=== PATIENT | female | born 1940 | race Caucasian/White ===

== ENCOUNTER 2017-01-29 10:42 | Day surgery (SDC) | payer OTHER ==
[2017-01-09 10:42] VITALS: BMI 27.0
--- NOTE | 2017-01-09 11:26 | PAT Medication Instructions ---
"Service Date Jan 09, 2017. Current Home Medication List Amoxicillin (Amoxil), 500 MG PO DAILY Aspirin (Aspirin Ec), 81 MG PO QAM Atorvastatin (Lipitor), 40 MG PO QPM Baclofen (Baclofen), 10 MG PO BID Bisacodyl (Bisacodyl Laxative), 10 MG RE DAILY PRN for Constipation Docusate Sodium (Colace), 1 CAP PO BID Doxepin Hcl (Doxepin), 75 MG PO HS Famotidine (Pepcid), 20 MG PO BID Furosemide (Lasix), 20 MG PO QAM Insulin Glargine (Lantus), 14 UNITS SC HS Levetiracetam (Keppra), 500 MG PO BID Levothyroxine Sodium (Synthroid), 1 TAB PO QAM Morphine Cont Rel (Ms Contin), 7.5 MG PO Q3 HR Nystatin/Triamcinolone (Mycogen || ), 1 APPLN TOP BID Ondasetron Odt (Zofran Odt), 4 MG SL TID PRN for Nausea or Vomiting Oxygen (Oxygen), 2 LITERS NA PRN PRN for Shortness of Breath Potassium Chloride (Micro-K Ext Rel), 20 MEQ PO QAM Probiotic Product (Probiotic), 1 CAP PO QAM Sennosides-Docusate Sodium (Senokot S), 1 TAB PO DAILY PRN for Constipation Trazodone HCl (Trazodone HCl), 1 TAB PO HS Zoledronic Acid (Reclast), Unknown Dose IV DIRECTED [Inhaler], Unknown Dose Medication Instructions For Your Scheduled Surgery - Hold the following medications per surgeon's instructions: Aspirin (Aspirin Ec), 81 MG PO QAM - Hold the following medications 24 hours prior to surgery: Nystatin/Triamcinolone (Mycogen || ), 1 APPLN TOP BID - Hold the following medications the morning of surgery: Baclofen (Baclofen), 10 MG PO BID Bisacodyl (Bisacodyl Laxative), 10 MG RE DAILY PRN for Constipation Furosemide (Lasix), 20 MG PO QAM Docusate Sodium (Colace), 1 CAP PO BID Potassium Chloride (Micro-K Ext Rel), 20 MEQ PO QAM Probiotic Product (Probiotic), 1 CAP PO QAM Sennosides-Docusate Sodium (Senokot S), 1 TAB PO DAILY PRN for Constipation - Take the following medications the morning of surgery with a sip of water OTHERWISE NOTHING TO EAT OR DRINK AFTER MIDNIGHT: Levetiracetam (Keppra), 500 MG PO BID Amoxicillin (Amoxil), 500 MG PO DAILY [Inhaler], Unknown Dose (use if needed; BRING TO HOSPITAL) Levothyroxine Sodium (Synthroid), 1 TAB PO QAM Ondasetron Odt (Zofran Odt), 4 MG SL TID PRN for Nausea or Vomiting Famotidine (Pepcid), 20 MG PO BID Morphine Cont Rel (Ms Contin), 7.5 MG PO Q3 HR (may take if needed up to 4 hours prior to surgery) - Take the following medications as scheduled the night before surgery: Insulin Glargine (Lantus), 14 UNITS SC HS (pt states advised by surgeon to take half of regular dose evening prior to surgery) Levetiracetam (Keppra), 500 MG PO BID Atorvastatin (Lipitor), 40 MG PO QPM Baclofen (Baclofen), 10 MG PO BID Docusate Sodium (Colace), 1 CAP PO BID [Inhaler], Unknown Dose Ondasetron Odt (Zofran Odt), 4 MG SL TID PRN for Nausea or Vomiting Famotidine (Pepcid), 20 MG PO BID Doxepin Hcl (Doxepin), 75 MG PO HS Trazodone HCl (Trazodone HCl), 1 TAB PO HS Morphine Cont Rel (Ms Contin), 7.5 MG PO Q3 HR If you have any questions please call us at [phone] or [phone] or [phone]"
[2017-01-09 11:51] LABS: BASO % 0.2 %; BASO ABS # 0.03 K/uL (0-0.2); COMPLETE YES; EOS % 1.7 %; HEMATOCRIT 39.4 % (37-47); IG% 0.5 %; LYMPH % 21.6 %; LYMPH ABS # 2.87 K/uL (1.2-3.4); MEAN CELL VOLUME 94.5 fL (80-100); MEAN CORPUSCULAR HEMOGLOBIN 32.6 pg (25-34); MEAN CORPUSCULAR HGB CONC 34.5 g/dl (32-36); MONO % 8.7 %; NEUT % 67.3 %; PLATELET COUNT 422 K/uL (130-400); RED BLOOD COUNT 4.17 M/uL (4.2-5.4); WHITE BLOOD COUNT 13.28 K/uL (4.8-10.8)
[2017-01-09 12:10] LABS: URINE APPEARANCE CLEAR (CLEAR); URINE BILIRUBIN NEG (NEG); URINE COLOR YELLOW; URINE NITRITE NEG (NEG); URINE SPECIFIC GRAVITY 1.001 (1.000-1.030); UROBILINOGEN NEG (NEG)
[2017-01-09 12:14] LABS: MANUAL MICROSCOPIC REQUIRED? NO; REVIEW REQ? YES
[2017-01-09 12:14] LABS: BUN/CREATININE RATIO 31.4 (10-20); CALCIUM 8.9 mg/dl (8.5-10.1); CREATININE 0.57 mg/dl (0.60-1.20); POTASSIUM 3.4 mmol/L (3.5-5.1)
--- NOTE | 2017-01-09 13:27 | DIAGNOSTIC IMAGING REPORT ---
CHEST PREADMISSION(PA/LAT) CLINICAL HISTORY: Preoperative evaluation. Recent pneumonia. COMPARISON STUDY: Chest CT October 30, 2016 and chest radiograph November 08, 2016 FINDINGS: A cervicothoracic fusion is incidentally noted. Wedge deformities of several vertebral bodies are unchanged. There is no evidence of pulmonary edema. Cardiomediastinal silhouette is stable. Mild opacity along the left heart border likely reflects epicardial fat pad and atelectasis. Left lower lobe opacity shown on exam of November 08, 2016 has resolved. There are old bilateral rib fractures. IMPRESSION: No acute findings. Interval resolution of left lower lobe pneumonia shown on prior exam. Electronically signed by: Sanya Britton M.D. 01/09/2017 1:25 PM Dictated Date/Time: 01/09/2017 1:23 PM
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
[~2017-01-29] VITALS: Ht 147.3 cm; Wt 59.1 kg
[~2017-01-29 10:42] MED LIST: AMOX500C3 PO; ASPI81TA28 PO; BISA1SUP4 RE; CEFAZOLIN 2000 MG/60 ML D5W IV SCH; DOCU-94 PO; DSY/150 PO; DXP/75 PO; FAMO20TA11 PO; FURO-85 PO; INHALER; INSDGI SC; LACTATED RINGER'S 1000ML 1,000 ML IV SCH; LEVE250T PO; LEVO25TA PO; LPT/40 PO; LRS20 PO; MISCCAP80 PO; MORP15TA19 PO; NYSTCRE11 TOP; ONDA4TAB10 SL; OXGN; POTA10CA28 PO; SENN8.6T7 PO; ZOLE5INJ IV
--- NOTE | 2017-01-29 11:24 | History & Physical Bridge Note ---
H&P Re-Evaluation Bridge Note: I have examined the patient, reviewed the History & Physical and in the interval since the performance of the History & Physical I have noted the following changes of clinical significance: No changes noted
[2017-01-29 11:33] VITALS: BP 143/70; PULSE 93; TEMP 37.6; O2SAT 93; Ht 147.3 cm; Wt 59.1 kg
[2017-01-29 11:57] LABS: BUN/CREATININE RATIO 22.6 (10-20); CALCIUM 9.2 mg/dl (8.5-10.1); CREATININE 0.53 mg/dl (0.60-1.20); POTASSIUM 4.1 mmol/L (3.5-5.1)
[2017-01-29] MEDS ORDERED: LIDOCAINE HCL 2% 2 ML VIAL (20MG/ML) ONE (12:27)
[2017-01-29] MEDS ORDERED: MIDAZOLAM HCL 1 MG/ML 2ML VIAL ONE (12:27)
[2017-01-29] MEDS ORDERED: FENTANYL CITRATE INJ 50 MCG/1 ML 2 ML VIAL ONE ×3 (12:27→13:55)
[2017-01-29] MEDS ORDERED: PROPOFOL IV EMULSION 10 MG/ML 20 ML VIAL IV ONE ×2 (12:27→13:17)
[2017-01-29] MEDS ORDERED: LIDOCAINE HCL 2% LOCAL 50ML VIAL ONE (12:37)
[2017-01-29] MEDS ORDERED: ONDANSETRON INJ 2 MG/ML 2 ML VIAL IV PRN (13:15)
[2017-01-29] MEDS ORDERED: ATROPINE SULFATE 0.1 MG/ML 5ML SYR IV PRN (13:15)
[2017-01-29] MEDS ORDERED: EpHEDrine SULFATE INJ 50 MG/ML AMP IV PRN (13:15)
--- NOTE | 2017-01-29 13:53 | [facility] Operative Report ---
Operative Report Operative Date Jan 29, 2017. 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 Trans- sacrococcygeal ligament approach. Surgeon Dr. Marvin Cervantes Small Engine Technician Surgeon(s) None Estimated Blood Loss 0ml Findings See below Specimens none per surgeon Dr. Marvin Cervantes Drains none Anesthesia monitored anesthesia care Complication(s) None Disposition Recovery Room / PACU Description of Procedure RADIOFREQUENCY ABLATION GANGLION IMPAR (BIPOLAR) Diagnosis: Chronic neuropathic perineal/perirectal pain. Side/Level injected: Transfer sacrococcygeal ligament. Surgeon: Dr. Cervantes Prior to starting, the Patients diagnosis and the procedure were reviewed with the patient in detail. Possible risks and complications including infection, bleeding, damage to surrounding structures and increased pain were discussed. Alternative therapies were also reviewed. Patients questions were answered and they agreed to proceed. Informed consent was obtained. Allergies and medication list was reviewed. The patient was brought to the procedure room and placed in prone position. Immediately prior to starting the procedure, a time out was conducted with the staff and the patient where the patient was identified, proposed procedure was verified, consent was reviewed and the proper site for the planned procedure was identified. Monitors used included intermittent blood pressure with automated device, continuous pulse oximetry and level of consciousness. Patient was not given any intravenous sedation and constant verbal contact was maintained throughout the procedure. Biplanar fluoroscopy was used to assist in placement of the needle as well as to evaluate final needle position prior to the injection. On examination, no signs of skin breakdown or infection were noted at the injection site. The site was cleansed with DuraPrep followed by Betadine. Sterile drapes were applied. A true AP view of the sacrococcygeal ligament was obtained. 3 mL of 1% lidocaine was infiltrated in the skin and subcutaneous tissues. A 18 G, 100 mm [employer] cannula with 10 mm curved active tip was passed through the center of sacrococcygeal ligament in AP and then in lateral views so that the active tip was just through the anterior aspect of the ligament. Once cc of Isovue-M 300 contrast injected. Aspiration of needle was negative for blood, air or CSF. Next, a second cannula was placed in similar fashion approximately 2 mm left of the previous cannula. 2ml ofl 2% Xylocaine MPF was injected for anesthesia. Radio-frequency treatment was carried out for 100 seconds with the ramp rate of 30 seconds and temperature of 90 degrees Celsius. At the conclusion of the procedure, the cannulas were removed. Adequate hemostasis was noted. Sterile Band-Aids were applied over the needle sites. Patient tolerated the procedure uneventfully without complications. Patient was brought to recovery room. I attest to the content of the Intraoperative Record and any orders documented therein. Any exceptions are noted below.
--- NOTE | 2017-01-29 14:11 | Anesthesiology Progress Note ---
Anesthesia Post Op Note Date & Time Jan 29, 2017 at 14:11 Vital Signs Vital Signs Past 12 Hours Date Time Temp Pulse Resp B/P Pulse Ox O2 Delivery O2 Flow Rate FiO2 01/29/17 11:33 37.6 93 18 143/70 93 Room Air Notes Mental Status: alert / awake / arousable, participated in evaluation Pt Amnestic to Procedure: Yes Nausea / Vomiting: adequately controlled Pain: adequately controlled Airway Patency, RR, SpO2: stable & adequate BP & HR: stable & adequate Hydration State: stable & adequate Anesthetic Complications: no major complications apparent
[2017-01-29] MEDS: FENTANYL CITRATE INJ 50 MCG/1 ML 2 ML VIAL IV PRN ×4 (14:20→14:35)
--- NOTE | 2017-01-29 14:23 | Discharge Instructions ---
Discharge Instructions Visit Reason for Visit: Chronic Intractable Perirectal Pain Of Neuropathic Discharge Goals Goal(s): Decrease discomfort, Improve function Activity Recommendations Activity Recommendations: No Limitations Lifting Limitations: none May Resume Sexual Activity: when tolerated Anesthesia . Post Anesthesia Instructions: If you have had General Anesthesia or IV Sedation: * Do not drive today. * Resume driving when surgeon permits. * Do not make important decisions or sign legal documents today. * Call surgeon for: * Temperature elevations greater than 101 degrees F. * Uncontrollable pain. * Excessive bleeding. * Persistent nausea and vomiting. * Medication intolerance (nausea, vomiting or rash). * For nausea and vomiting use only clear liquids such as: tea, soda, bouillon until nausea subsides, then gradually increase diet as tolerated. * If you have any concerns or questions, call your surgeon's office. If physician is unavailable and it is an emergency, call 911 or go to the nearest emergency room. . Instructions Instructions / Follow-Up . * Change dressings daily. Apply sterile dry gauze. * Call [facility] [phone] or go to the nearest emergency room if he experience high fevers, new back pain, new neurological symptoms such as numbness or weakness in the lower extremity or new bowel bladder incontinence. Also of call if he experience a headache that is positional. * Wear abdominal binder. * No showers for 3 days. * Resume normal activity. No repetitive bending, twisting or reaching overhead for 2 weeks. Do not lift more than 5 pounds for 2 weeks. . Diet Recommendations Home Diet: resume previous diet Procedures Procedures Performed: Ganglion Impar Radiofrequency Ablation Pending Studies Studies pending at discharge: no Medical Emergencies . Who to Call and When: Medical Emergencies: If at any time you feel your situation is an emergency, please call 911 immediately. . Non-Emergent Contact . . "Provider Documentation" section prepared by Marvin Cervantes.
[2017-01-29 15:00] VITALS: BP 148/77; PULSE 92; TEMP 37; O2SAT 97
[2017-01-29 15:30] VITALS: BP 132/79; PULSE 98; TEMP 36.5; O2SAT 100
[2017-01-29 16:00] VITALS: BP 156/80; PULSE 102; TEMP 37; O2SAT 99
[2017-03-18] MEDS ORDERED: LORA-741 PO (13:44)
[2017-04-01] MEDS ORDERED: DRGTP50 TOP (10:53)
[2017-05-16] MEDS ORDERED: Exalgo (11:15)
[2017-06-24] MEDS ORDERED: AMOX500C3 PO (16:04)
[2017-06-24] MEDS ORDERED: CIPR1TAB11 PO (16:04)
[2017-06-24] MEDS ORDERED: MRLP17 PO (16:04)
[2017-06-24] MEDS ORDERED: DFL100 PO (16:04)
[2017-06-24] MEDS ORDERED: SNK PO (16:04)
[2017-06-24] MEDS ORDERED: DLD2 PO (16:04)
[2017-06-24] MEDS ORDERED: LEVO50TA PO (16:04)
[2017-06-24] MEDS ORDERED: NVLGIPEN SC (16:04)
[2017-06-24] MEDS ORDERED: CLIN150C PO (16:04)
[2017-07-01] MEDS ORDERED: QUET1TAB32 PO (08:10)
[2017-07-01] MEDS ORDERED: LORA-741 PO (08:10)
[2017-07-01] MEDS ORDERED: ATOR-24 PO (08:10)
[2017-07-01] MEDS ORDERED: HYDR2TAB48 PO (08:10)
[2017-07-01] MEDS ORDERED: ZOLP5TAB6 PO (08:10)
[2017-07-01] MEDS ORDERED: CYM/30 PO (08:10)
[2017-09-03] MEDS ORDERED: CIPR1TAB11 PO (07:41)
[2017-09-03] MEDS ORDERED: CLIN1CAP51 PO (07:41)
[2017-09-03] MEDS ORDERED: AMOX500C3 PO (07:41)
== END 2017-01-29 16:35 | disposition home or self-care (01) ==
LOC: C.ACU 10:42
PROVIDERS: ATTEND Anesthesiology
DX: K62.89 Other specified diseases of anus and rectum (principal); G89.29 Other chronic pain; G82.20 Paraplegia, unspecified; E03.9 Hypothyroidism, unspecified; E11.22 Type 2 diabetes mellitus with diabetic chronic kidney disease; N18.9 Chronic kidney disease, unspecified; K21.9 Gastro-esophageal reflux disease without esophagitis; M19.90 Unspecified osteoarthritis, unspecified site; J45.909 Unspecified asthma, uncomplicated; F32.9 Major depressive disorder, single episode, unspecified; Z88.2 Allergy status to sulfonamides; Z85.828 Personal history of other malignant neoplasm of skin; Z87.891 Personal history of nicotine dependence; Z79.4 Long term (current) use of insulin; Z79.82 Long term (current) use of aspirin; Z79.899 Other long term (current) drug therapy; Z90.89 Acquired absence of other organs; Z90.49 Acquired absence of other specified parts of digestive tract; Z90.710 Acquired absence of both cervix and uterus; Z98.890 Other specified postprocedural states

== ENCOUNTER 2017-02-06 15:12 | Emergency (ER) | payer OTHER ==
[~2017-02-06] VITALS: Ht 147.3 cm; Wt 60.0 kg
[~2017-02-06 15:12] MED LIST changes: -CEFAZOLIN 2000 MG/60 ML D5W IV SCH; -INHALER; -LACTATED RINGER'S 1000ML 1,000 ML IV SCH; -LEVE250T PO
[2017-02-06 15:24] VITALS: Ht 147.3 cm; Wt 60.0 kg
[2017-02-06 15:29] VITALS: O2SAT 99
[2017-02-06] MEDS ORDERED: HYDROmorphone INJ 1 MG/ML SYR IV PRN (16:00)
[2017-02-06 16:29] LABS: BASO % 0.5 %; BASO ABS # 0.07 K/uL (0-0.2); COMPLETE YES; EOS % 1.2 %; HEMATOCRIT 39.5 % (37-47); IG% 0.3 %; LYMPH % 20.1 %; LYMPH ABS # 2.92 K/uL (1.2-3.4); MEAN CELL VOLUME 92.5 fL (80-100); MEAN CORPUSCULAR HEMOGLOBIN 31.4 pg (25-34); MEAN CORPUSCULAR HGB CONC 33.9 g/dl (32-36); MEAN PLATELET VOLUME 11.5 fL (7.4-10.4); MONO % 8.3 %; NEUT % 69.6 %; PLATELET COUNT 514 K/uL (130-400); RED BLOOD COUNT 4.27 M/uL (4.2-5.4); WHITE BLOOD COUNT 14.52 K/uL (4.8-10.8)
[2017-02-06] MEDS ORDERED: CIPR1TAB11 PO (16:37)
[2017-02-06] MEDS ORDERED: CLIN150C PO (16:39)
[2017-02-06] MEDS ORDERED: LEVE250T PO (16:44)
--- NOTE | 2017-02-06 16:45 | DIAGNOSTIC IMAGING REPORT ---
KUB CLINICAL HISTORY: perirectal surgery ?obstructed pain. Obstruction. COMPARISON STUDY: 04/14/2016 FINDINGS: Apparent interval fracture intertrochanteric region right hip. Age is unclear although was not present on the prior study. Bowel pattern is nonobstructive. There is a mild increase in fecal load descending colon. There is no true fecal impaction. IMPRESSION: 1. No evidence of bowel obstruction. 2. Intertrochanteric fracture right hip not definitively seen in the prior study. This may be subacute in nature , although an acute component is not excluded. Electronically signed by: Jas Nicole M.D. 02/06/2017 4:44 PM Dictated Date/Time: 02/06/2017 4:42 PM
[2017-02-06] MEDS ORDERED: OMEP40CA41 PO (16:47)
[2017-02-06 16:58] LABS: BUN/CREATININE RATIO 18.6 (10-20); CALCIUM 8.8 mg/dl (8.5-10.1); CREATININE 0.49 mg/dl (0.60-1.20); POTASSIUM 3.3 mmol/L (3.5-5.1)
[2017-02-06 17:01] LABS: ALB/GLOB RATIO 0.9 (0.9-2)
[2017-02-06] MEDS ORDERED: HYDROmorphone INJ 1 MG/ML SYR IV STA ×3 (17:40→21:13)
--- NOTE | 2017-02-06 18:03 | EMERGENCY ROOM VISIT NOTE ---
History First contact with patient: 15:47 (Gertrudis Staton MD) First contact with patient: 15:17 (Paul Montgomery, D.O.) Chief Complaint: SHORTNESS OF BREATH Stated Complaint: SOB, RECTAL PAIN Nursing Triage Summary: Pt to ED via ALS. Pt reports SOB for 1.5 weeks. At baseline wears 2LNC HS and PRN. States she has been wearing it nonstop for 1.5 weeks. Also reports rectal pain since procedure done 8 days ago. Hx paralyzed breast down, WADE. (Gertrudis Staton MD) History of Present Illness The patient is a 76 year old paraplegic female who presents to the Emergency Room with complaints of persistent rectal pain. She had a radiofrequency ablation of rectal ganglion procedure done [address] Cervantes. She said it initially provided some relief, but 3 days ago she developed persistent lower rectal pain. She reports she hasn't started passing stool. Patient is passing gas, and feels her pain is more localized from the rectum as opposed to her abdomen. She has been taking morphine 7.5 mg 3 times a day and does not feel this is helping her symptoms. She also has a urinary catheter and has a history of frequent UTIs.She did initially report feeling short of breath but feels this is due to being in severe pain. Her saturations have been 98% on room air, but she asked for oxygen for comfort. She denies any fevers, nausea, or vomiting. She lives at home with her who takes care of her and has home health aides who come in daily as well. (Gertrudis Staton MD) Review of Systems See HPI for pertinent positives & negatives. A total of 10 systems reviewed and were otherwise negative. (Gertrudis Staton MD) Past Medical/Surgical History Medical Problems: (1) Acetaminophen overdose (2) Chest pain (3) Gall bladder disease (4) Hip fracture (5) indwelling catheter and recurrence UTI (6) indwelling catheter and recurrence UTI (7) Left lower lobe pneumonia (8) Paralysis of both lower limbs (9) Rectal pain, chronic (10) UTI (urinary tract infection) (11) uti possible sepsis, consipation (Paul Montgomery, D.O.) Family History Patient reports no known family medical history. (Gertrudis Staton MD) Patient reports no known family medical history. (Paul Montgomery, D.ONita) Social History Smoking Status: Former Smoker Alcohol Use: none Drug Use: none Marital Status: Housing Status: lives with family Occupation Status: disabled (Gertrudis Staton MD) Current/Historical Medications Scheduled Amoxicillin (Amoxil), 500 MG PO DAILY Aspirin (Aspirin Ec), 81 MG PO QAM Atorvastatin (Lipitor), 40 MG PO QPM Baclofen (Baclofen), 10 MG PO BID Ciprofloxacin Tab (Cipro), 250 MG PO DAILY Clindamycin Hcl (Cleocin), 150 MG PO DAILY Docusate Sodium (Colace), 1 CAP PO BID Doxepin Hcl (Doxepin), 75 MG PO HS Famotidine (Pepcid), 20 MG PO BID Furosemide (Lasix), 20 MG PO QAM Insulin Glargine (Lantus), 14 UNITS SC HS Levetiracetam (Keppra), 500 MG PO BID Levothyroxine Sodium (Synthroid), 1 TAB PO QAM Morphine Cont Rel (Ms Contin), 7.5 MG PO Q3 HR Nystatin/Triamcinolone (Mycogen || ), 1 APPLN TOP BID Omeprazole (Prilosec), 40 MG PO DAILY Potassium Chloride (Micro-K Ext Rel), 20 MEQ PO BID Trazodone HCl (Trazodone HCl), 1 TAB PO HS Scheduled PRN Bisacodyl (Bisacodyl Laxative), 10 MG RE DAILY PRN for Constipation Ondasetron Odt (Zofran Odt), 4 MG SL TID PRN for Nausea or Vomiting Oxygen (Oxygen), 2 LITERS NA PRN PRN for Shortness of Breath Sennosides-Docusate Sodium (Senokot S), 1 TAB PO BID PRN for Constipation Allergies Coded Allergies: Ketorolac (Verified Allergy, Severe, see comment, 02/06/17) Patient reports " i about " when asked about reaction JET Inhibitors (Verified Allergy, Intermediate, ELEVATES CREATININE, ) Sulfa Antibiotics (Verified Adverse Reaction, Intermediate, NAUSEATED, 02/06) Physical Exam Vital Signs Date Time Temp Pulse Resp B/P Pulse Ox O2 Delivery O2 Flow Rate FiO2 02/06/17 21:29 95 20 150/84 97 02/06/17 19:45 36.6 110 18 110/70 100 Nasal Cannula 2.0 02/06/17 17:46 95 16 105/68 98 Nasal Cannula 2.0 02/06/17 16:16 75 02/06/17 15:29 99 Nasal Cannula 02/06/17 15:24 36.6 91 19 158/62 99 Room Air 02/06/17 15:24 98 Room Air (Paul Montgomery, D.Jo-Ann) Physical Exam GENERAL: Awake, alert, mild distress. HENT: Normocephalic, atraumatic. Oropharynx unremarkable. EYES: Normal conjunctiva. Sclera non-icteric. NECK: Supple. No nuchal rigidity. FROM. No JVD. RESPIRATORY: Clear to auscultation. CARDIAC: Regular rate, normal rhythm. Extremities warm and well perfused. Pulses equal. ABDOMEN: Soft, non-distended. No tenderness to palpation. No rebound or guarding. No masses. RECTAL: Completed with nurse Reyna present and verbal consent from patient. Small amounts of soft stool in rectum. Guaic negative. MUSCULOSKELETAL: Chest examination reveals no tenderness.Legs have bilateral muscle wasting and are flexed in contracted state. LOWER EXTREMITIES: Calves are equal size bilaterally and non-tender. No edema. No discoloration. NEURO: Normal sensorium. No sensory or motor deficits noted. SKIN: No rash or jaundice noted. (Gertrudis Staton MD) Medical Decision & Procedures ER Provider Diagnostic Interpretation: KUB CLINICAL HISTORY: perirectal surgery ?obstructed pain. Obstruction. COMPARISON STUDY: 04/14/2016 FINDINGS: Apparent interval fracture intertrochanteric region right hip. Age is unclear although was not present on the prior study. Bowel pattern is nonobstructive. There is a mild increase in fecal load descending colon. There is no true fecal impaction. IMPRESSION: 1. No evidence of bowel obstruction. 2. Intertrochanteric fracture right hip not definitively seen in the prior study. This may be subacute in nature , although an acute component is not excluded. CT SCAN OF THE RIGHT HIP WITHOUT IV CONTRAST CLINICAL HISTORY: Intertrochanteric fracture. COMPARISON STUDY: KUB dated 02/06/2017. Pelvic CT dated 10/30/2016. Radiographs of the right hip dated 05/03/2016. TECHNIQUE: CT scan of the left hip is performed from the bony pelvis to the femoral diaphysis. Images were reviewed in the axial, sagittal, and coronal planes. IV contrast was not administered for this examination. CT DOSE: 531.41 mGy.cm FINDINGS: The skeletal structures are osteopenic. There is a chronic intertrochanteric fracture of the right femur. This was acute by radiograph on 05/03/2016. There is extensive bony bridging and heterotopic bone formation around the fracture. There is partial nonfusion of several corticated-appearing fragments. There is persistent offset of the fragments, with mild angulation. Developing pseudoarthrosis is suspected. No definite acute fracture is identified. There is soft tissue induration around the fracture site, similar to the 10/30/2016 examination. No organized hematoma is seen. There are healed right pubic ring fractures. The visualized right hemipelvis is otherwise intact. Only mild arthritic changes seen in the hip joint. The regional musculature is atrophic. Atherosclerotic calcification is noted in the right femoral artery. The bladder is decompressed around a Wade catheter. Diverticula are noted in the partially imaged sigmoid colon. There is rectosigmoid fecal impaction. No right pelvic sidewall or inguinal lymphadenopathy is seen. IMPRESSION: 1. There is a chronic intertrochanteric fracture of the right femur with persistent angulation, offset of the largest fragments, and nonunion of several fragments. Developing pseudoarthrosis is suspected, and the appearance is similar to the 10/30/2016 CT scan. Nonemergent orthopedic follow-up is recommended. 2. No acute fracture is clearly identified. 3. Additional changes as above. (Gertrudis Staton MD) Laboratory Results 02/06/17 16:15 Red Blood Count 4.27, Mean Corpuscular Volume 92.5, Mean Corpuscular Hemoglobin 31.4, Mean Corpuscular Hemoglobin Concent 33.9, Mean Platelet Volume 11.5, Neutrophils (%) (Auto) 69.6, Lymphocytes (%) (Auto) 20.1, Monocytes (%) (Auto) 8.3, Eosinophils (%) (Auto) 1.2, Basophils (%) (Auto) 0.5, Neutrophils # (Auto) 10.11, Lymphocytes # (Auto) 2.92, Monocytes # (Auto) 1.20, Eosinophils # (Auto) 0.17, Basophils # (Auto) 0.07 02/06/17 16:15 Test 02/06/17 16:15 White Blood Count 14.52 K/uL (4.8-10.8) Red Blood Count 4.27 M/uL (4.2-5.4) Hemoglobin 13.4 g/dL (12.0-16.0) Hematocrit 39.5 % (37-47) Mean Corpuscular Volume 92.5 fL (80-100) Mean Corpuscular Hemoglobin 31.4 pg (25-34) Mean Corpuscular Hemoglobin Concent 33.9 g/dl (32-36) Platelet Count 514 K/uL (130-400) Mean Platelet Volume 11.5 fL (7.4-10.4) Neutrophils (%) (Auto) 69.6 % Lymphocytes (%) (Auto) 20.1 % Monocytes (%) (Auto) 8.3 % Eosinophils (%) (Auto) 1.2 % Basophils (%) (Auto) 0.5 % Neutrophils # (Auto) 10.11 K/uL (1.4-6.5) Lymphocytes # (Auto) 2.92 K/uL (1.2-3.4) Monocytes # (Auto) 1.20 K/uL (0.11-0.59) Eosinophils # (Auto) 0.17 K/uL (0-0.5) Basophils # (Auto) 0.07 K/uL (0-0.2) RDW Standard Deviation 51.6 fL (36.4-46.3) RDW Coefficient of Variation 15.6 % (11.5-14.5) Immature Granulocyte % (Auto) 0.3 % Immature Granulocyte # (Auto) 0.05 K/uL (0.00-0.02) Anion Gap 11.0 mmol/L (3-11) Est Creatinine Clear Calc Drug Dose 73.7 ml/min Estimated GFR () 108.9 Estimated GFR (Non- 94.0 BUN/Creatinine Ratio 18.6 (10-20) Calcium Level 8.8 mg/dl (8.5-10.1) Total Bilirubin 0.3 mg/dl (0.2-1) Aspartate Amino Transf (AST/SGOT) 23 U/L (15-37) Alanine Aminotransferase (ALT/SGPT) 26 U/L (12-78) Alkaline Phosphatase 201 U/L (45-117) Total Protein 6.9 gm/dl (6.4-8.2) Albumin 3.2 gm/dl (3.4-5.0) Globulin 3.7 gm/dl (2.5-4.0) Albumin/Globulin Ratio 0.9 (0.9-2) (Paul Montgomery, D.O.) Medications Administered Medications (Trade) Dose Ordered Sig/Karen Route Start Time Stop Time Status Last Admin Dose Admin Hydromorphone HCl (Dilaudid Inj) 1 mg NOW PRN IV 02/06/17 16:00 02/06/17 21:48 DC 02/06/17 16:21 1 MG Hydromorphone HCl (Dilaudid Inj) 1 mg NOW STAT IV 02/06/17 17:40 02/06/17 17:41 DC 02/06/17 17:46 1 MG Hydromorphone HCl (Dilaudid Inj) 1 mg NOW STAT IV 02/06/17 19:34 02/06/17 19:35 DC 02/06/17 19:41 1 MG Hydromorphone HCl (Dilaudid Inj) 1 mg NOW STAT IV 02/06/17 21:13 02/06/17 21:14 DC 02/06/17 21:21 1 MG (Paul Montgomery, D.O.) ED Course 15:59: I evaluated the patient in room C11. A complete history and physical examination were performed. 16:00: I ordered a CBC, CMP, KUB, and 1mg Dilaudid IV. 17:40: The patient still had persistent pain. I ordered another 1mg Dilaudid IV. 18:22: Her KUB returned and mentioned a potentially new intratrochanteric hip fracture. I ordered a CT Hip without IV contrast to evaluate this. 18:50: I discussed the patient with [place]. [place] [facility] [facility] [facility] that she would be admitted for intractable pain . 20:00: The patients CT scan returned, and the hip fracture was found to be old. The patients pain had decreased from a 10 to an 8, which was acceptable for her. We had an extensive discussion with if she felt safe to go home, and she did, so she was discharged home by wheelchair van in good condition. She was not given any prescriptions and advised to follow up with her PCP and Dr Cervantes within the week. (Gertrudis Staton MD) Medical Decision This is a 76 yo paraplegic female with persistent neuropathic rectal pain who presents 8 days after a radiofrequency ablation of a rectal ganglion, with persistent rectal pain. Differential includes: bowel obstruction, rectal injury , rectal prolapse, hernia, musculoskeletal. She had an IV placed and labs drawn. She had a mild leukocytosis but no focal findings of infection. She had a KUB, which was negative for bowel obstruction, but showed a potentially new hip fracture. She had a CT of this area completed which showed the fracture was old. She reports she fell onto her hip a year ago, which could be the cause of this. Her pain was difficult to control initially and required multiple doses of dilaudid, but then it started to improve. After reviewd by Dr. Govea, it was deemed safe for her to be discharged home as she has home health aides who can monitor her. She agreed with this plan and anticipatory guidance of when to return to the ED. She will follow up with Dr. Cervantes this week. She was discharged home in good condition. (Gertrudis Staton MD) Resident Physician Supervision Note: Dr. Staton was resident physician during care of patient. I separately evaluated patient and did history and exam. I discussed the case with the resident and generally agree with the findings and plan. Patient initially seen for rectal pain following radioablation of her lumbar plexus. After plain film to exclude free air, there was report of interval development of a femoral neck fracture. A CT scan was ordered, and the treatment plan was to admit the patient to the hospitalist service for further management of the fracture by orthopedics. Reason for the hospitalist and admission was due to medical complexity. 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 Documented By: Paul Montgomery DO (Paul Montgomery, D.O.) Impression Primary Impression: Rectal pain, chronic Departure Information Dispostion Home / Self-Care Condition GOOD Forms HOME CARE DOCUMENTATION FORM, IMPORTANT VISIT INFORMATION Patient Instructions [employer] Additional Instructions Follow up with the pain clinic within 1 week. Follow up with your PCP within 1 week as well. If you develop any further abdominal issues including persistent nausea, diarrhea, vomiting, or have fevers, chest pain or shortness of breath please seek medical attention or return to the ED. Take the morphine you have at home as prescribed. Resident Tracking Resident Involvement: Resident Care Provided Care Provided: Adult ED (Gertrudis Staton MD) Resident Involvement: Resident Care Provided Care Provided: Adult ED (Paul Montgomery D.O.)
[2017-02-06 19:45] VITALS: TEMP 36.6
--- NOTE | 2017-02-06 20:00 | DIAGNOSTIC IMAGING REPORT ---
CT SCAN OF THE RIGHT HIP WITHOUT IV CONTRAST CLINICAL HISTORY: Intertrochanteric fracture. COMPARISON STUDY: KUB dated 02/06/2017. Pelvic CT dated 10/30/2016. Radiographs of the right hip dated 05/03/2016. TECHNIQUE: CT scan of the left hip is performed from the bony pelvis to the femoral diaphysis. Images were reviewed in the axial, sagittal, and coronal planes. IV contrast was not administered for this examination. CT DOSE: 531.41 mGy.cm FINDINGS: The skeletal structures are osteopenic. There is a chronic intertrochanteric fracture of the right femur. This was acute by radiograph on 05/03/2016. There is extensive bony bridging and heterotopic bone formation around the fracture. There is partial nonfusion of several corticated-appearing fragments. There is persistent offset of the fragments, with mild angulation. Developing pseudoarthrosis is suspected. No definite acute fracture is identified. There is soft tissue induration around the fracture site, similar to the 10/30/2016 examination. No organized hematoma is seen. There are healed right pubic ring fractures. The visualized right hemipelvis is otherwise intact. Only mild arthritic changes seen in the hip joint. The regional musculature is atrophic. Atherosclerotic calcification is noted in the right femoral artery. The bladder is decompressed around a Simons catheter. Diverticula are noted in the partially imaged sigmoid colon. There is rectosigmoid fecal impaction. No right pelvic sidewall or inguinal lymphadenopathy is seen. IMPRESSION: 1. There is a chronic intertrochanteric fracture of the right femur with persistent angulation, offset of the largest fragments, and nonunion of several fragments. Developing pseudoarthrosis is suspected, and the appearance is similar to the 10/30/2016 CT scan. Nonemergent orthopedic follow-up is recommended. 2. No acute fracture is clearly identified. 3. Additional changes as above. Dictated: 02/06/2017 7:02 PM Transcribed: 02/06/2017 7:59 PM [place] Electronically signed by: Marvin Weiner M.D. 02/06/2017 8:11 PM Dictated Date/Time: 02/06/2017 7:02 PM
[2017-02-06] MEDS ORDERED: ACETAMINOPHEN 325 MG TAB PO PRN (20:15)
[2017-02-06] MEDS ORDERED: ONDANSETRON 4MG OD TAB SL PRN (20:15)
[2017-02-06] MEDS ORDERED: MAGNESIUM HYDROXIDE SUSP 30 ML UDC PO PRN (20:15)
[2017-02-06] MEDS ORDERED: DOCUSATE SODIUM/SENNA 50/8.6MG TAB PO PRN (20:15)
[2017-02-06] MEDS ORDERED: MoRPHine SULFATE CR 15 MG TAB (MS CONTIN) PO SCH (20:15)
[2017-02-06] MEDS ORDERED: ONDANSETRON INJ 2 MG/ML 2 ML VIAL IV PRN (20:15)
[2017-02-06] MEDS ORDERED: POLYETHYLENE (MIRALAX) 17 GM PACK PO PRN (20:15)
[2017-02-06] MEDS ORDERED: ALUMINUM/MAGNESIUM/SIMETH (MAALOX MAX) 30 ML UDC PO PRN (20:15)
[2017-02-06] MEDS ORDERED: FAMOTIDINE 20 MG TAB PO SCH (21:00)
[2017-02-06] MEDS ORDERED: POTASSIUM CHLORIDE 10 MEQ TABCR PO SCH (21:00)
[2017-02-06] MEDS ORDERED: LEVETIRACETAM 250 MG TAB PO SCH (21:00)
[2017-02-06] MEDS ORDERED: NYSTATIN/TRIAMCINOLONE CR 15 GM TUBE EXT SCH (21:00)
[2017-02-06] MEDS ORDERED: TRAZODONE HCL PO SCH (21:00)
[2017-02-06] MEDS ORDERED: DOXEPIN HCL 75 MG CAP PO SCH (21:00)
[2017-02-06] MEDS ORDERED: INSULIN GLARGINE SOLOSTAR 100 UNITS/ML 3 ML PEN SC SCH (21:00)
[2017-02-06] MEDS ORDERED: DOCUSATE SODIUM 100 MG CAP PO SCH (21:00)
[2017-02-06] MEDS ORDERED: ATORVASTATIN 20 MG TAB PO SCH (21:00)
[2017-02-06] MEDS ORDERED: BACLOFEN TAB 20 MG TAB PO SCH (21:00)
[2017-02-06 21:29] VITALS: BP 150/84; PULSE 95; O2SAT 97
[2017-02-07] MEDS ORDERED: LEVOTHYROXINE 25 MCG TAB PO SCH (09:00)
[2017-02-07] MEDS ORDERED: CLINDAMYCIN HCL 150 MG CAP PO SCH (09:00)
[2017-02-07] MEDS ORDERED: AMOXICILLIN 500 MG CAP PO SCH (09:00)
[2017-02-07] MEDS ORDERED: FUROSEMIDE 20 MG TAB PO SCH (09:00)
[2017-02-07] MEDS ORDERED: NON-FORMULARY MEDICATION (Omeprazole (Prilosec) 40 MG) PO SCH (09:00)
[2017-02-07] MEDS ORDERED: ASPIRIN 81 MG ECTAB PO SCH (09:00)
[2017-03-18] MEDS ORDERED: LORA-741 PO (13:44)
[2017-04-01] MEDS ORDERED: DRGTP50 TOP (10:53)
[2017-05-16] MEDS ORDERED: Exalgo (11:15)
[2017-06-24] MEDS ORDERED: DLD2 PO (16:04)
[2017-06-24] MEDS ORDERED: NVLGIPEN SC (16:04)
[2017-06-24] MEDS ORDERED: AMOX500C3 PO (16:04)
[2017-06-24] MEDS ORDERED: MRLP17 PO (16:04)
[2017-06-24] MEDS ORDERED: CIPR1TAB11 PO (16:04)
[2017-06-24] MEDS ORDERED: LEVO50TA PO (16:04)
[2017-06-24] MEDS ORDERED: DFL100 PO (16:04)
[2017-06-24] MEDS ORDERED: CLIN150C PO (16:04)
[2017-06-24] MEDS ORDERED: SNK PO (16:04)
[2017-07-01] MEDS ORDERED: HYDR2TAB48 PO (08:10)
[2017-07-01] MEDS ORDERED: ATOR-24 PO (08:10)
[2017-07-01] MEDS ORDERED: QUET1TAB32 PO (08:10)
[2017-07-01] MEDS ORDERED: ZOLP5TAB6 PO (08:10)
[2017-07-01] MEDS ORDERED: LORA-741 PO (08:10)
[2017-07-01] MEDS ORDERED: CYM/30 PO (08:10)
[2017-09-03] MEDS ORDERED: CLIN1CAP51 PO (07:41)
[2017-09-03] MEDS ORDERED: AMOX500C3 PO (07:41)
[2017-09-03] MEDS ORDERED: CIPR1TAB11 PO (07:41)
== END 2017-02-06 21:30 | disposition home or self-care (01) ==
LOC: ENRESERVDT → CANRESERV → ENRESERVTM → EDBD 15:12 → C.EDC 15:14 → CANBEDREQ 20:52 → C.EDC 21:30
DX: K62.89 Other specified diseases of anus and rectum (principal); S72.001A Fracture of unspecified part of neck of right femur, initial encounter for closed fracture; X58.XXXA Exposure to other specified factors, initial encounter; G83.13 Monoplegia of lower limb affecting right nondominant side; G83.14 Monoplegia of lower limb affecting left nondominant side; K82.9 Disease of gallbladder, unspecified; Z87.440 Personal history of urinary (tract) infections; Z87.81 Personal history of (healed) traumatic fracture; Z79.82 Long term (current) use of aspirin; Z79.4 Long term (current) use of insulin; Z79.899 Other long term (current) drug therapy; Z87.891 Personal history of nicotine dependence; Z88.2 Allergy status to sulfonamides; Z88.5 Allergy status to narcotic agent

== ENCOUNTER 2017-02-21 15:04 | Emergency (ER) | payer OTHER ==
[~2017-02-21] VITALS: Ht 147.3 cm; Wt 58.9 kg
[~2017-02-21 15:04] MED LIST changes: +CIPR1TAB11 PO; +CLIN150C PO; +LEVE250T PO; -MISCCAP80 PO; +OMEP40CA41 PO; -ZOLE5INJ IV
[2017-02-21 15:10] VITALS: TEMP 36.8; Ht 147.3 cm; Wt 58.9 kg
[2017-02-21] MEDS ORDERED: MoRPHine SULFATE 4 MG/ML 1 ML CARP\\VIAL IV STA (16:02)
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
[2017-02-21 16:20] LABS: BASO % 0.2 %; BASO ABS # 0.04 K/uL (0-0.2); COMPLETE YES; EOS % 1.2 %; HEMATOCRIT 40.9 % (37-47); IG% 0.4 %; LYMPH % 22.5 %; LYMPH ABS # 3.73 K/uL (1.2-3.4); MEAN CELL VOLUME 89.3 fL (80-100); MEAN CORPUSCULAR HEMOGLOBIN 29.9 pg (25-34); MEAN CORPUSCULAR HGB CONC 33.5 g/dl (32-36); MEAN PLATELET VOLUME 10.9 fL (7.4-10.4); MONO % 7.4 %; NEUT % 68.3 %; PLATELET COUNT 558 K/uL (130-400); RED BLOOD COUNT 4.58 M/uL (4.2-5.4); WHITE BLOOD COUNT 16.56 K/uL (4.8-10.8)
[2017-02-21] MEDS ORDERED: INSDGIPEN SC (16:35)
[2017-02-21] MEDS ORDERED: PHEN-876 PO (16:35)
[2017-02-21 16:36] LABS: ALT/SGPT 37 U/L (12-78); BLOOD UREA NITROGEN 8 mg/dl (7-18); BUN/CREATININE RATIO 14.8 (10-20); CALCIUM 8.8 mg/dl (8.5-10.1); CARBON DIOXIDE 31 mmol/L (21-32); CHLORIDE 94 mmol/L (98-107); CREATININE 0.56 mg/dl (0.60-1.20); GLUCOSE 248 mg/dl (70-99); POTASSIUM 2.8 mmol/L (3.5-5.1); SODIUM 137 mmol/L (136-145)
[2017-02-21 16:39] LABS: ALKALINE PHOSPHATASE 195 U/L (45-117); AST/SGOT 23 U/L (15-37)
[2017-02-21] MEDS ORDERED: POTASSIUM CHLORIDE 10 MEQ TABCR PO STA (16:39)
[2017-02-21] MEDS ORDERED: SODIUM CHLORIDE 0.9% 1000ML 1,000 ML IV STA (16:40)
[2017-02-21] MEDS ORDERED: DLD/2 PO (16:47)
[2017-02-21] MEDS ORDERED: LORAZEPAM 0.5 MG TAB SL STA (16:49)
[2017-02-21] MEDS ORDERED: HYDROmorphone HCL 2 MG TAB PO STA (16:49)
[2017-02-21 18:03] VITALS: BP 132/59; PULSE 91; O2SAT 95
[2017-02-21] MEDS ORDERED: HYDR2TAB48 PO (18:42)
[2017-02-21] MEDS ORDERED: LORA-741 PO (18:44)
[2017-03-18] MEDS ORDERED: LORA-741 PO (13:44)
[2017-04-01] MEDS ORDERED: DRGTP50 TOP (10:53)
[2017-05-16] MEDS ORDERED: Exalgo (11:15)
[2017-06-24] MEDS ORDERED: MRLP17 PO (16:04)
[2017-06-24] MEDS ORDERED: DLD2 PO (16:04)
[2017-06-24] MEDS ORDERED: CIPR1TAB11 PO (16:04)
[2017-06-24] MEDS ORDERED: DFL100 PO (16:04)
[2017-06-24] MEDS ORDERED: NVLGIPEN SC (16:04)
[2017-06-24] MEDS ORDERED: SNK PO (16:04)
[2017-06-24] MEDS ORDERED: LEVO50TA PO (16:04)
[2017-06-24] MEDS ORDERED: CLIN150C PO (16:04)
[2017-06-24] MEDS ORDERED: AMOX500C3 PO (16:04)
[2017-07-01] MEDS ORDERED: QUET1TAB32 PO (08:10)
[2017-07-01] MEDS ORDERED: ATOR-24 PO (08:10)
[2017-07-01] MEDS ORDERED: CYM/30 PO (08:10)
[2017-07-01] MEDS ORDERED: ZOLP5TAB6 PO (08:10)
[2017-07-01] MEDS ORDERED: LORA-741 PO (08:10)
[2017-07-01] MEDS ORDERED: HYDR2TAB48 PO (08:10)
== END 2017-02-21 18:50 | disposition home or self-care (01) ==
LOC: EDBD 15:04 → C.EDB 15:05
DX: K62.89 Other specified diseases of anus and rectum (principal); F41.9 Anxiety disorder, unspecified; K82.9 Disease of gallbladder, unspecified; G83.9 Paralytic syndrome, unspecified; Z87.81 Personal history of (healed) traumatic fracture; Z87.440 Personal history of urinary (tract) infections; Z87.891 Personal history of nicotine dependence; Z79.82 Long term (current) use of aspirin; Z79.4 Long term (current) use of insulin; Z79.899 Other long term (current) drug therapy; Z88.2 Allergy status to sulfonamides; Z88.8 Allergy status to other drugs, medicaments and biological substances

== ENCOUNTER → 2017-03-04 | Outpatient (CLI) | payer OTHER ==
[~2017-03-04] MED LIST changes: +ACET-1256 PO; +ALBUAER INH; +AMX500 PO; +ATOR-24 PO; +BACL10TA PO; +BISA10SU3 PR; +BOAS PR; +CEFD300C2 PO; +CEFD300C3 PO; +CEFT1INJ6 IV; +CLIN1CAP51 PO; +CYM/30 PO; +CYM60 PO; +DFL100 PO; +DLD/2 PO; +DOCU100C31 PO; +DRGTP50 TOP; +DULO60CA44 PO; +Exalgo; +GFNSR600 PO; +HYDR2TAB3 PO; +HYDR2TAB48 PO; +INSDGIPEN SC; +INSU100I SC; +IPRASOL4 INH; +LACT1CAP6 PO; +LEVE500T13 PO; +LEVO50TA PO; +LEVO75TA5 PO; +LORA-741 PO; +LUBI8CAP4 PO; +MOMLX PO; -MORP15TA19 PO; +MRLP17 PO; +MULTTAB63 PO; +NVLG SC; +NVLGIPEN SC; +ONDA4TAB46 PO; +PHEN-876 PO; +POLY335019 PO; +POTA-65 PO; +PRLSR20 PO; +PROB1CAP41 PO; +QUET1TAB30 PO; +QUET1TAB32 PO; +SENN-61 PO; +SNK PO; +SODIENE PR; +SRQ25 PO; +SYN50 PO; +ZOLP5TAB PO; +ZOLP5TAB6 PO; +[UNRECOGNIZED DRUG - CODE] PR
[2017-03-04 15:34] LABS: BLOOD UREA NITROGEN 10 mg/dl (7-18); BUN/CREATININE RATIO 16.4 (10-20); CALCIUM 8.9 mg/dl (8.5-10.1); CARBON DIOXIDE 30 mmol/L (21-32); CHLORIDE 96 mmol/L (98-107); CREATININE 0.59 mg/dl (0.60-1.20); GLUCOSE 263 mg/dl (70-99); POTASSIUM 3.4 mmol/L (3.5-5.1); SODIUM 136 mmol/L (136-145)
== END | disposition home or self-care (01) ==
LOC: C.LABBC 12:22
PROVIDERS: ATTEND Physician Assistant
DX: E87.6 Hypokalemia (principal)

== ENCOUNTER → 2017-03-26 | Outpatient (CLI) | payer OTHER ==
[2017-03-26 14:39] LABS: BASO % 0.3 %; BASO ABS # 0.04 K/uL (0-0.2); COMPLETE YES; HEMATOCRIT 41.1 % (37-47); IG% 0.4 %; LYMPH % 23.1 %; LYMPH ABS # 2.81 K/uL (1.2-3.4); MEAN CELL VOLUME 93.4 fL (80-100); MEAN CORPUSCULAR HEMOGLOBIN 30.7 pg (25-34); MEAN CORPUSCULAR HGB CONC 32.8 g/dl (32-36); MEAN PLATELET VOLUME 12.6 fL (7.4-10.4); MONO % 7.7 %; NEUT % 66.5 %; PLATELET COUNT 455 K/uL (130-400); WHITE BLOOD COUNT 12.19 K/uL (4.8-10.8)
[2017-03-26 14:50] LABS: ESTIMATED AVERAGE GLUCOSE 223 mg/dl; HA1C FLAG Normal (Normal)
[2017-03-26 15:18] LABS: BLOOD UREA NITROGEN 10 mg/dl (7-18); CALCIUM 8.8 mg/dl (8.5-10.1); CARBON DIOXIDE 30 mmol/L (21-32); CHLORIDE 98 mmol/L (98-107); CHOLESTEROL 173 mg/dl (0-200); CHOLESTEROL/HDL RATIO 2.5; CREATININE 0.53 mg/dl (0.60-1.20); GLUCOSE 314 mg/dl (70-99); HDL CHOLESTEROL 68 mg/dl; LDL CHOLESTEROL CALCULATED 51 mg/dl; POTASSIUM 3.5 mmol/L (3.5-5.1); SODIUM 135 mmol/L (136-145); TRIGLYCERIDES 270 mg/dl (0-150); VERY LOW DENSITY LIPOPROT CALC 54 mg/dl
[2017-03-26 15:48] LABS: BETA-HYDROXYBUTYRATE 1.43 mg/dL (0.2-2.81)
== END | disposition home or self-care (01) ==
LOC: C.LABBC 11:34
PROVIDERS: ATTEND Internal Medicine Geriatric Medicine
DX: M81.0 Age-related osteoporosis without current pathological fracture (principal); I10 Essential (primary) hypertension; E03.9 Hypothyroidism, unspecified; D64.9 Anemia, unspecified; E87.6 Hypokalemia; E55.9 Vitamin D deficiency, unspecified; E11.29 Type 2 diabetes mellitus with other diabetic kidney complication; E78.5 Hyperlipidemia, unspecified

== ENCOUNTER 2017-04-03 14:48 | Inpatient (IN) | payer OTHER ==
[~2017-04-03] VITALS: Ht 147.3 cm; Wt 59.6 kg
[~2017-04-03 14:48] MED LIST changes: -ACET-1256 PO; -ALBUAER INH; -AMX500 PO; -ATOR-24 PO; -BACL10TA PO; -BISA10SU3 PR; -BOAS PR; -CEFD300C2 PO; -CEFD300C3 PO; -CEFT1INJ6 IV; -CLIN1CAP51 PO; -CYM/30 PO; -CYM60 PO; -DFL100 PO; -DOCU100C31 PO; -DULO60CA44 PO; -Exalgo; -GFNSR600 PO; -HYDR2TAB3 PO; -HYDR2TAB48 PO; -INSDGI SC; -INSU100I SC; -IPRASOL4 INH; -LACT1CAP6 PO; -LEVE500T13 PO; -LEVO50TA PO; -LEVO75TA5 PO; -LUBI8CAP4 PO; -MOMLX PO; -MRLP17 PO; -MULTTAB63 PO; -NVLG SC; -NVLGIPEN SC; -ONDA4TAB46 PO; -POLY335019 PO; -POTA-65 PO; -PRLSR20 PO; -PROB1CAP41 PO; -QUET1TAB30 PO; -QUET1TAB32 PO; -SENN-61 PO; -SNK PO; -SODIENE PR; -SRQ25 PO; -SYN50 PO; -ZOLP5TAB PO; -ZOLP5TAB6 PO; -[UNRECOGNIZED DRUG - CODE] PR
[2017-04-03 15:30] VITALS: BP 136/80; PULSE 85; TEMP 37.2; O2SAT 92; Ht 147.3 cm; Wt 59.6 kg
[2017-04-03] MEDS ORDERED: ALUMINUM/MAGNESIUM/SIMETH (MAALOX MAX) 30 ML UDC PO PRN (16:15)
[2017-04-03] MEDS ORDERED: MAGNESIUM HYDROXIDE SUSP 30 ML UDC PO PRN (16:15)
[2017-04-03] MEDS ORDERED: POLYETHYLENE (MIRALAX) 17 GM PACK PO PRN (16:15)
[2017-04-03] MEDS ORDERED: NALOXONE HCL 0.4 MG/1 ML VIAL/CARP IV PRN (16:15)
[2017-04-03] MEDS ORDERED: ACET-1256 PO (16:22)
[2017-04-03] MEDS ORDERED: PROB1CAP41 PO (16:23)
--- NOTE | 2017-04-03 16:24 | History and Physical ---
History & Physical Date & Time of Service: April 03, 2017 at 16:24 Chief Complaint: Intractable Peritoneal/Rectal Pain,Spinal Cord Inj Primary Care Physician: Wilfrid Swain M.D. Past Medical/Surgical History Medical Problems: (1) indwelling catheter and recurrence UTI Status: Resolved (2) indwelling catheter and recurrence UTI Status: Resolved (3) Left lower lobe pneumonia Status: Resolved (4) 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 (5) UTI (urinary tract infection) Status: Resolved Family History Patient reports no known family medical history. Social History Smoking Status: Former Smoker Drug Use: none Marital Status: Housing status: lives with family Occupational Status: disabled Immunizations History of Influenza Vaccine: Yes History of Tetanus Vaccine?: Unknown History of Pneumococcal: No History of Hepatitis B Vaccine: Unknown Multi-Drug Resistant Organisms History of MDRO: Yes Type of MDRO: VRE, MRSA Allergies Coded Allergies: Ketorolac (Verified Allergy, Severe, see comment, 02/21/17) Patient reports " i about " when asked about reaction JET Inhibitors (Verified Allergy, Intermediate, ELEVATES CREATININE, ) Sulfa Antibiotics (Verified Adverse Reaction, Intermediate, NAUSEATED, ) Home Medications Scheduled Amoxicillin (Amoxil), 500 MG PO DAILY Aspirin (Aspirin Ec), 81 MG PO QAM Atorvastatin (Lipitor), 40 MG PO QPM Baclofen (Baclofen), 20 MG PO BID Ciprofloxacin Tab (Cipro), 250 MG PO DAILY Clindamycin Hcl (Cleocin), 150 MG PO DAILY Docusate Sodium (Colace), 1 CAP PO BID Doxepin Hcl (Doxepin), 75 MG PO HS Famotidine (Pepcid), 20 MG PO BID Fentanyl (Fentanyl), 1 PATCH TOP q72 hours Furosemide (Lasix), 20 MG PO QAM Hydromorphone HCl (Hydromorphone HCl), 2 MG PO Q3H Insulin Glargine (Lantus Solostar), 14 UNITS SC QPM Levetiracetam (Keppra), 500 MG PO BID Levothyroxine Sodium (Synthroid), 1 TAB PO QAM Lorazepam (Ativan), 0.5 MG PO BID Nystatin/Triamcinolone (Mycogen || ), 1 APPLN TOP BID Phenazopyridine HCl (Pyridium), 200 MG PO TID Potassium Chloride (Micro-K Ext Rel), 20 MEQ PO DAILY Scheduled PRN Acetaminophen (Tylenol), 2 TAB PO Q4 PRN for Pain Bisacodyl (Bisacodyl Laxative), 10 MG RE DAILY PRN for Constipation Ondasetron Odt (Zofran Odt), 4 MG SL TID PRN for Nausea or Vomiting Oxygen (Oxygen), 2 LITERS NA PRN PRN for Shortness of Breath Sennosides-Docusate Sodium (Senokot S), 1 TAB PO BID PRN for Constipation Diagnostics Laboratory Results Results Past 24 Hours Test 04/03/17 16:08 Range/Units Impression Assessment and Plan admit #[id number] VTE Prophylaxis VTE Risk Assessment Done? Y/N: Yes Risk Level: Moderate
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
[2017-04-03] MEDS ORDERED: GLUCAGON FOR INJ 1 MG VIAL SQ PRN (17:00)
[2017-04-03] MEDS ORDERED: GLUCOSE 40% GEL 15 GM TUBE PO PRN (17:00)
[2017-04-03] MEDS ORDERED: GLUCOSE 10 TABS/TUBE PO PRN (17:00)
[2017-04-03] MEDS ORDERED: DEXTROSE 50% 50 ML SYR IV PRN (17:00)
[2017-04-03] MEDS ORDERED: HYDROmorphone INJ 1 MG/ML SYR IV ONE (17:00)
[2017-04-03] MEDS: SODIUM CHLORIDE 0.9% 1000ML 1,000 ML IV SCH (17:38)
[2017-04-03] MEDS: HYDROmorphone HCL 0.5MG/ML 50 ML CASSETTE IV PRN ×2 (17:52→23:12)
[2017-04-03 18:05] LABS: ALB/GLOB RATIO 0.8 (0.9-2); ALKALINE PHOSPHATASE 189 U/L (45-117); ALT/SGPT 33 U/L (12-78); AST/SGOT 20 U/L (15-37); BLOOD UREA NITROGEN 11 mg/dl (7-18); BUN/CREATININE RATIO 21.1 (10-20); CALCIUM 9.3 mg/dl (8.5-10.1); CARBON DIOXIDE 31 mmol/L (21-32); CHLORIDE 96 mmol/L (98-107); GLUCOSE 236 mg/dl (70-99); POTASSIUM 3.4 mmol/L (3.5-5.1); SODIUM 135 mmol/L (136-145)
[2017-04-03] MEDS: ONDANSETRON INJ 2 MG/ML 2 ML VIAL IV PRN (18:07)
[2017-04-03 18:39] LABS: HEMATOCRIT 44.2 % (37-47); MEAN CELL VOLUME 89.5 fL (80-100); MEAN CORPUSCULAR HEMOGLOBIN 30.4 pg (25-34); MEAN CORPUSCULAR HGB CONC 33.9 g/dl (32-36); PLATELET COUNT 249 K/uL (130-400); RED BLOOD COUNT 4.94 M/uL (4.2-5.4); WHITE BLOOD COUNT 11.99 K/uL (4.8-10.8)
[2017-04-03 18:40] LABS: BASO % 0.3 %; BASO ABS # 0.04 K/uL (0-0.2); COMPLETE YES; EOS % 1.8 %; IG% 0.5 %; LYMPH % 22.3 %; LYMPH ABS # 2.67 K/uL (1.2-3.4); NEUT % 69.1 %
[2017-04-03 19:08] LABS: INR 0.9 (0.9-1.1); PROTHROMBIN TIME (PATIENT) 9.4 SECONDS (9.0-12.0)
[2017-04-03] MEDS: INSULIN ASPART 100 UNITS/ML 3 ML PEN SC SCH ×2 (19:22→21:39)
[2017-04-03] MEDS ORDERED: HYDROmorphone INJ 1 MG/ML SYR IV STA (19:56)
[2017-04-03] MEDS ORDERED: HYDROmorphone INJ 1 MG/ML SYR IV PRN (20:00)
[2017-04-03] MEDS ORDERED: NURSING VERBAL MED ORDER ONE (20:15)
[2017-04-03] MEDS ORDERED: FENTANYL PATCH REMOVE & WASTE ONE (20:30)
--- NOTE | 2017-04-03 20:41 | Progress Note ---
Progress Note Date of Service April 03, 2017. Progress Note [facility] - long acting hydromorphone not formulary. discussed pain management plan to transition from fentanyl to this, and that given her deterioration in pain, it would be best to be able to work this medication transition while inpatient to avoid further suffering. pharmacy noted that paperwork can be started for a single patient formulary exception - asked to have this forwarded so we can start the process
[2017-04-03] MEDS: DOCUSATE SODIUM 100 MG CAP PO SCH (21:34)
[2017-04-03] MEDS: ENOXAPARIN 40 MG/0.4 ML SYR SQ SCH (21:40)
[2017-04-03 22:48] VITALS: BP 120/68; PULSE 107; TEMP 37; O2SAT 98
[2017-04-04] VITALS (8 sets, daily range): BP systolic 112–151; BP diastolic 57–81; PULSE 91–116; TEMP 36.9–37; O2SAT 94–99
[2017-04-04] MEDS: DOCUSATE SODIUM 100 MG CAP PO SCH ×2 (09:04→21:26)
[2017-04-04] MEDS: INSULIN ASPART 100 UNITS/ML 3 ML PEN SC SCH ×4 (09:05→21:44)
--- NOTE | 2017-04-04 12:09 | Progress Note ---
Subjective Date of Service: April 04, 2017. Subjective Pt evaluation today including: conversation w/ patient, physical exam, lab review, review of inpatient medication list Pain: better on Dilaudid TV HOST PO Intake: adequate Voiding: kelly catheter in place (chronic) patient doing better with Dilaudid TV HOST c/p left shoulder pain, back pain, just above her T3 injury, trouble finding position of comfort discussed plan for Exalgo, she agrees requests soft diet Problem List Medical Problems: (1) Altered mental status Status: Acute (2) Anxiety Status: Acute (3) Closed comminuted intertrochanteric fracture of right femur Status: Acute (4) Decreased oral intake Status: Acute (5) Dehydration Status: Acute (6) Fever Status: Acute (7) Gastric out let obstruction Status: Acute (8) Hypokalemia Status: Acute (9) Left sided chest pain Status: Acute (10) Migraine Status: Acute (11) Pelvic pain Status: Acute (12) Pneumonia Status: Acute (13) Rectal pain Status: Acute (14) Sepsis Status: Acute (15) UTI (urinary tract infection) Status: Acute (16) UTI (urinary tract infection) Status: Acute Review of Systems Abdomen: + problem reported (rectal pain) Neurologic: + paralysis (hemiplegia, chronic, T3 down) All Other Systems: Reviewed and Negative Medications Current Inpatient Medications Medications (Trade) Dose Ordered Sig/Karen Route Start Time Stop Time Status Last Admin Dose Admin Insulin Aspart (novoLOG ASPART) SLIDING SCALE G... ACHS SC 04/03/17 17:15 05/03/17 17:14 04/04/17 09:05 4 UNITS Enoxaparin Sodium (Lovenox Inj) 40 mg QPM SQ 04/03/17 21:00 05/03/17 20:59 04/03/17 21:40 40 MG Al Hydrox/Mg Hydrox/Simethicone (Maalox Max Susp) 15 ml Q4H PRN PO 04/03/17 16:15 05/03/17 16:14 Magnesium Hydroxide (Milk Of Magnesia Susp) 30 ml Q6H PRN PO 04/03/17 16:15 05/03/17 16:14 Polyethylene (Miralax Powder Packet) 17 gm DAILY PRN PO 04/03/17 16:15 05/03/17 16:14 Ondansetron HCl (Zofran Inj) 4 mg Q6H PRN IV 04/03/17 16:15 05/03/17 16:14 04/03/17 18:07 4 MG Naloxone HCl (Narcan Inj) 0.1 mg Q5M PRN IV 04/03/17 16:15 05/03/17 16:14 Hydromorphone HCl (Dilaudid Java Lead Engineer) 25 mg PRN PRN IV 04/03/17 16:15 04/17/17 16:14 04/03/17 23:12 25 MG Docusate Sodium 100 mg 100 mg BID PO 04/03/17 21:00 05/03/17 20:59 04/04/17 09:04 100 MG Sodium Chloride (Nss 1000ml) 1,000 ml @ 15 mls/hr Q24H IV 04/03/17 16:08 05/03/17 16:07 04/03/17 17:38 15 MLS/HR Glucose (Glucose 40% Gel) 15-30 GRAMS 15 GRAMS... UD PRN PO 04/03/17 17:00 05/03/17 16:59 Glucose (Glucose Chew Tab) 4-8 Tablets 4 Tabl... UD PRN PO 04/03/17 17:00 05/03/17 16:59 Dextrose (Dextrose 50% 50ML Syringe) 25-50ML OF 50% DW IV FOR... UD PRN IV 04/03/17 17:00 05/03/17 16:59 Glucagon (Glucagon Inj) 1 mg UD PRN SQ 04/03/17 17:00 05/03/17 16:59 Hydromorphone HCl (Dilaudid Inj) 1 mg Q2HWA PRN IV 04/03/17 20:00 04/17/17 19:59 Lorazepam (Ativan Tab) 0.5 mg BID PRN PO 04/04/17 03:15 05/04/17 03:14 Cyclobenzaprine HCl (Flexeril Tab) 5 mg TID PO 04/04/17 14:00 05/04/17 13:59 Objective Vital Signs Date Time Temp Pulse Resp B/P Pulse Ox O2 Delivery O2 Flow Rate FiO2 04/04/17 08:13 98 Nasal Cannula 2.0 04/04/17 07:36 37.0 116 16 135/78 99 Room Air 04/04/17 04:16 37.0 111 18 122/71 98 Room Air 04/03/17 23:50 Nasal Cannula 2.0 04/03/17 22:48 37.0 107 20 120/68 98 Nasal Cannula 2.0 04/03/17 15:30 92 Nasal Cannula 2.0 04/03/17 15:30 37.2 85 18 136/80 92 Room Air Physical Exam General Appearance: no apparent distress, + thin Eyes: normal inspection, EOMI, sclerae normal ENT: normal ENT inspection, hearing grossly normal, pharynx normal Neck: supple, no adenopathy, no JVD, trachea midline Respiratory/Chest: chest non-tender, lungs clear, normal breath sounds, no respiratory distress, no accessory muscle use Cardiovascular: regular rate, rhythm, no edema, no gallop, no JVD, no murmur Abdomen: normal bowel sounds, non tender, soft, no organomegaly Extremities: + pertinent finding (left trapezius and paraspinal muscles tense, tender to palpation) 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, alert, normal mood/affect, oriented x 3, + motor weakness (hemiplegia, chronic) Skin: normal color, warm/dry, no rash Laboratory Results Last 24 Hours Test 04/03/17 16:51 04/03/17 18:17 04/03/17 20:26 White Blood Count 11.99 K/uL Red Blood Count 4.94 M/uL Hemoglobin 15.0 g/dL Hematocrit 44.2 % Mean Corpuscular Volume 89.5 fL Mean Corpuscular Hemoglobin 30.4 pg Mean Corpuscular Hemoglobin Concent 33.9 g/dl Platelet Count 249 K/uL Neutrophils (%) (Auto) 69.1 % Lymphocytes (%) (Auto) 22.3 % Monocytes (%) (Auto) 6.0 % Eosinophils (%) (Auto) 1.8 % Basophils (%) (Auto) 0.3 % Neutrophils # (Auto) 8.29 K/uL Lymphocytes # (Auto) 2.67 K/uL Monocytes # (Auto) 0.72 K/uL Eosinophils # (Auto) 0.21 K/uL Basophils # (Auto) 0.04 K/uL RDW Standard Deviation 47.4 fL RDW Coefficient of Variation 14.5 % Immature Granulocyte % (Auto) 0.5 % Immature Granulocyte # (Auto) 0.06 K/uL Prothrombin Time 9.4 SECONDS Prothromb Time International Ratio 0.9 Sodium Level 135 mmol/L Potassium Level 3.4 mmol/L Chloride Level 96 mmol/L Carbon Dioxide Level 31 mmol/L Anion Gap 8.0 mmol/L Blood Urea Nitrogen 11 mg/dl Creatinine 0.50 mg/dl Est Creatinine Clear Calc Drug Dose 72.0 ml/min Estimated GFR () 108.2 Estimated GFR (Non- 93.4 BUN/Creatinine Ratio 21.1 Random Glucose 236 mg/dl Calcium Level 9.3 mg/dl Total Bilirubin < 0.1 mg/dl Aspartate Amino Transf (AST/SGOT) 20 U/L Alanine Aminotransferase (ALT/SGPT) 33 U/L Alkaline Phosphatase 189 U/L Total Protein 7.2 gm/dl Albumin 3.3 gm/dl Globulin 3.9 gm/dl Albumin/Globulin Ratio 0.8 Chemistry Specimen Hemolysis Bedside Glucose 240 mg/dl 243 mg/dl Assessment and Plan 76 yo female with chronic neuropathic sacral and perineal pain, presents due to intractable pain while being weaned off of fentanyl patches - Intractable neuropathic pain: improved today on Dilaudid TV HOST plan for Exalgo, form completed by Dr. Gleason and sent to pharmacy will transition off of TV HOST once Exalgo available will follow with pain management after discharge - Left shoulder and paraspinal muscle spasms: utilize heat TID and Flexeril 5mg TID re-evaluate tomorrow for improvement - DVT prophylaxis: Lovenox - DM: insulin, diabetic diet, soft mechanical, Novolog SS - Paraplegia: chronic, frequent turns by nursing, chronic kelly, no signs of UTI currently - Dyslipidemia: statin
[2017-04-04] MEDS: HYDROmorphone HCL 0.5MG/ML 50 ML CASSETTE IV PRN ×3 (12:40→22:53)
[2017-04-04] MEDS: CYCLOBENZAPRINE HCL 5 MG TAB PO SCH ×2 (12:44→21:27)
[2017-04-04] MEDS: LORAZEPAM 0.5 MG TAB PO PRN (13:57)
[2017-04-04] MEDS: SODIUM CHLORIDE 0.9% 1000ML 1,000 ML IV SCH (16:08)
--- NOTE | 2017-04-04 19:13 | Progress Note ---
Progress Note Date of Service April 04, 2017. Progress Note pharmacy called to discuss possible exception for exalgo - could possibly be done if needed, but suggested more practical solution would be to write Rx, have filled as outpt, then have pharmacy verify for administration inpatient. this would allow for transition of meds, as well as ensure insurance coverage. pharmacy noted they would call pain management to discuss, input appreciated
[2017-04-04] MEDS: ENOXAPARIN 40 MG/0.4 ML SYR SQ SCH (21:26)
[2017-04-05 03:56] VITALS: BP 165/84; PULSE 95; TEMP 37; O2SAT 100
[2017-04-05] MEDS: HYDROmorphone HCL 0.5MG/ML 50 ML CASSETTE IV PRN ×4 (07:19→22:56)
[2017-04-05 07:26] VITALS: BP 170/82; PULSE 106; TEMP 37; O2SAT 97
[2017-04-05] MEDS: DOCUSATE SODIUM 100 MG CAP PO SCH (09:00)
[2017-04-05] MEDS: INSULIN ASPART 100 UNITS/ML 3 ML PEN SC SCH ×4 (10:07→21:38)
[2017-04-05] MEDS: CYCLOBENZAPRINE HCL 5 MG TAB PO SCH ×3 (11:41→21:29)
[2017-04-05 13:10] VITALS: BP 166/79; PULSE 87; O2SAT 99
--- NOTE | 2017-04-05 15:04 | Progress Note ---
Subjective Date of Service: April 05, 2017. 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 Problem List Medical Problems: (1) Altered mental status Status: Acute (2) Anxiety Status: Acute (3) Closed comminuted intertrochanteric fracture of right femur Status: Acute (4) Decreased oral intake Status: Acute (5) Dehydration Status: Acute (6) Fever Status: Acute (7) Gastric out let obstruction Status: Acute (8) Hypokalemia Status: Acute (9) Left sided chest pain Status: Acute (10) Migraine Status: Acute (11) Pelvic pain Status: Acute (12) Pneumonia Status: Acute (13) Rectal pain Status: Acute (14) Sepsis Status: Acute (15) UTI (urinary tract infection) Status: Acute (16) UTI (urinary tract infection) Status: Acute Review of Systems Constitutional: + fatigue, + weakness Abdomen: + pain (rectal) Musculoskeletal: + joint pain (left shoulder, much better) Neurologic: + paralysis (paraplegia) All Other Systems: Reviewed and Negative Medications Current Inpatient Medications Medications (Trade) Dose Ordered Sig/Karen Route Start Time Stop Time Status Last Admin Dose Admin Insulin Aspart (novoLOG ASPART) SLIDING SCALE G... ACHS SC 04/03/17 17:15 05/03/17 17:14 04/05/17 13:14 8 UNITS Enoxaparin Sodium (Lovenox Inj) 40 mg QPM SQ 04/03/17 21:00 05/03/17 20:59 04/04/17 21:26 40 MG Al Hydrox/Mg Hydrox/Simethicone (Maalox Max Susp) 15 ml Q4H PRN PO 04/03/17 16:15 05/03/17 16:14 Magnesium Hydroxide (Milk Of Magnesia Susp) 30 ml Q6H PRN PO 04/03/17 16:15 05/03/17 16:14 Polyethylene (Miralax Powder Packet) 17 gm DAILY PRN PO 04/03/17 16:15 05/03/17 16:14 Ondansetron HCl (Zofran Inj) 4 mg Q6H PRN IV 04/03/17 16:15 05/03/17 16:14 04/03/17 18:07 4 MG Naloxone HCl (Narcan Inj) 0.1 mg Q5M PRN IV 04/03/17 16:15 05/03/17 16:14 Hydromorphone HCl 25 mg 25 mg PRN PRN IV 04/03/17 16:15 04/17/17 16:14 04/05/17 07:45 25 MG Sodium Chloride (Nss 1000ml) 1,000 ml @ 15 mls/hr Q24H IV 04/03/17 16:08 05/03/17 16:07 04/04/17 16:08 15 MLS/HR Glucose (Glucose 40% Gel) 15-30 GRAMS 15 GRAMS... UD PRN PO 04/03/17 17:00 05/03/17 16:59 Glucose (Glucose Chew Tab) 4-8 Tablets 4 Tabl... UD PRN PO 04/03/17 17:00 05/03/17 16:59 Dextrose (Dextrose 50% 50ML Syringe) 25-50ML OF 50% DW IV FOR... UD PRN IV 04/03/17 17:00 05/03/17 16:59 Glucagon (Glucagon Inj) 1 mg UD PRN SQ 04/03/17 17:00 05/03/17 16:59 Hydromorphone HCl (Dilaudid Inj) 1 mg Q2HWA PRN IV 04/03/17 20:00 04/17/17 19:59 Lorazepam (Ativan Tab) 0.5 mg BID PRN PO 04/04/17 03:15 05/04/17 03:14 04/04/17 13:57 0.5 MG Cyclobenzaprine HCl (Flexeril Tab) 5 mg TID PO 04/04/17 14:00 05/04/17 13:59 04/05/17 11:41 5 MG Senna (Senokot Tab) 8.6 mg BID PO 04/05/17 21:00 05/05/17 20:59 Objective Vital Signs Date Time Temp Pulse Resp B/P Pulse Ox O2 Delivery O2 Flow Rate FiO2 04/05/17 13:10 87 17 166/79 99 Nasal Cannula 04/05/17 10:00 Nasal Cannula 2.0 04/05/17 07:26 37.0 106 17 170/82 97 Nasal Cannula 04/05/17 03:56 37.0 95 16 165/84 100 Nasal Cannula 2.0 04/05/17 00:00 Nasal Cannula 2.0 04/04/17 23:45 36.9 91 16 151/79 99 Nasal Cannula 2.0 04/04/17 19:53 37.0 95 16 147/ 94 Room Air 04/04/17 18:30 99 Nasal Cannula 2.0 04/04/17 15:36 37.0 102 16 132/81 99 Nasal Cannula 2.0 Physical Exam General Appearance: WD/WN, no apparent distress Neck: supple, no adenopathy, no JVD, trachea midline Respiratory/Chest: chest non-tender, lungs clear, normal breath sounds, no respiratory distress, no accessory muscle use Cardiovascular: regular rate, rhythm, no edema, no gallop, no JVD, no murmur Abdomen: normal bowel sounds, non tender, soft, no organomegaly Extremities: normal range of motion, non-tender, normal inspection, no pedal edema 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, alert, normal mood/affect, oriented x 3, + motor weakness (paraplegia) Skin: normal color, warm/dry, no rash Lymphatic: no adenopathy Laboratory Results Last 24 Hours Test 04/04/17 16:36 04/04/17 20:44 04/05/17 11:51 Bedside Glucose 181 mg/dl 201 mg/dl 218 mg/dl Assessment and Plan 76 yo female with chronic neuropathic sacral and perineal pain, presents due to intractable pain while being weaned off of fentanyl patches - Intractable neuropathic pain: improved today on Dilaudid 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
[2017-04-05 15:22] VITALS: BP 138/79; PULSE 112; TEMP 36.6; O2SAT 99
[2017-04-05] MEDS: SODIUM CHLORIDE 0.9% 1000ML 1,000 ML IV SCH (16:29)
[2017-04-05] MEDS ORDERED: NURSING VERBAL MED ORDER ONE (19:15)
[2017-04-05 19:39] VITALS: BP 149/86; PULSE 109; TEMP 37.1; O2SAT 96
[2017-04-05] MEDS: SENNA 8.6 MG TAB PO SCH (21:38)
[2017-04-05] MEDS: ENOXAPARIN 40 MG/0.4 ML SYR SQ SCH (21:42)
[2017-04-05 23:06] VITALS: BP 149/85; PULSE 112; TEMP 37; O2SAT 99
[2017-04-06] VITALS (7 sets, daily range): BP systolic 127–149; BP diastolic 68–82; PULSE 72–102; TEMP 36.8–37.4; O2SAT 88–99
[2017-04-06 06:09] LABS: HEMATOCRIT 39.2 % (37-47); MEAN CORPUSCULAR HEMOGLOBIN 30.3 pg (25-34); MEAN CORPUSCULAR HGB CONC 32.9 g/dl (32-36); MEAN PLATELET VOLUME 12.1 fL (7.4-10.4); PLATELET COUNT 413 K/uL (130-400); RED BLOOD COUNT 4.26 M/uL (4.2-5.4); WHITE BLOOD COUNT 12.18 K/uL (4.8-10.8)
[2017-04-06 06:40] LABS: CREATININE 0.4 mg/dl (0.60-1.20)
[2017-04-06] MEDS: HYDROmorphone HCL 0.5MG/ML 50 ML CASSETTE IV PRN ×4 (06:53→19:40)
[2017-04-06] MEDS: INSULIN ASPART 100 UNITS/ML 3 ML PEN SC SCH ×4 (09:01→21:25)
[2017-04-06] MEDS: AMOXICILLIN 500 MG CAP PO SCH (09:02)
[2017-04-06] MEDS: CYCLOBENZAPRINE HCL 5 MG TAB PO SCH ×3 (09:03→20:47)
[2017-04-06] MEDS: SENNA 8.6 MG TAB PO SCH ×2 (09:04→20:46)
[2017-04-06] MEDS ORDERED: MICONAZOLE NITRATE POWDER 43 GM EXT PRN (11:00)
[2017-04-06] MEDS ORDERED: NURSING DECISION MEDICATION ORDER SCH (11:00)
--- NOTE | 2017-04-06 13:53 | Progress Note ---
Subjective Date of Service: April 06, 2017. Subjective Pt evaluation today including: conversation w/ patient, conversation w/ family (), physical exam, lab review, review of inpatient medication list Pain: controlled with Dilaudid COKE DRAWER PO Intake: adequate Voiding: no voiding problems discussed plan for Exalgo, will be available Saturday Problem List Medical Problems: (1) Altered mental status Status: Acute (2) Anxiety Status: Acute (3) Closed comminuted intertrochanteric fracture of right femur Status: Acute (4) Decreased oral intake Status: Acute (5) Dehydration Status: Acute (6) Fever Status: Acute (7) Gastric out let obstruction Status: Acute (8) Hypokalemia Status: Acute (9) Left sided chest pain Status: Acute (10) Migraine Status: Acute (11) Pelvic pain Status: Acute (12) Pneumonia Status: Acute (13) Rectal pain Status: Acute (14) Sepsis Status: Acute (15) UTI (urinary tract infection) Status: Acute (16) UTI (urinary tract infection) Status: Acute Review of Systems Constitutional: + fatigue, + weakness Abdomen: + pain (rectal) Musculoskeletal: + joint pain (back, left shoulder) Neurologic: + weakness (paraplegia) All Other Systems: Reviewed and Negative Medications Current Inpatient Medications Medications (Trade) Dose Ordered Sig/Karen Route Start Time Stop Time Status Last Admin Dose Admin Insulin Aspart (novoLOG ASPART) SLIDING SCALE G... ACHS SC 04/03/17 17:15 05/03/17 17:14 04/06/17 13:30 10 UNITS Enoxaparin Sodium (Lovenox Inj) 40 mg QPM SQ 04/03/17 21:00 05/03/17 20:59 04/05/17 21:42 40 MG Al Hydrox/Mg Hydrox/Simethicone (Maalox Max Susp) 15 ml Q4H PRN PO 04/03/17 16:15 05/03/17 16:14 Magnesium Hydroxide (Milk Of Magnesia Susp) 30 ml Q6H PRN PO 04/03/17 16:15 05/03/17 16:14 Polyethylene (Miralax Powder Packet) 17 gm DAILY PRN PO 04/03/17 16:15 05/03/17 16:14 Ondansetron HCl (Zofran Inj) 4 mg Q6H PRN IV 04/03/17 16:15 05/03/17 16:14 04/03/17 18:07 4 MG Naloxone HCl (Narcan Inj) 0.1 mg Q5M PRN IV 04/03/17 16:15 05/03/17 16:14 Hydromorphone HCl 25 mg 25 mg PRN PRN IV 04/03/17 16:15 04/17/17 16:14 04/06/17 07:13 25 MG Sodium Chloride (Nss 1000ml) 1,000 ml @ 15 mls/hr Q24H IV 04/03/17 16:08 05/03/17 16:07 04/05/17 16:29 15 MLS/HR Glucose (Glucose 40% Gel) 15-30 GRAMS 15 GRAMS... UD PRN PO 04/03/17 17:00 05/03/17 16:59 Glucose (Glucose Chew Tab) 4-8 Tablets 4 Tabl... UD PRN PO 04/03/17 17:00 05/03/17 16:59 Dextrose (Dextrose 50% 50ML Syringe) 25-50ML OF 50% DW IV FOR... UD PRN IV 04/03/17 17:00 05/03/17 16:59 Glucagon (Glucagon Inj) 1 mg UD PRN SQ 04/03/17 17:00 05/03/17 16:59 Hydromorphone HCl (Dilaudid Inj) 1 mg Q2HWA PRN IV 04/03/17 20:00 04/17/17 19:59 Lorazepam (Ativan Tab) 0.5 mg BID PRN PO 04/04/17 03:15 05/04/17 03:14 04/04/17 13:57 0.5 MG Cyclobenzaprine HCl (Flexeril Tab) 5 mg TID PO 04/04/17 14:00 05/04/17 13:59 04/06/17 13:31 5 MG Senna (Senokot Tab) 8.6 mg BID PO 04/05/17 21:00 05/05/17 20:59 04/06/17 09:04 8.6 MG Amoxicillin (Amoxil Cap) 500 mg DAILY PO 04/06/17 09:00 05/06/17 08:59 04/06/17 09:02 500 MG Aspirin (Ecotrin Tab) 81 mg QAM PO 04/07/17 09:00 05/07/17 08:59 Atorvastatin Calcium (Lipitor Tab) 40 mg QPM PO 04/06/17 21:00 05/06/17 20:59 Baclofen (Lioresal Tab) 20 mg BID PO 04/06/17 21:00 05/06/17 20:59 Docusate Sodium (coLACE CAP) 100 mg BID PO 04/06/17 21:00 05/06/17 20:59 Doxepin HCl (Sinequan Cap) 75 mg HS PO 04/06/17 21:00 05/06/17 20:59 Famotidine (Pepcid Tab) 20 mg BID PO 04/06/17 21:00 05/06/17 20:59 Furosemide (Lasix Tab) 20 mg QAM PO 04/07/17 09:00 05/07/17 08:59 Insulin Glargine (Lantus Solostar Pen) 14 unit QPM SC 04/06/17 21:00 05/06/17 20:59 Levetiracetam (Keppra Tab) 500 mg BID PO 04/06/17 21:00 05/06/17 20:59 Miconazole Nitrate (Desenex Powder) 1 appln PRN PRN EXT 04/06/17 11:00 05/06/17 10:59 04/06/17 11:23 1 APPLN Objective Vital Signs Date Time Temp Pulse Resp B/P Pulse Ox O2 Delivery O2 Flow Rate FiO2 04/06/17 11:36 37.0 72 15 127/81 97 Nasal Cannula 04/06/17 08:44 88 Nasal Cannula 2.0 04/06/17 08:15 Room Air 04/06/17 08:04 36.8 89 15 149/80 88 Room Air 04/06/17 03:28 37.1 102 16 139/73 97 Room Air 04/05/17 23:55 Nasal Cannula 2.0 04/05/17 23:06 37.0 112 18 149/85 99 Nasal Cannula 2.0 04/05/17 19:39 37.1 109 16 149/86 96 2.0 04/05/17 15:22 36.6 112 14 138/79 99 Nasal Cannula 2.0 04/05/17 15:15 Nasal Cannula 2.0 Physical Exam General Appearance: no apparent distress, + thin Eyes: normal inspection, EOMI, sclerae normal Neck: supple, no adenopathy, no JVD, trachea midline Respiratory/Chest: chest non-tender, lungs clear, normal breath sounds, no respiratory distress, no accessory muscle use Cardiovascular: regular rate, rhythm, no edema, no gallop, no JVD, no murmur Abdomen: normal bowel sounds, non tender, soft, no organomegaly Extremities: normal inspection, no pedal edema, no calf tenderness, pelvis stable 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, alert, normal mood/affect, oriented x 3, + motor weakness (lower extremity paralysis) Skin: normal color, warm/dry, no rash Laboratory Results Last 24 Hours Test 04/05/17 17:02 04/05/17 20:53 04/06/17 05:26 04/06/17 08:01 Bedside Glucose 195 mg/dl 282 mg/dl 242 mg/dl White Blood Count 12.18 K/uL Red Blood Count 4.26 M/uL Hemoglobin 12.9 g/dL Hematocrit 39.2 % Mean Corpuscular Volume 92.0 fL Mean Corpuscular Hemoglobin 30.3 pg Mean Corpuscular Hemoglobin Concent 32.9 g/dl RDW Standard Deviation 49.9 fL RDW Coefficient of Variation 14.7 % Platelet Count 413 K/uL Mean Platelet Volume 12.1 fL Creatinine 0.40 mg/dl Est Creatinine Clear Calc Drug Dose 90.0 ml/min Estimated GFR () 116.4 Estimated GFR (Non- 100.5 Test 04/06/17 11:56 Bedside Glucose 309 mg/dl Assessment and Plan 76 yo female with chronic neuropathic sacral and perineal pain, presents due to intractable pain while being weaned off of fentanyl patches - Intractable neuropathic pain: improved on Dilaudid 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 [employer], 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 for 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, will be on Sunday 04/08 will transition off of COKE DRAWER once Exalgo available will follow with pain management after discharge plan for Exalgo and with PRN Dilaudid PO - Left shoulder and paraspinal muscle spasms: utilize heat TID and Flexeril 5mg TID again her pain is improved today, less muscle tightness but still there, continue therapy - DVT prophylaxis: Lovenox - DM: insulin, diabetic diet, soft mechanical, Novolog SS - Paraplegia: chronic, frequent turns by nursing, chronic kelly, no signs of UTI currently - Dyslipidemia: statin - chronic kelly: this was changed during admission, resume Amoxicillin for UTI prophylaxis
[2017-04-06] MEDS ORDERED: POLYETHYLENE (MIRALAX) 17 GM PACK PO PRN (15:15)
[2017-04-06] MEDS ORDERED: INSULIN GLARGINE SOLOSTAR 100 UNITS/ML 3 ML PEN SC ONE (15:15)
[2017-04-06] MEDS: SODIUM CHLORIDE 0.9% 1000ML 1,000 ML IV SCH (16:49)
[2017-04-06] MEDS: ENOXAPARIN 40 MG/0.4 ML SYR SQ SCH (20:44)
[2017-04-06] MEDS: ATORVASTATIN 40 MG TAB PO SCH (20:45)
[2017-04-06] MEDS: DOXEPIN HCL 75 MG CAP PO SCH (20:45)
[2017-04-06] MEDS: LEVETIRACETAM 250 MG TAB PO SCH (20:46)
[2017-04-06] MEDS: BACLOFEN TAB 20 MG TAB PO SCH (20:47)
[2017-04-06] MEDS: DOCUSATE SODIUM 100 MG CAP PO SCH (20:47)
[2017-04-06] MEDS: FAMOTIDINE 20 MG TAB PO SCH (20:47)
[2017-04-06] MEDS: INSULIN GLARGINE SOLOSTAR 100 UNITS/ML 3 ML PEN SC SCH (21:23)
[2017-04-06] MEDS ORDERED: NURSING VERBAL MED ORDER ONE (22:00)
[2017-04-06] MEDS ORDERED: ZOLPIDEM TARTRATE 5 MG TAB PO PRN (22:15)
[2017-04-07] MEDS: LORAZEPAM 0.5 MG TAB PO PRN (04:50)
[2017-04-07] MEDS: HYDROmorphone HCL 0.5MG/ML 50 ML CASSETTE IV PRN ×3 (07:17→22:49)
[2017-04-07 07:19] VITALS: BP 143/79; PULSE 90; TEMP 36.3; O2SAT 90
[2017-04-07] MEDS ORDERED: AMOXICILLIN 500 MG CAP PO SCH (09:00)
[2017-04-07] MEDS: AMOXICILLIN 500 MG CAP PO SCH (09:06)
[2017-04-07] MEDS: BACLOFEN TAB 20 MG TAB PO SCH ×3 (09:06→21:00)
[2017-04-07] MEDS: ASPIRIN 81 MG ECTAB PO SCH (09:06)
[2017-04-07] MEDS: SENNA 8.6 MG TAB PO SCH ×3 (09:06→21:00)
[2017-04-07] MEDS: LEVETIRACETAM 250 MG TAB PO SCH ×3 (09:06→21:00)
[2017-04-07] MEDS: FAMOTIDINE 20 MG TAB PO SCH ×3 (09:07→21:01)
[2017-04-07] MEDS: CYCLOBENZAPRINE HCL 5 MG TAB PO SCH ×4 (09:07→21:00)
[2017-04-07] MEDS: FUROSEMIDE 20 MG TAB PO SCH ×2 (09:07→09:41)
[2017-04-07] MEDS: DOCUSATE SODIUM 100 MG CAP PO SCH ×2 (09:07→21:00)
[2017-04-07] MEDS: INSULIN ASPART 100 UNITS/ML 3 ML PEN SC SCH ×5 (09:09→21:04)
[2017-04-07 09:57] VITALS: O2SAT 97
[2017-04-07 12:11] VITALS: BP 148/76; PULSE 87; TEMP 36.8; O2SAT 94
[2017-04-07 14:49] VITALS: BP 93/59; PULSE 104; TEMP 36.4; O2SAT 96
--- NOTE | 2017-04-07 15:19 | Progress Note ---
Subjective Date of Service: April 07, 2017. 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, will bring to hospital patient wants to leave tomorrow AM told her I would be okay with that as long as they have the Exalgo and her Dilaudid PO for breakthrough she is very anxious to get out of the hospital no other issues Problem List Medical Problems: (1) Altered mental status Status: Acute (2) Anxiety Status: Acute (3) Closed comminuted intertrochanteric fracture of right femur Status: Acute (4) Decreased oral intake Status: Acute (5) Dehydration Status: Acute (6) Fever Status: Acute (7) Gastric out let obstruction Status: Acute (8) Hypokalemia Status: Acute (9) Left sided chest pain Status: Acute (10) Migraine Status: Acute (11) Pelvic pain Status: Acute (12) Pneumonia Status: Acute (13) Rectal pain Status: Acute (14) Sepsis Status: Acute (15) UTI (urinary tract infection) Status: Acute (16) UTI (urinary tract infection) Status: Acute Review of Systems Abdomen: + pain (rectal, chronic, intermittent) Musculoskeletal: + joint pain (left shoulder, much better) All Other Systems: Reviewed and Negative Medications Current Inpatient Medications Medications (Trade) Dose Ordered Sig/Karen Route Start Time Stop Time Status Last Admin Dose Admin Insulin Aspart (novoLOG ASPART) SLIDING SCALE G... ACHS SC 04/03/17 17:15 05/03/17 17:14 04/07/17 14:26 5 UNITS Enoxaparin Sodium (Lovenox Inj) 40 mg QPM SQ 04/03/17 21:00 05/03/17 20:59 04/06/17 20:44 40 MG Al Hydrox/Mg Hydrox/Simethicone (Maalox Max Susp) 15 ml Q4H PRN PO 04/03/17 16:15 05/03/17 16:14 Magnesium Hydroxide (Milk Of Magnesia Susp) 30 ml Q6H PRN PO 04/03/17 16:15 05/03/17 16:14 Polyethylene (Miralax Powder Packet) 17 gm DAILY PRN PO 04/03/17 16:15 05/03/17 16:14 04/06/17 16:57 17 GM Ondansetron HCl (Zofran Inj) 4 mg Q6H PRN IV 04/03/17 16:15 05/03/17 16:14 04/03/17 18:07 4 MG Naloxone HCl (Narcan Inj) 0.1 mg Q5M PRN IV 04/03/17 16:15 05/03/17 16:14 Hydromorphone HCl 25 mg 25 mg PRN PRN IV 04/03/17 16:15 04/17/17 16:14 04/07/17 14:50 25 MG Sodium Chloride (Nss 1000ml) 1,000 ml @ 15 mls/hr Q24H IV 04/03/17 16:08 05/03/17 16:07 04/06/17 16:49 15 MLS/HR Glucose (Glucose 40% Gel) 15-30 GRAMS 15 GRAMS... UD PRN PO 04/03/17 17:00 05/03/17 16:59 Glucose (Glucose Chew Tab) 4-8 Tablets 4 Tabl... UD PRN PO 04/03/17 17:00 05/03/17 16:59 Dextrose (Dextrose 50% 50ML Syringe) 25-50ML OF 50% DW IV FOR... UD PRN IV 04/03/17 17:00 05/03/17 16:59 Glucagon (Glucagon Inj) 1 mg UD PRN SQ 04/03/17 17:00 05/03/17 16:59 Hydromorphone HCl (Dilaudid Inj) 1 mg Q2HWA PRN IV 04/03/17 20:00 04/17/17 19:59 Lorazepam (Ativan Tab) 0.5 mg BID PRN PO 04/04/17 03:15 05/04/17 03:14 04/07/17 04:50 0.5 MG Cyclobenzaprine HCl (Flexeril Tab) 5 mg TID PO 04/04/17 14:00 05/04/17 13:59 04/07/17 13:43 5 MG Senna (Senokot Tab) 8.6 mg BID PO 04/05/17 21:00 05/05/17 20:59 04/07/17 09:41 8.6 MG Amoxicillin (Amoxil Cap) 500 mg DAILY PO 04/06/17 09:00 05/06/17 08:59 04/07/17 09:06 500 MG Aspirin (Ecotrin Tab) 81 mg QAM PO 04/07/17 09:00 05/07/17 08:59 04/07/17 09:06 81 MG Atorvastatin Calcium (Lipitor Tab) 40 mg QPM PO 04/06/17 21:00 05/06/17 20:59 04/06/17 20:45 40 MG Baclofen (Lioresal Tab) 20 mg BID PO 04/06/17 21:00 05/06/17 20:59 04/07/17 09:41 20 MG Docusate Sodium (coLACE CAP) 100 mg BID PO 04/06/17 21:00 05/06/17 20:59 04/07/17 09:07 100 MG Doxepin HCl (Sinequan Cap) 75 mg HS PO 04/06/17 21:00 05/06/17 20:59 04/06/17 20:45 75 MG Famotidine (Pepcid Tab) 20 mg BID PO 04/06/17 21:00 05/06/17 20:59 04/07/17 09:41 20 MG Furosemide (Lasix Tab) 20 mg QAM PO 04/07/17 09:00 05/07/17 08:59 04/07/17 09:41 20 MG Insulin Glargine (Lantus Solostar Pen) 14 unit QPM SC 04/06/17 21:00 05/06/17 20:59 04/06/17 21:23 14 UNIT Levetiracetam (Keppra Tab) 500 mg BID PO 04/06/17 21:00 05/06/17 20:59 04/07/17 09:41 500 MG Miconazole Nitrate (Desenex Powder) 1 appln PRN PRN EXT 04/06/17 11:00 05/06/17 10:59 04/06/17 11:23 1 APPLN Polyethylene (Miralax Powder Packet) 17 gm DAILY PRN PO 04/06/17 15:15 05/06/17 15:14 Zolpidem Tartrate (Ambien Tab) 5 mg HSZ PRN PO 04/06/17 22:15 05/06/17 22:14 04/06/17 22:27 5 MG Objective Vital Signs Date Time Temp Pulse Resp B/P Pulse Ox O2 Delivery O2 Flow Rate FiO2 04/07/17 14:49 36.4 104 16 93/59 96 Room Air 04/07/17 12:11 36.8 87 20 148/76 94 Room Air 04/07/17 09:57 97 Room Air 04/07/17 08:00 Nasal Cannula 2.0 04/07/17 07:19 36.3 90 17 143/79 90 Room Air 04/06/17 23:59 Nasal Cannula 2.0 04/06/17 23:00 37.2 88 17 137/75 97 Nasal Cannula 2.0 04/06/17 19:53 37.4 97 16 129/68 97 Nasal Cannula 2.0 04/06/17 16:00 Nasal Cannula 2.0 04/06/17 15:22 37.0 90 15 146/82 99 Nasal Cannula 2.0 Physical Exam General Appearance: WD/WN, no apparent distress Eyes: normal inspection, EOMI, sclerae normal ENT: normal ENT inspection, hearing grossly normal, pharynx normal Neck: supple, no adenopathy, no JVD, trachea midline Respiratory/Chest: chest non-tender, lungs clear, normal breath sounds, no respiratory distress, no accessory muscle use Cardiovascular: regular rate, rhythm, no edema, no gallop, no JVD, no murmur Abdomen: normal bowel sounds, non tender, soft, no organomegaly Extremities: non-tender, normal inspection, no pedal edema, no calf tenderness 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, alert, normal mood/affect, oriented x 3, + motor weakness (lower extremity paralaysis) Skin: normal color, warm/dry, no rash Laboratory Results Last 24 Hours Test 04/06/17 17:22 04/06/17 20:34 04/07/17 00:17 04/07/17 06:03 Bedside Glucose 164 mg/dl 235 mg/dl 248 mg/dl 170 mg/dl Test 04/07/17 07:58 04/07/17 12:09 Bedside Glucose 203 mg/dl 288 mg/dl Assessment and Plan 76 yo female with chronic neuropathic sacral and perineal pain, presents due to intractable pain while being weaned off of fentanyl patches - Intractable neuropathic pain: improved on Dilaudid 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, 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 use of the 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 today plan for Exalgo, 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 [employer] 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 at 10am told patient that she could be d/c once they have the Exalgo, she is anxious to leave and using 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 much less will follow with pain management after discharge plan for Exalgo and with PRN Dilaudid PO which controls pain - Left shoulder and paraspinal muscle spasms: utilized heat TID and Flexeril 5mg TID while hospitalized much better, no need for Flexeril on d/c - DVT prophylaxis: Lovenox - DM: insulin, diabetic diet, Novolog SS, lantus 14 units - Paraplegia: chronic, frequent turns by nursing, chronic kelly - Dyslipidemia: statin - chronic kelly: this was changed during admission, resume Amoxicillin for UTI prophylaxis on Amoxicillin currently, rotates three different antibiotics chronically Plan: d/c home tomorrow AM once picks up Exalgo from [facility]
[2017-04-07] MEDS: SODIUM CHLORIDE 0.9% 1000ML 1,000 ML IV SCH (18:19)
[2017-04-07 20:44] VITALS: BP 125/67; PULSE 81; TEMP 36.6; O2SAT 93
[2017-04-07] MEDS: ENOXAPARIN 40 MG/0.4 ML SYR SQ SCH (21:01)
[2017-04-07] MEDS: ATORVASTATIN 40 MG TAB PO SCH (21:01)
[2017-04-07] MEDS: DOXEPIN HCL 75 MG CAP PO SCH (21:01)
[2017-04-07] MEDS: INSULIN GLARGINE SOLOSTAR 100 UNITS/ML 3 ML PEN SC SCH (21:03)
[2017-04-08] MEDS: ONDANSETRON INJ 2 MG/ML 2 ML VIAL IV PRN (00:24)
[2017-04-08] MEDS: LORAZEPAM 0.5 MG TAB PO PRN (05:01)
[2017-04-08] MEDS: HYDROmorphone HCL 0.5MG/ML 50 ML CASSETTE IV PRN (07:07)
[2017-04-08 08:17] VITALS: BP 156/90; PULSE 120; TEMP 37.1; O2SAT 92
[2017-04-08] MEDS: FUROSEMIDE 20 MG TAB PO SCH (08:27)
[2017-04-08] MEDS: CYCLOBENZAPRINE HCL 5 MG TAB PO SCH (08:30)
[2017-04-08] MEDS: SENNA 8.6 MG TAB PO SCH (08:30)
[2017-04-08] MEDS: FAMOTIDINE 20 MG TAB PO SCH (08:30)
[2017-04-08] MEDS: DOCUSATE SODIUM 100 MG CAP PO SCH (08:30)
[2017-04-08] MEDS: AMOXICILLIN 500 MG CAP PO SCH (08:30)
[2017-04-08] MEDS: LEVETIRACETAM 250 MG TAB PO SCH (08:31)
[2017-04-08] MEDS: BACLOFEN TAB 20 MG TAB PO SCH (08:31)
[2017-04-08] MEDS: ASPIRIN 81 MG ECTAB PO SCH (08:31)
[2017-04-08] MEDS: INSULIN ASPART 100 UNITS/ML 3 ML PEN SC SCH (08:48)
[2017-04-08 09:31] VITALS: BP 111/58; PULSE 103; O2SAT 93
[2017-04-08 10:40] VITALS: BP 111/58; PULSE 103; TEMP 37.1; O2SAT 93
--- NOTE | 2017-04-08 11:24 | Discharge Instructions ---
Discharge Instructions Date of Service April 08, 2017. Admission Reason for Admission: Intractable Peritoneal/Rectal Pain,Spinal Cord Inj Discharge Discharge Diagnosis / Problem: Spinal cord injury, Rectal pain Discharge Goals Goal(s): Improve function Activity Recommendations Activity Limitations: as noted below Lifting Limitations: gradually increase as tolerated Shower/Bathe: no limitations . Instructions / Follow-Up Instructions / Follow-Up PCP in two weeks Current Hospital Diet Patient's current hospital diet: Diabetes Type 2 Diet Discharge Diet Recommended Diet: Diabetes Type 2 Diet Pending Studies Studies pending at discharge: no Laboratory Results Hemoglobin A1c Test 03/26/17 11:37 Range/Units Estimated Average Glucose 223 mg/dl Hemoglobin A1c 9.4 H 4.5-5.6 % Lipid Panel Test 03/26/17 11:37 Range/Units Triglycerides Level 270 H 0-150 mg/dl Cholesterol Level 173 0-200 mg/dl HDL Cholesterol 68 mg/dl Cholesterol/HDL Ratio 2.5 LDL Cholesterol, Calculated 51 mg/dl Medical Emergencies . Who to Call and When: Medical Emergencies: If at any time you feel your situation is an emergency, please call 911 immediately. . Non-Emergent Contact Non-Emergency issues call your: Primary Care Provider Call Non-Emergent contact if: you have a fever . Past History Medical & Surgical History: (1) indwelling catheter and recurrence UTI (2) Rectal pain, chronic (3) Paralysis of both lower limbs . "Provider Documentation" section prepared by Héctor Hood. . VTE Core Measure Inpt VTE Proph given/why not?: SCD's
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
[2017-05-16] MEDS ORDERED: Exalgo (11:15)
[2017-06-24] MEDS ORDERED: HYDR2TAB3 PO (16:04)
[2017-06-24] MEDS ORDERED: NVLGIPEN SC (16:04)
[2017-06-24] MEDS ORDERED: SNK PO (16:04)
[2017-06-24] MEDS ORDERED: LEVO50TA PO (16:04)
[2017-06-24] MEDS ORDERED: DFL100 PO (16:04)
[2017-06-24] MEDS ORDERED: CLIN150C PO (16:04)
[2017-06-24] MEDS ORDERED: CIPR1TAB11 PO (16:04)
[2017-06-24] MEDS ORDERED: AMOX500C3 PO (16:04)
[2017-06-24] MEDS ORDERED: MRLP17 PO (16:04)
[2017-07-01] MEDS ORDERED: ZOLP5TAB6 PO (08:10)
[2017-07-01] MEDS ORDERED: HYDR2TAB48 PO (08:10)
[2017-07-01] MEDS ORDERED: LORA-741 PO (08:10)
[2017-07-01] MEDS ORDERED: QUET1TAB32 PO (08:10)
[2017-07-01] MEDS ORDERED: ATOR-24 PO (08:10)
[2017-07-01] MEDS ORDERED: CYM/30 PO (08:10)
[2017-09-03] MEDS ORDERED: CIPR1TAB11 PO (07:41)
[2017-09-03] MEDS ORDERED: CLIN1CAP51 PO (07:41)
[2017-09-03] MEDS ORDERED: AMOX500C3 PO (07:41)
[2017-09-13] MEDS ORDERED: HYDR2TAB48 PO (10:13)
[2017-09-13] MEDS ORDERED: CEFT1INJ6 IV (10:13)
[2017-09-13] MEDS ORDERED: GFNSR600 PO (10:13)
[2017-09-13] MEDS ORDERED: LORA-741 PO (13:19)
[2017-10-01] MEDS ORDERED: LORA-741 PO (14:35)
[2017-10-01] MEDS ORDERED: AMOX500C3 PO (14:35)
[2017-10-01] MEDS ORDERED: ALBUAER INH (14:35)
[2017-10-01] MEDS ORDERED: INSU100I SC (14:35)
[2017-10-06] MEDS ORDERED: PRLSR20 PO (10:32)
[2017-10-06] MEDS ORDERED: CEFD300C3 PO (10:32)
[2017-10-06] MEDS ORDERED: IPRASOL4 INH (10:32)
== END 2017-04-08 12:18 | disposition home health service (06) | DRG 92 ==
LOC: C.MSW 15:22
PROVIDERS: ADMIT Family Medicine; ATTEND Internal Medicine
DX: G89.29 Other chronic pain (principal); G82.20 Paraplegia, unspecified; M79.2 Neuralgia and neuritis, unspecified; K62.89 Other specified diseases of anus and rectum; M53.3 Sacrococcygeal disorders, not elsewhere classified; R10.2 Pelvic and perineal pain; M62.830 Muscle spasm of back; S24.102S Unspecified injury at T2-T6 level of thoracic spinal cord, sequela; V89.2XXS Person injured in unspecified motor-vehicle accident, traffic, sequela; I12.9 Hypertensive chronic kidney disease with stage 1 through stage 4 chronic kidney disease, or unspecified chronic kidney disease; E11.22 Type 2 diabetes mellitus with diabetic chronic kidney disease; N18.9 Chronic kidney disease, unspecified; E11.43 Type 2 diabetes mellitus with diabetic autonomic (poly)neuropathy; K31.84 Gastroparesis; E03.9 Hypothyroidism, unspecified; E78.5 Hyperlipidemia, unspecified; K21.9 Gastro-esophageal reflux disease without esophagitis; N31.9 Neuromuscular dysfunction of bladder, unspecified; M81.0 Age-related osteoporosis without current pathological fracture; Z96.0 Presence of urogenital implants; Z99.81 Dependence on supplemental oxygen; Z87.891 Personal history of nicotine dependence; Z86.14 Personal history of Methicillin resistant Staphylococcus aureus infection; Z79.2 Long term (current) use of antibiotics; Z87.440 Personal history of urinary (tract) infections; Z79.4 Long term (current) use of insulin; Z79.82 Long term (current) use of aspirin; Z79.891 Long term (current) use of opiate analgesic; Z79.899 Other long term (current) drug therapy

== ENCOUNTER 2017-06-08 17:53 | Inpatient (IN) | payer OTHER ==
[~2017-06-08] VITALS: Ht 147.3 cm; Wt 73.5 kg
[2017-06-08] VITALS (26 sets, daily range): BP systolic 78–145; BP diastolic 55–94; PULSE 76–114; TEMP 36.8–37.1; O2SAT 91–100; Ht 147.3 cm; Wt 73.5 kg
[~2017-06-08 17:53] MED LIST changes: +ACET-1256 PO; -DRGTP50 TOP; -DSY/150 PO; +Exalgo; -OMEP40CA41 PO; +PROB1CAP41 PO
[2017-06-08] MEDS ORDERED: ONDANSETRON INJ 2 MG/ML 2 ML VIAL IV STA (17:57)
[2017-06-08] MEDS ORDERED: SODIUM CHLORIDE 0.9% 1000ML 2,000 ML IV STA (17:57)
[2017-06-08 18:20] LABS: BASO % 0.1 %; BASO ABS # 0.02 K/uL (0-0.2); COMPLETE YES; EOS % 0.2 %; HEMATOCRIT 38.6 % (37-47); IG% 0.9 %; LYMPH % 18.9 %; LYMPH ABS # 3.27 K/uL (1.2-3.4); MEAN CELL VOLUME 91.9 fL (80-100); MEAN CORPUSCULAR HEMOGLOBIN 30.7 pg (25-34); MEAN CORPUSCULAR HGB CONC 33.4 g/dl (32-36); MEAN PLATELET VOLUME 11.3 fL (7.4-10.4); NEUT % 73.9 %; PLATELET COUNT 523 K/uL (130-400); WHITE BLOOD COUNT 17.33 K/uL (4.8-10.8)
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
[2017-06-08 18:21] LABS: ISTAT CREATININE 0.5 mg/dl (0.6-1.3); ISTAT HEMOGLOBIN 14.6 g/dl (12.0-16.0); ISTAT IONIZED CALCIUM 1.15 mmol/l (1.12-1.32)
--- NOTE | 2017-06-08 18:31 | DIAGNOSTIC IMAGING REPORT ---
CHEST ONE VIEW PORTABLE CLINICAL HISTORY: Abdominal pain COMPARISON STUDY: No previous studies for comparison. FINDINGS: The examination is limited from a technical standpoint. The patient is rotated. There is a left internal jugular central venous catheter. The heart is mildly enlarged. There are postsurgical changes of a cervicothoracic fusion. There are surgical clips the esophagogastric junction. There is no overt failure. There are left basilar opacities, likely atelectatic.[ Free intraperitoneal air cannot be assessed on the supine chest. IMPRESSION: Technically limited study. Mild cardiomegaly. No evidence of overt failure. Left basilar opacities, likely atelectatic. Electronically signed by: Abdullahi Powers M.D. 06/08/2017 6:29 PM Dictated Date/Time: 06/08/2017 6:27 PM
[2017-06-08 18:37] LABS: INR 0.9 (0.9-1.1); PARTIAL THROMBOPLASTIN RATIO 0.9; PROTHROMBIN TIME (PATIENT) 9.8 SECONDS (9.0-12.0)
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
[2017-06-08 18:46] LABS: ALB/GLOB RATIO 0.8 (0.9-2); BUN/CREATININE RATIO 13.7 (10-20); CALCIUM 8.2 mg/dl (8.5-10.1); CREATININE 0.57 mg/dl (0.60-1.20); POTASSIUM 3.4 mmol/L (3.5-5.1)
[2017-06-08 18:55] LABS: BETA-HYDROXYBUTYRATE 10.56 mg/dL (0.2-2.81)
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
[2017-06-08] MEDS ORDERED: FENTANYL CITRATE INJ 50 MCG/1 ML 2 ML VIAL ONE (19:19)
[2017-06-08] MEDS ORDERED: ROCURONIUM BROMIDE 10 MG/ML 5 ML VIAL ONE (19:25)
[2017-06-08] MEDS ORDERED: PROPOFOL IV EMULSION 10 MG/ML 20 ML VIAL IV ONE (19:25)
[2017-06-08] MEDS ORDERED: CEFOXITIN SOD 1 GM VIAL ONE (19:25)
[2017-06-08] MEDS ORDERED: LABETALOL HCL IV 5 MG/ML 20ML IV ONE (19:25)
[2017-06-08] MEDS ORDERED: ETOMIDATE 2 MG/ML 20 ML VIAL IV ONE (19:25)
[2017-06-08] MEDS ORDERED: CISATRACURIUM BESYLATE IV SOLN 2 MG/ML 10 ML VIAL ONE (19:47)
[2017-06-08] MEDS ORDERED: MoRPHine SULFATE PF 1 MG/ML 10 ML AMP/VIAL ONE (20:04)
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
[2017-06-08] MEDS ORDERED: ONDANSETRON INJ 2 MG/ML 2 ML VIAL IV PRN (21:30)
[2017-06-08] MEDS ORDERED: ATROPINE SULFATE 0.1 MG/ML 5ML SYR IV PRN (21:30)
[2017-06-08] MEDS ORDERED: EpHEDrine SULFATE INJ 50 MG/ML AMP IV PRN (21:30)
[2017-06-08] MEDS: FENTANYL CITRATE INJ 50 MCG/1 ML 2 ML VIAL IV PRN ×2 (21:35→21:45)
[2017-06-08] MEDS ORDERED: KETAMINE HCL INJ 50 MG/ML 10 ML VIAL IV STA (21:36)
[2017-06-08] MEDS ORDERED: KETAMINE HCL INJ 500 MG in SODIUM CHLORIDE 0.9% 500ML 490 ML IV PRN (21:45)
--- NOTE | 2017-06-08 21:46 | Anesthesiology Progress Note ---
Anesthesia Post Op Note Date & Time Jun 08, 2017 at 21:44 Vital Signs Pain Intensity: 10.0 Vital Signs Past 12 Hours Date Time Temp Pulse Resp B/P (MAP) Pulse Ox O2 Delivery O2 Flow Rate FiO2 06/08/17 18:44 110 20 126/77 100 Room Air 06/08/17 18:28 37.1 108 18 120/69 100 06/08/17 18:23 36.7 115 24 88/46 99 Room Air 06/08/17 18:22 114 18 111/65 98 06/08/17 18:14 37.1 114 19 85/66 96 06/08/17 18:02 127 Notes Mental Status: alert / awake / arousable, participated in evaluation Pt Amnestic to Procedure: Yes Nausea / Vomiting: adequately controlled Pain: adequately controlled Airway Patency, RR, SpO2: stable & adequate BP & HR: stable & adequate Hydration State: stable & adequate Anesthetic Complications: no major complications apparent Patient awake and complaining of her typical coccygeal pain in ICU. No complaints in her abdomen and her typical pain was minimally responsive to narcotics. I spoke with the basket grader MD regarding a ketamine drip overnight and so I have started this with a small bolus dose of ketamine 15mg and then a drip at 0.2mg/kg/hr. The ICU PA-C was at bedside and will assume care of the patient.
[2017-06-08] MEDS ORDERED: MoRPHine SULFATE 4 MG/ML 1 ML CARP\\VIAL IV STA (21:50)
--- NOTE | 2017-06-08 22:03 | DIAGNOSTIC IMAGING REPORT ---
CHEST ONE VIEW PORTABLE CLINICAL HISTORY: Chest x-ray for nasogastric tube placement COMPARISON STUDY: 06/08/2017 FINDINGS: There are postsurgical changes of a cervicothoracic spinal fusion. There is an old left clavicular fracture. There is a left internal jugular central venous catheter, unchanged in position.. There is been interval insertion of a nasogastric tube the tip of which projects over the stomach. There are old right-sided rib fractures. The heart is the upper limits of normal in size. There is stable interstitial thickening.[ IMPRESSION: 1. Interval insertion of a nasogastric tube located with its tip in the stomach. Electronically signed by: Abdullahi Powers M.D. 06/08/2017 10:02 PM Dictated Date/Time: 06/08/2017 9:55 PM
[2017-06-08] MEDS: LACTATED RINGER'S 1000ML 1,000 ML IV SCH (22:13)
[2017-06-08 22:23] LABS: HEMATOCRIT 34.3 % (37-47); MEAN CELL VOLUME 89.6 fL (80-100); MEAN CORPUSCULAR HEMOGLOBIN 30.3 pg (25-34); MEAN CORPUSCULAR HGB CONC 33.8 g/dl (32-36); MEAN PLATELET VOLUME 10.9 fL (7.4-10.4); PLATELET COUNT 376 K/uL (130-400); RED BLOOD COUNT 3.83 M/uL (4.2-5.4); WHITE BLOOD COUNT 27.24 K/uL (4.8-10.8)
[2017-06-08 22:39] LABS: BUN/CREATININE RATIO 11.3 (10-20); CALCIUM 7.8 mg/dl (8.5-10.1); CREATININE 0.78 mg/dl (0.60-1.20); POTASSIUM 3.9 mmol/L (3.5-5.1)
[2017-06-08 22:40] LABS: BASO % 0.1 %; BASO ABS # 0.03 K/uL (0-0.2); COMPLETE YES; IG% 0.4 %; LYMPH % 7.4 %; LYMPH ABS # 2.02 K/uL (1.2-3.4); NEUT % 89.1 %
[2017-06-08] MEDS ORDERED: GLUCOSE 40% GEL 15 GM TUBE PO PRN (23:45)
[2017-06-08] MEDS ORDERED: GLUCAGON FOR INJ 1 MG VIAL SQ PRN (23:45)
[2017-06-08] MEDS ORDERED: DEXTROSE 50% 50 ML SYR IV PRN (23:45)
[2017-06-08] MEDS ORDERED: GLUCOSE 10 TABS/TUBE PO PRN (23:45)
[2017-06-08] MEDS: INSULIN ASPART 100 UNITS/ML 3 ML PEN SC SCH (23:54)
[2017-06-08] MEDS: INSULIN GLARGINE SOLOSTAR 100 UNITS/ML 3 ML PEN SC SCH (23:57)
[2017-06-09] VITALS (30 sets, daily range): BP systolic 95–131; BP diastolic 44–76; PULSE 71–116; TEMP 36.5–37.5; O2SAT 94–100
[2017-06-09] MEDS: HYDROmorphone INJ 1 MG/ML SYR IV PRN ×7 (02:12→20:58)
[2017-06-09] MEDS: INSULIN ASPART 100 UNITS/ML 3 ML PEN SC SCH ×4 (02:36→21:00)
[2017-06-09 03:03] LABS: HEMATOCRIT 33.5 % (37-47); MEAN CELL VOLUME 89.3 fL (80-100); MEAN CORPUSCULAR HEMOGLOBIN 29.3 pg (25-34); MEAN CORPUSCULAR HGB CONC 32.8 g/dl (32-36); MEAN PLATELET VOLUME 10.8 fL (7.4-10.4); PLATELET COUNT 372 K/uL (130-400); RED BLOOD COUNT 3.75 M/uL (4.2-5.4); WHITE BLOOD COUNT 34.16 K/uL (4.8-10.8)
[2017-06-09 03:06] LABS: BUN/CREATININE RATIO 14.9 (10-20); CALCIUM 7.8 mg/dl (8.5-10.1); CREATININE 0.8 mg/dl (0.60-1.20); MAGNESIUM 1.3 mg/dl (1.8-2.4)
[2017-06-09 03:09] LABS: ALB/GLOB RATIO 0.7 (0.9-2); PHOSPHORUS 4.7 mg/dl (2.5-4.9)
[2017-06-09] MEDS: MAGNESIUM SULFATE 1GM / D5W 1 GM in PREMIXED IN D5W 100 ML IV SCH ×2 (04:02→05:20)
[2017-06-09 05:03] LABS: URINE APPEARANCE TURBID (CLEAR); URINE BILIRUBIN NEG (NEG); URINE COLOR YELLOW; URINE NITRITE NEG (NEG); URINE SPECIFIC GRAVITY 1.016 (1.000-1.030); UROBILINOGEN NEG (NEG); ZZURINE CULT IF INDIC CATH YES
[2017-06-09] MEDS: LEVOTHYROXINE 25 MCG TAB PO SCH (05:21)
[2017-06-09 05:23] LABS: MANUAL MICROSCOPIC REQUIRED? NO; REVIEW REQ? YES
[2017-06-09] MEDS: LACTATED RINGER'S 1000ML 1,000 ML IV SCH ×2 (05:43→15:31)
--- NOTE | 2017-06-09 07:32 | Surgery Progress Note ---
Surgery Progress Note Date of Service Jun 09, 2017. Subjective Post OP Day: 1 alert in no distress no abd complaints Objective Vital Signs: Date Time Temp Pulse Resp B/P (MAP) Pulse Ox O2 Delivery O2 Flow Rate FiO2 06/09/17 06:01 102 21 121/61 (81) 97 06/09/17 06:00 97 10 96 06/09/17 05:31 100 10 114/57 (76) 97 06/09/17 05:30 98 23 97 06/09/17 05:01 100 10 117/57 (77) 97 06/09/17 05:00 96 8 97 06/09/17 04:31 98 12 106/53 (70) 98 06/09/17 04:30 98 13 98 06/09/17 04:15 100 Nasal Cannula 2.0 06/09/17 04:01 98 15 112/76 (88) 98 06/09/17 04:01 98 15 112/76 (88) 98 06/09/17 04:00 96 12 97 06/09/17 04:00 37.0 96 12 97 06/09/17 03:31 97 10 95/74 (81) 97 06/09/17 03:02 93 10 125/70 (88) 98 06/09/17 03:00 92 10 99 06/09/17 02:01 91 16 104/63 (77) 98 06/09/17 02:00 91 16 98 06/09/17 01:31 96 16 109/66 (80) 98 06/09/17 01:13 93 11 131/65 (87) 99 06/09/17 01:01 93 14 121/65 (83) 99 06/09/17 01:00 93 14 99 06/09/17 00:31 91 13 115/63 (80) 100 06/09/17 00:30 91 12 99 06/09/17 00:01 36.5 90 13 111/61 (78) 100 06/09/17 00:00 100 Nasal Cannula 2.0 06/09/17 00:00 90 12 100 06/08/17 23:31 88 10 116/61 (79) 100 06/08/17 23:30 90 9 100 06/08/17 23:01 84 15 113/94 (100) 100 06/08/17 23:00 84 9 100 06/08/17 22:31 79 13 93/63 (73) 98 06/08/17 22:30 76 15 100 06/08/17 22:24 82 22 83/64 (70) 95 06/08/17 22:21 82 16 78/55 (63) 92 06/08/17 22:16 80 19 104/58 (73) 96 06/08/17 22:12 82 15 95 06/08/17 22:12 82 15 06/08/17 22:11 82 14 96/59 (71) 96 06/08/17 22:11 96/59 (68) 06/08/17 22:07 36.8 79 17 96 Room Air 06/08/17 22:07 80 17 06/08/17 22:06 99/59 (76) 06/08/17 22:06 79 13 99/59 (72) 98 06/08/17 22:02 79 16 06/08/17 22:02 78 16 97 Room Air 06/08/17 22:01 125/58 (82) 06/08/17 22:01 79 23 125/58 (80) 92 06/08/17 22:01 36.8 79 23 125/58 91 Nasal Cannula 1.0 06/08/17 22:00 79 24 91 06/08/17 21:57 77 23 06/08/17 21:57 77 23 92 Room Air 06/08/17 21:56 76 13 105/66 (79) 93 06/08/17 21:56 105/66 (83) 06/08/17 21:52 78 13 06/08/17 21:52 78 13 93 06/08/17 21:51 108/70 (81) 06/08/17 21:51 78 14 108/70 (83) 92 06/08/17 21:47 76 17 95 06/08/17 21:47 76 17 06/08/17 21:46 76 21 107/64 (78) 96 06/08/17 21:46 107/64 (83) 06/08/17 21:45 74 19 93 06/08/17 21:45 74 19 06/08/17 21:41 76 21 101/64 (76) 95 06/08/17 21:41 101/64 (67) 06/08/17 21:40 75 16 95 06/08/17 21:40 75 16 06/08/17 21:36 76 17 145/64 (91) 95 06/08/17 21:36 145/64 (84) 06/08/17 21:35 74 16 94 06/08/17 21:35 74 16 06/08/17 21:31 115/64 (82) 06/08/17 21:31 76 19 115/64 (81) 94 06/08/17 21:30 77 13 93 06/08/17 21:30 36.8 77 13 06/08/17 21:30 77 13 93 06/08/17 21:26 78 15 117/71 (86) 98 06/08/17 21:26 117/71 (77) 06/08/17 21:25 81 21 06/08/17 21:25 79 21 97 06/08/17 21:20 36.7 80 16 06/08/17 21:20 81 16 132/71 (103) 93 06/08/17 21:20 80 16 132/71 (91) 93 06/08/17 21:15 36.5 80 19 126/78 (95) 99 06/08/17 21:15 78 19 06/08/17 21:15 78 19 126/78 (94) 99 06/08/17 18:44 110 20 126/77 100 Room Air 06/08/17 18:28 37.1 108 18 120/69 100 06/08/17 18:23 36.7 115 24 88/46 99 Room Air 06/08/17 18:22 114 18 111/65 98 06/08/17 18:14 37.1 114 19 85/66 96 06/08/17 18:02 127 Abdomen: + pertinent finding (softly distended dressing some saturation right of midline) Laboratory Results: Results Past 24 Hours Test 06/08/17 09:55 06/08/17 18:02 06/08/17 18:06 06/08/17 18:07 Range/Units White Blood Count 27.24 17.33 4.8-10.8 K/uL Red Blood Count 3.83 4.20 4.2-5.4 M/uL Hemoglobin 11.6 12.9 12.0-16.0 g/dL Hematocrit 34.3 38.6 37-47 % Mean Corpuscular Volume 89.6 91.9 80-100 fL Mean Corpuscular Hemoglobin 30.3 30.7 25-34 pg Mean Corpuscular Hemoglobin Concent 33.8 33.4 32-36 g/dl Platelet Count 376 523 130-400 K/uL Mean Platelet Volume 10.9 11.3 7.4-10.4 fL Neutrophils (%) (Auto) 89.1 73.9 % Lymphocytes (%) (Auto) 7.4 18.9 % Monocytes (%) (Auto) 3.0 6.0 % Eosinophils (%) (Auto) 0.0 0.2 % Basophils (%) (Auto) 0.1 0.1 % Neutrophils # (Auto) 24.24 12.81 1.4-6.5 K/uL Lymphocytes # (Auto) 2.02 3.27 1.2-3.4 K/uL Monocytes # (Auto) 0.83 1.04 0.11-0.59 K/uL Eosinophils # (Auto) 0.00 0.04 0-0.5 K/uL Basophils # (Auto) 0.03 0.02 0-0.2 K/uL RDW Standard Deviation 53.9 53.3 36.4-46.3 fL RDW Coefficient of Variation 16.5 15.8 11.5-14.5 % Immature Granulocyte % (Auto) 0.4 0.9 % Immature Granulocyte # (Auto) 0.12 0.15 0.00-0.02 K/uL Red Blood Cell Morphology Unremarkable Sodium Level 138 137 136-145 mmol/L Potassium Level 3.9 3.4 3.5-5.1 mmol/L Chloride Level 104 102 98-107 mmol/L Carbon Dioxide Level 25 25 21-32 mmol/L Anion Gap 9.0 10.0 17.0 16-25 mmol/L Blood Urea Nitrogen 9 8 7-18 mg/dl Creatinine 0.78 0.57 0.60-1.20 mg/dl Est Creatinine Clear Calc Drug Dose 51.4 79.4 ml/min Estimated GFR () 85.0 103.6 Estimated GFR (Non- 73.3 89.4 BUN/Creatinine Ratio 11.3 13.7 10-20 Random Glucose 291 321 70-99 mg/dl Calcium Level 7.8 8.2 8.5-10.1 mg/dl Prothrombin Time 9.8 9.0-12.0 SECONDS Prothromb Time International Ratio 0.9 0.9-1.1 Activated Partial Thromboplast Time 23.3 21.0-31.0 SECONDS Partial Thromboplastin Ratio 0.9 Total Bilirubin 0.2 0.2-1 mg/dl Aspartate Amino Transf (AST/SGOT) 17 15-37 U/L Alanine Aminotransferase (ALT/SGPT) 19 12-78 U/L Alkaline Phosphatase 123 45-117 U/L Total Protein 5.5 6.4-8.2 gm/dl Albumin 2.4 3.4-5.0 gm/dl Globulin 3.1 2.5-4.0 gm/dl Albumin/Globulin Ratio 0.8 0.9-2 Lipase 77 73-393 U/L Beta-Hydroxybutyric Acid 10.56 0.2-2.81 mg/dL Bedside Hemoglobin 14.6 12.0-16.0 g/dl Bedside Hematocrit 43 37-47 % Bedside Sodium 135 135-144 mEq/L Bedside Potassium 3.8 3.3-5.0 mEq/L Bedside Chloride 94 101-112 mEq/L Bedside Total CO2 28 24-31 mEq/l Bedside Blood Urea Nitrogen 7 7-18 mg/dl Bedside Creatinine 0.5 0.6-1.3 mg/dl Bedside Glucose (other) 343 70-99 mg/dl Bedside Ionized Calcium (Gina) 1.15 1.12-1.32 mmol/l Test 06/08/17 23:42 06/09/17 00:00 06/09/17 02:29 06/09/17 02:33 Range/Units Bedside Glucose 288 216 70-90 mg/dl Urine Color YELLOW Urine Appearance TURBID CLEAR Urine pH 7.0 4.5-7.5 Urine Specific [place] 1.016 1.000-1.030 Urine Protein 1+ NEG Urine Glucose (UA) NEG NEG Urine Ketones TRACE NEG Urine Occult Blood 1+ NEG Urine Nitrite NEG NEG Urine Bilirubin NEG NEG Urine Urobilinogen NEG NEG Urine Leukocyte Esterase LARGE NEG Urine WBC (Auto) >30 0-5 /hpf Urine RBC (Auto) 0-4 0-4 /hpf Urine Hyaline Casts (Auto) 0 0-5 /lpf Urine Epithelial Cells (Auto) 10-20 0-5 /lpf Urine Bacteria (Auto) 4+ NEG Urine Pathogenic Casts 0 /lpf Urine Yeast (Auto) BUD W/ HYPHAE NONE PRSENT White Blood Count 34.16 4.8-10.8 K/uL Red Blood Count 3.75 4.2-5.4 M/uL Hemoglobin 11.0 12.0-16.0 g/dL Hematocrit 33.5 37-47 % Mean Corpuscular Volume 89.3 80-100 fL Mean Corpuscular Hemoglobin 29.3 25-34 pg Mean Corpuscular Hemoglobin Concent 32.8 32-36 g/dl RDW Standard Deviation 55.5 36.4-46.3 fL RDW Coefficient of Variation 17.0 11.5-14.5 % Platelet Count 372 130-400 K/uL Mean Platelet Volume 10.8 7.4-10.4 fL Sodium Level 140 136-145 mmol/L Potassium Level 4.0 3.5-5.1 mmol/L Chloride Level 106 98-107 mmol/L Carbon Dioxide Level 26 21-32 mmol/L Anion Gap 8.0 3-11 mmol/L Blood Urea Nitrogen 12 7-18 mg/dl Creatinine 0.80 0.60-1.20 mg/dl Est Creatinine Clear Calc Drug Dose 50.1 ml/min Estimated GFR () 82.4 Estimated GFR (Non- 71.1 BUN/Creatinine Ratio 14.9 10-20 Random Glucose 205 70-99 mg/dl Calcium Level 7.8 8.5-10.1 mg/dl Phosphorus Level 4.7 2.5-4.9 mg/dl Magnesium Level 1.3 1.8-2.4 mg/dl Total Bilirubin 0.3 0.2-1 mg/dl Aspartate Amino Transf (AST/SGOT) 32 15-37 U/L Alanine Aminotransferase (ALT/SGPT) 31 12-78 U/L Alkaline Phosphatase 113 45-117 U/L Total Protein 5.1 6.4-8.2 gm/dl Albumin 2.1 3.4-5.0 gm/dl Globulin 3.0 2.5-4.0 gm/dl Albumin/Globulin Ratio 0.7 0.9-2 Test 06/09/17 03:15 06/09/17 05:34 Range/Units Ionized Calcium 1.16 1.12-1.32 mmol/l Bedside Glucose 220 70-90 mg/dl Microbiology Results 06/08/17 MRSA DNA Surveillance Screen - Final, Complete Specimen Negative for MRSA by DNA Probe 06/09/17 Urine Culture, Received Pending Assessment & Plan 06/09/17 elevated wbc noted will start broad spectrum antibiotics even though pt had no obvious gi perforation may have had transmural migration of bacteria from serosal lac cecum
[2017-06-09] MEDS ORDERED: PIPERACILL/TAZOBAC CONSULT ACTIVE PRN (07:45)
[2017-06-09] MEDS ORDERED: PIPERACILL/TAZOBAC IV 3.375 GM in DEXTROSE 5% 100ML 100 ML IV ONE (07:45)
[2017-06-09] MEDS: LEVETIRACETAM 500 MG TAB PO SCH ×2 (07:55→20:57)
[2017-06-09] MEDS: HEPARIN SOD 5000 UNIT/0.5 ML CARP SQ SCH ×2 (08:01→20:59)
--- NOTE | 2017-06-09 08:57 | Critical Care Progress Note ---
Critical Care Progress Note Date of Service Jun 09, 2017. ICU Day ICU Day Number: [address] Montgomery Subjective Awake, no significant pain issues at this time Requesting to drink, dry lips Objective Gen: Resting comfortably in room Eyes - PERRL, EOMI ENT - Mucosa dry, no lesions or candidiasis NG tube present Neck - Supple, trachea midline, no masses Abdomen - BS absent, majority of abdomen covered in surgical dressing. Light palpation only; slightly firm, no bruits noted, nontender, mildly distended, organomegaly not assessed Neuro - A&O x 4 Strength Upper extremities equal and appropriate bilaterally, no movement or sensation of lower extremities CN:PERRL, EOMI, no facial asymmetry, uvula/tongue midline Current SOFA Score SOFA Score Response (Comments) Value Platelets (x10) > 150 0 Bilirubin (mg/dL) < 1.2 0 [place] Coma Score 15 0 Level of Hypotension No Hypotension 0 Creatinine (mg/dL) < 1.2 0 Total 0 Assessment & Plan (1) Hypotension (2) Intentional self-harm by knife (3) Chronic kidney disease (4) Diabetes (5) Dyslipidemia (6) GERD (gastroesophageal reflux disease) (7) Paralysis of both lower limbs (8) Rectal pain, chronic PLAN: Neuro: * Suicide attempt * 302 * Psych evaluation * Known history of depression continue home doxepin regimen * Chronic pain * Ketamine off, restart home medications * Not on gabapentin would start gabapentin 100 mg 3 times a day for neuropathic pain * IV Tylenol for postsurgical pain * Continue home dose of Keppra for antiseizure GI/Nutrition: * Day # 1: Exploratory Laparotomy, Abdominal Washout Hemoperitoneum, Repair Serosal Laceration Cecum, Lysis of Adhesions partial omentectomy * Okay for clear liquids per Dr. Mac's recommendation * Known swallowing issues per history: May require swallow eval for specialized diet * Restart home meds CV: * Mild tachycardia * Likely secondary to Sears response * Restart 81 mg aspirin and Lipitor Endocrine: * Patient hyperglycemic upon arrival: A1c on 03/26/2017 of 9.4 * On sliding scale insulin with correction factor * Will resume home Lantus at half the dose while patient is NPO Resp: * Incentive spirometry Fluids/Renal: * Decreased maintenance fluids * Likely restart Lasix and potassium tomorrow Heme: * EBL in OR: 400mL; unknown amount prior to OR * Patient received 1 unit packed red blood cells in ED, no evidence of ongoing losses * DVT Prophylaxis: Heparin DVT prophylaxis ID: * Patient on chronic suppressive therapy for urinary tract infections * Currently on Zosyn for possible translocation bacteria, no need for other suppressive medications at this time Access: Discontinue central venous access Left AC 18g in place. Mental health consult Stable for downgraded to a MedSurg later today Consults & Procedures Consultants: General surgery Mental health Procedures: Exploratory laparotomy 06/08/2017 Central venous catheter placed in the ED 06/08/2017 Data Medications: Current Inpatient Medications Medications (Trade) Dose Ordered Sig/Karen Route Start Time Stop Time Status Last Admin Dose Admin Lactated Ringer's 1,000 ml @ 125 mls/hr Q8H IV 06/08/17 21:15 07/08/17 21:14 06/09/17 05:43 125 MLS/HR Hydromorphone HCl (Dilaudid Inj) 1 mg Q2H PRN IV 06/08/17 20:45 06/22/17 20:44 06/09/17 07:55 1 MG Ondansetron HCl (Zofran Inj) 4 mg Q6H PRN IV 06/08/17 20:45 07/08/17 20:44 Pantoprazole Sodium 40 mg/ Syringe 10 ml @ 5 mls/min DAILY@11 IV 06/09/17 11:00 07/09/17 10:59 Heparin Sodium (Porcine) (Heparin Sq 5000 Unit/0.5ml) 5,000 unit Q12 SQ 06/09/17 09:00 07/09/17 08:59 06/09/17 08:01 5,000 UNIT Ondansetron HCl (Zofran Inj) 4 mg ONE PRN IV 06/08/17 21:30 Ketamine HCl 500 mg/Sodium Chloride 500 ml @ 15 mls/hr Q24H PRN IV 06/08/17 21:45 07/08/17 21:44 06/08/17 22:05 15 MLS/HR Heparin Sodium (Porcine) (Heparin 10 Unit/ ml 5 ml Flush) 5 ml PRN PRN FLUSH 06/08/17 23:30 07/08/17 23:29 Insulin Aspart (novoLOG ASPART) SLIDING SCALE G... Q6 SC 06/09/17 00:00 07/09/17 00:00 06/09/17 05:37 2 UNITS Insulin Glargine (Lantus Solostar Pen) 7 units HS SC 06/09/17 00:00 07/09/17 00:00 06/08/17 23:57 7 UNITS Levothyroxine Sodium (Synthroid Tab) 25 mcg DAILYBB PO 06/09/17 06:00 07/09/17 05:59 06/09/17 05:21 25 MCG Doxepin HCl ([place] Cap) 75 mg HS PO 06/09/17 21:00 07/09/17 20:59 Levetiracetam (Keppra Tab) 500 mg BID PO 06/09/17 09:00 07/09/17 08:59 06/09/17 07:55 500 MG Insulin Aspart (novoLOG ASPART) SLIDING SCALE G... 0300 SC 06/09/17 03:00 07/09/17 02:59 06/09/17 02:36 2 UNITS Glucose (Glucose 40% Gel) 15-30 GRAMS 15 GRAMS... UD PRN PO 06/08/17 23:45 07/08/17 23:44 Glucose (Glucose Chew Tab) 4-8 Tablets 4 Tabl... UD PRN PO 06/08/17 23:45 07/08/17 23:44 Dextrose (Dextrose 50% 50ML Syringe) 25-50ML OF 50% DW IV FOR... UD PRN IV 06/08/17 23:45 07/08/17 23:44 Glucagon (Glucagon Inj) 1 mg UD PRN SQ 06/08/17 23:45 07/08/17 23:44 Piperacillin Sod/ Tazobactam Sod (Consult) 1 ea UD PRN N/A 06/09/17 07:45 07/09/17 07:44 Piperacillin Sod/ Tazobactam Sod 3.375 gm/Dextrose 115 ml @ 28.75 mls/ hr Q8H IV 06/09/17 12:00 06/19/17 11:59 Vital Signs: Date Time Temp Pulse Resp B/P (MAP) Pulse Ox O2 Delivery O2 Flow Rate FiO2 06/09/17 06:01 102 21 121/61 (81) 97 06/09/17 06:00 97 10 96 06/09/17 05:31 100 10 114/57 (76) 97 06/09/17 05:30 98 23 97 06/09/17 05:01 100 10 117/57 (77) 97 06/09/17 05:00 96 8 97 06/09/17 04:31 98 12 106/53 (70) 98 06/09/17 04:30 98 13 98 06/09/17 04:15 100 Nasal Cannula 2.0 06/09/17 04:01 98 15 112/76 (88) 98 06/09/17 04:01 98 15 112/76 (88) 98 06/09/17 04:00 96 12 97 06/09/17 04:00 37.0 96 12 97 06/09/17 03:31 97 10 95/74 (81) 97 06/09/17 03:02 93 10 125/70 (88) 98 06/09/17 03:00 92 10 99 06/09/17 02:01 91 16 104/63 (77) 98 06/09/17 02:00 91 16 98 06/09/17 01:31 96 16 109/66 (80) 98 06/09/17 01:13 93 11 131/65 (87) 99 06/09/17 01:01 93 14 121/65 (83) 99 06/09/17 01:00 93 14 99 06/09/17 00:31 91 13 115/63 (80) 100 06/09/17 00:30 91 12 99 06/09/17 00:01 36.5 90 13 111/61 (78) 100 06/09/17 00:00 100 Nasal Cannula 2.0 06/09/17 00:00 90 12 100 06/08/17 23:31 88 10 116/61 (79) 100 06/08/17 23:30 90 9 100 06/08/17 23:01 84 15 113/94 (100) 100 06/08/17 23:00 84 9 100 06/08/17 22:31 79 13 93/63 (73) 98 06/08/17 22:30 76 15 100 06/08/17 22:24 82 22 83/64 (70) 95 06/08/17 22:21 82 16 78/55 (63) 92 06/08/17 22:16 80 19 104/58 (73) 96 06/08/17 22:12 82 15 95 06/08/17 22:12 82 15 06/08/17 22:11 82 14 96/59 (71) 96 06/08/17 22:11 96/59 (68) 06/08/17 22:07 36.8 79 17 96 Room Air 06/08/17 22:07 80 17 06/08/17 22:06 99/59 (76) 06/08/17 22:06 79 13 99/59 (72) 98 06/08/17 22:02 79 16 06/08/17 22:02 78 16 97 Room Air 06/08/17 22:01 125/58 (82) 06/08/17 22:01 79 23 125/58 (80) 92 06/08/17 22:01 36.8 79 23 125/58 91 Nasal Cannula 1.0 06/08/17 22:00 79 24 91 06/08/17 21:57 77 23 06/08/17 21:57 77 23 92 Room Air 06/08/17 21:56 76 13 105/66 (79) 93 06/08/17 21:56 105/66 (83) 06/08/17 21:52 78 13 06/08/17 21:52 78 13 93 06/08/17 21:51 108/70 (81) 06/08/17 21:51 78 14 108/70 (83) 92 06/08/17 21:47 76 17 95 06/08/17 21:47 76 17 06/08/17 21:46 76 21 107/64 (78) 96 06/08/17 21:46 107/64 (83) 06/08/17 21:45 74 19 93 06/08/17 21:45 74 19 06/08/17 21:41 76 21 101/64 (76) 95 06/08/17 21:41 101/64 (67) 06/08/17 21:40 75 16 95 06/08/17 21:40 75 16 06/08/17 21:36 76 17 145/64 (91) 95 06/08/17 21:36 145/64 (84) 06/08/17 21:35 74 16 94 06/08/17 21:35 74 16 06/08/17 21:31 115/64 (82) 06/08/17 21:31 76 19 115/64 (81) 94 06/08/17 21:30 77 13 93 06/08/17 21:30 36.8 77 13 06/08/17 21:30 77 13 93 06/08/17 21:26 78 15 117/71 (86) 98 06/08/17 21:26 117/71 (77) 06/08/17 21:25 81 21 06/08/17 21:25 79 21 97 06/08/17 21:20 36.7 80 16 06/08/17 21:20 81 16 132/71 (103) 93 06/08/17 21:20 80 16 132/71 (91) 93 06/08/17 21:15 36.5 80 19 126/78 (95) 99 06/08/17 21:15 78 19 06/08/17 21:15 78 19 126/78 (94) 99 06/08/17 18:44 110 20 126/77 100 Room Air 06/08/17 18:28 37.1 108 18 120/69 100 06/08/17 18:23 36.7 115 24 88/46 99 Room Air 06/08/17 18:22 114 18 111/65 98 06/08/17 18:14 37.1 114 19 85/66 96 06/08/17 18:02 127 Laboratory Results: Last 24 Hours Test 06/08/17 09:55 06/08/17 18:02 06/08/17 18:06 06/08/17 18:07 White Blood Count 27.24 K/uL 17.33 K/uL Red Blood Count 3.83 M/uL 4.20 M/uL Hemoglobin 11.6 g/dL 12.9 g/dL Hematocrit 34.3 % 38.6 % Mean Corpuscular Volume 89.6 fL 91.9 fL Mean Corpuscular Hemoglobin 30.3 pg 30.7 pg Mean Corpuscular Hemoglobin Concent 33.8 g/dl 33.4 g/dl Platelet Count 376 K/uL 523 K/uL Mean Platelet Volume 10.9 fL 11.3 fL Neutrophils (%) (Auto) 89.1 % 73.9 % Lymphocytes (%) (Auto) 7.4 % 18.9 % Monocytes (%) (Auto) 3.0 % 6.0 % Eosinophils (%) (Auto) 0.0 % 0.2 % Basophils (%) (Auto) 0.1 % 0.1 % Neutrophils # (Auto) 24.24 K/uL 12.81 K/uL Lymphocytes # (Auto) 2.02 K/uL 3.27 K/uL Monocytes # (Auto) 0.83 K/uL 1.04 K/uL Eosinophils # (Auto) 0.00 K/uL 0.04 K/uL Basophils # (Auto) 0.03 K/uL 0.02 K/uL RDW Standard Deviation 53.9 fL 53.3 fL RDW Coefficient of Variation 16.5 % 15.8 % Immature Granulocyte % (Auto) 0.4 % 0.9 % Immature Granulocyte # (Auto) 0.12 K/uL 0.15 K/uL Red Blood Cell Morphology Unremarkable Sodium Level 138 mmol/L 137 mmol/L Potassium Level 3.9 mmol/L 3.4 mmol/L Chloride Level 104 mmol/L 102 mmol/L Carbon Dioxide Level 25 mmol/L 25 mmol/L Anion Gap 9.0 mmol/L 10.0 mmol/L 17.0 mmol/L Blood Urea Nitrogen 9 mg/dl 8 mg/dl Creatinine 0.78 mg/dl 0.57 mg/dl Est Creatinine Clear Calc Drug Dose 51.4 ml/min 79.4 ml/min Estimated GFR () 85.0 103.6 Estimated GFR (Non- 73.3 89.4 BUN/Creatinine Ratio 11.3 13.7 Random Glucose 291 mg/dl 321 mg/dl Calcium Level 7.8 mg/dl 8.2 mg/dl Prothrombin Time 9.8 SECONDS Prothromb Time International Ratio 0.9 Activated Partial Thromboplast Time 23.3 SECONDS Partial Thromboplastin Ratio 0.9 Total Bilirubin 0.2 mg/dl Aspartate Amino Transf (AST/SGOT) 17 U/L Alanine Aminotransferase (ALT/SGPT) 19 U/L Alkaline Phosphatase 123 U/L Total Protein 5.5 gm/dl Albumin 2.4 gm/dl Globulin 3.1 gm/dl Albumin/Globulin Ratio 0.8 Lipase 77 U/L Beta-Hydroxybutyric Acid 10.56 mg/dL Bedside Hemoglobin 14.6 g/dl Bedside Hematocrit 43 % Bedside Sodium 135 mEq/L Bedside Potassium 3.8 mEq/L Bedside Chloride 94 mEq/L Bedside Total CO2 28 mEq/l Bedside Blood Urea Nitrogen 7 mg/dl Bedside Creatinine 0.5 mg/dl Bedside Glucose (other) 343 mg/dl Bedside Ionized Calcium (Gina) 1.15 mmol/l Test 06/08/17 23:42 06/09/17 00:00 06/09/17 02:29 06/09/17 02:33 Bedside Glucose 288 mg/dl 216 mg/dl Urine Color YELLOW Urine Appearance TURBID Urine pH 7.0 Urine Specific [place] 1.016 Urine Protein 1+ Urine Glucose (UA) NEG Urine Ketones TRACE Urine Occult Blood 1+ Urine Nitrite NEG Urine Bilirubin NEG Urine Urobilinogen NEG Urine Leukocyte Esterase LARGE Urine WBC (Auto) >30 /hpf Urine RBC (Auto) 0-4 /hpf Urine Hyaline Casts (Auto) 0 /lpf Urine Epithelial Cells (Auto) 10-20 /lpf Urine Bacteria (Auto) 4+ Urine Pathogenic Casts /lpf Urine Yeast (Auto) BUD W/ HYPHAE White Blood Count 34.16 K/uL Red Blood Count 3.75 M/uL Hemoglobin 11.0 g/dL Hematocrit 33.5 % Mean Corpuscular Volume 89.3 fL Mean Corpuscular Hemoglobin 29.3 pg Mean Corpuscular Hemoglobin Concent 32.8 g/dl RDW Standard Deviation 55.5 fL RDW Coefficient of Variation 17.0 % Platelet Count 372 K/uL Mean Platelet Volume 10.8 fL Sodium Level 140 mmol/L Potassium Level 4.0 mmol/L Chloride Level 106 mmol/L Carbon Dioxide Level 26 mmol/L Anion Gap 8.0 mmol/L Blood Urea Nitrogen 12 mg/dl Creatinine 0.80 mg/dl Est Creatinine Clear Calc Drug Dose 50.1 ml/min Estimated GFR () 82.4 Estimated GFR (Non- 71.1 BUN/Creatinine Ratio 14.9 Random Glucose 205 mg/dl Calcium Level 7.8 mg/dl Phosphorus Level 4.7 mg/dl Magnesium Level 1.3 mg/dl Total Bilirubin 0.3 mg/dl Aspartate Amino Transf (AST/SGOT) 32 U/L Alanine Aminotransferase (ALT/SGPT) 31 U/L Alkaline Phosphatase 113 U/L Total Protein 5.1 gm/dl Albumin 2.1 gm/dl Globulin 3.0 gm/dl Albumin/Globulin Ratio 0.7 Test 06/09/17 03:15 06/09/17 05:34 Ionized Calcium 1.16 mmol/l Bedside Glucose 220 mg/dl
[2017-06-09] MEDS ORDERED: MAGNESIUM SULFATE 1GM / D5W 1 GM in PREMIXED IN D5W 100 ML IV ONE (09:00)
[2017-06-09 09:03] LABS: HEMATOCRIT 27.5 % (37-47); MEAN CELL VOLUME 90.2 fL (80-100); MEAN CORPUSCULAR HEMOGLOBIN 29.5 pg (25-34); MEAN CORPUSCULAR HGB CONC 32.7 g/dl (32-36); MEAN PLATELET VOLUME 10.6 fL (7.4-10.4); PLATELET COUNT 319 K/uL (130-400); RED BLOOD COUNT 3.05 M/uL (4.2-5.4); WHITE BLOOD COUNT 31.42 K/uL (4.8-10.8)
[2017-06-09] MEDS: BACLOFEN 10 MG TAB PO SCH ×2 (10:12→20:57)
[2017-06-09] MEDS: FAMOTIDINE 20 MG TAB PO SCH ×2 (10:12→20:57)
[2017-06-09] MEDS: ASPIRIN 81 MG ECTAB PO SCH (10:12)
[2017-06-09] MEDS ORDERED: PANTOprazole INJ 40 MG in SYRINGE 0 ML IV SCH (11:00)
--- NOTE | 2017-06-09 12:33 | Medical Consult ---
Consultation Date of Consultation: Jun 09, 2017. Attending Physician: Santos Mac M.D. Reason for Consultation: Medical management History of Present Illness The patient is a 76-year-old female who was admitted to the ICU yesterday after being taken to the OR by Dr. Mac to repair knife wounds from a suicide attempt. Today she is being transferred to the stepdown telemetry unit. Her main complaint at this time is that of abdominal discomfort and her ongoing chronic rectal pain. She also presently is refusing to take any single and orally except water, and she's refused all a.m. pills from nursing today. She denies chest pain, shortness of breath, fevers, chills, nausea, vomiting, lightheadedness, dizziness, headache. Past Medical/Surgical History Medical Problems: (1) Altered mental status Status: Acute (2) Anxiety Status: Acute (3) Closed comminuted intertrochanteric fracture of right femur Status: Acute (4) Decreased oral intake Status: Acute (5) Dehydration Status: Acute (6) Fever Status: Acute (7) Gastric out let obstruction Status: Acute (8) Hypokalemia Status: Acute (9) Intentional self-harm by knife Status: Acute (10) Left sided chest pain Status: Acute (11) Migraine Status: Acute (12) Pelvic pain Status: Acute (13) Pneumonia Status: Acute (14) Rectal pain Status: Acute (15) Sepsis Status: Acute (16) Tachycardia Status: Acute (17) UTI (urinary tract infection) Status: Acute (18) UTI (urinary tract infection) Status: Acute Family History Cancer Diabetes mellitus FH: heart disease Social History Smoking Status: Former Smoker Smokeless Tobacco Use: No Alcohol Use: none Drug Use: none Marital Status: Housing Status: lives with family Occupation Status: retired Allergies Coded Allergies: Ketorolac (Verified Allergy, Severe, see comment, 06/08/17) Patient reports " i about " when asked about reaction JET Inhibitors (Verified Allergy, Intermediate, ELEVATES CREATININE, ) Sulfa Antibiotics (Verified Adverse Reaction, Intermediate, NAUSEATED, 06/08) Home Medications Reported Home Medications Medications Dose Route/Sig Max Daily Dose Days Date Category Dose Instructions [Exalgo] 12 Mg DAILY 05/16/17 Reported Probiotic Daily (Probiotic Product) 1 Cap Cap 1 Cap PO DAILY 04/03/17 Reported Tylenol (Acetaminophen) 500 Mg Tab 2 Tab PO Q4 PRN 7 04/03/17 Reported Ativan (Lorazepam) 0.5 Mg Tab 0.5 Mg PO BID 03/18/17 Reported Hydromorphone HCl 2 Mg Tab 2 Mg PO Q3H 02/21/17 Reported Pyridium (Phenazopyridine HCl) 200 Mg Tab 200 Mg PO TID 02/21/17 Reported Lantus Solostar (Insulin Glargine) 100 Unit/Ml Inj 14 Units SC QPM 02/21/17 Reported Keppra (Levetiracetam) 250 Mg Tab 500 Mg PO BID 02/06/17 Reported Cleocin (Clindamycin Hcl) 150 Mg Cap 150 Mg PO DAILY 02/06/17 Reported take 150mg daily on weeks 1 & 2 for 2 weeks Cipro (Ciprofloxacin) 250 Mg Tab 250 Mg PO DAILY 02/06/17 Reported take 250mg daily on weeks 3 & 4 for 2 weeks Amoxil (Amoxicillin) 500 Mg Cap 500 Mg PO DAILY 10/06/16 Reported ON WEEKS 5 & 6 FOR 2 WEEKS. Senokot S (Sennosides-Docusate Sodium) 1 Tab Tab 1 Tab PO BID PRN 10/06/16 Reported Oxygen Gas 2 Liters NA PRN PRN 10/06/16 Reported Mycogen || (Nystatin/Triamcinolone Acetonide) Cr 1 Appln TOP BID 10/06/16 Reported Colace (Docusate Sodium) 100 Mg Cap 1 Cap PO BID 30 10/06/16 Reported Zofran Odt (Ondansetron HCl) 4 Mg Tab 4 Mg SL TID PRN 05/03/16 Reported Bisacodyl Laxative (Bisacodyl) 10 Mg Sup 10 Mg RE DAILY PRN 02/05/16 Reported Baclofen 20 Mg Tab 20 Mg PO BID 02/05/16 Reported TAKES 1/2 TAB Doxepin (Doxepin Hcl) 75 Mg Cap 75 Mg PO HS 10/30/15 Reported Lipitor (Atorvastatin) 40 Mg Tab 40 Mg PO QPM 10/30/15 Reported Pepcid (Famotidine) 20 Mg Tab 20 Mg PO BID 10/30/15 Reported Lasix (Furosemide) 20 Mg Tab 20 Mg PO QAM 10/30/15 Reported Synthroid (Levothyroxine Sodium) 25 Mcg Tab 1 Tab PO QAM 30 10/30/15 Reported Micro-K Ext Rel (Potassium Chloride) 10 Meq Capcr 20 Meq PO DAILY 10/30/15 Reported Aspirin Ec (Aspirin) 81 Mg Tab 81 Mg PO QAM 06/08/13 Reported Current Inpatient Medications Current Inpatient Medications Medications (Trade) Dose Ordered Sig/Karen Route Start Time Stop Time Status Last Admin Dose Admin Lactated Ringer's 1,000 ml @ 75 mls/hr [id number] IV 06/08/17 21:15 07/08/17 21:14 06/09/17 05:43 125 MLS/HR Hydromorphone HCl (Dilaudid Inj) 1 mg Q2H PRN IV 06/08/17 20:45 06/22/17 20:44 06/09/17 07:55 1 MG Ondansetron HCl (Zofran Inj) 4 mg Q6H PRN IV 06/08/17 20:45 07/08/17 20:44 Heparin Sodium (Porcine) (Heparin Sq 5000 Unit/0.5ml) 5,000 unit Q12 SQ 06/09/17 09:00 07/09/17 08:59 06/09/17 08:01 5,000 UNIT Ondansetron HCl (Zofran Inj) 4 mg ONE PRN IV 06/08/17 21:30 Heparin Sodium (Porcine) (Heparin 10 Unit/ ml 5 ml Flush) 5 ml PRN PRN FLUSH 06/08/17 23:30 07/08/17 23:29 Insulin Aspart (novoLOG ASPART) SLIDING SCALE G... Q6 SC 06/09/17 00:00 07/09/17 00:00 06/09/17 05:37 2 UNITS Insulin Glargine (Lantus Solostar Pen) 7 units HS SC 06/09/17 00:00 07/09/17 00:00 06/08/17 23:57 7 UNITS Levothyroxine Sodium (Synthroid Tab) 25 mcg DAILYBB PO 06/09/17 06:00 07/09/17 05:59 06/09/17 05:21 25 MCG Doxepin HCl (Sinequan Cap) 75 mg HS PO 06/09/17 21:00 07/09/17 20:59 Levetiracetam (Keppra Tab) 500 mg BID PO 06/09/17 09:00 07/09/17 08:59 06/09/17 07:55 500 MG Insulin Aspart (novoLOG ASPART) SLIDING SCALE G... 0300 SC 06/09/17 03:00 07/09/17 02:59 06/09/17 02:36 2 UNITS Glucose (Glucose 40% Gel) 15-30 GRAMS 15 GRAMS... UD PRN PO 06/08/17 23:45 07/08/17 23:44 Glucose (Glucose Chew Tab) 4-8 Tablets 4 Tabl... UD PRN PO 06/08/17 23:45 07/08/17 23:44 Dextrose (Dextrose 50% 50ML Syringe) 25-50ML OF 50% DW IV FOR... UD PRN IV 06/08/17 23:45 07/08/17 23:44 Glucagon (Glucagon Inj) 1 mg UD PRN SQ 06/08/17 23:45 07/08/17 23:44 Piperacillin Sod/ Tazobactam Sod (Consult) 1 ea UD PRN N/A 06/09/17 07:45 07/09/17 07:44 Piperacillin Sod/ Tazobactam Sod 3.375 gm/Dextrose 115 ml @ 28.75 mls/ hr Q8H IV 06/09/17 12:00 06/19/17 11:59 Acetaminophen (Tylenol Tab) 1,000 mg Q8 PRN PO 06/09/17 08:45 07/09/17 08:44 Baclofen (Lioresal Tab) 10 mg BID PO 06/09/17 09:00 07/09/17 08:59 06/09/17 10:12 10 MG Atorvastatin Calcium (Lipitor Tab) 40 mg QPM PO 06/09/17 21:00 07/09/17 20:59 Aspirin (Ecotrin Tab) 81 mg QAM PO 06/09/17 09:00 07/09/17 08:59 06/09/17 10:12 81 MG Famotidine (Pepcid Tab) 20 mg BID PO 06/09/17 09:00 07/09/17 08:59 06/09/17 10:12 20 MG Review of Systems The patient denies chest pain, palpitations, shortness of breath, cough, sore throat, fevers, chills, sweats, nausea, vomiting, blood in urine or stool, dysuria, urinary frequency or urgency, lightheadedness, dizziness, headache, memory loss, rash, weakness, numbness or tingling in arms. The review of systems is otherwise negative other than for that already noted above, and at least 10 systems have been reviewed. Physical Exam Date Time Temp Pulse Resp B/P (MAP) Pulse Ox O2 Delivery O2 Flow Rate FiO2 06/09/17 10:55 36.7 116 16 98/44 (62) 95 Nasal Cannula 2.0 06/09/17 10:01 110 12 112/57 (75) 95 Nasal Cannula 2.0 06/09/17 08:00 95 Nasal Cannula 2.0 06/09/17 08:00 36.6 109 18 101/56 (71) 97 Nasal Cannula 2.0 06/09/17 06:01 102 21 121/61 (81) 97 06/09/17 06:00 97 10 96 06/09/17 05:31 100 10 114/57 (76) 97 06/09/17 05:30 98 23 97 06/09/17 05:01 100 10 117/57 (77) 97 06/09/17 05:00 96 8 97 06/09/17 04:31 98 12 106/53 (70) 98 06/09/17 04:30 98 13 98 06/09/17 04:15 100 Nasal Cannula 2.0 06/09/17 04:01 98 15 112/76 (88) 98 06/09/17 04:01 98 15 112/76 (88) 98 06/09/17 04:00 96 12 97 06/09/17 04:00 37.0 96 12 97 06/09/17 03:31 97 10 95/74 (81) 97 06/09/17 03:02 93 10 125/70 (88) 98 06/09/17 03:00 92 10 99 06/09/17 02:01 91 16 104/63 (77) 98 06/09/17 02:00 91 16 98 06/09/17 01:31 96 16 109/66 (80) 98 06/09/17 01:13 93 11 131/65 (87) 99 06/09/17 01:01 93 14 121/65 (83) 99 06/09/17 01:00 93 14 99 06/09/17 00:31 91 13 115/63 (80) 100 06/09/17 00:30 91 12 99 06/09/17 00:01 36.5 90 13 111/61 (78) 100 06/09/17 00:00 100 Nasal Cannula 2.0 06/09/17 00:00 90 12 100 06/08/17 23:31 88 10 116/61 (79) 100 06/08/17 23:30 90 9 100 06/08/17 23:01 84 15 113/94 (100) 100 06/08/17 23:00 84 9 100 06/08/17 22:31 79 13 93/63 (73) 98 06/08/17 22:30 76 15 100 06/08/17 22:24 82 22 83/64 (70) 95 06/08/17 22:21 82 16 78/55 (63) 92 06/08/17 22:16 80 19 104/58 (73) 96 06/08/17 22:12 82 15 95 06/08/17 22:12 82 15 06/08/17 22:11 82 14 96/59 (71) 96 06/08/17 22:11 96/59 (68) 06/08/17 22:07 36.8 79 17 96 Room Air 06/08/17 22:07 80 17 06/08/17 22:06 99/59 (76) 06/08/17 22:06 79 13 99/59 (72) 98 06/08/17 22:02 79 16 06/08/17 22:02 78 16 97 Room Air 06/08/17 22:01 125/58 (82) 06/08/17 22:01 79 23 125/58 (80) 92 06/08/17 22:01 36.8 79 23 125/58 91 Nasal Cannula 1.0 06/08/17 22:00 79 24 91 06/08/17 21:57 77 23 06/08/17 21:57 77 23 92 Room Air 06/08/17 21:56 76 13 105/66 (79) 93 06/08/17 21:56 105/66 (83) 06/08/17 21:52 78 13 06/08/17 21:52 78 13 93 06/08/17 21:51 108/70 (81) 06/08/17 21:51 78 14 108/70 (83) 92 06/08/17 21:47 76 17 95 06/08/17 21:47 76 17 06/08/17 21:46 76 21 107/64 (78) 96 06/08/17 21:46 107/64 (83) 06/08/17 21:45 74 19 93 06/08/17 21:45 74 19 06/08/17 21:41 76 21 101/64 (76) 95 06/08/17 21:41 101/64 (67) 06/08/17 21:40 75 16 95 06/08/17 21:40 75 16 06/08/17 21:36 76 17 145/64 (91) 95 06/08/17 21:36 145/64 (84) 06/08/17 21:35 74 16 94 06/08/17 21:35 74 16 06/08/17 21:31 115/64 (82) 06/08/17 21:31 76 19 115/64 (81) 94 06/08/17 21:30 77 13 93 06/08/17 21:30 36.8 77 13 06/08/17 21:30 77 13 93 06/08/17 21:26 78 15 117/71 (86) 98 06/08/17 21:26 117/71 (77) 06/08/17 21:25 81 21 06/08/17 21:25 79 21 97 06/08/17 21:20 36.7 80 16 06/08/17 21:20 81 16 132/71 (103) 93 06/08/17 21:20 80 16 132/71 (91) 93 06/08/17 21:15 36.5 80 19 126/78 (95) 99 06/08/17 21:15 78 19 06/08/17 21:15 78 19 126/78 (94) 99 06/08/17 18:44 110 20 126/77 100 Room Air 06/08/17 18:28 37.1 108 18 120/69 100 06/08/17 18:23 36.7 115 24 88/46 99 Room Air 06/08/17 18:22 114 18 111/65 98 06/08/17 18:14 37.1 114 19 85/66 96 06/08/17 18:02 127 The patient is awake, alert and oriented 3, normocephalic and atraumatic, lying in bed and in no acute distress. HEENT--PERRL, EOMI, mucous membranes and oropharynx dry. Neck--supple, no JVD or bruits, thyroid normal, trachea midline, no adenopathy. Heart--normal S1 and S2, no extra beats, no murmurs, rubs or gallops. Lungs--clear bilaterally, but diminished throughout, no respiratory distress, no accessory muscle use. Abdomen--decreased bowel sounds, mildly firm, postsurgical tenderness expected. Extremities--no cyanosis, clubbing or edema. There are good distal pulses b/l. Dermatologic--normal skin turgor, normal color, warm and dry, no abnormal lymph nodes, no rash. Neurologic--cranial nerves II through XII grossly intact. Rheumatologic--normal range of motion of upper extremities. Psychiatric--mildly depressed. Laboratory Results Last 24 Hours Test 06/08/17 18:02 06/08/17 18:06 06/08/17 18:07 06/08/17 23:42 White Blood Count 17.33 K/uL Red Blood Count 4.20 M/uL Hemoglobin 12.9 g/dL Hematocrit 38.6 % Mean Corpuscular Volume 91.9 fL Mean Corpuscular Hemoglobin 30.7 pg Mean Corpuscular Hemoglobin Concent 33.4 g/dl Platelet Count 523 K/uL Mean Platelet Volume 11.3 fL Neutrophils (%) (Auto) 73.9 % Lymphocytes (%) (Auto) 18.9 % Monocytes (%) (Auto) 6.0 % Eosinophils (%) (Auto) 0.2 % Basophils (%) (Auto) 0.1 % Neutrophils # (Auto) 12.81 K/uL Lymphocytes # (Auto) 3.27 K/uL Monocytes # (Auto) 1.04 K/uL Eosinophils # (Auto) 0.04 K/uL Basophils # (Auto) 0.02 K/uL RDW Standard Deviation 53.3 fL RDW Coefficient of Variation 15.8 % Immature Granulocyte % (Auto) 0.9 % Immature Granulocyte # (Auto) 0.15 K/uL Prothrombin Time 9.8 SECONDS Prothromb Time International Ratio 0.9 Activated Partial Thromboplast Time 23.3 SECONDS Partial Thromboplastin Ratio 0.9 Sodium Level 137 mmol/L Potassium Level 3.4 mmol/L Chloride Level 102 mmol/L Carbon Dioxide Level 25 mmol/L Anion Gap 10.0 mmol/L 17.0 mmol/L Blood Urea Nitrogen 8 mg/dl Creatinine 0.57 mg/dl Est Creatinine Clear Calc Drug Dose 79.4 ml/min Estimated GFR () 103.6 Estimated GFR (Non- 89.4 BUN/Creatinine Ratio 13.7 Random Glucose 321 mg/dl Calcium Level 8.2 mg/dl Total Bilirubin 0.2 mg/dl Aspartate Amino Transf (AST/SGOT) 17 U/L Alanine Aminotransferase (ALT/SGPT) 19 U/L Alkaline Phosphatase 123 U/L Total Protein 5.5 gm/dl Albumin 2.4 gm/dl Globulin 3.1 gm/dl Albumin/Globulin Ratio 0.8 Lipase 77 U/L Beta-Hydroxybutyric Acid 10.56 mg/dL Bedside Hemoglobin 14.6 g/dl Bedside Hematocrit 43 % Bedside Sodium 135 mEq/L Bedside Potassium 3.8 mEq/L Bedside Chloride 94 mEq/L Bedside Total CO2 28 mEq/l Bedside Blood Urea Nitrogen 7 mg/dl Bedside Creatinine 0.5 mg/dl Bedside Glucose (other) 343 mg/dl Bedside Ionized Calcium (Gina) 1.15 mmol/l Bedside Glucose 288 mg/dl Test 06/09/17 00:00 06/09/17 02:29 06/09/17 02:33 06/09/17 03:15 Urine Color YELLOW Urine Appearance TURBID Urine pH 7.0 Urine Specific Thompson 1.016 Urine Protein 1+ Urine Glucose (UA) NEG Urine Ketones TRACE Urine Occult Blood 1+ Urine Nitrite NEG Urine Bilirubin NEG Urine Urobilinogen NEG Urine Leukocyte Esterase LARGE Urine WBC (Auto) >30 /hpf Urine RBC (Auto) 0-4 /hpf Urine Hyaline Casts (Auto) 0 /lpf Urine Epithelial Cells (Auto) 10-20 /lpf Urine Bacteria (Auto) 4+ Urine Pathogenic Casts /lpf Urine Yeast (Auto) BUD W/ HYPHAE White Blood Count 34.16 K/uL Red Blood Count 3.75 M/uL Hemoglobin 11.0 g/dL Hematocrit 33.5 % Mean Corpuscular Volume 89.3 fL Mean Corpuscular Hemoglobin 29.3 pg Mean Corpuscular Hemoglobin Concent 32.8 g/dl RDW Standard Deviation 55.5 fL RDW Coefficient of Variation 17.0 % Platelet Count 372 K/uL Mean Platelet Volume 10.8 fL Sodium Level 140 mmol/L Potassium Level 4.0 mmol/L Chloride Level 106 mmol/L Carbon Dioxide Level 26 mmol/L Anion Gap 8.0 mmol/L Blood Urea Nitrogen 12 mg/dl Creatinine 0.80 mg/dl Est Creatinine Clear Calc Drug Dose 50.1 ml/min Estimated GFR () 82.4 Estimated GFR (Non- 71.1 BUN/Creatinine Ratio 14.9 Random Glucose 205 mg/dl Calcium Level 7.8 mg/dl Phosphorus Level 4.7 mg/dl Magnesium Level 1.3 mg/dl Total Bilirubin 0.3 mg/dl Aspartate Amino Transf (AST/SGOT) 32 U/L Alanine Aminotransferase (ALT/SGPT) 31 U/L Alkaline Phosphatase 113 U/L Total Protein 5.1 gm/dl Albumin 2.1 gm/dl Globulin 3.0 gm/dl Albumin/Globulin Ratio 0.7 Bedside Glucose 216 mg/dl Ionized Calcium 1.16 mmol/l Test 06/09/17 05:34 06/09/17 08:36 Bedside Glucose 220 mg/dl White Blood Count 31.42 K/uL Red Blood Count 3.05 M/uL Hemoglobin 9.0 g/dL Hematocrit 27.5 % Mean Corpuscular Volume 90.2 fL Mean Corpuscular Hemoglobin 29.5 pg Mean Corpuscular Hemoglobin Concent 32.7 g/dl RDW Standard Deviation 56.7 fL RDW Coefficient of Variation 17.2 % Platelet Count 319 K/uL Mean Platelet Volume 10.6 fL Nucleated RBC Absolute Count (auto) 0.02 K/uL Nucleated Red Blood Cells % 0.1 % Assessment & Plan 1. Suicide attempt by knife wounds to abdomen/status post exploratory laparotomy/abdominal washout hemoperitoneum/repair serosal laceration of cecum/ lysis of adhesions and partial omentectomy--patient is being cleared for clear liquids today and the resumption of oral medications, however, patient is refusing Oral medications at this time. If she continues to refuse, will need to return medications to IV form. 2. Diabetes mellitus--her Lantus was resumed at half dosing of 7 units subcutaneous at bedtime, which will be continued. Continue Accu-Cheks before meals and at bedtime with NovoLog coverage per scale. 3. Seizure disorder--on Keppra 500 mg by mouth twice a day, the patient refuses oral will need to convert back to 500 mg IV twice a day. 4. Hypothyroidism--presently on levothyroxine 25 g by mouth daily with breakfast, if she refuses will need to convert to 12.5 mg IV daily. 5. GI prophylaxis- famotidine 20 mg by mouth twice a day. We'll also available Zofran 4 mg IV every 6 hours when necessary. 6. Bilateral lower limb paralysis/rectal pain--order Clinitron bed. 7. Chronic kidney disease continue IV maintenance fluids, until patient is taking adequate oral intake. As noted above, patient is presently refusing nutrition and is only excepting liquids to drink. Continue to hold furosemide 20 mg by mouth daily and potassium chloride 20 mEq by mouth daily. 8. Infectious disease/GI/--continue Zosyn for GI prophylaxis. Urinalysis also is positive for UTI, will follow urine culture and sensitivities. 9. Chronic pain syndrome--chronic rectal pain as noted. IV Tylenol, Dilaudid 1 mg IV every 2 hours when necessary for both postsurgical pain and chronic rectal pain. If the patient accepts oral medications could start gabapentin or nortriptyline. 10. Depression/suicide attempt--psychiatry consult pending. 11. Hyperlipidemia --atorvastatin 40 mg by mouth daily.
[2017-06-09] MEDS: PIPERACILL/TAZOBAC IV 3.375 GM in DEXTROSE 5% 100ML IV SCH ×2 (13:00→20:57)
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
[2017-06-09] MEDS ORDERED: NURSING DECISION MEDICATION ORDER SCH (15:15)
[2017-06-09] MEDS: DOXEPIN HCL 75 MG CAP PO SCH (20:57)
[2017-06-09] MEDS: ATORVASTATIN 40 MG TAB PO SCH (20:57)
[2017-06-09] MEDS: INSULIN GLARGINE SOLOSTAR 100 UNITS/ML 3 ML PEN SC SCH (21:01)
[2017-06-10] VITALS (9 sets, daily range): BP systolic 102–142; BP diastolic 49–100; PULSE 84–114; TEMP 36.6–37.4; O2SAT 95–100
[2017-06-10] MEDS: INSULIN ASPART 100 UNITS/ML 3 ML PEN SC SCH ×5 (03:00→21:09)
[2017-06-10] MEDS: PIPERACILL/TAZOBAC IV 3.375 GM in DEXTROSE 5% 100ML IV SCH ×3 (03:37→20:25)
[2017-06-10 04:01] LABS: HEMATOCRIT 22.8 % (37-47); MEAN CELL VOLUME 90.5 fL (80-100); MEAN CORPUSCULAR HEMOGLOBIN 29.8 pg (25-34); MEAN CORPUSCULAR HGB CONC 32.9 g/dl (32-36); MEAN PLATELET VOLUME 10.3 fL (7.4-10.4); PLATELET COUNT 285 K/uL (130-400); RED BLOOD COUNT 2.52 M/uL (4.2-5.4); WHITE BLOOD COUNT 22.31 K/uL (4.8-10.8)
[2017-06-10 04:19] LABS: BUN/CREATININE RATIO 25.2 (10-20); CALCIUM 8.1 mg/dl (8.5-10.1); CREATININE 0.35 mg/dl (0.60-1.20); POTASSIUM 3.2 mmol/L (3.5-5.1)
[2017-06-10] MEDS: LACTATED RINGER'S 1000ML 1,000 ML IV SCH (05:18)
[2017-06-10] MEDS: LEVOTHYROXINE 25 MCG TAB PO SCH (05:53)
[2017-06-10] MEDS: ACETAMINOPHEN 500 MG TAB PO PRN (05:53)
--- NOTE | 2017-06-10 07:52 | Surgery Progress Note ---
Surgery Progress Note Date of Service Jun 10, 2017. Subjective Post OP Day: 2 No complaints Objective Vital Signs: Date Time Temp Pulse Resp B/P (MAP) Pulse Ox O2 Delivery O2 Flow Rate FiO2 06/10/17 07:41 36.8 102 18 114/49 (70) 100 2.0 06/10/17 04:00 Nasal Cannula 2.0 06/10/17 03:12 37.2 102 19 119/100 (106) 99 Nasal Cannula 2.0 06/10/17 00:26 36.8 105 18 142/68 (92) 96 Nasal Cannula 2.0 06/10/17 00:08 Nasal Cannula 2.0 06/09/17 20:30 Room Air 2.0 06/09/17 19:51 37.4 102 20 105/63 (77) 99 Nasal Cannula 2.0 06/09/17 19:51 36.9 71 16 124/76 (92) 94 Room Air 06/09/17 15:36 37.5 111 18 95/49 (64) 96 Nasal Cannula 2.0 06/09/17 12:00 97 Nasal Cannula 2.0 06/09/17 10:55 36.7 116 16 98/44 (62) 95 Nasal Cannula 2.0 06/09/17 10:01 110 12 112/57 (75) 95 Nasal Cannula 2.0 06/09/17 08:00 95 Nasal Cannula 2.0 06/09/17 08:00 36.6 109 18 101/56 (71) 97 Nasal Cannula 2.0 Physical Exam: urine output (1250) Abdomen: soft Incision(s): clean, dry, no erythema Laboratory Results: Results Past 24 Hours Test 06/09/17 08:36 06/09/17 12:23 06/09/17 16:22 06/09/17 20:18 Range/Units White Blood Count 31.42 4.8-10.8 K/uL Red Blood Count 3.05 4.2-5.4 M/uL Hemoglobin 9.0 12.0-16.0 g/dL Hematocrit 27.5 37-47 % Mean Corpuscular Volume 90.2 80-100 fL Mean Corpuscular Hemoglobin 29.5 25-34 pg Mean Corpuscular Hemoglobin Concent 32.7 32-36 g/dl RDW Standard Deviation 56.7 36.4-46.3 fL RDW Coefficient of Variation 17.2 11.5-14.5 % Platelet Count 319 130-400 K/uL Mean Platelet Volume 10.6 7.4-10.4 fL Nucleated RBC Absolute Count (auto) 0.02 0-0 K/uL Nucleated Red Blood Cells % 0.1 % Bedside Glucose 267 233 221 70-90 mg/dl Test 06/10/17 03:07 06/10/17 03:44 Range/Units Bedside Glucose 166 70-90 mg/dl White Blood Count 22.31 4.8-10.8 K/uL Red Blood Count 2.52 4.2-5.4 M/uL Hemoglobin 7.5 12.0-16.0 g/dL Hematocrit 22.8 37-47 % Mean Corpuscular Volume 90.5 80-100 fL Mean Corpuscular Hemoglobin 29.8 25-34 pg Mean Corpuscular Hemoglobin Concent 32.9 32-36 g/dl RDW Standard Deviation 55.9 36.4-46.3 fL RDW Coefficient of Variation 16.9 11.5-14.5 % Platelet Count 285 130-400 K/uL Mean Platelet Volume 10.3 7.4-10.4 fL Sodium Level 142 136-145 mmol/L Potassium Level 3.2 3.5-5.1 mmol/L Chloride Level 107 98-107 mmol/L Carbon Dioxide Level 30 21-32 mmol/L Anion Gap 5.0 3-11 mmol/L Blood Urea Nitrogen 9 7-18 mg/dl Creatinine 0.35 0.60-1.20 mg/dl Est Creatinine Clear Calc Drug Dose 114.6 ml/min Estimated GFR () 121.7 Estimated GFR (Non- 105.0 BUN/Creatinine Ratio 25.2 10-20 Random Glucose 174 70-99 mg/dl Calcium Level 8.1 8.5-10.1 mg/dl Assessment & Plan s/p Exploratory Laparotomy, Abdominal Washout Hemoperitoneum, Repair Serosal Laceration Cecum, Lysis of Adhesions partial omentectomy can have clears continue IV abx Hgb 7.5, will transfuse one unit K+ 3.2, will add to IVF seen with Dr. Mac
[2017-06-10] MEDS: FAMOTIDINE 20 MG TAB PO SCH ×2 (07:57→21:05)
[2017-06-10] MEDS: LEVETIRACETAM 500 MG TAB PO SCH ×2 (07:57→21:05)
[2017-06-10] MEDS: ASPIRIN 81 MG ECTAB PO SCH (07:57)
[2017-06-10] MEDS: BACLOFEN 10 MG TAB PO SCH ×2 (07:57→21:05)
[2017-06-10] MEDS: HEPARIN SOD 5000 UNIT/0.5 ML CARP SQ SCH ×2 (08:08→21:10)
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
[2017-06-10] MEDS: HYDROmorphone INJ 1 MG/ML SYR IV PRN (11:56)
[2017-06-10] MEDS: NSS + 20MEQ KCL 1000ML 1,000 ML IV SCH ×2 (11:57→22:43)
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
[2017-06-10] MEDS: ATORVASTATIN 40 MG TAB PO SCH (21:05)
[2017-06-10] MEDS: INSULIN GLARGINE SOLOSTAR 100 UNITS/ML 3 ML PEN SC SCH (21:09)
[2017-06-10] MEDS: DOXEPIN HCL 75 MG CAP PO SCH (21:11)
[2017-06-11] VITALS (10 sets, daily range): BP systolic 121–140; BP diastolic 60–80; PULSE 87–104; TEMP 36.8–37.4; O2SAT 96–100
[2017-06-11] MEDS: HYDROmorphone INJ 1 MG/ML SYR IV PRN (02:18)
[2017-06-11] MEDS: PIPERACILL/TAZOBAC IV 3.375 GM in DEXTROSE 5% 100ML IV SCH ×3 (03:52→20:09)
[2017-06-11] MEDS: LEVOTHYROXINE 25 MCG TAB PO SCH (05:27)
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
[2017-06-11 06:46] LABS: HEMATOCRIT 24.9 % (37-47); MEAN CELL VOLUME 89.2 fL (80-100); MEAN CORPUSCULAR HEMOGLOBIN 30.1 pg (25-34); MEAN CORPUSCULAR HGB CONC 33.7 g/dl (32-36); MEAN PLATELET VOLUME 9.8 fL (7.4-10.4); PLATELET COUNT 302 K/uL (130-400); RED BLOOD COUNT 2.79 M/uL (4.2-5.4); WHITE BLOOD COUNT 21.31 K/uL (4.8-10.8)
[2017-06-11] MEDS: INSULIN ASPART 100 UNITS/ML 3 ML PEN SC SCH ×4 (07:00→20:53)
[2017-06-11 07:13] LABS: BUN/CREATININE RATIO 12.4 (10-20); CALCIUM 7.9 mg/dl (8.5-10.1); CREATININE 0.38 mg/dl (0.60-1.20); POTASSIUM 3.2 mmol/L (3.5-5.1)
[2017-06-11 07:42] LABS: COMPLETE YES; EOSINOPHIL % 2.6 %; LYMPH ABS # 1.49 K/uL (1.2-3.4); NEUTROPHILS % 84.3 %
[2017-06-11] MEDS: BACLOFEN 10 MG TAB PO SCH ×2 (08:25→20:10)
[2017-06-11] MEDS: FAMOTIDINE 20 MG TAB PO SCH ×2 (08:25→20:10)
[2017-06-11] MEDS: ASPIRIN 81 MG ECTAB PO SCH (08:26)
[2017-06-11] MEDS: LEVETIRACETAM 500 MG TAB PO SCH ×2 (08:26→20:10)
[2017-06-11] MEDS: NSS + 20MEQ KCL 1000ML 1,000 ML IV SCH (08:26)
[2017-06-11] MEDS: HEPARIN SOD 5000 UNIT/0.5 ML CARP SQ SCH ×2 (08:27→20:22)
--- NOTE | 2017-06-11 08:29 | DIAGNOSTIC IMAGING REPORT ---
KUB HISTORY:76 yearsFemal[age] op COMPARISON: KUB 02/06/2017. TECHNIQUE: KUB radiograph FINDINGS: Unchanged appearance of the mildly impacted subacute appearing right sided intertrochanteric fracture. The bones are diffusely demineralized. Multilevel degenerative changes are seen throughout the spine and also within the hips. Multiple midline abdominal skin raudel are seen. Phleboliths are seen within the pelvis. Bowel gas pattern appears to be nonobstructive. No urolith identified. There is moderate volume of formed stool within the left hemiabdomen. IMPRESSION: 1. Multiple raudel overlie the midabdomen. No evidence of bowel obstruction. 2. Unchanged appearance of the subacute appearing right-sided intertrochanteric fracture. The above report was generated using voice recognition software. It may contain grammatical, syntax or spelling errors. Electronically signed by: Jacob Red 06/11/2017 8:27 AM Dictated Date/Time: 06/11/2017 8:25 AM
[2017-06-11] MEDS ORDERED: BELLADONNA/OPIUM SUPP 60 MG SUPP PR PRN (11:45)
[2017-06-11] MEDS: ACETAMINOPHEN 500 MG TAB PO PRN (11:58)
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
[2017-06-11] MEDS: TAPENTADOL HCL 50 MG TAB PO PRN (18:42)
[2017-06-11] MEDS: ATORVASTATIN 40 MG TAB PO SCH (20:11)
[2017-06-11] MEDS: DOXEPIN HCL 75 MG CAP PO SCH (20:11)
[2017-06-11] MEDS: INSULIN GLARGINE SOLOSTAR 100 UNITS/ML 3 ML PEN SC SCH (21:25)
[2017-06-12] VITALS (9 sets, daily range): BP systolic 133–166; BP diastolic 63–98; PULSE 85–103; TEMP 36.7–37.4; O2SAT 91–99
[2017-06-12] MEDS: NSS + 20MEQ KCL 1000ML 1,000 ML IV SCH ×2 (04:57→13:27)
[2017-06-12] MEDS: PIPERACILL/TAZOBAC IV 3.375 GM in DEXTROSE 5% 100ML IV SCH ×3 (04:57→21:39)
[2017-06-12] MEDS: TAPENTADOL HCL 50 MG TAB PO PRN (04:58)
[2017-06-12] MEDS: LEVOTHYROXINE 25 MCG TAB PO SCH (05:43)
[2017-06-12] MEDS: INSULIN ASPART 100 UNITS/ML 3 ML PEN SC SCH ×4 (07:00→21:47)
[2017-06-12] MEDS: LEVETIRACETAM 500 MG TAB PO SCH ×2 (07:35→21:42)
[2017-06-12] MEDS: FAMOTIDINE 20 MG TAB PO SCH ×2 (07:35→21:42)
[2017-06-12] MEDS: HEPARIN SOD 5000 UNIT/0.5 ML CARP SQ SCH ×2 (07:39→21:45)
[2017-06-12] MEDS: ASPIRIN 81 MG ECTAB PO SCH (07:40)
[2017-06-12] MEDS: BACLOFEN 10 MG TAB PO SCH ×2 (07:40→21:42)
[2017-06-12] MEDS ORDERED: OXYCODONE/ACETAMINOPHEN 5-325 TAB PO PRN (08:00)
[2017-06-12] MEDS ORDERED: HYDROmorphone INJ 1 MG/ML SYR IV PRN (08:00)
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
[2017-06-12 08:49] LABS: BASO % 0.2 %; BASO ABS # 0.03 K/uL (0-0.2); EOS % 2.2 %; HEMATOCRIT 26.7 % (37-47); LYMPH % 13.4 %; LYMPH ABS # 2.44 K/uL (1.2-3.4); MEAN CELL VOLUME 91.1 fL (80-100); MEAN CORPUSCULAR HEMOGLOBIN 29.4 pg (25-34); MEAN CORPUSCULAR HGB CONC 32.2 g/dl (32-36); MONO % 6.2 %; PLATELET COUNT 392 K/uL (130-400); RED BLOOD COUNT 2.93 M/uL (4.2-5.4); WHITE BLOOD COUNT 18.25 K/uL (4.8-10.8)
[2017-06-12 09:13] LABS: BUN/CREATININE RATIO 11.1 (10-20); CALCIUM 7.9 mg/dl (8.5-10.1); CREATININE 0.37 mg/dl (0.60-1.20); POTASSIUM 3.4 mmol/L (3.5-5.1)
[2017-06-12 10:04] LABS: COMPLETE YES
[2017-06-12] MEDS: ACETAMINOPHEN 500 MG TAB PO PRN (11:01)
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
[2017-06-12] MEDS: HYDROmorphone HCL 2 MG TAB PO PRN ×3 (15:28→23:37)
[2017-06-12] MEDS ORDERED: NURSING VERBAL MED ORDER ONE (19:15)
[2017-06-12] MEDS: LORAZEPAM 1 MG TAB PO PRN (21:39)
[2017-06-12] MEDS: ATORVASTATIN 40 MG TAB PO SCH (21:42)
[2017-06-12] MEDS: DOXEPIN HCL 75 MG CAP PO SCH (21:42)
[2017-06-12] MEDS: INSULIN GLARGINE SOLOSTAR 100 UNITS/ML 3 ML PEN SC SCH (21:47)
[2017-06-13] MEDS: HYDROmorphone HCL 2 MG TAB PO PRN ×7 (02:44→22:34)
[2017-06-13] MEDS: NSS + 20MEQ KCL 1000ML 1,000 ML IV SCH (02:56)
[2017-06-13] MEDS: PIPERACILL/TAZOBAC IV 3.375 GM in DEXTROSE 5% 100ML IV SCH ×3 (04:45→19:41)
[2017-06-13 04:57] VITALS: BP 149/82
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
[2017-06-13] MEDS ORDERED: SOD PHOSPHATE/SOD BIPHOSPHATE ENEMA 132 ML BTL PR STA (06:18)
[2017-06-13] MEDS: LEVOTHYROXINE 25 MCG TAB PO SCH (06:58)
[2017-06-13 08:11] VITALS: BP 154/86; PULSE 98; TEMP 36.9; O2SAT 95
[2017-06-13 08:27] VITALS: O2SAT 95
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
[2017-06-13] MEDS: DOCUSATE SODIUM 100 MG CAP PO SCH ×2 (09:11→21:15)
[2017-06-13] MEDS: ASPIRIN 81 MG ECTAB PO SCH (09:12)
[2017-06-13] MEDS: BACLOFEN 10 MG TAB PO SCH ×2 (09:13→21:14)
[2017-06-13] MEDS: FUROSEMIDE 20 MG TAB PO SCH (09:13)
[2017-06-13] MEDS: LEVETIRACETAM 500 MG TAB PO SCH ×2 (09:14→21:15)
[2017-06-13] MEDS: POTASSIUM CHLORIDE 20 MEQ TABCR PO SCH ×2 (09:18→21:15)
[2017-06-13] MEDS: FAMOTIDINE 20 MG TAB PO SCH ×2 (09:19→21:21)
[2017-06-13] MEDS: HEPARIN SOD 5000 UNIT/0.5 ML CARP SQ SCH ×2 (09:26→21:21)
[2017-06-13] MEDS: INSULIN ASPART 100 UNITS/ML 3 ML PEN SC SCH ×4 (09:29→21:23)
[2017-06-13 12:05] VITALS: BP 137/78; PULSE 95; TEMP 37.3; O2SAT 97
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
[2017-06-13 15:07] VITALS: BP 148/71; PULSE 90; TEMP 37.1; O2SAT 97
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
[2017-06-13] MEDS: ACETAMINOPHEN 500 MG TAB PO PRN (18:15)
[2017-06-13] MEDS: DOXEPIN HCL 75 MG CAP PO SCH (21:15)
[2017-06-13] MEDS: ATORVASTATIN 40 MG TAB PO SCH (21:15)
[2017-06-13] MEDS: INSULIN GLARGINE SOLOSTAR 100 UNITS/ML 3 ML PEN SC SCH (21:22)
[2017-06-13 22:47] VITALS: BP 144/82; PULSE 86; TEMP 37.1; O2SAT 97
[2017-06-13] MEDS: ZOLPIDEM TARTRATE 5 MG TAB PO PRN (23:37)
[2017-06-14] MEDS: HYDROmorphone HCL 2 MG TAB PO PRN ×5 (03:31→17:19)
[2017-06-14] MEDS: PIPERACILL/TAZOBAC IV 3.375 GM in DEXTROSE 5% 100ML IV SCH ×3 (03:31→20:59)
[2017-06-14] MEDS: LEVOTHYROXINE 25 MCG TAB PO SCH (05:46)
--- NOTE | 2017-06-14 07:13 | Surgery Progress Note ---
Surgery Progress Note Date of Service Jun 14, 2017. Subjective alerrt coherent in no distress states hard time moving bowels at home tolerating diet Objective Vital Signs: Date Time Temp Pulse Resp B/P (MAP) Pulse Ox O2 Delivery O2 Flow Rate FiO2 06/13/17 23:40 Nasal Cannula 2.0 Humidified Oxygen 06/13/17 22:47 37.1 86 16 144/82 (102) 97 Nasal Cannula 2.0 06/13/17 15:51 Nasal Cannula 2.0 06/13/17 15:07 37.1 90 16 148/71 (96) 97 Room Air 06/13/17 12:05 37.3 95 17 137/78 (97) 97 Nasal Cannula 2.0 06/13/17 08:27 95 Nasal Cannula 2.0 06/13/17 08:11 36.9 98 19 154/86 (108) 95 Nasal Cannula 2.0 06/13/17 07:30 Nasal Cannula 2.0 Abdomen: + pertinent finding (still moderately distended, non tender, incision free of cellulitis retention sutures intact) Laboratory Results: Results Past 24 Hours Test 06/13/17 08:12 06/13/17 12:15 06/13/17 17:02 06/13/17 20:45 Range/Units Bedside Glucose 126 194 196 169 70-90 mg/dl Test 06/14/17 06:23 Range/Units Assessment & Plan 06/14/17 lab this am pending pt remains afebrile but wbc still up yesterday will give dose of mom today keep on antibiotics for now 06/13/17 increase diet as tolerated fleets enema(no bm but passing flatus) continue antibiotics d/c iv fluids 06/12/17 no real bowel activity suspect related to ileus lab pending continue with antibiotics will increase diet dec IV analgesics 06/09/17 elevated wbc noted will start broad spectrum antibiotics even though pt had no obvious gi perforation may have had transmural migration of bacteria from serosal lac cecum 06/13/17 increase diet as tolerated fleets enema(no bm but passing flatus) continue antibiotics d/c iv fluids 06/12/17 no real bowel activity suspect related to ileus lab pending continue with antibiotics will increase diet dec IV analgesics 06/09/17 elevated wbc noted will start broad spectrum antibiotics even though pt had no obvious gi perforation may have had transmural migration of bacteria from serosal lac cecum
[2017-06-14] MEDS ORDERED: MAGNESIUM HYDROXIDE SUSP 30 ML UDC PO PRN (07:15)
[2017-06-14 07:31] LABS: BASO % 0.2 %; BASO ABS # 0.03 K/uL (0-0.2); COMPLETE YES; EOS % 3.3 %; HEMATOCRIT 32.3 % (37-47); IG% 1.7 %; LYMPH ABS # 2.43 K/uL (1.2-3.4); MEAN CELL VOLUME 92.3 fL (80-100); MEAN CORPUSCULAR HEMOGLOBIN 29.4 pg (25-34); MEAN CORPUSCULAR HGB CONC 31.9 g/dl (32-36); MONO % 6.9 %; NEUT % 74.9 %; PLATELET COUNT 499 K/uL (130-400); WHITE BLOOD COUNT 18.64 K/uL (4.8-10.8)
[2017-06-14 07:46] VITALS: BP 156/81; PULSE 97; TEMP 37; O2SAT 94
[2017-06-14 07:57] LABS: CALCIUM 8.2 mg/dl (8.5-10.1); CREATININE 0.48 mg/dl (0.60-1.20); POTASSIUM 3.4 mmol/L (3.5-5.1)
[2017-06-14] MEDS: DOCUSATE SODIUM 100 MG CAP PO SCH ×2 (09:12→21:09)
[2017-06-14] MEDS: ASPIRIN 81 MG ECTAB PO SCH (09:12)
[2017-06-14] MEDS: LEVETIRACETAM 500 MG TAB PO SCH ×2 (09:12→21:09)
[2017-06-14] MEDS: BACLOFEN 10 MG TAB PO SCH ×2 (09:12→21:09)
[2017-06-14] MEDS: FUROSEMIDE 20 MG TAB PO SCH (09:13)
[2017-06-14] MEDS: DULOXETINE (CYMBALTA) 30 MG CAP PO SCH (09:13)
[2017-06-14] MEDS: POTASSIUM CHLORIDE 20 MEQ TABCR PO SCH (09:13)
[2017-06-14] MEDS: INSULIN ASPART 100 UNITS/ML 3 ML PEN SC SCH ×4 (09:20→21:00)
[2017-06-14] MEDS: HEPARIN SOD 5000 UNIT/0.5 ML CARP SQ SCH ×2 (09:23→21:27)
[2017-06-14] MEDS: FAMOTIDINE 20 MG TAB PO SCH ×2 (09:23→21:27)
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
[2017-06-14] MEDS: ONDANSETRON INJ 2 MG/ML 2 ML VIAL IV PRN ×2 (14:18→21:04)
[2017-06-14 15:40] VITALS: BP 155/90; PULSE 92; TEMP 36.9; O2SAT 97
--- NOTE | 2017-06-14 16:24 | Progress Note ---
Subjective Date of Service: Jun 14, 2017. Subjective this pt is comfortable but still experiencing her daily rectal pain, has not had bowel movement and fears she is impacted, understands she may go to snf Problem List Medical Problems: (1) Altered mental status Status: Acute (2) Anxiety Status: Acute (3) Closed comminuted intertrochanteric fracture of right femur Status: Acute (4) Decreased oral intake Status: Acute (5) Dehydration Status: Acute (6) Fever Status: Acute (7) Gastric out let obstruction Status: Acute (8) Hypokalemia Status: Acute (9) Intentional self-harm by knife Status: Acute (10) Left sided chest pain Status: Acute (11) Migraine Status: Acute (12) Pelvic pain Status: Acute (13) Pneumonia Status: Acute (14) Rectal pain Status: Acute (15) Sepsis Status: Acute (16) Tachycardia Status: Acute (17) UTI (urinary tract infection) Status: Acute (18) UTI (urinary tract infection) Status: Acute Review of Systems Constitutional: + weakness, + fatigue, No fever, No chills Respiratory: No cough, No shortness of breath Cardiac: No chest pain, No edema Abdomen: + pain, + constipation Musculoskeletal: No joint pain, No muscle pain Objective Vital Signs Date Time Temp Pulse Resp B/P (MAP) Pulse Ox O2 Delivery O2 Flow Rate FiO2 06/14/17 15:40 36.9 92 16 155/90 (111) 97 Nasal Cannula 2.0 06/14/17 07:50 Humidified Oxygen 2.0 06/14/17 07:46 37.0 97 18 156/81 (106) 94 Room Air 06/13/17 23:40 Nasal Cannula 2.0 Humidified Oxygen 06/13/17 22:47 37.1 86 16 144/82 (102) 97 Nasal Cannula 2.0 Physical Exam General Appearance: WD/WN, + mild distress Eyes: PERRL, EOMI Respiratory/Chest: chest non-tender, lungs clear, normal breath sounds Cardiovascular: regular rate, rhythm, no murmur Abdomen: soft, + abnormal bowel sounds, + distended Extremities: no pedal edema, no calf tenderness Laboratory Results Last 24 Hours Test 06/13/17 17:02 06/13/17 20:45 06/14/17 07:18 06/14/17 07:42 Bedside Glucose 196 mg/dl 169 mg/dl 137 mg/dl White Blood Count 18.64 K/uL Red Blood Count 3.50 M/uL Hemoglobin 10.3 g/dL Hematocrit 32.3 % Mean Corpuscular Volume 92.3 fL Mean Corpuscular Hemoglobin 29.4 pg Mean Corpuscular Hemoglobin Concent 31.9 g/dl Platelet Count 499 K/uL Mean Platelet Volume 10.0 fL Neutrophils (%) (Auto) 74.9 % Lymphocytes (%) (Auto) 13.0 % Monocytes (%) (Auto) 6.9 % Eosinophils (%) (Auto) 3.3 % Basophils (%) (Auto) 0.2 % Neutrophils # (Auto) 13.97 K/uL Lymphocytes # (Auto) 2.43 K/uL Monocytes # (Auto) 1.28 K/uL Eosinophils # (Auto) 0.61 K/uL Basophils # (Auto) 0.03 K/uL RDW Standard Deviation 55.0 fL RDW Coefficient of Variation 16.8 % Immature Granulocyte % (Auto) 1.7 % Immature Granulocyte # (Auto) 0.32 K/uL Nucleated RBC Absolute Count (auto) 0.06 K/uL Nucleated Red Blood Cells % 0.3 % Sodium Level 142 mmol/L Potassium Level 3.4 mmol/L Chloride Level 106 mmol/L Carbon Dioxide Level 31 mmol/L Anion Gap 5.0 mmol/L Blood Urea Nitrogen 5 mg/dl Creatinine 0.48 mg/dl Est Creatinine Clear Calc Drug Dose 83.6 ml/min Estimated GFR () 109.7 Estimated GFR (Non- 94.6 BUN/Creatinine Ratio 10.0 Random Glucose 148 mg/dl Calcium Level 8.2 mg/dl Test 06/14/17 11:43 Bedside Glucose 212 mg/dl Assessment and Plan 76 F with Suicide attempt by knife wounds to abdomen/status post exploratory laparotomy/abdominal washout hemoperitoneum/repair serosal laceration of cecum/ lysis of adhesions and partial omentectomy, per surgery note no overt viscus perforation Diet advanced by surgery, continues on antibiotics for abdominal wounds, post op acute blood loss anemia is stable after transfusion 06/10. suicide attempt, psychiatry feels can be managed safely at [facility] with appropriate precautions, medication recommendation for cymbalta and transfer to safe snf environment chronic pain, pain management recommendations oral dilaudid, continues with B& O suppositories Diabetes mellitus--contineus with good control with Lantus and SSI Seizure disorder-no seizures so far, Keppra 500 mg by mouth twice a day Hypothyroidism-stable on levothyroxine 25 g oral Bilateral lower limb paralysis/rectal pain--reinforce good skin care, rolling to reduce pressure Chronic kidney disease continue to hold diuretics, advancing diet by surgery
[2017-06-14] MEDS: PROMETHAZINE HCL INJ 12.5 MG in SODIUM CHLORIDE 0.9% 50ML 50 ML IV PRN (16:38)
[2017-06-14] MEDS: DOXEPIN HCL 75 MG CAP PO SCH (21:09)
[2017-06-14] MEDS: ATORVASTATIN 40 MG TAB PO SCH (21:09)
[2017-06-14] MEDS: QUETIAPINE FUMARATE 25 MG TAB PO SCH (21:09)
[2017-06-14] MEDS: INSULIN GLARGINE SOLOSTAR 100 UNITS/ML 3 ML PEN SC SCH (21:28)
[2017-06-14 22:52] VITALS: BP 135/77; PULSE 95; TEMP 37.2; O2SAT 95
[2017-06-15] MEDS: HYDROmorphone HCL 2 MG TAB PO PRN ×7 (00:52→19:19)
[2017-06-15] MEDS: ONDANSETRON INJ 2 MG/ML 2 ML VIAL IV PRN ×4 (03:27→20:58)
[2017-06-15] MEDS: PIPERACILL/TAZOBAC IV 3.375 GM in DEXTROSE 5% 100ML IV SCH ×3 (03:33→20:25)
[2017-06-15] MEDS: PROMETHAZINE HCL INJ 12.5 MG in SODIUM CHLORIDE 0.9% 50ML 50 ML IV PRN (05:48)
[2017-06-15] MEDS: LEVOTHYROXINE 25 MCG TAB PO SCH (06:28)
[2017-06-15 06:45] VITALS: BP 130/74; PULSE 86; TEMP 36.8; O2SAT 99
[2017-06-15 06:45] LABS: CREATININE 0.33 mg/dl (0.60-1.20)
[2017-06-15 08:00] VITALS: O2SAT 99
[2017-06-15] MEDS: DOCUSATE SODIUM 100 MG CAP PO SCH ×2 (08:28→20:29)
[2017-06-15] MEDS: FUROSEMIDE 20 MG TAB PO SCH (08:29)
[2017-06-15] MEDS: BACLOFEN 10 MG TAB PO SCH ×2 (08:29→20:30)
[2017-06-15] MEDS: DULOXETINE (CYMBALTA) 30 MG CAP PO SCH (08:30)
[2017-06-15] MEDS: LEVETIRACETAM 500 MG TAB PO SCH ×2 (08:31→20:29)
[2017-06-15] MEDS: ASPIRIN 81 MG ECTAB PO SCH (08:31)
[2017-06-15] MEDS: FAMOTIDINE 20 MG TAB PO SCH ×2 (08:53→20:39)
[2017-06-15] MEDS: INSULIN ASPART 100 UNITS/ML 3 ML PEN SC SCH ×4 (08:58→20:51)
[2017-06-15] MEDS: HEPARIN SOD 5000 UNIT/0.5 ML CARP SQ SCH ×2 (08:59→20:37)
--- NOTE | 2017-06-15 09:01 | Surgery Progress Note ---
Surgery Progress Note Date of Service Jun 15, 2017. Subjective Post OP Day: 5 + feeling well F/U a 76 F with Suicide attempt by knife wounds to abdomen/status post exploratory laparotomy/abdominal washout hemoperitoneum/repair serosal laceration of cecum/lysis of adhesions and partial omentectomy, per surgery note no overt viscus perforation pt is doing better, pt denies rectal pain today, she tolerated diet, some drainage from middle incision, I removed 3 stapes, then some pus came from incision, wound culture sent, packing the wound, Objective Vital Signs: Date Time Temp Pulse Resp B/P (MAP) Pulse Ox O2 Delivery O2 Flow Rate FiO2 06/15/17 06:45 36.8 86 15 130/74 (92) 99 Humidified Oxygen 2.0 06/15/17 00:57 Nasal Cannula 2.0 06/14/17 22:52 37.2 95 18 135/77 (96) 95 Nasal Cannula 2.0 Humidified Oxygen 06/14/17 16:00 Nasal Cannula 2.0 06/14/17 15:40 36.9 92 16 155/90 (111) 97 Nasal Cannula 2.0 General Appearance: WD/WN Head: normocephalic Neck: supple, no JVD Respiratory/Chest: chest non-tender, lungs clear Cardiovascular: regular rate, rhythm, no edema, no JVD Abdomen: normal bowel sounds, non tender, non distended Incision(s): drainage, erythema Extremities: normal range of motion, non-tender, normal inspection Laboratory Results: Results Past 24 Hours Test 06/14/17 11:43 06/14/17 16:49 06/14/17 21:01 06/15/17 05:35 Range/Units Bedside Glucose 212 144 130 70-90 mg/dl Creatinine 0.33 0.60-1.20 mg/dl Est Creatinine Clear Calc Drug Dose 121.6 ml/min Estimated GFR () 124.1 Estimated GFR (Non- 107.0 Microbiology Results 06/15/17 Gram Stain, Luis Batch Pending 06/15/17 Wound Culture, Luis Batch Pending Assessment & Plan 76 F with Suicide attempt by knife wounds to abdomen/status post exploratory laparotomy/abdominal washout hemoperitoneum/repair serosal laceration of cecum/ lysis of adhesions and partial omentectomy, per surgery note no overt viscus perforation incision infection, packing wound, wound culture sent, repeat CBC, CMP, continue antibiotic will F/U,
--- NOTE | 2017-06-15 12:28 | Progress Note ---
Subjective Date of Service: Jun 15, 2017. Subjective pt feels somehat better since manual disimpaction, pain control is fair Problem List Medical Problems: (1) Altered mental status Status: Acute (2) Anxiety Status: Acute (3) Closed comminuted intertrochanteric fracture of right femur Status: Acute (4) Decreased oral intake Status: Acute (5) Dehydration Status: Acute (6) Fever Status: Acute (7) Gastric out let obstruction Status: Acute (8) Hypokalemia Status: Acute (9) Intentional self-harm by knife Status: Acute (10) Left sided chest pain Status: Acute (11) Migraine Status: Acute (12) Pelvic pain Status: Acute (13) Pneumonia Status: Acute (14) Rectal pain Status: Acute (15) Sepsis Status: Acute (16) Tachycardia Status: Acute (17) UTI (urinary tract infection) Status: Acute (18) UTI (urinary tract infection) Status: Acute Review of Systems Constitutional: + weakness, + fatigue, No fever, No chills Respiratory: No cough, No shortness of breath Cardiac: No chest pain, No edema Abdomen: + pain, + constipation, No nausea, No vomiting Female : No dysuria, No urinary frequency Objective Vital Signs Date Time Temp Pulse Resp B/P (MAP) Pulse Ox O2 Delivery O2 Flow Rate FiO2 06/15/17 08:00 99 Humidified Oxygen 2.0 06/15/17 06:45 36.8 86 15 130/74 (92) 99 Humidified Oxygen 2.0 06/15/17 00:57 Nasal Cannula 2.0 06/14/17 22:52 37.2 95 18 135/77 (96) 95 Nasal Cannula 2.0 Humidified Oxygen 06/14/17 16:00 Nasal Cannula 2.0 06/14/17 15:40 36.9 92 16 155/90 (111) 97 Nasal Cannula 2.0 Physical Exam General Appearance: WD/WN, + mild distress Neck: supple, no JVD Respiratory/Chest: chest non-tender, lungs clear, normal breath sounds Cardiovascular: regular rate, rhythm, no murmur Neurologic/Psychiatric: alert, oriented x 3 Laboratory Results Last 24 Hours Test 06/14/17 16:49 06/14/17 21:01 06/15/17 05:35 06/15/17 07:58 Bedside Glucose 144 mg/dl 130 mg/dl 163 mg/dl Creatinine 0.33 mg/dl Est Creatinine Clear Calc Drug Dose 121.6 ml/min Estimated GFR () 124.1 Estimated GFR (Non- 107.0 Test 06/15/17 11:41 Bedside Glucose 173 mg/dl Assessment and Plan 76 F with Suicide attempt by knife wounds to abdomen/status post exploratory laparotomy/abdominal washout hemoperitoneum/repair serosal laceration of cecum/ lysis of adhesions and partial omentectomy, per surgery note no overt viscus perforation Diet advanced by surgery, continues on antibiotics for abdominal wounds, one of her suture lines drained large amounts of purulent material that maybe explaining her leukocytosis, will continue antibiotic and have wound care consult Pt concerned esophageal stricture is acting up will consult GI medicine next week post op acute blood loss anemia is stable after transfusion 06/10. suicide attempt, psychiatry feels can be managed safely at [facility] with appropriate precautions, medication recommendation for cymbalta and transfer to safe snf environment chronic pain, pain management recommendations oral dilaudid, continues with B& O suppositories Diabetes mellitus--stable Lantus and SSI Seizure disorder, Keppra 500 mg by mouth twice a day Hypothyroidism-clinically no chanrges needed levothyroxine 25 g oral Bilateral lower limb paralysis/rectal pain--reinforce good skin care, rolling to reduce pressure Chronic kidney disease continue to hold diuretics, advancing diet by surgery
[2017-06-15] MEDS: SENNA 8.6 MG TAB PO SCH (14:15)
[2017-06-15 14:46] VITALS: BP 111/70; PULSE 97; TEMP 36.8; O2SAT 90
[2017-06-15] MEDS: ATORVASTATIN 40 MG TAB PO SCH (20:38)
[2017-06-15] MEDS: DOXEPIN HCL 75 MG CAP PO SCH (20:38)
[2017-06-15] MEDS: QUETIAPINE FUMARATE 25 MG TAB PO SCH (20:39)
[2017-06-15] MEDS: INSULIN GLARGINE SOLOSTAR 100 UNITS/ML 3 ML PEN SC SCH (20:52)
[2017-06-15] MEDS ORDERED: POLYETHYLENE (MIRALAX) 17 GM PACK PO SCH (21:00)
[2017-06-15 22:49] VITALS: BP 144/83; PULSE 86; TEMP 36.7; O2SAT 97
[2017-06-16] MEDS: HYDROmorphone HCL 2 MG TAB PO PRN ×8 (00:58→22:35)
[2017-06-16] MEDS: LORAZEPAM 1 MG TAB PO PRN (03:14)
[2017-06-16] MEDS: PIPERACILL/TAZOBAC IV 3.375 GM in DEXTROSE 5% 100ML IV SCH ×3 (03:18→19:24)
[2017-06-16] MEDS: ONDANSETRON INJ 2 MG/ML 2 ML VIAL IV PRN ×2 (03:26→13:04)
[2017-06-16 06:12] LABS: CREATININE 0.38 mg/dl (0.60-1.20)
[2017-06-16] MEDS: LEVOTHYROXINE 25 MCG TAB PO SCH (06:14)
[2017-06-16 06:57] VITALS: BP 134/77; PULSE 90; TEMP 36.8; O2SAT 98
[2017-06-16] MEDS: BACLOFEN 10 MG TAB PO SCH ×2 (08:31→21:30)
[2017-06-16] MEDS: SENNA 8.6 MG TAB PO SCH (08:31)
[2017-06-16] MEDS: LEVETIRACETAM 500 MG TAB PO SCH ×2 (08:31→21:00)
[2017-06-16] MEDS: FUROSEMIDE 20 MG TAB PO SCH (08:31)
[2017-06-16] MEDS: ASPIRIN 81 MG ECTAB PO SCH (08:32)
[2017-06-16] MEDS: POLYETHYLENE (MIRALAX) 17 GM PACK PO SCH ×2 (08:32→21:40)
[2017-06-16] MEDS: FAMOTIDINE 20 MG TAB PO SCH ×2 (08:32→21:31)
[2017-06-16] MEDS: DULOXETINE (CYMBALTA) 30 MG CAP PO SCH (08:32)
[2017-06-16] MEDS: HEPARIN SOD 5000 UNIT/0.5 ML CARP SQ SCH (08:42)
[2017-06-16] MEDS: INSULIN ASPART 100 UNITS/ML 3 ML PEN SC SCH ×4 (08:42→21:38)
--- NOTE | 2017-06-16 10:46 | Surgery Progress Note ---
Surgery Progress Note Date of Service Jun 16, 2017. Subjective + feeling well pt is doing better, the wound - less redness, some drainage, repacking the wound , pt denies fever, Objective Vital Signs: Date Time Temp Pulse Resp B/P (MAP) Pulse Ox O2 Delivery O2 Flow Rate FiO2 06/16/17 08:00 Nasal Cannula 2.0 06/16/17 06:57 36.8 90 17 134/77 (96) 98 Humidified Oxygen 2.0 06/15/17 23:03 Nasal Cannula 06/15/17 22:49 36.7 86 20 144/83 (103) 97 Nasal Cannula 2.0 06/15/17 16:10 Nasal Cannula 2.0 Humidified Oxygen 06/15/17 14:46 36.8 97 18 111/70 (84) 90 Room Air General Appearance: WD/WN, no apparent distress Head: normocephalic Neck: supple, no JVD Respiratory/Chest: chest non-tender, lungs clear Cardiovascular: regular rate, rhythm, no edema Abdomen: normal bowel sounds, soft Incision(s): drainage Extremities: normal range of motion, non-tender, normal inspection Laboratory Results: Results Past 24 Hours Test 06/15/17 11:41 06/15/17 16:59 06/15/17 20:40 06/16/17 05:20 Range/Units Bedside Glucose 173 184 151 70-90 mg/dl Creatinine 0.38 0.60-1.20 mg/dl Est Creatinine Clear Calc Drug Dose 105.6 ml/min Estimated GFR () 118.4 Estimated GFR (Non- 102.2 Test 06/16/17 07:52 06/16/17 10:34 Range/Units Bedside Glucose 178 70-90 mg/dl Assessment & Plan 76 F with Suicide attempt by knife wounds to abdomen/status post exploratory laparotomy/abdominal washout hemoperitoneum/repair serosal laceration of cecum/ lysis of adhesions and partial omentectomy, per surgery note no overt viscus perforation incision infection, packing wound, wound culture sent, repeat CBC, CMP, continue antibiotic will F/U, 06/16/2017 doing better repacking the wound, CBC, CMP, will F/U 76 F with Suicide attempt by knife wounds to abdomen/status post exploratory laparotomy/abdominal washout hemoperitoneum/repair serosal laceration of cecum/ lysis of adhesions and partial omentectomy, per surgery note no overt viscus perforation incision infection, packing wound, wound culture sent, repeat CBC, CMP, continue antibiotic will F/U,
[2017-06-16 11:07] LABS: BASO % 0.3 %; BASO ABS # 0.05 K/uL (0-0.2); COMPLETE YES; EOS % 4.4 %; HEMATOCRIT 30.2 % (37-47); IG% 1.3 %; LYMPH % 13.7 %; LYMPH ABS # 2.15 K/uL (1.2-3.4); MEAN CORPUSCULAR HEMOGLOBIN 28.9 pg (25-34); MEAN CORPUSCULAR HGB CONC 30.5 g/dl (32-36); MONO % 6.2 %; NEUT % 74.1 %; PLATELET COUNT 694 K/uL (130-400); RED BLOOD COUNT 3.18 M/uL (4.2-5.4); WHITE BLOOD COUNT 15.75 K/uL (4.8-10.8)
--- NOTE | 2017-06-16 11:34 | Progress Note ---
Subjective Date of Service: Jun 16, 2017. Subjective pt is doing well but has some continued discharge from abdominal wound, still not reliable stool production Problem List Medical Problems: (1) Altered mental status Status: Acute (2) Anxiety Status: Acute (3) Closed comminuted intertrochanteric fracture of right femur Status: Acute (4) Decreased oral intake Status: Acute (5) Dehydration Status: Acute (6) Fever Status: Acute (7) Gastric out let obstruction Status: Acute (8) Hypokalemia Status: Acute (9) Intentional self-harm by knife Status: Acute (10) Left sided chest pain Status: Acute (11) Migraine Status: Acute (12) Pelvic pain Status: Acute (13) Pneumonia Status: Acute (14) Rectal pain Status: Acute (15) Sepsis Status: Acute (16) Tachycardia Status: Acute (17) UTI (urinary tract infection) Status: Acute (18) UTI (urinary tract infection) Status: Acute Review of Systems Constitutional: + weakness, No fever, No chills Respiratory: No cough, No shortness of breath, No dyspnea on exertion Cardiac: No chest pain, No orthopnea, No edema Abdomen: No pain, No nausea, No vomiting, No diarrhea Female : No dysuria, No urinary frequency Psychiatric: No depression symptoms, No anhedonism Objective Vital Signs Date Time Temp Pulse Resp B/P (MAP) Pulse Ox O2 Delivery O2 Flow Rate FiO2 06/16/17 08:00 Nasal Cannula 2.0 06/16/17 06:57 36.8 90 17 134/77 (96) 98 Humidified Oxygen 2.0 06/15/17 23:03 Nasal Cannula 06/15/17 22:49 36.7 86 20 144/83 (103) 97 Nasal Cannula 2.0 06/15/17 16:10 Nasal Cannula 2.0 Humidified Oxygen 06/15/17 14:46 36.8 97 18 111/70 (84) 90 Room Air Physical Exam General Appearance: WD/WN, + mild distress Neck: supple, no JVD Respiratory/Chest: chest non-tender, lungs clear, normal breath sounds Cardiovascular: regular rate, rhythm, no murmur Abdomen: normal bowel sounds, non tender, soft, + pertinent finding (wound inspected and looks ) Neurologic/Psychiatric: alert, oriented x 3 Laboratory Results Last 24 Hours Test 06/15/17 11:41 06/15/17 16:59 06/15/17 20:40 06/16/17 05:20 Bedside Glucose 173 mg/dl 184 mg/dl 151 mg/dl Creatinine 0.38 mg/dl Est Creatinine Clear Calc Drug Dose 105.6 ml/min Estimated GFR () 118.4 Estimated GFR (Non- 102.2 Test 06/16/17 07:52 06/16/17 10:46 Bedside Glucose 178 mg/dl White Blood Count 15.75 K/uL Red Blood Count 3.18 M/uL Hemoglobin 9.2 g/dL Hematocrit 30.2 % Mean Corpuscular Volume 95.0 fL Mean Corpuscular Hemoglobin 28.9 pg Mean Corpuscular Hemoglobin Concent 30.5 g/dl Platelet Count 694 K/uL Mean Platelet Volume 10.0 fL Neutrophils (%) (Auto) 74.1 % Lymphocytes (%) (Auto) 13.7 % Monocytes (%) (Auto) 6.2 % Eosinophils (%) (Auto) 4.4 % Basophils (%) (Auto) 0.3 % Neutrophils # (Auto) 11.68 K/uL Lymphocytes # (Auto) 2.15 K/uL Monocytes # (Auto) 0.97 K/uL Eosinophils # (Auto) 0.70 K/uL Basophils # (Auto) 0.05 K/uL RDW Standard Deviation 57.6 fL RDW Coefficient of Variation 17.2 % Immature Granulocyte % (Auto) 1.3 % Immature Granulocyte # (Auto) 0.20 K/uL Nucleated RBC Absolute Count (auto) 0.04 K/uL Nucleated Red Blood Cells % 0.3 % Assessment and Plan 76 F with Suicide attempt by knife wounds to abdomen/status post exploratory laparotomy/abdominal washout hemoperitoneum/repair serosal laceration of cecum/ lysis of adhesions and partial omentectomy, per surgery note no overt viscus perforation Diet advanced by surgery, continues on antibiotics for abdominal wounds, one of her suture lines drained large amounts of purulent material growing gram negative that maybe explaining her leukocytosis, will continue zosyn and wound care consult recommended wound vac Pt concerned esophageal stricture is acting up will consult GI medicine next week post op acute blood loss anemia is stable after transfusion 06/10. suicide attempt, psychiatry feels can be managed safely at [facility] with appropriate precautions, medication recommendation for cymbalta and transfer to safe snf environment chronic pain, pain management recommendations oral dilaudid, continues with B& O suppositories Diabetes mellitus--contnues to be stable Lantus and SSI Seizure disorder, without current seizures, Keppra 500 mg by mouth twice a day Hypothyroidism-clinically no changes needed levothyroxine 25 g oral Bilateral lower limb paralysis/rectal pain--reinforce good skin care, rolling to reduce pressure, escalating bowel regimen after manual dis impaction Chronic kidney disease stable as did resume diuretics, advancing diet by surgery
[2017-06-16 11:58] LABS: ALB/GLOB RATIO 0.6 (0.9-2); CALCIUM 8.6 mg/dl (8.5-10.1); CREATININE 0.57 mg/dl (0.60-1.20)
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
[2017-06-16 15:00] VITALS: BP 147/77; PULSE 101; TEMP 37.4; O2SAT 91
[2017-06-16 16:30] VITALS: O2SAT 92
[2017-06-16] MEDS: PROMETHAZINE HCL INJ 12.5 MG in SODIUM CHLORIDE 0.9% 50ML 50 ML IV PRN (16:42)
[2017-06-16] MEDS: ATORVASTATIN 40 MG TAB PO SCH (21:30)
[2017-06-16] MEDS: DOXEPIN HCL 75 MG CAP PO SCH (21:31)
[2017-06-16] MEDS: QUETIAPINE FUMARATE 25 MG TAB PO SCH (21:32)
[2017-06-16] MEDS: INSULIN GLARGINE SOLOSTAR 100 UNITS/ML 3 ML PEN SC SCH (21:38)
[2017-06-16] MEDS: ZOLPIDEM TARTRATE 5 MG TAB PO PRN (22:36)
[2017-06-16 22:52] VITALS: BP 124/61; PULSE 90; TEMP 37.3; O2SAT 94
[2017-06-17] MEDS: LORAZEPAM 1 MG TAB PO PRN (00:20)
[2017-06-17 00:30] VITALS: BP 135/79; PULSE 70; TEMP 37; O2SAT 99
[2017-06-17] MEDS: HYDROmorphone HCL 2 MG TAB PO PRN ×6 (01:26→21:41)
[2017-06-17] MEDS: PROMETHAZINE HCL INJ 12.5 MG in SODIUM CHLORIDE 0.9% 50ML 50 ML IV PRN (03:06)
[2017-06-17] MEDS: PIPERACILL/TAZOBAC IV 3.375 GM in DEXTROSE 5% 100ML IV SCH ×3 (04:26→21:40)
[2017-06-17] MEDS: LEVOTHYROXINE 25 MCG TAB PO SCH (05:45)
[2017-06-17 05:57] LABS: HEMATOCRIT 28.7 % (37-47); MEAN CORPUSCULAR HEMOGLOBIN 30.5 pg (25-34); MEAN CORPUSCULAR HGB CONC 32.1 g/dl (32-36); MEAN PLATELET VOLUME 9.8 fL (7.4-10.4); PLATELET COUNT 664 K/uL (130-400); RED BLOOD COUNT 3.02 M/uL (4.2-5.4); WHITE BLOOD COUNT 15.08 K/uL (4.8-10.8)
[2017-06-17 06:32] LABS: BUN/CREATININE RATIO 14.6 (10-20); CALCIUM 8.9 mg/dl (8.5-10.1); CREATININE 0.54 mg/dl (0.60-1.20); POTASSIUM 3.7 mmol/L (3.5-5.1)
--- NOTE | 2017-06-17 07:09 | Surgery Progress Note ---
Surgery Progress Note Date of Service Jun 17, 2017. Subjective 9th pod no major complaints states ate all her meals not much gi function(moving bowels) but this is correction issue with pt prior to admission Objective Vital Signs: Date Time Temp Pulse Resp B/P (MAP) Pulse Ox O2 Delivery O2 Flow Rate FiO2 06/16/17 22:52 37.3 90 20 124/61 (82) 94 Room Air 06/16/17 19:23 Room Air 06/16/17 16:30 92 Room Air 06/16/17 15:00 37.4 101 18 147/77 (100) 91 Room Air 06/16/17 08:00 Nasal Cannula 2.0 General Appearance: + pertinent finding (alert coherent in no distress) Abdomen: + pertinent finding (still moderately distended no loc tenderness) Incision(s): findings (open area mid incision 1/4 inch packing(opening taylor 1 cm ) removed no cellulitis rest of incison fine with minor exception distal 1/3 some erythema retention sutures intact) Laboratory Results: Results Past 24 Hours Test 06/16/17 07:52 06/16/17 10:46 06/16/17 12:03 06/16/17 17:17 Range/Units Bedside Glucose 178 182 343 70-90 mg/dl White Blood Count 15.75 4.8-10.8 K/uL Red Blood Count 3.18 4.2-5.4 M/uL Hemoglobin 9.2 12.0-16.0 g/dL Hematocrit 30.2 37-47 % Mean Corpuscular Volume 95.0 80-100 fL Mean Corpuscular Hemoglobin 28.9 25-34 pg Mean Corpuscular Hemoglobin Concent 30.5 32-36 g/dl Platelet Count 694 130-400 K/uL Mean Platelet Volume 10.0 7.4-10.4 fL Neutrophils (%) (Auto) 74.1 % Lymphocytes (%) (Auto) 13.7 % Monocytes (%) (Auto) 6.2 % Eosinophils (%) (Auto) 4.4 % Basophils (%) (Auto) 0.3 % Neutrophils # (Auto) 11.68 1.4-6.5 K/uL Lymphocytes # (Auto) 2.15 1.2-3.4 K/uL Monocytes # (Auto) 0.97 0.11-0.59 K/uL Eosinophils # (Auto) 0.70 0-0.5 K/uL Basophils # (Auto) 0.05 0-0.2 K/uL RDW Standard Deviation 57.6 36.4-46.3 fL RDW Coefficient of Variation 17.2 11.5-14.5 % Immature Granulocyte % (Auto) 1.3 % Immature Granulocyte # (Auto) 0.20 0.00-0.02 K/uL Nucleated RBC Absolute Count (auto) 0.04 0-0 K/uL Nucleated Red Blood Cells % 0.3 % Sodium Level 140 136-145 mmol/L Potassium Level 4.0 3.5-5.1 mmol/L Chloride Level 102 98-107 mmol/L Carbon Dioxide Level 33 21-32 mmol/L Anion Gap 5.0 3-11 mmol/L Blood Urea Nitrogen 6 7-18 mg/dl Creatinine 0.57 0.60-1.20 mg/dl Est Creatinine Clear Calc Drug Dose 70.4 ml/min Estimated GFR () 103.6 Estimated GFR (Non- 89.4 BUN/Creatinine Ratio 11.0 10-20 Random Glucose 176 70-99 mg/dl Calcium Level 8.6 8.5-10.1 mg/dl Total Bilirubin 0.2 0.2-1 mg/dl Aspartate Amino Transf (AST/SGOT) 15 15-37 U/L Alanine Aminotransferase (ALT/SGPT) 17 12-78 U/L Alkaline Phosphatase 97 45-117 U/L Total Protein 5.6 6.4-8.2 gm/dl Albumin 2.0 3.4-5.0 gm/dl Globulin 3.6 2.5-4.0 gm/dl Albumin/Globulin Ratio 0.6 0.9-2 Test 06/16/17 20:42 06/17/17 05:47 Range/Units Bedside Glucose 162 70-90 mg/dl White Blood Count 15.08 4.8-10.8 K/uL Red Blood Count 3.02 4.2-5.4 M/uL Hemoglobin 9.2 12.0-16.0 g/dL Hematocrit 28.7 37-47 % Mean Corpuscular Volume 95.0 80-100 fL Mean Corpuscular Hemoglobin 30.5 25-34 pg Mean Corpuscular Hemoglobin Concent 32.1 32-36 g/dl RDW Standard Deviation 57.0 36.4-46.3 fL RDW Coefficient of Variation 17.1 11.5-14.5 % Platelet Count 664 130-400 K/uL Mean Platelet Volume 9.8 7.4-10.4 fL Nucleated RBC Absolute Count (auto) 0.05 0-0 K/uL Nucleated Red Blood Cells % 0.3 % Sodium Level 142 136-145 mmol/L Potassium Level 3.7 3.5-5.1 mmol/L Chloride Level 103 98-107 mmol/L Carbon Dioxide Level 35 21-32 mmol/L Anion Gap 4.0 3-11 mmol/L Blood Urea Nitrogen 8 7-18 mg/dl Creatinine 0.54 0.60-1.20 mg/dl Est Creatinine Clear Calc Drug Dose 74.3 ml/min Estimated GFR () 105.5 Estimated GFR (Non- 91.0 BUN/Creatinine Ratio 14.6 10-20 Random Glucose 148 70-99 mg/dl Calcium Level 8.9 8.5-10.1 mg/dl Assessment & Plan 06/17/[address] scan abd and pelvis to r/o intra abdominal abscess(pt still moderately distended and still elevated wbc continue packing wound with 1/4 inch gauze( wound clinic was consulted yesterday 06/14/17 lab this am pending pt remains afebrile but wbc still up yesterday will give dose of mom today keep on antibiotics for now 06/13/17 increase diet as tolerated fleets enema(no bm but passing flatus) continue antibiotics d/c iv fluids 06/12/17 no real bowel activity suspect related to ileus lab pending continue with antibiotics will increase diet dec IV analgesics 06/09/17 elevated wbc noted will start broad spectrum antibiotics even though pt had no obvious gi perforation may have had transmural migration of bacteria from serosal lac cecum 06/14/17 lab this am pending pt remains afebrile but wbc still up yesterday will give dose of mom today keep on antibiotics for now 06/13/17 increase diet as tolerated fleets enema(no bm but passing flatus) continue antibiotics d/c iv fluids 06/12/17 no real bowel activity suspect related to ileus lab pending continue with antibiotics will increase diet dec IV analgesics 06/09/17 elevated wbc noted will start broad spectrum antibiotics even though pt had no obvious gi perforation may have had transmural migration of bacteria from serosal lac cecum
[2017-06-17] MEDS ORDERED: OPTIRAY 320 IV PRN (07:15)
[2017-06-17 07:29] VITALS: BP 135/79; PULSE 70; TEMP 37; O2SAT 99
[2017-06-17] MEDS ORDERED: NURSING DECISION MEDICATION ORDER SCH (07:30)
[2017-06-17] MEDS: INSULIN ASPART 100 UNITS/ML 3 ML PEN SC SCH ×4 (07:31→22:20)
[2017-06-17] MEDS: POLYETHYLENE (MIRALAX) 17 GM PACK PO SCH ×2 (09:00→21:51)
[2017-06-17] MEDS: FAMOTIDINE 20 MG TAB PO SCH ×2 (09:40→21:51)
[2017-06-17] MEDS: BACLOFEN 10 MG TAB PO SCH ×2 (09:40→21:51)
[2017-06-17] MEDS: SENNA 8.6 MG TAB PO SCH (09:41)
[2017-06-17] MEDS: DULOXETINE (CYMBALTA) 30 MG CAP PO SCH (09:41)
[2017-06-17] MEDS: FUROSEMIDE 20 MG TAB PO SCH (09:41)
[2017-06-17] MEDS: LEVETIRACETAM 500 MG TAB PO SCH ×2 (09:41→21:51)
[2017-06-17] MEDS: ASPIRIN 81 MG ECTAB PO SCH (09:41)
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
[2017-06-17] MEDS ORDERED: PROPOFOL IV EMULSION 10 MG/ML 20 ML VIAL IV ONE (12:49)
[2017-06-17] MEDS ORDERED: LIDOCAINE HCL 2% 2 ML VIAL (20MG/ML) ONE (12:49)
--- NOTE | 2017-06-17 12:51 | GI REPORT ---
Procedure Date: 06/17/2017 12:19 PM Procedure: Upper GI endoscopy Indications: Dysphagia Medicines: Monitored Anesthesia Care Complications: No immediate complications. Estimated Blood Loss: Estimated blood loss: none. Procedure: Pre-Anesthesia Assessment: - Prior to the procedure, a History and Physical was performed, and patient medications and allergies were reviewed. The patient's tolerance of previous anesthesia was also reviewed. The risks and benefits of the procedure and the sedation options and risks were discussed with the patient. All questions were answered, and informed consent was obtained. Prior Anticoagulants: The patient has taken aspirin, last dose was day of procedure. ASA Grade Assessment: III - A patient with severe systemic disease. After reviewing the risks and benefits, the patient was deemed in satisfactory condition to undergo the procedure. After obtaining informed consent, the endoscope was passed under direct vision. Throughout the procedure, the patient's blood pressure, pulse, and oxygen saturations were monitored continuously. The Scope was introduced through the mouth, with the intention of advancing to the duodenum. The scope was advanced to the gastric body before the procedure was aborted. Medications were given. The upper GI endoscopy was accomplished without difficulty. The patient tolerated the procedure well. Findings: Diffuse candidiasis was found in the entire esophagus. Cells for cytology were obtained by brushing. A large amount of food (residue) was found in the entire examined stomach. Impression: - Monilial esophagitis. Cells for cytology obtained. - A large amount of food (residue) in the stomach. Recommendation: - Return patient to [facility] for [facility] care. - Diflucan (fluconazole) 400mg by mouth today, then 200mg by mouth daily for 20 days. - Advance diet as tolerated. John Sanchez, 06/17/2017 12:50:41 PM This report has been signed electronically. Note Initiated On: 06/17/2017 12:19 PM I attest to the content of the Intraoperative Record and orders documented therein, exceptions below
--- NOTE | 2017-06-17 13:27 | Anesthesiology Progress Note ---
Anesthesia Post Op Note Date & Time Jun 17, 2017 at 13:27 Vital Signs Pain Intensity: 0 Vital Signs Past 12 Hours Date Time Temp Pulse Resp B/P (MAP) Pulse Ox O2 Delivery O2 Flow Rate FiO2 06/17/17 13:16 89 20 127/49 (75) 97 Room Air 06/17/17 12:56 91 16 127/56 (79) 96 Room Air 90 06/17/17 11:30 37 78 20 121/63 (82) 94 Room Air 78 06/17/17 08:00 Nasal Cannula 2.0 Humidified Oxygen 06/17/17 07:29 37.0 70 18 135/79 (97) 99 Nasal Cannula 2.0 Humidified Oxygen Notes Mental Status: alert / awake / arousable, participated in evaluation Pt Amnestic to Procedure: Yes Nausea / Vomiting: adequately controlled Pain: adequately controlled Airway Patency, RR, SpO2: stable & adequate BP & HR: stable & adequate Hydration State: stable & adequate Anesthetic Complications: no major complications apparent
[2017-06-17] MEDS ORDERED: FLUCONAZOLE 100 MG TAB PO ONE (13:30)
[2017-06-17 15:20] VITALS: BP 157/75; PULSE 80; TEMP 36.9; O2SAT 92
[2017-06-17] MEDS: ONDANSETRON INJ 2 MG/ML 2 ML VIAL IV PRN (15:31)
[2017-06-17] MEDS ORDERED: HydrALAZINE HCL 20 MG/ML VIAL IV. PRN (17:00)
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
[2017-06-17] MEDS ORDERED: NURSING VERBAL MED ORDER ONE (21:30)
[2017-06-17] MEDS: ATORVASTATIN 40 MG TAB PO SCH (22:05)
[2017-06-17] MEDS: QUETIAPINE FUMARATE 25 MG TAB PO SCH (22:06)
[2017-06-17] MEDS: DOXEPIN HCL 75 MG CAP PO SCH (22:06)
[2017-06-17] MEDS: INSULIN GLARGINE SOLOSTAR 100 UNITS/ML 3 ML PEN SC SCH (22:18)
[2017-06-17 23:41] VITALS: BP 102/85; PULSE 106; TEMP 37.2; O2SAT 95
[2017-06-18] MEDS: LORAZEPAM 1 MG TAB PO PRN ×2 (00:37→23:51)
[2017-06-18] MEDS: HYDROmorphone HCL 2 MG TAB PO PRN ×6 (00:38→23:52)
[2017-06-18 00:40] VITALS: PULSE 80
[2017-06-18] MEDS: PIPERACILL/TAZOBAC IV 3.375 GM in DEXTROSE 5% 100ML IV SCH (04:52)
[2017-06-18] MEDS: LEVOTHYROXINE 25 MCG TAB PO SCH (05:39)
--- NOTE | 2017-06-18 06:25 | Surgery Progress Note ---
Surgery Progress Note Date of Service Jun 18, 2017. Subjective voicing no complaints still not had good bm Objective Vital Signs: Date Time Temp Pulse Resp B/P (MAP) Pulse Ox O2 Delivery O2 Flow Rate FiO2 06/18/17 00:53 Room Air 06/18/17 00:40 80 06/17/17 23:41 37.2 106 20 102/85 (91) 95 Room Air 06/17/17 17:00 Room Air 06/17/17 15:20 36.9 80 18 157/75 (102) 92 Room Air 06/17/17 13:16 89 20 127/49 (75) 97 Room Air 06/17/17 12:56 91 16 127/56 (79) 96 Room Air 90 06/17/17 11:30 37 78 20 121/63 (82) 94 Room Air 78 06/17/17 08:00 Nasal Cannula 2.0 Humidified Oxygen 06/17/17 07:29 37.0 70 18 135/79 (97) 99 Nasal Cannula 2.0 Humidified Oxygen Abdomen: + pertinent finding (moderately distended incision fine with exception drainage area mid incision) Laboratory Results: Results Past 24 Hours Test 06/17/17 07:05 06/17/17 08:04 06/17/17 14:07 06/17/17 17:00 Range/Units Bedside Glucose 162 158 163 190 70-90 mg/dl Test 06/17/17 20:36 Range/Units Bedside Glucose 209 70-90 mg/dl Microbiology Results 06/17/17 Fungal Smear, Received Pending 06/17/17 Fungal Culture, Received Pending Assessment & Plan 06/18/17 ct scan abd and pelvis without oral contrast(pt refused to drink it) shows no real acute findings with exception large fecall load miralax, fleets enema, may need Golytely 06/17/[address] scan abd and pelvis to r/o intra abdominal abscess(pt still moderately distended and still elevated wbc continue packing wound with 1/4 inch gauze( wound clinic was consulted yesterday 06/14/17 lab this am pending pt remains afebrile but wbc still up yesterday will give dose of mom today keep on antibiotics for now 06/13/17 increase diet as tolerated fleets enema(no bm but passing flatus) continue antibiotics d/c iv fluids 06/12/17 no real bowel activity suspect related to ileus lab pending continue with antibiotics will increase diet dec IV analgesics 06/09/17 elevated wbc noted will start broad spectrum antibiotics even though pt had no obvious gi perforation may have had transmural migration of bacteria from serosal lac cecum 06/17/[address] scan abd and pelvis to r/o intra abdominal abscess(pt still moderately distended and still elevated wbc continue packing wound with 1/4 inch gauze( wound clinic was consulted yesterday 06/14/17 lab this am pending pt remains afebrile but wbc still up yesterday will give dose of mom today keep on antibiotics for now 06/13/17 increase diet as tolerated fleets enema(no bm but passing flatus) continue antibiotics d/c iv fluids 06/12/17 no real bowel activity suspect related to ileus lab pending continue with antibiotics will increase diet dec IV analgesics 06/09/17 elevated wbc noted will start broad spectrum antibiotics even though pt had no obvious gi perforation may have had transmural migration of bacteria from serosal lac cecum
[2017-06-18] MEDS ORDERED: POLYETHYLENE (MIRALAX) 17 GM PACK PO SCH (06:45)
[2017-06-18 07:27] LABS: BASO % 0.3 %; BASO ABS # 0.04 K/uL (0-0.2); COMPLETE YES; EOS % 4.8 %; HEMATOCRIT 29.3 % (37-47); IG% 1.5 %; LYMPH % 21.4 %; LYMPH ABS # 3.06 K/uL (1.2-3.4); MEAN CELL VOLUME 93.9 fL (80-100); MEAN CORPUSCULAR HEMOGLOBIN 31.1 pg (25-34); MEAN CORPUSCULAR HGB CONC 33.1 g/dl (32-36); MEAN PLATELET VOLUME 9.2 fL (7.4-10.4); MONO % 9.6 %; NEUT % 62.4 %; PLATELET COUNT 767 K/uL (130-400); RED BLOOD COUNT 3.12 M/uL (4.2-5.4); WHITE BLOOD COUNT 14.27 K/uL (4.8-10.8)
[2017-06-18 07:41] VITALS: BP 98/62; PULSE 81; TEMP 36.7; O2SAT 92
[2017-06-18] MEDS: POLYETHYLENE (MIRALAX) 17 GM PACK PO SCH ×2 (08:49→21:30)
[2017-06-18] MEDS: FAMOTIDINE 20 MG TAB PO SCH ×2 (08:55→21:29)
[2017-06-18] MEDS: FUROSEMIDE 20 MG TAB PO SCH (08:57)
[2017-06-18] MEDS: DULOXETINE (CYMBALTA) 30 MG CAP PO SCH (08:58)
[2017-06-18] MEDS: ASPIRIN 81 MG ECTAB PO SCH (08:58)
[2017-06-18] MEDS: FLUCONAZOLE 100 MG TAB PO SCH (09:00)
[2017-06-18] MEDS: LEVETIRACETAM 500 MG TAB PO SCH ×2 (09:00→21:28)
[2017-06-18] MEDS: BACLOFEN 10 MG TAB PO SCH ×2 (09:00→21:29)
[2017-06-18] MEDS: SENNA 8.6 MG TAB PO SCH (09:01)
[2017-06-18] MEDS: INSULIN ASPART 100 UNITS/ML 3 ML PEN SC SCH ×4 (09:26→21:00)
[2017-06-18 09:58] VITALS: O2SAT 92
[2017-06-18] MEDS: LEVOTHYROXINE 50 MCG TAB PO SCH (10:03)
--- NOTE | 2017-06-18 10:08 | Gastroenterology Progress Note ---
Progress Note Date of Service: Jun 18, 2017 Subjective Pt evaluation today including: conversation w/ patient, physical exam, chart review, review of inpatient medication list Patient reports improved dysphagia. Findings of rom esophagitis and retained food contents on EGD yesterday. Has started Diflucan therapy and tolerating well. Denies any abdominal pain at present. Review of Systems Constitutional: No problem reported Abdomen: + see HPI Medications Current Inpatient Medications Medications (Trade) Dose Ordered Sig/Karen Route Start Time Stop Time Status Last Admin Dose Admin Ondansetron HCl (Zofran Inj) 4 mg Q6H PRN IV 06/08/17 20:45 07/08/17 20:44 06/17/17 15:31 4 MG Heparin Sodium (Porcine) (Heparin Sq 5000 Unit/0.5ml) 5,000 unit Q12 SQ 06/09/17 09:00 07/09/17 08:59 Future Hold 06/16/17 08:42 5,000 UNIT Heparin Sodium (Porcine) (Heparin 10 Unit/ ml 5 ml Flush) 5 ml PRN PRN FLUSH 06/08/17 23:30 07/08/17 23:29 06/18/17 07:24 15 ML Doxepin HCl (Sinequan Cap) 75 mg HS PO 06/09/17 21:00 07/09/17 20:59 06/17/17 22:06 75 MG Levetiracetam (Keppra Tab) 500 mg BID PO 06/09/17 09:00 07/09/17 08:59 06/18/17 09:00 500 MG Glucose (Glucose 40% Gel) 15-30 GRAMS 15 GRAMS... UD PRN PO 06/08/17 23:45 07/08/17 23:44 Glucose (Glucose Chew Tab) 4-8 Tablets 4 Tabl... UD PRN PO 06/08/17 23:45 07/08/17 23:44 Dextrose (Dextrose 50% 50ML Syringe) 25-50ML OF 50% DW IV FOR... UD PRN IV 06/08/17 23:45 07/08/17 23:44 Glucagon (Glucagon Inj) 1 mg UD PRN SQ 06/08/17 23:45 07/08/17 23:44 Acetaminophen (Tylenol Tab) 1,000 mg Q8 PRN PO 06/09/17 08:45 07/09/17 08:44 06/13/17 18:15 1,000 MG Baclofen (Lioresal Tab) 10 mg BID PO 06/09/17 09:00 07/09/17 08:59 06/18/17 09:00 10 MG Atorvastatin Calcium (Lipitor Tab) 40 mg QPM PO 06/09/17 21:00 07/09/17 20:59 06/17/17 22:05 40 MG Aspirin (Ecotrin Tab) 81 mg QAM PO 06/09/17 09:00 07/09/17 08:59 06/18/17 08:58 81 MG Famotidine (Pepcid Tab) 20 mg BID PO 06/09/17 09:00 07/09/17 08:59 06/18/17 08:55 20 MG Insulin Glargine (Lantus Solostar Pen) 12 units HS SC 06/10/17 21:00 07/09/17 00:00 06/17/17 22:18 12 UNITS Belladonna/Opium (B & O Adult Supp) 60 mg Q8 PRN CA 06/11/17 11:45 06/25/17 11:44 06/11/17 15:35 60 MG Hydromorphone HCl (Dilaudid Inj) 1 mg Q4 PRN IV 06/12/17 08:00 06/22/17 20:44 Hydromorphone HCl (Dilaudid Tab) 2 mg Q3HWA PRN PO 06/12/17 08:15 06/26/17 08:14 06/18/17 00:38 2 MG Lorazepam (Ativan Tab) 1 mg HS PRN PO 06/12/17 19:15 07/12/17 19:14 06/18/17 00:37 1 MG Furosemide (Lasix Tab) 20 mg QAM PO 06/13/17 09:00 07/13/17 08:59 06/18/17 08:57 20 MG Duloxetine HCl (Cymbalta Cap) 30 mg QAM PO 06/14/17 09:00 07/14/17 08:59 06/18/17 08:58 30 MG Zolpidem Tartrate (Ambien Tab) 5 mg HS PRN PO 06/13/17 20:15 07/13/17 20:14 06/16/17 22:36 5 MG Magnesium Hydroxide (Milk Of Magnesia Susp) 30 ml ONE PRN PO 06/14/17 07:15 07/14/17 07:14 06/14/17 08:03 30 ML Quetiapine Fumarate (seroQUEL TAB) 25 mg HS PO 06/14/17 21:00 07/14/17 20:59 06/17/17 22:06 25 MG Promethazine HCl 12.5 mg/Sodium Chloride 50.5 ml @ 204 mls/hr Q6H PRN IV 06/14/17 12:15 07/14/17 12:14 06/17/17 03:06 204 MLS/HR Senna (Senokot Tab) 17.2 mg QAM PO 06/15/17 12:30 07/15/17 12:29 06/18/17 09:01 17.2 MG Polyethylene (Miralax Powder Packet) 17 gm BID PO 06/16/17 09:00 07/15/17 20:59 06/18/17 08:49 17 GM Ioversol (Optiray 320) 100 ml UD PRN IV 06/17/17 07:15 06/21/17 07:14 Fluconazole (Diflucan Tab) 200 mg DAILY PO 06/18/17 09:00 07/06/17 09:01 Hydralazine HCl (HydrALAZINE INJ) 10 mg Q4 PRN IV. 06/17/17 17:00 07/17/17 16:59 Miscellaneous Information (Order Awaiting Action) 1 ea QS N/A 06/18/17 00:00 07/18/17 00:00 Insulin Aspart (novoLOG ASPART) SLIDING SCALE G... ACHS SC 06/17/17 22:00 07/17/17 21:59 06/18/17 09:26 5 UNITS Sodium Biphosphate/ Sodium Phosphate (Fleet Enema) 132 ml ONE PRN CA 06/18/17 06:30 07/18/17 06:29 Levothyroxine Sodium (Synthroid Tab) 50 mcg DAILYBB PO 06/18/17 10:00 07/09/17 09:59 Ertapenem 1 gm/ Sodium Chloride 50 ml @ 120 mls/hr Q24H IV 06/18/17 10:00 06/28/17 09:59 Objective Vital Signs Date Time Temp Pulse Resp B/P (MAP) Pulse Ox O2 Delivery O2 Flow Rate FiO2 06/18/17 07:41 36.7 81 18 98/62 (74) 92 Room Air 06/18/17 00:53 Room Air 06/18/17 00:40 80 06/17/17 23:41 37.2 106 20 102/85 (91) 95 Room Air 06/17/17 17:00 Room Air 06/17/17 15:20 36.9 80 18 157/75 (102) 92 Room Air 06/17/17 13:16 89 20 127/49 (75) 97 Room Air 06/17/17 12:56 91 16 127/56 (79) 96 Room Air 90 06/17/17 11:30 37 78 20 121/63 (82) 94 Room Air 78 Physical Exam General Appearance: no apparent distress Respiratory/Chest: lungs clear Cardiovascular: regular rate, rhythm, no murmur Abdomen: normal bowel sounds, + pertinent finding (raudel intact) Neurologic/Psych: alert, normal mood/affect, oriented x 3 Skin: warm/dry Laboratory Results Last 24 Hours Test 06/17/17 14:07 06/17/17 17:00 06/17/17 20:36 06/18/17 07:18 Bedside Glucose 163 mg/dl 190 mg/dl 209 mg/dl White Blood Count 14.27 K/uL Red Blood Count 3.12 M/uL Hemoglobin 9.7 g/dL Hematocrit 29.3 % Mean Corpuscular Volume 93.9 fL Mean Corpuscular Hemoglobin 31.1 pg Mean Corpuscular Hemoglobin Concent 33.1 g/dl Platelet Count 767 K/uL Mean Platelet Volume 9.2 fL Neutrophils (%) (Auto) 62.4 % Lymphocytes (%) (Auto) 21.4 % Monocytes (%) (Auto) 9.6 % Eosinophils (%) (Auto) 4.8 % Basophils (%) (Auto) 0.3 % Neutrophils # (Auto) 8.90 K/uL Lymphocytes # (Auto) 3.06 K/uL Monocytes # (Auto) 1.37 K/uL Eosinophils # (Auto) 0.69 K/uL Basophils # (Auto) 0.04 K/uL RDW Standard Deviation 57.2 fL RDW Coefficient of Variation 17.2 % Immature Granulocyte % (Auto) 1.5 % Immature Granulocyte # (Auto) 0.21 K/uL Thyroid Stimulating Hormone (TSH) 10.400 uIu/ml Assessment and Plan Patient is a 76 year-old with dysphagia and findings of rom esophagitis on EGD yesterday. 1. Continue Diflucan 200 mg daily for 20 days. 2. Continue diet as tolerated. 3. Supportive measures per primary team. Agree with RADHA Lindsay as above Abd: Soft, NT, ND, +BS Continue current therapy
[2017-06-18] MEDS: ERTAPENEM IV 1 GM in SODIUM CHLOR 0.9% AD-VAN 50ML 50 ML IV SCH (10:54)
[2017-06-18] MEDS: AMOXICILLIN 500 MG CAP PO SCH ×2 (13:49→21:30)
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
[2017-06-18 16:00] VITALS: BP 125/72; PULSE 82; TEMP 37.1; O2SAT 98
[2017-06-18] MEDS: SOD PHOSPHATE/SOD BIPHOSPHATE ENEMA 132 ML BTL PR PRN (19:18)
[2017-06-18] MEDS: QUETIAPINE FUMARATE 25 MG TAB PO SCH (21:29)
[2017-06-18] MEDS: DOXEPIN HCL 75 MG CAP PO SCH (21:29)
[2017-06-18] MEDS: ATORVASTATIN 40 MG TAB PO SCH (21:29)
[2017-06-18] MEDS: INSULIN GLARGINE SOLOSTAR 100 UNITS/ML 3 ML PEN SC SCH (21:43)
[2017-06-18 23:36] VITALS: BP 111/66; PULSE 91; TEMP 36.9; O2SAT 97
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
[2017-06-19 05:51] LABS: HEMATOCRIT 31.7 % (37-47); MEAN CELL VOLUME 95.5 fL (80-100); MEAN CORPUSCULAR HEMOGLOBIN 28.9 pg (25-34); MEAN CORPUSCULAR HGB CONC 30.3 g/dl (32-36); MEAN PLATELET VOLUME 9.9 fL (7.4-10.4); PLATELET COUNT 870 K/uL (130-400); RED BLOOD COUNT 3.32 M/uL (4.2-5.4); WHITE BLOOD COUNT 14.21 K/uL (4.8-10.8)
[2017-06-19] MEDS: LEVOTHYROXINE 50 MCG TAB PO SCH (05:52)
[2017-06-19] MEDS: HYDROmorphone HCL 2 MG TAB PO PRN ×4 (05:55→23:29)
[2017-06-19 06:26] LABS: BUN/CREATININE RATIO 16.3 (10-20); CALCIUM 8.7 mg/dl (8.5-10.1); CREATININE 0.6 mg/dl (0.60-1.20); MAGNESIUM 1.9 mg/dl (1.8-2.4); POTASSIUM 3.7 mmol/L (3.5-5.1)
--- NOTE | 2017-06-19 07:22 | Surgery Progress Note ---
Surgery Progress Note Date of Service Jun 19, 2017. Subjective 11th post op day alert in no distress states had good bm yesterday and ate everything on plate Objective Vital Signs: Date Time Temp Pulse Resp B/P (MAP) Pulse Ox O2 Delivery O2 Flow Rate FiO2 06/18/17 23:50 Nasal Cannula 2.0 Humidified Oxygen 06/18/17 23:36 36.9 91 16 111/66 (81) 97 Nasal Cannula 2.0 Humidified Oxygen 06/18/17 16:00 37.1 82 18 125/72 (89) 98 Humidified Oxygen 06/18/17 15:20 Nasal Cannula 2.0 06/18/17 09:58 92 Room Air 06/18/17 08:50 Room Air 06/18/17 07:41 36.7 81 18 98/62 (74) 92 Room Air Abdomen: + pertinent finding (bit softer ,no loc tenderness vac system in place mild erythema distal aspect in cision resolving retention sutures intact still tight) Laboratory Results: Results Past 24 Hours Test 06/18/17 08:02 06/18/17 12:01 06/18/17 17:31 06/18/17 20:56 Range/Units Bedside Glucose 148 189 214 130 70-90 mg/dl Test 06/19/17 05:40 Range/Units White Blood Count 14.21 4.8-10.8 K/uL Red Blood Count 3.32 4.2-5.4 M/uL Hemoglobin 9.6 12.0-16.0 g/dL Hematocrit 31.7 37-47 % Mean Corpuscular Volume 95.5 80-100 fL Mean Corpuscular Hemoglobin 28.9 25-34 pg Mean Corpuscular Hemoglobin Concent 30.3 32-36 g/dl RDW Standard Deviation 58.8 36.4-46.3 fL RDW Coefficient of Variation 17.1 11.5-14.5 % Platelet Count 870 130-400 K/uL Mean Platelet Volume 9.9 7.4-10.4 fL Nucleated RBC Absolute Count (auto) 0.02 0-0 K/uL Nucleated Red Blood Cells % 0.2 % Sodium Level 139 136-145 mmol/L Potassium Level 3.7 3.5-5.1 mmol/L Chloride Level 101 98-107 mmol/L Carbon Dioxide Level 34 21-32 mmol/L Anion Gap 4.0 3-11 mmol/L Blood Urea Nitrogen 10 7-18 mg/dl Creatinine 0.60 0.60-1.20 mg/dl Est Creatinine Clear Calc Drug Dose 66.9 ml/min Estimated GFR () 101.9 Estimated GFR (Non- 87.9 BUN/Creatinine Ratio 16.3 10-20 Random Glucose 188 70-99 mg/dl Calcium Level 8.7 8.5-10.1 mg/dl Magnesium Level 1.9 1.8-2.4 mg/dl Assessment & Plan 06/18/17 ct scan abd and pelvis without oral contrast(pt refused to drink it) shows no real acute findings with exception large fecall load miralax, fleets enema, may need Golytely 06/17/[address] scan abd and pelvis to r/o intra abdominal abscess(pt still moderately distended and still elevated wbc continue packing wound with 1/4 inch gauze( wound clinic was consulted yesterday 06/14/17 lab this am pending pt remains afebrile but wbc still up yesterday will give dose of mom today keep on antibiotics for now 06/13/17 increase diet as tolerated fleets enema(no bm but passing flatus) continue antibiotics d/c iv fluids 06/12/17 no real bowel activity suspect related to ileus lab pending continue with antibiotics will increase diet dec IV analgesics 06/09/17 elevated wbc noted will start broad spectrum antibiotics even though pt had no obvious gi perforation may have had transmural migration of bacteria from serosal lac cecum 06/19/17 will continue daily Miralax (nurses state just a small smear of bm) wbc dec and vitals noted can probably be discharged in next 3-4 days 06/18/17 ct scan abd and pelvis without oral contrast(pt refused to drink it) shows no real acute findings with exception large fecal load miralax, fleets enema, may need Golytely 06/17/[address] scan abd and pelvis to r/o intra abdominal abscess(pt still moderately distended and still elevated wbc continue packing wound with 1/4 inch gauze( wound clinic was consulted yesterday 06/14/17 lab this am pending pt remains afebrile but wbc still up yesterday will give dose of mom today keep on antibiotics for now 06/13/17 increase diet as tolerated fleets enema(no bm but passing flatus) continue antibiotics d/c iv fluids 06/12/17 no real bowel activity suspect related to ileus lab pending continue with antibiotics will increase diet dec IV analgesics 06/09/17 elevated wbc noted will start broad spectrum antibiotics even though pt had no obvious gi perforation may have had transmural migration of bacteria from serosal lac cecum
[2017-06-19] MEDS ORDERED: OXYCODONE/ACETAMINOPHEN 5-325 TAB PO PRN ×2 (07:30→13:45)
[2017-06-19] MEDS ORDERED: SOD PHOSPHATE/SOD BIPHOSPHATE ENEMA 132 ML BTL PR PRN (07:30)
[2017-06-19 07:43] VITALS: BP 101/66; PULSE 89; TEMP 36.9; O2SAT 98
[2017-06-19] MEDS ORDERED: POLYETHYLENE (MIRALAX) 17 GM PACK PO SCH (09:00)
[2017-06-19] MEDS: AMOXICILLIN 500 MG CAP PO SCH ×2 (09:07→20:37)
[2017-06-19] MEDS: FLUCONAZOLE 100 MG TAB PO SCH (09:09)
[2017-06-19] MEDS: ASPIRIN 81 MG ECTAB PO SCH (09:10)
[2017-06-19] MEDS: LEVETIRACETAM 500 MG TAB PO SCH ×2 (09:12→20:37)
[2017-06-19] MEDS: FUROSEMIDE 20 MG TAB PO SCH (09:14)
[2017-06-19] MEDS: BACLOFEN 10 MG TAB PO SCH ×2 (09:16→20:36)
[2017-06-19] MEDS: POLYETHYLENE (MIRALAX) 17 GM PACK PO SCH ×2 (09:17→20:36)
[2017-06-19] MEDS: FAMOTIDINE 20 MG TAB PO SCH ×2 (09:19→20:36)
[2017-06-19] MEDS: SENNA 8.6 MG TAB PO SCH (09:21)
[2017-06-19] MEDS: DULOXETINE HCL 60 MG CAP PO SCH (09:25)
[2017-06-19] MEDS: INSULIN ASPART 100 UNITS/ML 3 ML PEN SC SCH ×4 (09:41→21:41)
[2017-06-19] MEDS: HEPARIN SOD 5000 UNIT/0.5 ML CARP SQ SCH ×2 (09:42→21:43)
[2017-06-19 10:02] VITALS: O2SAT 99
[2017-06-19] MEDS: ERTAPENEM IV 1 GM in SODIUM CHLOR 0.9% AD-VAN 50ML 50 ML IV SCH (10:08)
[2017-06-19] MEDS ORDERED: NURSING VERBAL MED ORDER ONE (13:30)
[2017-06-19 16:14] VITALS: BP 121/76; PULSE 89; TEMP 37.1; O2SAT 93
[2017-06-19] MEDS: ATORVASTATIN 40 MG TAB PO SCH (20:36)
[2017-06-19] MEDS: DOXEPIN HCL 75 MG CAP PO SCH (20:36)
[2017-06-19] MEDS: QUETIAPINE FUMARATE 25 MG TAB PO SCH (20:37)
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
[2017-06-19] MEDS: INSULIN GLARGINE SOLOSTAR 100 UNITS/ML 3 ML PEN SC SCH (21:42)
[2017-06-19 22:41] VITALS: BP 148/84; PULSE 98; TEMP 37.1; O2SAT 92
[2017-06-19] MEDS: LORAZEPAM 1 MG TAB PO PRN (23:05)
[2017-06-20] VITALS (7 sets, daily range): BP systolic 70–137; BP diastolic 56–76; PULSE 85–106; TEMP 36.8–37; O2SAT 94–97
[2017-06-20] MEDS: HYDROmorphone HCL 2 MG TAB PO PRN ×6 (03:31→22:59)
[2017-06-20] MEDS: LEVOTHYROXINE 50 MCG TAB PO SCH (05:29)
[2017-06-20 05:36] LABS: BASO % 0.2 %; BASO ABS # 0.03 K/uL (0-0.2); COMPLETE YES; EOS % 4.6 %; HEMATOCRIT 30.4 % (37-47); LYMPH % 18.3 %; LYMPH ABS # 2.67 K/uL (1.2-3.4); MEAN CELL VOLUME 95.3 fL (80-100); MEAN CORPUSCULAR HEMOGLOBIN 29.8 pg (25-34); MEAN CORPUSCULAR HGB CONC 31.3 g/dl (32-36); MEAN PLATELET VOLUME 9.6 fL (7.4-10.4); MONO % 8.4 %; NEUT % 67.5 %; PLATELET COUNT 881 K/uL (130-400); RED BLOOD COUNT 3.19 M/uL (4.2-5.4)
--- NOTE | 2017-06-20 06:05 | Surgery Progress Note ---
Surgery Progress Note Date of Service Jun 20, 2017. Subjective no major complaints states moved bowel tolerated oral intake Objective Vital Signs: Date Time Temp Pulse Resp B/P (MAP) Pulse Ox O2 Delivery O2 Flow Rate FiO2 06/19/17 23:15 Room Air 06/19/17 22:41 37.1 98 18 148/84 (105) 92 Room Air 06/19/17 16:14 37.1 89 18 121/76 (91) 93 Room Air 06/19/17 16:00 Room Air 06/19/17 10:02 99 Nasal Cannula 2.0 06/19/17 07:50 Nasal Cannula 2.0 06/19/17 07:43 36.9 89 18 101/66 (78) 98 Nasal Cannula 2.0 Abdomen: + pertinent finding (still distended but bit softer, vac system on no cellulitis noted) Laboratory Results: Results Past 24 Hours Test 06/19/17 08:02 06/19/17 11:54 06/19/17 17:09 06/19/17 20:46 Range/Units Bedside Glucose 176 185 135 269 70-90 mg/dl Test 06/20/17 05:22 Range/Units White Blood Count 14.60 4.8-10.8 K/uL Red Blood Count 3.19 4.2-5.4 M/uL Hemoglobin 9.5 12.0-16.0 g/dL Hematocrit 30.4 37-47 % Mean Corpuscular Volume 95.3 80-100 fL Mean Corpuscular Hemoglobin 29.8 25-34 pg Mean Corpuscular Hemoglobin Concent 31.3 32-36 g/dl Platelet Count 881 130-400 K/uL Mean Platelet Volume 9.6 7.4-10.4 fL Neutrophils (%) (Auto) 67.5 % Lymphocytes (%) (Auto) 18.3 % Monocytes (%) (Auto) 8.4 % Eosinophils (%) (Auto) 4.6 % Basophils (%) (Auto) 0.2 % Neutrophils # (Auto) 9.86 1.4-6.5 K/uL Lymphocytes # (Auto) 2.67 1.2-3.4 K/uL Monocytes # (Auto) 1.22 0.11-0.59 K/uL Eosinophils # (Auto) 0.67 0-0.5 K/uL Basophils # (Auto) 0.03 0-0.2 K/uL RDW Standard Deviation 60.0 36.4-46.3 fL RDW Coefficient of Variation 17.2 11.5-14.5 % Immature Granulocyte % (Auto) 1.0 % Immature Granulocyte # (Auto) 0.15 0.00-0.02 K/uL Assessment & Plan 06/20/17 still elevated wbc may need to remove central line but before so make sure she has good peripheral line continue with bowel regime continue with antibiotics for now 06/19/17 will continue daily Miralax (nurses state just a small smear of bm) wbc dec and vitals noted can probably be discharged in next 3-4 days 06/18/17 ct scan abd and pelvis without oral contrast(pt refused to drink it) shows no real acute findings with exception large fecal load miralax, fleets enema, may need Golytely 06/17/[address] scan abd and pelvis to r/o intra abdominal abscess(pt still moderately distended and still elevated wbc continue packing wound with 1/4 inch gauze( wound clinic was consulted yesterday 06/14/17 lab this am pending pt remains afebrile but wbc still up yesterday will give dose of mom today keep on antibiotics for now 06/13/17 increase diet as tolerated fleets enema(no bm but passing flatus) continue antibiotics d/c iv fluids 06/12/17 no real bowel activity suspect related to ileus lab pending continue with antibiotics will increase diet dec IV analgesics 06/09/17 elevated wbc noted will start broad spectrum antibiotics even though pt had no obvious gi perforation may have had transmural migration of bacteria from serosal lac cecum 06/19/17 will continue daily Miralax (nurses state just a small smear of bm) wbc dec and vitals noted can probably be discharged in next 3-4 days 06/18/17 ct scan abd and pelvis without oral contrast(pt refused to drink it) shows no real acute findings with exception large fecal load miralax, fleets enema, may need Golytely 06/17/[address] scan abd and pelvis to r/o intra abdominal abscess(pt still moderately distended and still elevated wbc continue packing wound with 1/4 inch gauze( wound clinic was consulted yesterday 06/14/17 lab this am pending pt remains afebrile but wbc still up yesterday will give dose of mom today keep on antibiotics for now 06/13/17 increase diet as tolerated fleets enema(no bm but passing flatus) continue antibiotics d/c iv fluids 06/12/17 no real bowel activity suspect related to ileus lab pending continue with antibiotics will increase diet dec IV analgesics 06/09/17 elevated wbc noted will start broad spectrum antibiotics even though pt had no obvious gi perforation may have had transmural migration of bacteria from serosal lac cecum
[2017-06-20] MEDS: AMOXICILLIN 500 MG CAP PO SCH ×2 (08:53→21:04)
[2017-06-20] MEDS: DULOXETINE HCL 60 MG CAP PO SCH (08:54)
[2017-06-20] MEDS: FLUCONAZOLE 100 MG TAB PO SCH (08:56)
[2017-06-20] MEDS: ASPIRIN 81 MG ECTAB PO SCH (08:59)
[2017-06-20] MEDS: LEVETIRACETAM 500 MG TAB PO SCH ×2 (09:00→21:03)
[2017-06-20] MEDS: FUROSEMIDE 20 MG TAB PO SCH (09:06)
[2017-06-20] MEDS: BACLOFEN 10 MG TAB PO SCH ×2 (09:07→21:02)
[2017-06-20] MEDS: POLYETHYLENE (MIRALAX) 17 GM PACK PO SCH ×2 (09:08→21:01)
[2017-06-20] MEDS: FAMOTIDINE 20 MG TAB PO SCH ×2 (09:11→21:02)
[2017-06-20] MEDS: INSULIN ASPART 100 UNITS/ML 3 ML PEN SC SCH ×4 (09:38→21:00)
[2017-06-20] MEDS: HEPARIN SOD 5000 UNIT/0.5 ML CARP SQ SCH ×2 (09:40→21:01)
[2017-06-20] MEDS: ERTAPENEM IV 1 GM in SODIUM CHLOR 0.9% AD-VAN 50ML 50 ML IV SCH (09:55)
[2017-06-20] MEDS: SENNA 8.6 MG TAB PO SCH (10:13)
[2017-06-20] MEDS: INSULIN GLARGINE SOLOSTAR 100 UNITS/ML 3 ML PEN SC SCH (21:01)
[2017-06-20] MEDS: QUETIAPINE FUMARATE 25 MG TAB PO SCH (21:02)
[2017-06-20] MEDS: DOXEPIN HCL 75 MG CAP PO SCH (21:03)
[2017-06-20] MEDS: ATORVASTATIN 40 MG TAB PO SCH (21:03)
[2017-06-20] MEDS: LORAZEPAM 1 MG TAB PO PRN (22:58)
[2017-06-21] MEDS: LEVOTHYROXINE 50 MCG TAB PO SCH (05:35)
[2017-06-21] MEDS: HYDROmorphone HCL 2 MG TAB PO PRN ×5 (05:36→21:11)
--- NOTE | 2017-06-21 06:07 | Surgery Progress Note ---
Surgery Progress Note Date of Service Jun 21, 2017. Subjective 13 th post op day no complaints except some rectal pain Objective Vital Signs: Date Time Temp Pulse Resp B/P (MAP) Pulse Ox O2 Delivery O2 Flow Rate FiO2 06/20/17 23:35 Nasal Cannula 06/20/17 22:51 37.0 106 18 113/72 (86) 96 Room Air 06/20/17 15:10 Room Air 06/20/17 14:49 36.8 88 18 112/72 (85) 94 Room Air 06/20/17 12:13 87 16 96/57 (70) 06/20/17 11:52 137/76 (96) 06/20/17 11:40 104/67 (79) 06/20/17 07:50 Nasal Cannula 2.0 06/20/17 07:41 97 Nasal Cannula 2.0 06/20/17 07:36 36.8 85 16 122/74 (90) 97 2.0 Abdomen: + pertinent finding (unchanged incision intact retention sutures still tight vac intact) Laboratory Results: Results Past 24 Hours Test 06/20/17 08:18 06/20/17 11:51 06/20/17 17:23 06/20/17 20:27 Range/Units Bedside Glucose 178 133 153 206 70-90 mg/dl Test 06/21/17 04:44 Range/Units Assessment & Plan 06/21/17 slow progress with gi function(BM) lab pending this am suspect we can d/c antibiotics if wbc continues to trend down Dr Macedo covering this weekend 06/20/17 still elevated wbc may need to remove central line but before so make sure she has good peripheral line continue with bowel regime continue with antibiotics for now 06/19/17 will continue daily Miralax (nurses state just a small smear of bm) wbc dec and vitals noted can probably be discharged in next 3-4 days 06/18/17 ct scan abd and pelvis without oral contrast(pt refused to drink it) shows no real acute findings with exception large fecal load miralax, fleets enema, may need Golytely 06/17/[address] scan abd and pelvis to r/o intra abdominal abscess(pt still moderately distended and still elevated wbc continue packing wound with 1/4 inch gauze( wound clinic was consulted yesterday 06/14/17 lab this am pending pt remains afebrile but wbc still up yesterday will give dose of mom today keep on antibiotics for now 06/13/17 increase diet as tolerated fleets enema(no bm but passing flatus) continue antibiotics d/c iv fluids 06/12/17 no real bowel activity suspect related to ileus lab pending continue with antibiotics will increase diet dec IV analgesics 06/09/17 elevated wbc noted will start broad spectrum antibiotics even though pt had no obvious gi perforation may have had transmural migration of bacteria from serosal lac cecum 06/20/17 still elevated wbc may need to remove central line but before so make sure she has good peripheral line continue with bowel regime continue with antibiotics for now 06/19/17 will continue daily Miralax (nurses state just a small smear of bm) wbc dec and vitals noted can probably be discharged in next 3-4 days 06/18/17 ct scan abd and pelvis without oral contrast(pt refused to drink it) shows no real acute findings with exception large fecal load miralax, fleets enema, may need Golytely 06/17/[address] scan abd and pelvis to r/o intra abdominal abscess(pt still moderately distended and still elevated wbc continue packing wound with 1/4 inch gauze( wound clinic was consulted yesterday 06/14/17 lab this am pending pt remains afebrile but wbc still up yesterday will give dose of mom today keep on antibiotics for now 06/13/17 increase diet as tolerated fleets enema(no bm but passing flatus) continue antibiotics d/c iv fluids 06/12/17 no real bowel activity suspect related to ileus lab pending continue with antibiotics will increase diet dec IV analgesics 06/09/17 elevated wbc noted will start broad spectrum antibiotics even though pt had no obvious gi perforation may have had transmural migration of bacteria from serosal lac cecum
[2017-06-21 06:41] LABS: HEMATOCRIT 30.5 % (37-47); MEAN CELL VOLUME 97.1 fL (80-100); MEAN CORPUSCULAR HEMOGLOBIN 30.3 pg (25-34); MEAN CORPUSCULAR HGB CONC 31.1 g/dl (32-36); MEAN PLATELET VOLUME 10.1 fL (7.4-10.4); PLATELET COUNT 822 K/uL (130-400); RED BLOOD COUNT 3.14 M/uL (4.2-5.4); WHITE BLOOD COUNT 13.14 K/uL (4.8-10.8)
[2017-06-21 06:49] VITALS: BP 137/61; PULSE 85; TEMP 37; O2SAT 98
[2017-06-21 07:06] LABS: BUN/CREATININE RATIO 26.8 (10-20); CREATININE 0.5 mg/dl (0.60-1.20); POTASSIUM 4.1 mmol/L (3.5-5.1)
[2017-06-21] MEDS: POLYETHYLENE (MIRALAX) 17 GM PACK PO SCH ×2 (08:28→21:11)
[2017-06-21] MEDS: AMOXICILLIN 500 MG CAP PO SCH ×2 (08:29→21:13)
[2017-06-21] MEDS: DULOXETINE HCL 60 MG CAP PO SCH (08:29)
[2017-06-21] MEDS: ASPIRIN 81 MG ECTAB PO SCH (08:30)
[2017-06-21] MEDS: FLUCONAZOLE 100 MG TAB PO SCH (08:30)
[2017-06-21] MEDS: SENNA 8.6 MG TAB PO SCH (08:31)
[2017-06-21] MEDS: FAMOTIDINE 20 MG TAB PO SCH ×2 (08:31→21:11)
[2017-06-21] MEDS: BACLOFEN 10 MG TAB PO SCH ×2 (08:31→21:12)
[2017-06-21] MEDS: FUROSEMIDE 20 MG TAB PO SCH (08:31)
[2017-06-21] MEDS: LEVETIRACETAM 500 MG TAB PO SCH ×2 (08:33→21:13)
[2017-06-21] MEDS: INSULIN ASPART 100 UNITS/ML 3 ML PEN SC SCH ×4 (09:26→21:18)
[2017-06-21] MEDS: HEPARIN SOD 5000 UNIT/0.5 ML CARP SQ SCH ×2 (09:27→21:20)
[2017-06-21] MEDS: ERTAPENEM IV 1 GM in SODIUM CHLOR 0.9% AD-VAN 50ML 50 ML IV SCH (09:28)
[2017-06-21] MEDS ORDERED: SYN50 PO (14:01)
[2017-06-21] MEDS ORDERED: LORA-741 PO (14:01)
[2017-06-21] MEDS ORDERED: SRQ25 PO (14:01)
[2017-06-21] MEDS ORDERED: AMX500 PO (14:01)
[2017-06-21] MEDS ORDERED: INSDGIPEN SC (14:01)
[2017-06-21] MEDS ORDERED: BOAS PR (14:01)
[2017-06-21] MEDS ORDERED: CYM60 PO (14:01)
[2017-06-21] MEDS ORDERED: CEFD300C2 PO (14:01)
[2017-06-21] MEDS ORDERED: DFL100 PO (14:01)
[2017-06-21] MEDS ORDERED: DLD/2 PO (14:01)
--- NOTE | 2017-06-21 14:06 | Discharge Instructions ---
Discharge Instructions Date of Service Jun 21, 2017. Admission Reason for Admission: Post-Op Pain Discharge Discharge Diagnosis / Problem: self inflicted stab wounds, suiscide attempt Discharge Goals Goal(s): Diagnostic testing, Therapeutic intervention Activity Recommendations Activity Level: Assistance Required Therapies: Physical Therapy, Occupational Therapy 76 F with Suicide attempt by knife wounds to abdomen/status post exploratory laparotomy/abdominal washout hemoperitoneum/repair serosal laceration of cecum/ lysis of adhesions and partial omentectomy, per surgery note no overt viscus perforation antibiotics for abdominal wounds, one of her suture lines drained large amounts of purulent material growing multiple gram negative wound care consult recommended wound vac. given sensitivities will have on amoxil for enterococcus but need also cefdinir for ecoli and quinalone resistent klebsiella Pt concerned esophageal stricture is acting up GI medicine did egd and found rom esophagitis, will have diflucan, for additional 10 days post op acute blood loss anemia remains stable after transfusion .Platelets are increased will follow suicide attempt, psychiatry feels can be managed safely at snf with appropriate precautions, medication recommendation for cymbalta and transfer to safe snf environment, seroquel at [facility] chronic pain, pain management recommendations oral dilaudid, continues with B& O suppositories, needs attention and fine tuning of bowel regime Diabetes mellitus--reviewed slightly elevated follow, Lantus and SSI Seizure disorder, without current seizures, Keppra 500 mg by mouth twice a day Hypothyroidism-Synthroid increased to 50 mcg Bilateral lower limb paralysis/rectal pain--reinforce good skin care, rolling to reduce pressure, escalating bowel regimen after manual dis impaction . Additional Information Patient informed of condition: Yes Advance Directives: Yes DNR: No Level of Care: Skilled Communicable Disease: No Prognosis: Stable Simons Catheter: No Current Hospital Diet Patient's current hospital diet: Diabetes Type 1 Diet Discharge Diet Recommended Diet: Regular Diet Procedures Procedures Performed: emergent exploratory lap ESOPHAGEAL BRUSHING Pending Studies Studies pending at discharge: no Laboratory Results Hemoglobin A1c Test 03/26/17 11:37 Range/Units Estimated Average Glucose 223 mg/dl Hemoglobin A1c 9.4 H 4.5-5.6 % Lipid Panel Test 03/26/17 11:37 Range/Units Triglycerides Level 270 H 0-150 mg/dl Cholesterol Level 173 0-200 mg/dl HDL Cholesterol 68 mg/dl Cholesterol/HDL Ratio 2.5 LDL Cholesterol, Calculated 51 mg/dl Medical Emergencies . Who to Call and When: Medical Emergencies: If at any time you feel your situation is an emergency, please call 911 immediately. . Non-Emergent Contact Non-Emergency issues call your: Surgeon (to have wound eval and suture removal; ) Call Non-Emergent contact if: temperature is above 101, your pain is unusual for you . . "Provider Documentation" section prepared by Christiano Toney. . Core Measure Problem Core Measures: None
--- NOTE | 2017-06-21 14:28 | Psych Management Progress Note ---
Psychiatry Miscellaneous Date of Service: Jun 21, 2017. patient discussed briefly with Dr. Toney as consult team noted patient started on Seroquel 06/14. Dr. Toney confirmed for anxiety/mood related sleep disturbance. Patient doesn't have a diagnosis of dementia so FDA warnings re: risks of likely not to apply. Tolerating well and can likely be discontinued after she settles in [facility] if he desires to continue at discharge.
[2017-06-21] MEDS ORDERED: BISACODYL 10 MG SUPP PR SCH ×2 (15:00→19:00)
[2017-06-21 15:30] VITALS: BP 125/74; PULSE 94; TEMP 36.6; O2SAT 97
--- NOTE | 2017-06-21 17:47 | Progress Note ---
Subjective Date of Service: Jun 20, 2017. Subjective pt is doing well with wound vacc in place awaiting placement but not having great bowel function Problem List Medical Problems: (1) Altered mental status Status: Acute (2) Anxiety Status: Acute (3) Closed comminuted intertrochanteric fracture of right femur Status: Acute (4) Decreased oral intake Status: Acute (5) Dehydration Status: Acute (6) Fever Status: Acute (7) Gastric out let obstruction Status: Acute (8) Hypokalemia Status: Acute (9) Intentional self-harm by knife Status: Acute (10) Left sided chest pain Status: Acute (11) Migraine Status: Acute (12) Pelvic pain Status: Acute (13) Pneumonia Status: Acute (14) Rectal pain Status: Acute (15) Sepsis Status: Acute (16) Tachycardia Status: Acute (17) UTI (urinary tract infection) Status: Acute (18) UTI (urinary tract infection) Status: Acute Review of Systems Constitutional: + weakness, + fatigue, No fever, No chills Respiratory: No cough, No shortness of breath Cardiac: No chest pain, No edema Abdomen: + pain, + constipation, No nausea, No vomiting, No diarrhea Musculoskeletal: No joint pain, No muscle pain Objective Vital Signs Date Time Temp Pulse Resp B/P (MAP) Pulse Ox O2 Delivery O2 Flow Rate FiO2 06/20/17 07:41 97 Nasal Cannula 2.0 06/20/17 07:36 36.8 85 16 122/74 (90) 97 2.0 06/19/17 23:15 Room Air 06/19/17 22:41 37.1 98 18 148/84 (105) 92 Room Air 06/19/17 16:14 37.1 89 18 121/76 (91) 93 Room Air 06/19/17 16:00 Room Air 06/19/17 10:02 99 Nasal Cannula 2.0 Physical Exam General Appearance: WD/WN, + mild distress Eyes: PERRL, EOMI Respiratory/Chest: chest non-tender, + decreased breath sounds (bases) Cardiovascular: regular rate, rhythm, no murmur Abdomen: soft, + distended, + pertinent finding (tympanitic) Laboratory Results Last 24 Hours Test 06/19/17 11:54 06/19/17 17:09 06/19/17 20:46 06/20/17 05:22 Bedside Glucose 185 mg/dl 135 mg/dl 269 mg/dl White Blood Count 14.60 K/uL Red Blood Count 3.19 M/uL Hemoglobin 9.5 g/dL Hematocrit 30.4 % Mean Corpuscular Volume 95.3 fL Mean Corpuscular Hemoglobin 29.8 pg Mean Corpuscular Hemoglobin Concent 31.3 g/dl Platelet Count 881 K/uL Mean Platelet Volume 9.6 fL Neutrophils (%) (Auto) 67.5 % Lymphocytes (%) (Auto) 18.3 % Monocytes (%) (Auto) 8.4 % Eosinophils (%) (Auto) 4.6 % Basophils (%) (Auto) 0.2 % Neutrophils # (Auto) 9.86 K/uL Lymphocytes # (Auto) 2.67 K/uL Monocytes # (Auto) 1.22 K/uL Eosinophils # (Auto) 0.67 K/uL Basophils # (Auto) 0.03 K/uL RDW Standard Deviation 60.0 fL RDW Coefficient of Variation 17.2 % Immature Granulocyte % (Auto) 1.0 % Immature Granulocyte # (Auto) 0.15 K/uL Assessment and Plan 76 F with Suicide attempt by knife wounds to abdomen/status post exploratory laparotomy/abdominal washout hemoperitoneum/repair serosal laceration of cecum/ lysis of adhesions and partial omentectomy, per surgery note no overt viscus perforation, post op wound dehissance and purulence with multiple gram negative organisms antibiotics for abdominal wounds, one of her suture lines drained large amounts of purulent material growing gram negative this eventually proved to be large tunnel that required additional suture removal by wound care to have heal by second intent, will continue to discuss with surgery for managemen, that maybe explaining her leukocytosis,amoxil and ertapenem and continue wound care consult they will manage wound vac if needed Pt concerned esophageal stricture is acting up GI medicine did egd and found rom esophagitis, will have 20 day course of diflucan, to 8/ post op acute blood loss anemia remains stable after transfusion 06/10.Platelets are increased will follow suicide attempt, psychiatry feels can be managed safely at [facility] with appropriate precautions, medication recommendation for cymbalta and transfer to safe snf environment chronic pain, pain management recommendations oral dilaudid, continues with B& O suppositories, poor bowel regime, may consider relistor and increase po meds Diabetes mellitus--reviewed slightly elevated follow, Lantus and SSI Seizure disorder, stable, Keppra 500 mg by mouth twice a day Hypothyroidism-Synthroid increased to 50 mcg Chronic constipation, not clear if medical ileus or from opitates, no response to escalating bowel regimen after manual dis impaction will continue and try scheduled suppositories and relistor Chronic kidney disease stable as did resume diuretics, advancing diet by surgery Bilateral lower limb paralysis/rectal pain--reinforce good skin care, rolling to reduce pressure, does not do significant physical assist with movement so pt has been not understanding that PT/OT is needed to have transtion from hospital will reinforce Continued [facility] stay due to: inadequate oral pain control, voiding difficulties , ambulation difficulties, multiple IV medications needed Discharge planning: longterm facility
[2017-06-21] MEDS ORDERED: NURSING VERBAL MED ORDER ONE (18:45)
[2017-06-21] MEDS: METHYLNALTREXONE BROMIDE INJ 12 MG/0.6 ML SYR SQ SCH (19:11)
[2017-06-21] MEDS: SOD PHOSPHATE/SOD BIPHOSPHATE ENEMA 132 ML BTL PR PRN (19:11)
[2017-06-21] MEDS: ONDANSETRON INJ 2 MG/ML 2 ML VIAL IV PRN (19:50)
[2017-06-21] MEDS: DOXEPIN HCL 75 MG CAP PO SCH (21:12)
[2017-06-21] MEDS: ATORVASTATIN 40 MG TAB PO SCH (21:12)
[2017-06-21] MEDS: QUETIAPINE FUMARATE 25 MG TAB PO SCH (21:13)
[2017-06-21] MEDS: INSULIN GLARGINE SOLOSTAR 100 UNITS/ML 3 ML PEN SC SCH (21:19)
[2017-06-21] MEDS: LORAZEPAM 1 MG TAB PO PRN (22:38)
[2017-06-21 22:53] VITALS: BP 118/71; PULSE 86; TEMP 36.9; O2SAT 96
[2017-06-22] MEDS: HYDROmorphone HCL 2 MG TAB PO PRN ×7 (00:01→23:57)
[2017-06-22] MEDS: LEVOTHYROXINE 50 MCG TAB PO SCH (05:32)
[2017-06-22 07:58] VITALS: BP 146/77; PULSE 87; TEMP 37; O2SAT 99
[2017-06-22 08:00] VITALS: O2SAT 99
--- NOTE | 2017-06-22 08:29 | Progress Note ---
Subjective Date of Service: Jun 21, 2017. Problem List Medical Problems: (1) Altered mental status Status: Acute (2) Anxiety Status: Acute (3) Closed comminuted intertrochanteric fracture of right femur Status: Acute (4) Decreased oral intake Status: Acute (5) Dehydration Status: Acute (6) Fever Status: Acute (7) Gastric out let obstruction Status: Acute (8) Hypokalemia Status: Acute (9) Intentional self-harm by knife Status: Acute (10) Left sided chest pain Status: Acute (11) Migraine Status: Acute (12) Pelvic pain Status: Acute (13) Pneumonia Status: Acute (14) Rectal pain Status: Acute (15) Sepsis Status: Acute (16) Tachycardia Status: Acute (17) UTI (urinary tract infection) Status: Acute (18) UTI (urinary tract infection) Status: Acute Review of Systems Constitutional: No fever, No chills, No weakness Respiratory: No cough, No shortness of breath, No dyspnea on exertion Cardiac: No chest pain, No orthopnea, No edema Abdomen: No pain, No nausea, No vomiting, No diarrhea Musculoskeletal: No joint pain, No muscle pain Objective Vital Signs Date Time Temp Pulse Resp B/P (MAP) Pulse Ox O2 Delivery O2 Flow Rate FiO2 06/22/17 07:58 37.0 87 16 146/77 (100) 99 Room Air 06/21/17 23:30 Nasal Cannula 2.0 06/21/17 22:53 36.9 86 18 118/71 (87) 96 Nasal Cannula 2.0 06/21/17 15:30 36.6 94 18 125/74 (91) 97 Nasal Cannula 2.0 06/21/17 15:10 Nasal Cannula 2.0 Humidified Oxygen Physical Exam General Appearance: WD/WN, + mild distress Eyes: PERRL, EOMI Respiratory/Chest: chest non-tender, lungs clear, + decreased breath sounds ( bases) Cardiovascular: regular rate, rhythm, no murmur Abdomen: normal bowel sounds, non tender, soft Neurologic/Psychiatric: alert, oriented x 3 Laboratory Results Last 24 Hours Test 06/21/17 11:47 06/21/17 17:05 06/21/17 20:27 06/22/17 08:05 Bedside Glucose 211 mg/dl 152 mg/dl 246 mg/dl 230 mg/dl Assessment and Plan 76 F with Suicide attempt by knife wounds to abdomen/status post exploratory laparotomy/abdominal washout hemoperitoneum/repair serosal laceration of cecum/ lysis of adhesions and partial omentectomy, per surgery note no overt viscus perforation, post op wound dehissance and purulence with multiple gram negative organisms antibiotics for abdominal wounds, one of her suture lines drained large amounts of purulent material growing gram negative this eventually proved to be large tunnel that required additional suture removal by wound care to have heal by second intent, will continue to discuss with surgery for managemen, that maybe explaining her leukocytosis,amoxil and ertapenem and continue wound care consult they will manage wound vac if needed Pt concerned esophageal stricture is acting up GI medicine did egd and found rom esophagitis, will have 20 day course of diflucan, to 07/08 post op acute blood loss anemia remains stable after transfusion 06/10.Platelets are increased will follow suicide attempt, psychiatry feels can be managed safely at snf with appropriate precautions, medication recommendation for cymbalta and transfer to safe snf environment chronic pain, pain management recommendations oral dilaudid, continues with B& O suppositories, poor bowel regime, may consider relistor and increase po meds Diabetes mellitus--reviewed slightly elevated follow, Lantus and SSI Seizure disorder, stable, Keppra 500 mg by mouth twice a day Hypothyroidism-Synthroid increased to 50 mcg Chronic constipation, not clear if medical ileus or from opitates, no response to escalating bowel regimen after manual dis impaction will continue and try scheduled suppositories and relistor Chronic kidney disease stable as did resume diuretics, advancing diet by surgery Bilateral lower limb paralysis/rectal pain--reinforce good skin care, rolling to reduce pressure, does not do significant physical assist with movement so pt has been not understanding that PT/OT is needed to have transtion from hospital will reinforce Continued [facility] stay due to: inadequate oral pain control, voiding difficulties , ambulation difficulties, multiple IV medications needed Discharge planning: nursing home facility
--- NOTE | 2017-06-22 09:04 | Surgery Progress Note ---
Surgery Progress Note Date of Service Jun 22, 2017. Subjective pt feeling ok. tolerating diet. denies complaints. Objective Vital Signs: Date Time Temp Pulse Resp B/P (MAP) Pulse Ox O2 Delivery O2 Flow Rate FiO2 06/22/17 07:58 37.0 87 16 146/77 (100) 99 Room Air 06/21/17 23:30 Nasal Cannula 2.0 06/21/17 22:53 36.9 86 18 118/71 (87) 96 Nasal Cannula 2.0 06/21/17 15:30 36.6 94 18 125/74 (91) 97 Nasal Cannula 2.0 06/21/17 15:10 Nasal Cannula 2.0 Humidified Oxygen General Appearance: no apparent distress Abdomen: soft, + pertinent finding (wounds look good/no infection. raudel intact. small area that opened with wound vac in place. retention sutures intact ) Laboratory Results: Results Past 24 Hours Test 06/21/17 11:47 06/21/17 17:05 06/21/17 20:27 06/22/17 08:05 Range/Units Bedside Glucose 211 152 246 230 70-90 mg/dl Assessment & Plan doing reasonably well/no acute changes ok for d/c to SNF from surgery standpoint with [facility]
[2017-06-22] MEDS: BACLOFEN 10 MG TAB PO SCH ×2 (09:06→20:52)
[2017-06-22] MEDS: DULOXETINE HCL 60 MG CAP PO SCH (09:06)
[2017-06-22] MEDS: SENNA 8.6 MG TAB PO SCH ×2 (09:07→21:03)
[2017-06-22] MEDS: ASPIRIN 81 MG ECTAB PO SCH (09:07)
[2017-06-22] MEDS: FAMOTIDINE 20 MG TAB PO SCH ×2 (09:08→20:53)
[2017-06-22] MEDS: FLUCONAZOLE 100 MG TAB PO SCH (09:08)
[2017-06-22] MEDS: AMOXICILLIN 500 MG CAP PO SCH ×2 (09:09→21:04)
[2017-06-22] MEDS: LEVETIRACETAM 500 MG TAB PO SCH ×2 (09:09→20:53)
[2017-06-22] MEDS: POLYETHYLENE (MIRALAX) 17 GM PACK PO SCH ×2 (09:10→20:56)
[2017-06-22] MEDS: FUROSEMIDE 20 MG TAB PO SCH (09:10)
[2017-06-22] MEDS: INSULIN ASPART 100 UNITS/ML 3 ML PEN SC SCH ×4 (09:13→21:18)
[2017-06-22] MEDS: HEPARIN SOD 5000 UNIT/0.5 ML CARP SQ SCH ×2 (09:15→21:19)
[2017-06-22] MEDS: ERTAPENEM IV 1 GM in SODIUM CHLOR 0.9% AD-VAN 50ML 50 ML IV SCH (10:40)
--- NOTE | 2017-06-22 12:55 | DIAGNOSTIC IMAGING REPORT ---
KUB CLINICAL HISTORY: Evaluate for ileus. COMPARISON STUDY: CT of the abdomen and pelvis June 17, 2017. FINDINGS: An old intertrochanteric fracture of the right femur is incidentally noted. There are numerous skin raudel. A few loops of mildly dilated small bowel are noted. There is a moderate amount of stool within the colon. There is minimal colonic distention. IMPRESSION: 1. No evidence for a bowel obstruction. 2. Minimal small and large bowel distention. 3. Moderate amount of stool within the colon. Electronically signed by: Sanya Britton M.D. 06/22/2017 12:54 PM Dictated Date/Time: 06/22/2017 12:51 PM
[2017-06-22 15:25] VITALS: BP 139/84; PULSE 87; TEMP 37.2; O2SAT 99
--- NOTE | 2017-06-22 17:22 | Progress Note ---
Subjective Date of Service: Jun 22, 2017. Subjective pt is sweaty today and persists with distended abdomen, did have 2 bms 06/21 but kub continues to show large amounts of stool in colon, will increase bowel regime Problem List Medical Problems: (1) Altered mental status Status: Acute (2) Anxiety Status: Acute (3) Closed comminuted intertrochanteric fracture of right femur Status: Acute (4) Decreased oral intake Status: Acute (5) Dehydration Status: Acute (6) Fever Status: Acute (7) Gastric out let obstruction Status: Acute (8) Hypokalemia Status: Acute (9) Intentional self-harm by knife Status: Acute (10) Left sided chest pain Status: Acute (11) Migraine Status: Acute (12) Pelvic pain Status: Acute (13) Pneumonia Status: Acute (14) Rectal pain Status: Acute (15) Sepsis Status: Acute (16) Tachycardia Status: Acute (17) UTI (urinary tract infection) Status: Acute (18) UTI (urinary tract infection) Status: Acute Review of Systems Constitutional: + sweats, + weakness, No fever, No chills Respiratory: No cough, No shortness of breath Cardiac: No chest pain, No edema Abdomen: + pain, + constipation Female : No dysuria, No urinary frequency Objective Vital Signs Date Time Temp Pulse Resp B/P (MAP) Pulse Ox O2 Delivery O2 Flow Rate FiO2 06/22/17 15:25 37.2 87 18 139/84 (102) 99 Room Air 06/22/17 08:00 99 Nasal Cannula 2.0 06/22/17 07:58 37.0 87 16 146/77 (100) 99 Room Air 06/21/17 23:30 Nasal Cannula 2.0 06/21/17 22:53 36.9 86 18 118/71 (87) 96 Nasal Cannula 2.0 Physical Exam General Appearance: WD/WN, + moderate distress Neck: supple, no JVD Respiratory/Chest: no respiratory distress, + decreased breath sounds Cardiovascular: regular rate, rhythm Abdomen: + distended, + pertinent finding (tympanitis) Extremities: no pedal edema, no calf tenderness Neurologic/Psychiatric: alert, oriented x 3 Laboratory Results Last 24 Hours Test 06/21/17 20:27 06/22/17 08:05 06/22/17 12:01 06/22/17 17:05 Bedside Glucose 246 mg/dl 230 mg/dl 255 mg/dl 252 mg/dl Assessment and Plan 76 F with Suicide attempt by knife wounds to abdomen/status post exploratory laparotomy/abdominal washout hemoperitoneum/repair serosal laceration of cecum/ lysis of adhesions and partial omentectomy, per surgery note no overt viscus perforation, post op wound dehissance and purulence with multiple gram negative organisms antibiotics for abdominal wounds, one of her suture lines drained large amounts of purulent material growing gram negative this eventually proved to be large tunnel that required additional suture removal by wound care to have heal by second intent, surgery did eval abdomen and no recommendations 06/22, ,amoxil and ertapenem and continue wound care consult they will manage wound vac if needed GI medicine did egd and found rom esophagitis, will have 20 day course of diflucan, to 07/08 post op acute blood loss anemia remains stable after transfusion 06/10. suicide attempt, psychiatry feels can be managed safely at [facility] with appropriate precautions otherwise would need inpatient psychiatry, medication recommendation for cymbalta and transfer to safe snf environment chronic pain, pain management recommendations oral dilaudid, continues with B& O suppositories, poor bowel function Diabetes mellitus-- Lantus and SSI, checking and managing with meal time insulin Seizure disorder, continues on, Keppra 500 mg by mouth twice a day Hypothyroidism-Synthroid increased to 50 mcg Chronic constipation, not clear if medical ileus or from opiates, no response to escalating bowel regimen after manual dis impaction will continue and try scheduled suppositories and Relistor, additional enema 06/22 Chronic kidney disease stable as did resume diuretics Bilateral lower limb paralysis/rectal pain--reinforce good skin care, rolling to reduce pressure, does not do significant physical assist with movement so pt has been not understanding that PT/OT is needed to have transition from hospital will reinforce Continued [facility] stay due to: inadequate oral pain control, voiding difficulties , ambulation difficulties, multiple IV medications needed Discharge planning: correction facility
[2017-06-22] MEDS: ATORVASTATIN 40 MG TAB PO SCH (20:52)
[2017-06-22] MEDS: DOXEPIN HCL 75 MG CAP PO SCH (20:54)
[2017-06-22] MEDS: QUETIAPINE FUMARATE 25 MG TAB PO SCH (20:55)
[2017-06-22] MEDS: INSULIN GLARGINE SOLOSTAR 100 UNITS/ML 3 ML PEN SC SCH (21:18)
[2017-06-22 22:43] VITALS: BP 130/79; PULSE 91; TEMP 37.2; O2SAT 95
[2017-06-22] MEDS: ZOLPIDEM TARTRATE 5 MG TAB PO PRN (23:57)
[2017-06-23] MEDS: HYDROmorphone HCL 2 MG TAB PO PRN ×6 (05:49→23:34)
[2017-06-23] MEDS: LEVOTHYROXINE 50 MCG TAB PO SCH (05:49)
[2017-06-23 06:33] LABS: HEMATOCRIT 32.4 % (37-47); MEAN CELL VOLUME 96.4 fL (80-100); MEAN CORPUSCULAR HEMOGLOBIN 29.8 pg (25-34); MEAN CORPUSCULAR HGB CONC 30.9 g/dl (32-36); MEAN PLATELET VOLUME 10.4 fL (7.4-10.4); PLATELET COUNT 902 K/uL (130-400); RED BLOOD COUNT 3.36 M/uL (4.2-5.4)
[2017-06-23 07:08] LABS: BUN/CREATININE RATIO 26.4 (10-20); CALCIUM 9.5 mg/dl (8.5-10.1); CREATININE 0.53 mg/dl (0.60-1.20); POTASSIUM 4.2 mmol/L (3.5-5.1)
[2017-06-23 07:49] VITALS: BP 136/78; PULSE 86; TEMP 36.9; O2SAT 99
[2017-06-23] MEDS: AMOXICILLIN 500 MG CAP PO SCH ×2 (09:00→20:49)
[2017-06-23] MEDS: FLUCONAZOLE 100 MG TAB PO SCH (09:01)
[2017-06-23] MEDS: DULOXETINE HCL 60 MG CAP PO SCH (09:02)
[2017-06-23] MEDS: ASPIRIN 81 MG ECTAB PO SCH (09:02)
[2017-06-23] MEDS: LEVETIRACETAM 500 MG TAB PO SCH ×2 (09:03→20:45)
[2017-06-23] MEDS: FUROSEMIDE 20 MG TAB PO SCH (09:04)
[2017-06-23] MEDS: BACLOFEN 10 MG TAB PO SCH ×2 (09:04→20:48)
[2017-06-23] MEDS: FAMOTIDINE 20 MG TAB PO SCH ×2 (09:07→20:49)
[2017-06-23] MEDS: POLYETHYLENE (MIRALAX) 17 GM PACK PO SCH ×2 (09:08→20:51)
[2017-06-23] MEDS: INSULIN ASPART 100 UNITS/ML 3 ML PEN SC SCH ×4 (09:16→20:50)
[2017-06-23] MEDS: HEPARIN SOD 5000 UNIT/0.5 ML CARP SQ SCH ×2 (09:16→20:38)
[2017-06-23] MEDS: SENNA 8.6 MG TAB PO SCH ×2 (09:17→20:44)
[2017-06-23] MEDS: ERTAPENEM IV 1 GM in SODIUM CHLOR 0.9% AD-VAN 50ML 50 ML IV SCH (09:18)
--- NOTE | 2017-06-23 10:48 | Surgery Progress Note ---
Surgery Progress Note Date of Service Jun 23, 2017. Subjective pt feeling ok. tolerating diet. states she feels she's ready for SNF. no new complaints. Objective Vital Signs: Date Time Temp Pulse Resp B/P (MAP) Pulse Ox O2 Delivery O2 Flow Rate FiO2 06/23/17 08:50 Room Air 06/23/17 07:49 36.9 86 16 136/78 (97) 99 Nasal Cannula 2.0 Humidified Oxygen 06/23/17 00:15 Room Air 06/22/17 22:43 37.2 91 18 130/79 (96) 95 Nasal Cannula 2.0 06/22/17 15:25 37.2 87 18 139/84 (102) 99 Room Air 06/22/17 15:25 Room Air General Appearance: no apparent distress Head: atraumatic Neck: no JVD Respiratory/Chest: no respiratory distress, no accessory muscle use Abdomen: + pertinent finding (incisions all intact except for one with vac in place. no erythema. no sign of infection. ) Laboratory Results: Results Past 24 Hours Test 06/22/17 12:01 06/22/17 17:05 06/22/17 20:19 06/23/17 05:32 Range/Units Bedside Glucose 255 252 185 70-90 mg/dl White Blood Count 12.20 4.8-10.8 K/uL Red Blood Count 3.36 4.2-5.4 M/uL Hemoglobin 10.0 12.0-16.0 g/dL Hematocrit 32.4 37-47 % Mean Corpuscular Volume 96.4 80-100 fL Mean Corpuscular Hemoglobin 29.8 25-34 pg Mean Corpuscular Hemoglobin Concent 30.9 32-36 g/dl RDW Standard Deviation 58.6 36.4-46.3 fL RDW Coefficient of Variation 16.6 11.5-14.5 % Platelet Count 902 130-400 K/uL Mean Platelet Volume 10.4 7.4-10.4 fL Sodium Level 139 136-145 mmol/L Potassium Level 4.2 3.5-5.1 mmol/L Chloride Level 100 98-107 mmol/L Carbon Dioxide Level 33 21-32 mmol/L Anion Gap 6.0 3-11 mmol/L Blood Urea Nitrogen 14 7-18 mg/dl Creatinine 0.53 0.60-1.20 mg/dl Est Creatinine Clear Calc Drug Dose 75.7 ml/min Estimated GFR () 106.1 Estimated GFR (Non- 91.6 BUN/Creatinine Ratio 26.4 10-20 Random Glucose 168 70-99 mg/dl Calcium Level 9.5 8.5-10.1 mg/dl Test 06/23/17 07:53 Range/Units Bedside Glucose 183 70-90 mg/dl Assessment & Plan 06/23/17 no new changes d/w primary service. ok for d/c to snf 06/22/17 doing reasonably well/no acute changes ok for d/c to SNF from surgery standpoint with [facility] doing reasonably well/no acute changes ok for d/c to SNF from surgery standpoint with [facility]
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
[2017-06-23 15:30] VITALS: BP 129/79; PULSE 83; TEMP 36.9; O2SAT 94
[2017-06-23] MEDS: METHYLNALTREXONE BROMIDE INJ 12 MG/0.6 ML SYR SQ SCH (18:00)
[2017-06-23] MEDS: ONDANSETRON INJ 2 MG/ML 2 ML VIAL IV PRN (18:45)
[2017-06-23] MEDS ORDERED: BISACODYL 10 MG SUPP PR SCH (19:00)
[2017-06-23] MEDS: INSULIN GLARGINE SOLOSTAR 100 UNITS/ML 3 ML PEN SC SCH (20:38)
[2017-06-23] MEDS: QUETIAPINE FUMARATE 25 MG TAB PO SCH (20:44)
[2017-06-23] MEDS: ATORVASTATIN 40 MG TAB PO SCH (20:44)
[2017-06-23] MEDS: DOXEPIN HCL 75 MG CAP PO SCH (20:47)
[2017-06-23 23:10] VITALS: BP 133/81; PULSE 79; TEMP 36.8; O2SAT 99
[2017-06-23] MEDS: ZOLPIDEM TARTRATE 5 MG TAB PO PRN (23:34)
[2017-06-24] MEDS: HYDROmorphone HCL 2 MG TAB PO PRN ×4 (02:39→16:13)
[2017-06-24] MEDS: LEVOTHYROXINE 50 MCG TAB PO SCH (06:01)
[2017-06-24 07:47] VITALS: BP 120/74; PULSE 80; TEMP 36.9; O2SAT 98
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
[2017-06-24 08:18] LABS: BASO ABS # 0.09 K/uL (0-0.2); COMPLETE YES; EOS % 5.1 %; HEMATOCRIT 32.3 % (37-47); IG% 0.9 %; LYMPH % 28.7 %; LYMPH ABS # 2.66 K/uL (1.2-3.4); MEAN CELL VOLUME 94.4 fL (80-100); MEAN CORPUSCULAR HEMOGLOBIN 29.8 pg (25-34); MEAN CORPUSCULAR HGB CONC 31.6 g/dl (32-36); MEAN PLATELET VOLUME 9.6 fL (7.4-10.4); MONO % 10.4 %; NEUT % 53.9 %; PLATELET COUNT 883 K/uL (130-400); RED BLOOD COUNT 3.42 M/uL (4.2-5.4); WHITE BLOOD COUNT 9.27 K/uL (4.8-10.8)
[2017-06-24] MEDS: AMOXICILLIN 500 MG CAP PO SCH (08:30)
[2017-06-24] MEDS: INSULIN ASPART 100 UNITS/ML 3 ML PEN SC SCH ×2 (08:31→12:39)
[2017-06-24] MEDS: HEPARIN SOD 5000 UNIT/0.5 ML CARP SQ SCH (08:32)
[2017-06-24] MEDS: DULOXETINE HCL 60 MG CAP PO SCH (08:33)
[2017-06-24] MEDS: LEVETIRACETAM 500 MG TAB PO SCH (08:34)
[2017-06-24] MEDS: ASPIRIN 81 MG ECTAB PO SCH (08:34)
[2017-06-24] MEDS: BACLOFEN 10 MG TAB PO SCH (08:36)
[2017-06-24] MEDS: FUROSEMIDE 20 MG TAB PO SCH (08:36)
[2017-06-24] MEDS: POLYETHYLENE (MIRALAX) 17 GM PACK PO SCH (08:36)
[2017-06-24] MEDS: SENNA 8.6 MG TAB PO SCH (08:37)
[2017-06-24] MEDS: FAMOTIDINE 20 MG TAB PO SCH (08:37)
--- NOTE | 2017-06-24 08:55 | Psychiatric Progress Notes ---
Psychiatric Progress Note Date of Service Jun 24, 2017. Notes Attempted to see patient, interim progress reviewed with liaison, reportedly rehab declined patient. Cymbalta remains at 60 mg. Reviewed that although consult service is not recommending inpatient psychiatry, if for some reason she is unable to be transferred to a supervised nursing facility our team should be recontacted to assist with discharge safety planning and psychiatric aftercare.
[2017-06-24] MEDS: FLUCONAZOLE 100 MG TAB PO SCH (09:53)
[2017-06-24] MEDS: ERTAPENEM IV 1 GM in SODIUM CHLOR 0.9% AD-VAN 50ML 50 ML IV SCH (09:54)
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
[2017-06-24 15:12] VITALS: BP 133/77; PULSE 80; TEMP 37; O2SAT 98
[2017-06-24] MEDS ORDERED: NVLGIPEN SC (16:04)
[2017-06-24] MEDS ORDERED: AMOX500C3 PO (16:04)
[2017-06-24] MEDS ORDERED: CLIN150C PO (16:04)
[2017-06-24] MEDS ORDERED: MRLP17 PO (16:04)
[2017-06-24] MEDS ORDERED: CIPR1TAB11 PO (16:04)
[2017-06-24] MEDS ORDERED: LEVO50TA PO (16:04)
[2017-06-24] MEDS ORDERED: DFL100 PO (16:04)
[2017-06-24] MEDS ORDERED: DLD2 PO (16:04)
[2017-06-24] MEDS ORDERED: SNK PO (16:04)
[2017-06-24 16:11] VITALS: BP 133/77; PULSE 80; TEMP 37; O2SAT 98
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
--- NOTE | 2017-06-26 07:21 | EDITING REQUIRED CODING QUERY ---
PRESENT ON ADMISSION QUERY To promote full compliance with coding requirements relating to pateint care, physician participation is requested in all cases of sign painter helper uncertainty. Please assist us with the question(s) below: Please place an X within the parenthesis (x). The following diagnosis(es) listed in this patient's medical record require physician assistance to determine if they were present on admission (POA) or not. Please advise for each diagnosis whether it was present on admission, not present on admission, or if it was clinically undetermined. 1. Hemorrhagic Shock (documented on Discharge Summary as 2nd to hemoperitoneum). (x ) Present On Admission ( ) Not Present On Admission ( ) Clinically Undetermined Thank you Marilin Arana *Definition of the present on admission (POA)-Present on admission is defined as present at the time the order for inpatient admission occurs. Conditions that develop during an outpatient encounter prior to a written order for inpatient admission (including emergency department, observation, or outpatient surgery) are considered present on admission.
[2017-07-01] MEDS ORDERED: ZOLP5TAB6 PO (08:10)
[2017-07-01] MEDS ORDERED: LORA-741 PO (08:10)
[2017-07-01] MEDS ORDERED: CYM/30 PO (08:10)
[2017-07-01] MEDS ORDERED: HYDR2TAB48 PO (08:10)
[2017-07-01] MEDS ORDERED: ATOR-24 PO (08:10)
[2017-07-01] MEDS ORDERED: QUET1TAB32 PO (08:10)
--- NOTE | 2017-07-01 13:18 | REHAB PROGRESS NOTE ---
DATE: 07/01/2017 The patient's chart was reviewed, no request for consultation and that the treatment team elected referral back to [facility]. She was not seen for rehabilitation management. She did not transfer to [facility]. She was not seen on this campus.
[2017-09-03] MEDS ORDERED: AMOX500C3 PO (07:41)
[2017-09-03] MEDS ORDERED: CIPR1TAB11 PO (07:41)
[2017-09-03] MEDS ORDERED: CLIN1CAP51 PO (07:41)
[2017-09-13] MEDS ORDERED: CEFT1INJ6 IV (10:13)
[2017-09-13] MEDS ORDERED: HYDR2TAB48 PO (10:13)
[2017-09-13] MEDS ORDERED: GFNSR600 PO (10:13)
[2017-09-13] MEDS ORDERED: LORA-741 PO (13:19)
== END 2017-06-24 17:00 | DRG 329 ==
LOC: EDBD 17:53 → C.ED 17:58 → C.MSICU 20:49 → ENRESERV 06-09 08:43 → EDBEDREQ 06-09 09:45 → C.2E 06-09 10:49 → ENRESERV 06-12 14:03 → C.MSW 06-12 15:01
PROVIDERS: ADMIT Surgery; ATTEND Internal Medicine
PROC: 05HN33Z Insertion of Infusion Device into Left Internal Jugular Vein, Percutaneous Approach (ICD-10-PCS; 2017-06-08)
PROC: 0DBS0ZX (ICD-10-PCS; principal; 2017-06-08 18:04)
PROC: 3E1M38Z Irrigation of Peritoneal Cavity using Irrigating Substance, Percutaneous Approach (ICD-10-PCS; principal; 2017-06-08 18:04)
PROC: 0DQH0ZZ Repair Cecum, Open Approach (ICD-10-PCS; principal; 2017-06-08 18:04)
PROC: 0DQS0ZZ (ICD-10-PCS; principal; 2017-06-08 18:04)
PROC: 0DNW0ZZ Release Peritoneum, Open Approach (ICD-10-PCS; principal; 2017-06-08 18:04)
PROC: 0DJ08ZZ Inspection of Upper Intestinal Tract, Via Natural or Artificial Opening Endoscopic (ICD-10-PCS; 2017-06-17)
DX: S31.631A Puncture wound without foreign body of abdominal wall, left upper quadrant with penetration into peritoneal cavity, initial encounter (principal); T79.4XXA Traumatic shock, initial encounter; F33.9 Major depressive disorder, recurrent, unspecified; T81.33XA Disruption of traumatic injury wound repair, initial encounter; G82.20 Paraplegia, unspecified; D62 Acute posthemorrhagic anemia; J96.10 Chronic respiratory failure, unspecified whether with hypoxia or hypercapnia; B37.81 Candidal esophagitis; S31.112A Laceration without foreign body of abdominal wall, epigastric region without penetration into peritoneal cavity, initial encounter; S31.119A Laceration without foreign body of abdominal wall, unspecified quadrant without penetration into peritoneal cavity, initial encounter; S36.538A Laceration of other part of colon, initial encounter; K66.0 Peritoneal adhesions (postprocedural) (postinfection); I95.9 Hypotension, unspecified; E11.65 Type 2 diabetes mellitus with hyperglycemia; F43.25 Adjustment disorder with mixed disturbance of emotions and conduct; F41.1 Generalized anxiety disorder; R13.19 Other dysphagia; K59.09 Other constipation; B96.20 Unspecified Escherichia coli [E. coli] as the cause of diseases classified elsewhere; B96.1 Klebsiella pneumoniae [K. pneumoniae] as the cause of diseases classified elsewhere; B95.2 Enterococcus as the cause of diseases classified elsewhere; B96.89 Other specified bacterial agents as the cause of diseases classified elsewhere; N31.9 Neuromuscular dysfunction of bladder, unspecified; D47.3 Essential (hemorrhagic) thrombocythemia; E78.5 Hyperlipidemia, unspecified; K21.9 Gastro-esophageal reflux disease without esophagitis; E03.9 Hypothyroidism, unspecified; I12.9 Hypertensive chronic kidney disease with stage 1 through stage 4 chronic kidney disease, or unspecified chronic kidney disease; G89.29 Other chronic pain; N18.9 Chronic kidney disease, unspecified; K62.89 Other specified diseases of anus and rectum; G40.909 Epilepsy, unspecified, not intractable, without status epilepticus; E66.9 Obesity, unspecified; Z79.899 Other long term (current) drug therapy; Z79.4 Long term (current) use of insulin; Z79.891 Long term (current) use of opiate analgesic; Z79.82 Long term (current) use of aspirin; Z87.440 Personal history of urinary (tract) infections; Z99.81 Dependence on supplemental oxygen; Z68.33 Body mass index [BMI] 33.0-33.9, adult; Z87.891 Personal history of nicotine dependence; Z83.3 Family history of diabetes mellitus; Z82.49 Family history of ischemic heart disease and other diseases of the circulatory system; X78.1XXA Intentional self-harm by knife, initial encounter; Y99.8 Other external cause status; Y83.8 Other surgical procedures as the cause of abnormal reaction of the patient, or of later complication, without mention of misadventure at the time of the procedure; Y92.239 Unspecified place in hospital as the place of occurrence of the external cause

== ENCOUNTER → 2017-06-27 | Outpatient (CLI) | payer OTHER ==
[~2017-06-27] MED LIST changes: +ATOR-24 PO; +BACL10TA PO; +BISA10SU3 PR; +BOAS PR; +CEFT1INJ6 IV; +CLIN1CAP51 PO; +CYM/30 PO; +CYM60 PO; +DFL100 PO; -DLD/2 PO; +DLD2 PO; +DOCU100C31 PO; +DULO60CA44 PO; -Exalgo; +GFNSR600 PO; +HYDR2TAB48 PO; +INSDGI SC; +IPRASOL4 INH; +LACT1CAP6 PO; +LEVE500T13 PO; -LEVO25TA PO; +LEVO50TA PO; +LEVO75TA5 PO; +LUBI8CAP4 PO; +MOMLX PO; +MRLP17 PO; +MULTTAB63 PO; +NVLG SC; +NVLGIPEN SC; +ONDA4TAB46 PO; +POLY335019 PO; +POTA-65 PO; +QUET1TAB30 PO; +QUET1TAB32 PO; +SENN-61 PO; -SENN8.6T7 PO; +SNK PO; +SODIENE PR; +SRQ25 PO; +SYN50 PO; +ZOLP5TAB PO; +ZOLP5TAB6 PO; +[UNRECOGNIZED DRUG - CODE] PR
[2017-06-27 08:15] LABS: HEMATOCRIT 32.5 % (37-47); MEAN CORPUSCULAR HEMOGLOBIN 29.8 pg (25-34); MEAN CORPUSCULAR HGB CONC 31.4 g/dl (32-36); MEAN PLATELET VOLUME 10.6 fL (7.4-10.4); PLATELET COUNT 747 K/uL (130-400); RED BLOOD COUNT 3.42 M/uL (4.2-5.4); WHITE BLOOD COUNT 9.27 K/uL (4.8-10.8)
[2017-06-27 08:21] LABS: BLOOD UREA NITROGEN 13 mg/dl (7-18); BUN/CREATININE RATIO 24.3 (10-20); CALCIUM 9.1 mg/dl (8.5-10.1); CARBON DIOXIDE 31 mmol/L (21-32); CHLORIDE 99 mmol/L (98-107); CREATININE 0.53 mg/dl (0.60-1.20); GLUCOSE 221 mg/dl (70-99); POTASSIUM 4.1 mmol/L (3.5-5.1); SODIUM 137 mmol/L (136-145)
--- NOTE | 2017-08-02 20:56 | CODING QUERY NO DIAGNOSIS ---
TREATMENT RENDERED WITHOUT A DIAGNOSIS To promote full compliance with coding requirements relating to patient care, physician participation is requested in all cases of delivery driver/supervisor uncertainty. Please assist us with providing a diagnosis/symptom for the test(s) below: A diagnosis/symptom was not documented on your Order. A valid diagnosis/symptom is required to bill all insurances. Please remember that we are unable to code a diagnosis of rule out, probable, possible, questionable, or suspected. Tests that require a diagnosis: CBC W/O DIFF DIAGNOSIS: MAGNESIUM DIAGNOSIS: BASIC METABOLIC PROFILE DIAGNOSIS: Provider Signature: Date: Thank you Mary Mi [employer] Information Management Once completed, please kindly fax back to [phone] For questions please call [phone]
== END | disposition home or self-care (01) ==
LOC: C.LABCC 07:57
PROVIDERS: ATTEND Internal Medicine
DX: Z01.89 Encounter for other specified special examinations (principal)

== ENCOUNTER → 2017-07-02 | Outpatient (CLI) | payer OTHER ==
[2017-07-02 08:34] LABS: BASO % 0.5 %; BASO ABS # 0.06 K/uL (0-0.2); COMPLETE YES; EOS % 8.2 %; HEMATOCRIT 31.7 % (37-47); IG% 1.8 %; LYMPH % 26.3 %; LYMPH ABS # 3.16 K/uL (1.2-3.4); MEAN CELL VOLUME 94.3 fL (80-100); MEAN CORPUSCULAR HEMOGLOBIN 29.5 pg (25-34); MEAN CORPUSCULAR HGB CONC 31.2 g/dl (32-36); MEAN PLATELET VOLUME 10.9 fL (7.4-10.4); MONO % 9.5 %; NEUT % 53.7 %; PLATELET COUNT 583 K/uL (130-400); RED BLOOD COUNT 3.36 M/uL (4.2-5.4); WHITE BLOOD COUNT 12.02 K/uL (4.8-10.8)
== END ==
LOC: C.LABCC 07:46
PROVIDERS: ATTEND Internal Medicine
DX: D69.6 Thrombocytopenia, unspecified (principal)

== ENCOUNTER → 2017-07-10 | Outpatient (CLI) | payer OTHER ==
[~2017-07-10] MED LIST changes: -CYM/30 PO; -DLD2 PO
[2017-07-10 09:23] LABS: BASO % 0.6 %; BASO ABS # 0.08 K/uL (0-0.2); COMPLETE YES; EOS % 2.2 %; IG% 1.1 %; LYMPH % 21.4 %; LYMPH ABS # 2.96 K/uL (1.2-3.4); MEAN CELL VOLUME 95.6 fL (80-100); MEAN CORPUSCULAR HEMOGLOBIN 28.4 pg (25-34); MEAN CORPUSCULAR HGB CONC 29.7 g/dl (32-36); MEAN PLATELET VOLUME 11.2 fL (7.4-10.4); MONO % 7.7 %; PLATELET COUNT 749 K/uL (130-400); RED BLOOD COUNT 3.66 M/uL (4.2-5.4); WHITE BLOOD COUNT 13.82 K/uL (4.8-10.8)
== END ==
LOC: C.LABCC 07:53
PROVIDERS: ATTEND Internal Medicine
DX: D64.9 Anemia, unspecified (principal)

== ENCOUNTER → 2017-07-24 | Outpatient (CLI) | payer OTHER ==
[~2017-07-24] MED LIST changes: -LRS20 PO
[2017-07-24 09:43] LABS: HEMATOCRIT 32.6 % (37-47); MEAN CELL VOLUME 98.5 fL (80-100); MEAN CORPUSCULAR HGB CONC 29.4 g/dl (32-36); PLATELET COUNT 682 K/uL (130-400); RED BLOOD COUNT 3.31 M/uL (4.2-5.4); WHITE BLOOD COUNT 12.92 K/uL (4.8-10.8)
[2017-07-24 10:18] LABS: BLOOD UREA NITROGEN 8 mg/dl (7-18); BUN/CREATININE RATIO 20.2 (10-20); CALCIUM 8.8 mg/dl (8.5-10.1); CARBON DIOXIDE 35 mmol/L (21-32); CHLORIDE 102 mmol/L (98-107); CREATININE 0.41 mg/dl (0.60-1.20); GLUCOSE 115 mg/dl (70-99); POTASSIUM 4.3 mmol/L (3.5-5.1); SODIUM 141 mmol/L (136-145)
== END ==
LOC: C.LABCC 09:24
PROVIDERS: ATTEND Internal Medicine
DX: R07.9 Chest pain, unspecified (principal); R06.02 Shortness of breath

== ENCOUNTER → 2017-07-26 | Outpatient (CLI) | payer OTHER ==
[2017-07-26 09:01] LABS: THYROID STIMULATING HORMONE 4.81 uIu/ml (0.300-4.500)
== END ==
LOC: C.LABCC 08:08
PROVIDERS: ATTEND Internal Medicine
DX: R61 Generalized hyperhidrosis (principal)

== ENCOUNTER → 2017-08-06 | Outpatient (CLI) | payer OTHER | LOC: C.LABCC 11:00 | PROVIDERS: ATTEND Internal Medicine | DX: E03.9 Hypothyroidism, unspecified (principal) ==

== ENCOUNTER → 2017-08-08 | Outpatient (CLI) | payer OTHER ==
[2017-08-08 08:35] LABS: BASO % 0.8 %; BASO ABS # 0.07 K/uL (0-0.2); COMPLETE YES; EOS % 4.8 %; HEMATOCRIT 30.7 % (37-47); IG% 0.8 %; LYMPH % 33.2 %; MEAN CELL VOLUME 101.7 fL (80-100); MEAN CORPUSCULAR HEMOGLOBIN 29.8 pg (25-34); MEAN CORPUSCULAR HGB CONC 29.3 g/dl (32-36); MEAN PLATELET VOLUME 10.4 fL (7.4-10.4); MONO % 10.5 %; NEUT % 49.9 %; PLATELET COUNT 647 K/uL (130-400); RED BLOOD COUNT 3.02 M/uL (4.2-5.4); WHITE BLOOD COUNT 9.04 K/uL (4.8-10.8)
== END | disposition home or self-care (01) ==
LOC: C.LABCC 08:14
PROVIDERS: ATTEND Internal Medicine
DX: D64.9 Anemia, unspecified (principal)

== ENCOUNTER → 2017-08-12 | Outpatient (CLI) | payer OTHER ==
[2017-08-12 08:24] LABS: HEMATOCRIT 32.1 % (37-47); MEAN CELL VOLUME 100.9 fL (80-100); MEAN CORPUSCULAR HEMOGLOBIN 29.9 pg (25-34); MEAN CORPUSCULAR HGB CONC 29.6 g/dl (32-36); MEAN PLATELET VOLUME 10.5 fL (7.4-10.4); PLATELET COUNT 628 K/uL (130-400); RED BLOOD COUNT 3.18 M/uL (4.2-5.4); WHITE BLOOD COUNT 10.43 K/uL (4.8-10.8)
== END ==
LOC: C.LABCC 07:45
PROVIDERS: ATTEND Internal Medicine
DX: D72.829 Elevated white blood cell count, unspecified (principal)

== ENCOUNTER → 2017-08-14 | Outpatient (CLI) | payer OTHER ==
[2017-08-14 11:37] LABS: ESTIMATED AVERAGE GLUCOSE 80 mg/dl; HA1C FLAG Normal (Normal)
== END | disposition home or self-care (01) ==
LOC: C.LABCC 08:23
PROVIDERS: ATTEND Internal Medicine
DX: E11.9 Type 2 diabetes mellitus without complications (principal)

== ENCOUNTER → 2017-08-19 | Outpatient (CLI) | payer OTHER ==
[2017-08-19 10:50] LABS: BASO % 0.7 %; BASO ABS # 0.07 K/uL (0-0.2); COMPLETE YES; EOS % 5.9 %; HEMATOCRIT 34.4 % (37-47); IG% 0.5 %; LYMPH % 28.9 %; LYMPH ABS # 2.97 K/uL (1.2-3.4); MEAN CELL VOLUME 103.3 fL (80-100); MEAN CORPUSCULAR HGB CONC 29.1 g/dl (32-36); MEAN PLATELET VOLUME 10.6 fL (7.4-10.4); MONO % 10.7 %; NEUT % 53.3 %; PLATELET COUNT 633 K/uL (130-400); RED BLOOD COUNT 3.33 M/uL (4.2-5.4); WHITE BLOOD COUNT 10.26 K/uL (4.8-10.8)
== END ==
LOC: C.LABCC 09:51
PROVIDERS: ATTEND Internal Medicine
DX: D47.3 Essential (hemorrhagic) thrombocythemia (principal); D64.9 Anemia, unspecified

== ENCOUNTER → 2017-08-21 | Outpatient (CLI) | payer OTHER ==
[2017-08-21 08:34] LABS: FERRITIN 20.4 ng/ml (8.0-388.0)
--- NOTE | 2017-08-30 10:42 | CODING QUERY MEDICAL NECESSITY ---
CQSUPPORTING DIAGNOSIS NEEDED A supporting diagnosis is required for the test/procedure performed on this patient in order for us to be reimbursed by the patient's insurance. Please provide a supporting diagnosis for the following test/procedure listed below next to the test name along with your signature. *If there is no additional diagnosis for this patient that would support the following test/procedure please document that below next to the test/procedure. Test(s)/Procedure(s) that require a supporting diagnosis: DOS 08/21/17 VITAMIN B12 TEST FOLIC ACID TEST Provider Signature: Date: Thank you Britney Dasilva Health Information Management Once completed, please kindly fax back to [phone] For questions please call [phone]
== END ==
LOC: C.LABCC 08:06
PROVIDERS: ATTEND Internal Medicine
DX: D64.9 Anemia, unspecified (principal); D47.3 Essential (hemorrhagic) thrombocythemia

== ENCOUNTER → 2017-08-26 | Outpatient (CLI) | payer OTHER ==
[2017-08-26 08:05] LABS: BASO % 0.9 %; BASO ABS # 0.08 K/uL (0-0.2); COMPLETE YES; EOS % 6.2 %; HEMATOCRIT 34.2 % (37-47); IG% 0.3 %; LYMPH % 37.1 %; LYMPH ABS # 3.29 K/uL (1.2-3.4); MEAN CELL VOLUME 101.2 fL (80-100); MEAN CORPUSCULAR HEMOGLOBIN 30.2 pg (25-34); MEAN CORPUSCULAR HGB CONC 29.8 g/dl (32-36); MEAN PLATELET VOLUME 11.1 fL (7.4-10.4); MONO % 10.1 %; NEUT % 45.4 %; PLATELET COUNT 585 K/uL (130-400); RED BLOOD COUNT 3.38 M/uL (4.2-5.4); WHITE BLOOD COUNT 8.87 K/uL (4.8-10.8)
== END ==
LOC: C.LABCC 07:42
PROVIDERS: ATTEND Internal Medicine
DX: D47.3 Essential (hemorrhagic) thrombocythemia (principal); D64.9 Anemia, unspecified

== ENCOUNTER → 2017-09-02 | Outpatient (CLI) | payer OTHER ==
[~2017-09-02] MED LIST changes: -CEFT1INJ6 IV; -GFNSR600 PO
[2017-09-02 08:26] LABS: BASO % 0.7 %; BASO ABS # 0.07 K/uL (0-0.2); COMPLETE YES; EOS % 5.9 %; HEMATOCRIT 34.4 % (37-47); IG% 0.2 %; LYMPH % 37.6 %; LYMPH ABS # 3.94 K/uL (1.2-3.4); MEAN CELL VOLUME 100.6 fL (80-100); MEAN CORPUSCULAR HEMOGLOBIN 30.7 pg (25-34); MEAN CORPUSCULAR HGB CONC 30.5 g/dl (32-36); MEAN PLATELET VOLUME 11.3 fL (7.4-10.4); MONO % 10.3 %; NEUT % 45.3 %; PLATELET COUNT 510 K/uL (130-400); RED BLOOD COUNT 3.42 M/uL (4.2-5.4); WHITE BLOOD COUNT 10.47 K/uL (4.8-10.8)
== END ==
LOC: C.LABCC 07:50
PROVIDERS: ATTEND Internal Medicine
DX: D64.9 Anemia, unspecified (principal); D47.3 Essential (hemorrhagic) thrombocythemia

== ENCOUNTER 2017-09-09 10:37 | Inpatient (IN) | payer OTHER ==
[~2017-09-09] VITALS: Ht 149.9 cm; Wt 70.0 kg
[~2017-09-09 10:37] MED LIST changes: -BACL10TA PO; -BISA10SU3 PR; -CEFT1INJ6 IV; -DOCU100C31 PO; -DULO60CA44 PO; -FURO-85 PO; -GFNSR600 PO; -INSDGI SC; -IPRASOL4 INH; -LACT1CAP6 PO; -LEVE500T13 PO; -LEVO75TA5 PO; -LUBI8CAP4 PO; -MOMLX PO; -MULTTAB63 PO; -NVLG SC; -ONDA4TAB46 PO; -POLY335019 PO; -POTA-65 PO; -QUET1TAB30 PO; -SENN-61 PO; -SODIENE PR; -ZOLP5TAB PO; -[UNRECOGNIZED DRUG - CODE] PR
[2017-09-09] MEDS ORDERED: SODIENE PR (11:53)
[2017-09-09] MEDS ORDERED: MOMLX PO (11:53)
[2017-09-09] MEDS ORDERED: ACET-1256 PO (11:53)
[2017-09-09] MEDS ORDERED: POTA-65 PO (11:53)
[2017-09-09] MEDS ORDERED: LEVO75TA5 PO (11:53)
[2017-09-09] MEDS ORDERED: LACT1CAP6 PO (11:53)
[2017-09-09] MEDS ORDERED: ZOLP5TAB PO (11:53)
[2017-09-09] MEDS ORDERED: BACL10TA PO (11:53)
[2017-09-09] MEDS ORDERED: ONDA4TAB46 PO (11:53)
[2017-09-09] MEDS ORDERED: [UNRECOGNIZED DRUG - CODE] PR (11:53)
[2017-09-09] MEDS ORDERED: DOCU100C31 PO (11:53)
[2017-09-09] MEDS ORDERED: MULTTAB63 PO (11:53)
[2017-09-09] MEDS ORDERED: CIPR1TAB11 PO (11:53)
[2017-09-09] MEDS ORDERED: CLIN150C PO (11:53)
[2017-09-09] MEDS ORDERED: DXP/75 PO (11:53)
[2017-09-09] MEDS ORDERED: LEVE500T13 PO (11:53)
[2017-09-09] MEDS ORDERED: ATOR-24 PO (11:53)
[2017-09-09] MEDS ORDERED: FURO-85 PO (11:53)
[2017-09-09] MEDS ORDERED: IPRASOL4 INH (11:53)
[2017-09-09] MEDS ORDERED: DULO60CA44 PO (11:53)
[2017-09-09] MEDS ORDERED: SENN-61 PO (11:53)
[2017-09-09] MEDS ORDERED: FAMO20TA11 PO (11:53)
[2017-09-09] MEDS ORDERED: AMOX500C3 PO (11:53)
[2017-09-09] MEDS ORDERED: QUET1TAB30 PO (11:53)
[2017-09-09] MEDS ORDERED: NVLG SC (11:53)
[2017-09-09] MEDS ORDERED: LORA-741 PO (11:53)
[2017-09-09] MEDS ORDERED: HYDR2TAB48 PO (11:53)
[2017-09-09] MEDS ORDERED: BISA10SU3 PR (11:53)
[2017-09-09] MEDS ORDERED: INSDGI SC (11:53)
[2017-09-09] MEDS ORDERED: LUBI8CAP4 PO (11:53)
[2017-09-09] MEDS ORDERED: POLY335019 PO (11:53)
[2017-09-09] MEDS ORDERED: ALBUT/IPRATROP 3MG/0.5MG NEB 3 ML VIAL INH STA (12:01)
--- NOTE | 2017-09-09 12:04 | EMERGENCY ROOM VISIT NOTE ---
History Report prepared by Ochoa: Gage Wood Under the Supervision of: Dr. Audi Mares M.D. First contact with patient: 11:11 Chief Complaint: SHORTNESS OF BREATH Nursing Triage Summary: Patient presents wiht a 1-2 day history of mild productive cough. From [facility]. Patient reports bloody sputum late last week. Negative chest pain. History of paraplegia and suicide attempt. Patient also reports chronic 10/10 rectal pain. She wears oxygen most of the time and was found with Spo2 on 2 lpm of 93%. Princess received duoneb last evening, was not administered this AM. Orderd Q 6 hours. History of Present Illness The patient is a 77 year old white female with a past medical history of paraplegia, CKD, HLD, diabetes, GERD, HTN, hypothyroidism, and a heart murmur who presents to the ED with a cc of constant SOB beginning 2-3 days ago. Positive constant sharp chest pain in the left breast, coughing up blood in sputum, leg swelling, fevers, chills, and sweating. Negative use of blood thinners, history of heart or lung disease, history of blood clots, recent car or plane travels. She states that she does not smoke, and she is on 2-3L of oxygen at home. She also states that she is not having normal bowel movements. Source of History: patient Onset: 2-3 days ago Position: other (global) Quality: other (shortness of breath) Timing: constant Associated Symptoms: + fevers, + chills, + cough, + chest pain Review of Systems See HPI for pertinent positives and negatives. A total of ten systems were reviewed and were otherwise negative. Past Medical & Surgical Medical Problems: (1) Acetaminophen overdose (2) Anemia (3) Aortic atherosclerosis (4) Chest pain (5) Chronic gastritis (6) Chronic kidney disease (7) Compression fracture of thoracic vertebra (8) Depressive disorder (9) Diabetes (10) Dyslipidemia (11) Esophageal stenosis (12) Frequent PVCs (13) Gall bladder disease (14) Gastroparesis (15) GERD (gastroesophageal reflux disease) (16) Hip fracture (17) History of frequent urinary tract infections (18) Hypertension (19) Hypotension (20) Hypothyroidism (21) indwelling catheter and recurrence UTI (22) indwelling catheter and recurrence UTI (23) Intractable pain (24) Left lower lobe pneumonia (25) Pancreatitis (26) Paralysis of both lower limbs (27) Post op infection (28) Post-op pain (29) Rectal pain, chronic (30) Sepsis secondary to UTI (31) UTI (urinary tract infection) (32) uti possible sepsis, consipation Surgical Problems: (1) History of cholecystectomy (2) History of hysterectomy (3) Hx of appendectomy (4) Previous back surgery (5) S/P tonsillectomy and adenoidectomy Family History Cancer Diabetes mellitus FH: heart disease Social History Smoking Status: Former Smoker Alcohol Use: none Drug Use: none Marital Status: Housing Status: lives with family Occupation Status: retired Current/Historical Medications Scheduled Acetaminophen (Tylenol), 1,000 MG PO BID Amoxicillin (Amoxil), 500 MG PO UD Atorvastatin (Lipitor), 40 MG PO HS Ciprofloxacin Tab (Cipro), 250 MG PO UD Clindamycin Hcl (Cleocin), 150 MG PO UD Docusate Sodium (Docusate Sodium), 100 MG PO BID Doxepin Hcl (Doxepin), 75 MG PO HS Duloxetine Hcl (Cymbalta), 60 MG PO QAM Famotidine (Pepcid), 20 MG PO BID Furosemide (Lasix), 20 MG PO QAM Hydromorphone Hcl (Dilaudid), 2 MG PO [id number] Insulin Aspart (Novolog), 1 DOSE SC UD Insulin Glargine (Lantus), 35 UNITS SC DAILY Lactobacillus (Probiotic), 1 CAP PO QAM Levetiracetam (Keppra), 500 MG PO BID Levothyroxine Sodium (Levothyroxine Sodium), 75 MG PO QAM Lubiprostone (Amitiza), 8 MCG PO BID Multiple Vitamins W/ Minerals (Therems M), 1 TAB PO DAILY Polyethylene Glycol 3350 (Miralax), 17 GM PO BID Potassium Chloride (Potassium Chloride ER), 20 MEQ PO QAM Quetiapine Fumarate (Seroquel), 25 MG PO HS Senna (Senokot), 4 TABS PO BID Scheduled PRN Baclofen (Lioresal), 10 MG PO QID PRN for Pain Belladonna/Opium (B & O), 1 SUPP DC Q8 PRN for RECTAL PAIN Bisacodyl (Dulcolax), 1 SUPP DC UD PRN for Constipation Ipratropium-Albuterol (Duoneb), 1 TREATMENT INH Q6 PRN for Shortness of Breath Lorazepam (Ativan), 0.5 MG PO TID PRN for Anxiety Magnesium Hydroxide (Milk of Magnesia), 30 ML PO UD PRN for Constipation Ondansetron Hcl (Zofran), 4 MG PO TID PRN for Nausea Sodium Phosphate/Biphosphate (Fleet Enema), 1 EA DC UD PRN for Constipation Zolpidem Tartrate (Ambien), 5 MG PO HS PRN for Insomnia Allergies Coded Allergies: Ketorolac (Verified Allergy, Severe, see comment, 09/09/17) Patient reports " i about " when asked about reaction JET Inhibitors (Verified Allergy, Intermediate, ELEVATES CREATININE, ) Sulfa Antibiotics (Verified Adverse Reaction, Intermediate, NAUSEATED, 09/09/17) Physical Exam Vital Signs Date Time Temp Pulse Resp B/P (MAP) Pulse Ox O2 Delivery O2 Flow Rate FiO2 09/09/17 16:57 104 22 120/69 99 Room Air 09/09/17 15:28 Nasal Cannula 4.0 09/09/17 15:06 111 18 122/85 99 Nasal Cannula 4.0 09/09/17 12:51 110 09/09/17 12:17 96 Nasal Cannula 4.0 09/09/17 11:45 95 Room Air 09/09/17 11:08 36.8 92 18 142/69 96 Nasal Cannula 4.0 09/09/17 11:04 97 Room Air Physical Exam GENERAL: Awake, alert, well-appearing, NAD HENT: Normocephalic, atraumatic. EYES: Normal conjunctiva. Sclera non-icteric. NECK: Supple. No nuchal rigidity. FROM. RESPIRATORY: Mildly tachypneic. Mild inspiratory and expiratory wheezing. Diminished breath sounds bilaterally. No rhonchi, crackles CARDIAC: RRR, no MRG ABDOMEN: Soft, NTND, BS+ MSK: No chest wall TTP, no LE edema NEURO: GCS 15, CN 2-12 intact, moves UE on command. No sensation or motor of the LEs. SKIN: Midline vertical incision scar which is well healing. No rash or jaundice noted. Medical Decision & Procedures ER Provider Diagnostic Interpretation: Radiology results as stated below per my review and radiologist interpretation: CHEST ONE VIEW PORTABLE CLINICAL HISTORY: Respiratory distress SHORTNESS OF BREATH COMPARISON STUDY: June 08, 2017 FINDINGS: The study is rotated. There is a left clavicular fracture. There are old bilateral rib fractures. There are postsurgical changes of a cervicothoracic spinal fusion. The heart is borderline enlarged. There is elevation of the interstitium. There is left basilar atelectasis/consolidation.[ IMPRESSION: 1. Technically limited study 2. Mild elevation of the interstitium. Correlate clinically in regards to mild congestive failure 3. Left basal atelectasis/consolidation. Electronically signed by: Abdullahi Powers M.D. 09/09/2017 12:22 PM Dictated Date/Time: 09/09/2017 12:20 PM Laboratory Results 09/09/17 11:35 Red Blood Count 3.51, Mean Corpuscular Volume 98.0, Mean Corpuscular Hemoglobin 30.5, Mean Corpuscular Hemoglobin Concent 31.1, Mean Platelet Volume 11.1, Neutrophils (%) (Auto) 80.3, Lymphocytes (%) (Auto) 13.0, Monocytes (%) (Auto) 5.5, Eosinophils (%) (Auto) 0.5, Basophils (%) (Auto) 0.3, Neutrophils # (Auto) 12.73, Lymphocytes # (Auto) 2.06, Monocytes # (Auto) 0.87, Eosinophils # (Auto) 0.08, Basophils # (Auto) 0.05 09/09/17 11:35 Test 09/09/17 11:35 09/09/17 14:14 White Blood Count 15.85 K/uL (4.8-10.8) Red Blood Count 3.51 M/uL (4.2-5.4) Hemoglobin 10.7 g/dL (12.0-16.0) Hematocrit 34.4 % (37-47) Mean Corpuscular Volume 98.0 fL (80-100) Mean Corpuscular Hemoglobin 30.5 pg (25-34) Mean Corpuscular Hemoglobin Concent 31.1 g/dl (32-36) Platelet Count 538 K/uL (130-400) Mean Platelet Volume 11.1 fL (7.4-10.4) Neutrophils (%) (Auto) 80.3 % Lymphocytes (%) (Auto) 13.0 % Monocytes (%) (Auto) 5.5 % Eosinophils (%) (Auto) 0.5 % Basophils (%) (Auto) 0.3 % Neutrophils # (Auto) 12.73 K/uL (1.4-6.5) Lymphocytes # (Auto) 2.06 K/uL (1.2-3.4) Monocytes # (Auto) 0.87 K/uL (0.11-0.59) Eosinophils # (Auto) 0.08 K/uL (0-0.5) Basophils # (Auto) 0.05 K/uL (0-0.2) RDW Standard Deviation 55.4 fL (36.4-46.3) RDW Coefficient of Variation 15.4 % (11.5-14.5) Immature Granulocyte % (Auto) 0.4 % Immature Granulocyte # (Auto) 0.06 K/uL (0.00-0.02) Prothrombin Time 9.7 SECONDS (9.0-12.0) Prothromb Time International Ratio 0.9 (0.9-1.1) Activated Partial Thromboplast Time 23.8 SECONDS (21.0-31.0) Partial Thromboplastin Ratio 0.9 Anion Gap 6.0 mmol/L (3-11) Est Creatinine Clear Calc Drug Dose 84.6 ml/min Estimated GFR () 109.7 Estimated GFR (Non- 94.6 BUN/Creatinine Ratio 12.3 (10-20) Calcium Level 9.0 mg/dl (8.5-10.1) Total Bilirubin 0.2 mg/dl (0.2-1) Aspartate Amino Transf (AST/SGOT) 19 U/L (15-37) Alanine Aminotransferase (ALT/SGPT) 20 U/L (12-78) Alkaline Phosphatase 136 U/L (45-117) Troponin I < 0.015 ng/ml (0-0.045) Total Protein 6.9 gm/dl (6.4-8.2) Albumin 3.0 gm/dl (3.4-5.0) Globulin 3.9 gm/dl (2.5-4.0) Albumin/Globulin Ratio 0.8 (0.9-2) Venous Blood pH 7.31 (7.36-7.41) Venous Blood Partial Pressure CO2 68 mmHg (38.0-50.0) Venous Blood Partial Pressure O2 27 mmHg Venous Blood HCO3 34 mmol/L Venous Blood Oxygen Saturation < 60.0 % Venous Blood Base Excess 5.8 mEq/L Laboratory results reviewed by me Medications Administered Medications (Trade) Dose Ordered Sig/Karen Route Start Time Stop Time Status Last Admin Dose Admin Albuterol/ Ipratropium (Duoneb) 3 ml NOW STAT INH 09/09/17 12:01 09/09/17 12:03 DC 09/09/17 12:09 3 ML Morphine Sulfate (MoRPHine SULFATE INJ) 4 mg STK-MED ONCE .ROUTE 09/09/17 13:22 09/09/17 13:23 DC 09/09/17 13:26 4 MG Ceftriaxone Sodium (Rocephin Inj) 1 gm NOW STAT IV 09/09/17 13:33 09/09/17 13:34 DC 09/09/17 14:17 1 GM Sodium Chloride 500 ml @ 999 mls/hr Q31M STAT IV 09/09/17 14:18 09/09/17 14:48 DC 09/09/17 16:16 999 MLS/HR Piperacillin Sod/ Tazobactam Sod (Zosyn Iv) 4.5 gm NOW STAT IV 09/09/17 14:49 09/09/17 14:50 DC 09/09/17 16:16 4.5 GM Morphine Sulfate (MoRPHine SULFATE INJ) 4 mg NOW STAT IV 09/09/17 16:42 09/09/17 16:43 DC 09/09/17 16:57 4 MG ECG Indication: SOB/dyspnea Rate (beats per minute): 104 Rhythm: sinus tachycardia Findings: PVC (3 noted), T-wave inversion (single in lead 3), other (Normal intervals. T wave flattening in lead 3 no other contiguous changes. ) ED Course 1111: The patient was evaluated in room C8. A complete history and physical exam was performed. 1340: I reevaluated the patient, and performed a bedside US. There was evidence of a pericardial effusion, good ejection fraction, and IVC appears flat. 1440: Discussed the patient's case with CECY Escobar. The patient will be evaluated for further treatment and disposition. Medical Decision The patient is a 77 year old white female with a past medical history of paraplegia, CKD, HLD, diabetes, GERD, HTN, hypothyroidism, and a heart murmur who presents to the ED with a cc of constant SOB beginning 2-3 days ago. Positive constant sharp chest pain in the left breast, coughing up blood in sputum, leg swelling, fevers, chills, and sweating. Negative use of blood thinners, history of heart or lung disease, history of blood clots, recent car or plane travels. She states that she does not smoke, and she is on 2-3L of oxygen at home. She also states that she is not having normal bowel movements. Triage Nursing notes reviewed. The patient's presentation and history were concerning for etiologies such as infections, reactive airway disease, pneumonia, pneumothorax, COPD, CHF, cardiac ischemia, pulmonary embolism, musculoskeletal, gastrointestinal, as well as others were entertained. Patient was seen and evaluated at the bedside. Patient does have a prior history of CK D, hyperlipidemia, diabetes, GERD, hypertension presented with chief complaint shortness of breath beginning 2-3 days. Patient is had mildly increasing oxygen requirement is typically on 2-3 L as needed. She's been using 4 L today. Patient denies any PND or orthopnea. Patient does complain of some productive sputum. Patient's EKG fairly unremarkable. Chest x-ray was read as possible volume overload however patient is not clinically volume overloaded. I did perform a bedside ultrasound which shows that the patient is have a pericardial effusion without temp benign. EF appears very good as the mitral valve touches the septum. Patient's IVC although not seen at the junction of the right atrium appears to be fairly flat upon inspiration. Given the patient's productive sputum, increasing oxygen requirement, chest x-ray patient was treated clinically for pneumonia. Patient was also given some additional IV fluids. Less likely PE at this time likely tachycardia secondary to decreased volume. Patient was admitted to the medicine service. Of note, I did place an 18G IV in LUE in order to obtain CT chest (given tachycardia and hemoptysis) and a/p given mild distended abdomen and h/o paraplegia. Negative acute. Admitted to medicine. Medication Reconcilliation Current Medication List: was personally reviewed by al Blood Pressure Screening Patient's blood pressure: Elevated blood pressure Monitored by the hospitalist Consults Time Called: 1423 Consulting Physician: CECY Escobar Returned Call: [phone] Discussed the patient's case with Dr. Pasquariello, [facility]. The patient will be evaluated for further treatment and disposition. Impression Primary Impression: SOB (shortness of breath) Additional Impression: Pneumonia Scribe Attestation The scribe's documentation has been prepared under my direction and personally reviewed by me in its entirety. I confirm that the note above accurately reflects all work, treatment, procedures, and medical decision making performed by me. Departure Information Dispostion Being Evaluated By Hospitalist Referrals [facility] (PCP) Patient Instructions [facility] Problem Qualifiers Additional Impression: Pneumonia Pneumonia type: due to unspecified organism Laterality: left Lung location : lower lobe of lung Qualified Codes: J18.1 - Lobar pneumonia, unspecified organism
[2017-09-09 12:12] LABS: BASO % 0.3 %; BASO ABS # 0.05 K/uL (0-0.2); COMPLETE YES; EOS % 0.5 %; HEMATOCRIT 34.4 % (37-47); IG% 0.4 %; LYMPH ABS # 2.06 K/uL (1.2-3.4); MEAN CORPUSCULAR HEMOGLOBIN 30.5 pg (25-34); MEAN CORPUSCULAR HGB CONC 31.1 g/dl (32-36); MEAN PLATELET VOLUME 11.1 fL (7.4-10.4); MONO % 5.5 %; NEUT % 80.3 %; PLATELET COUNT 538 K/uL (130-400); RED BLOOD COUNT 3.51 M/uL (4.2-5.4); WHITE BLOOD COUNT 15.85 K/uL (4.8-10.8)
[2017-09-09] MEDS ORDERED: OPTIRAY 320 IV PRN (12:15)
[2017-09-09 12:19] LABS: INR 0.9 (0.9-1.1); PARTIAL THROMBOPLASTIN RATIO 0.9; PROTHROMBIN TIME (PATIENT) 9.7 SECONDS (9.0-12.0)
[2017-09-09 12:21] LABS: ALT/SGPT 20 U/L (12-78); BLOOD UREA NITROGEN 6 mg/dl (7-18); BUN/CREATININE RATIO 12.3 (10-20); CARBON DIOXIDE 30 mmol/L (21-32); CHLORIDE 103 mmol/L (98-107); CREATININE 0.47 mg/dl (0.60-1.20); GLUCOSE 178 mg/dl (70-99); POTASSIUM 4.2 mmol/L (3.5-5.1); SODIUM 139 mmol/L (136-145)
--- NOTE | 2017-09-09 12:23 | DIAGNOSTIC IMAGING REPORT ---
CHEST ONE VIEW PORTABLE CLINICAL HISTORY: Respiratory distress SHORTNESS OF BREATH COMPARISON STUDY: June 08, 2017 FINDINGS: The study is rotated. There is a left clavicular fracture. There are old bilateral rib fractures. There are postsurgical changes of a cervicothoracic spinal fusion. The heart is borderline enlarged. There is elevation of the interstitium. There is left basilar atelectasis/consolidation.[ IMPRESSION: 1. Technically limited study 2. Mild elevation of the interstitium. Correlate clinically in regards to mild congestive failure 3. Left basal atelectasis/consolidation. Electronically signed by: Abdullahi Powers M.D. 09/09/2017 12:22 PM Dictated Date/Time: 09/09/2017 12:20 PM
[2017-09-09 12:26] LABS: ALB/GLOB RATIO 0.8 (0.9-2); ALKALINE PHOSPHATASE 136 U/L (45-117); AST/SGOT 19 U/L (15-37)
[2017-09-09] MEDS ORDERED: MoRPHine SULFATE 4 MG/ML 1 ML CARP\\VIAL ONE (13:22)
[2017-09-09] MEDS ORDERED: MoRPHine SULFATE 4 MG/ML 1 ML CARP\\VIAL IV STA ×2 (13:32→16:42)
[2017-09-09] MEDS ORDERED: CEFTRIAXONE SOD INJ 1 GM ADDVIAL IV STA (13:33)
[2017-09-09] MEDS ORDERED: SODIUM CHLORIDE 0.9% 500ML 500 ML IV STA (14:18)
[2017-09-09 14:42] LABS: VEN BLOOD GAS BASE EXCESS 5.8 mEq/L; VENOUS BLOOD GAS PCO2 68 mmHg (38.0-50.0); VENOUS BLOOD GAS PO2 27 mmHg
[2017-09-09 14:43] LABS: VEN BLD GAS O2 SATURATION < 60.0 %
[2017-09-09] MEDS ORDERED: PIPERACILLIN/TAZOBACTAM 4.5 GM/100ML D5W IV STA (14:49)
[2017-09-09] MEDS ORDERED: PIPERACILL/TAZOBAC IV 3.375 GM in DEXTROSE 5% 100ML 100 ML IV ONE (14:54)
[2017-09-09] MEDS ORDERED: ACETAMINOPHEN 325 MG TAB PO PRN (15:00)
[2017-09-09] MEDS ORDERED: BACLOFEN 10 MG TAB PO PRN (15:00)
[2017-09-09] MEDS ORDERED: MAGNESIUM HYDROXIDE SUSP 30 ML UDC PO PRN (15:00)
[2017-09-09] MEDS ORDERED: BELLADONNA/OPIUM SUPP 60 MG SUPP PR PRN (15:00)
[2017-09-09] MEDS ORDERED: SOD PHOSPHATE/SOD BIPHOSPHATE ENEMA 132 ML BTL PR PRN (15:00)
--- NOTE | 2017-09-09 15:06 | History and Physical ---
History & Physical Date & Time of Service: Sep 09, 2017 at 15:06 Chief Complaint: Primary Care Physician: Antione Moss History of Present Illness Source: patient, spouse The patient is a 77-year-old female with a history of paraplegia, reports sweats over the past 2 months, accompanied by some shortness of breath, which is worsened over the past 3 days. She has a chronic indwelling Simons catheter, and her who is present reports that she is on a weekly rotation of amoxicillin, ciprofloxacin, and then clindamycin to help prevent UTIs, and has not had a UTI in over 1 year. Past Medical/Surgical History Medical Problems: (1) Acetaminophen overdose Status: Resolved (2) Anemia Status: Resolved (3) Aortic atherosclerosis Status: Chronic (4) Chest pain Status: Resolved (5) Chronic gastritis Status: Chronic (6) Chronic kidney disease Status: Chronic (7) Compression fracture of thoracic vertebra Status: Resolved (8) Diabetes Status: Chronic (9) Dyslipidemia Status: Chronic (10) Esophageal stenosis Status: Resolved (11) Gall bladder disease Status: Resolved (12) Gastroparesis Status: Resolved (13) GERD (gastroesophageal reflux disease) Status: Chronic (14) Hip fracture Status: Resolved (15) History of frequent urinary tract infections Status: Resolved (16) Hypertension Status: Chronic (17) Hypotension Status: Resolved (18) Hypothyroidism Status: Resolved (19) indwelling catheter and recurrence UTI Status: Resolved (20) indwelling catheter and recurrence UTI Status: Resolved (21) Intractable pain Status: Resolved (22) Left lower lobe pneumonia Status: Resolved (23) Pancreatitis Status: Resolved (24) 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 (25) Rectal pain, chronic Status: Resolved (26) UTI (urinary tract infection) Status: Resolved (27) uti possible sepsis, consipation Status: Resolved Family History Cancer Diabetes mellitus FH: heart disease Social History Smoking Status: Former Smoker Smokeless Tobacco Use: No Alcohol Use: none Drug Use: none Marital Status: Housing status: lives with family Occupational Status: retired Immunizations History of Influenza Vaccine: Yes History of Tetanus Vaccine?: Unknown History of Pneumococcal: No History of Hepatitis B Vaccine: Unknown Multi-Drug Resistant Organisms History of MDRO: Yes Type of MDRO: VRE Allergies Coded Allergies: Ketorolac (Verified Allergy, Severe, see comment, 09/09/17) Patient reports " i about " when asked about reaction JET Inhibitors (Verified Allergy, Intermediate, ELEVATES CREATININE, ) Sulfa Antibiotics (Verified Adverse Reaction, Intermediate, NAUSEATED, 09/09/17) Home Medications Scheduled Acetaminophen (Tylenol), 1,000 MG PO BID Amoxicillin (Amoxil), 500 MG PO UD Atorvastatin (Lipitor), 40 MG PO HS Ciprofloxacin Tab (Cipro), 250 MG PO UD Clindamycin Hcl (Cleocin), 150 MG PO UD Docusate Sodium (Docusate Sodium), 100 MG PO BID Doxepin Hcl (Doxepin), 75 MG PO HS Duloxetine Hcl (Cymbalta), 60 MG PO QAM Famotidine (Pepcid), 20 MG PO BID Furosemide (Lasix), 20 MG PO QAM Hydromorphone Hcl (Dilaudid), 2 MG PO [id number] Insulin Aspart (Novolog), 1 DOSE SC UD Insulin Glargine (Lantus), 35 UNITS SC DAILY Lactobacillus (Probiotic), 1 CAP PO QAM Levetiracetam (Keppra), 500 MG PO BID Levothyroxine Sodium (Levothyroxine Sodium), 75 MG PO QAM Lubiprostone (Amitiza), 8 MCG PO BID Multiple Vitamins W/ Minerals (Therems M), 1 TAB PO DAILY Polyethylene Glycol 3350 (Miralax), 17 GM PO BID Potassium Chloride (Potassium Chloride ER), 20 MEQ PO QAM Quetiapine Fumarate (Seroquel), 25 MG PO HS Senna (Senokot), 4 TABS PO BID Scheduled PRN Baclofen (Lioresal), 10 MG PO QID PRN for Pain Belladonna/Opium (B & O), 1 SUPP ID Q8 PRN for RECTAL PAIN Bisacodyl (Dulcolax), 1 SUPP ID UD PRN for Constipation Ipratropium-Albuterol (Duoneb), 1 TREATMENT INH Q6 PRN for Shortness of Breath Lorazepam (Ativan), 0.5 MG PO TID PRN for Anxiety Magnesium Hydroxide (Milk of Magnesia), 30 ML PO UD PRN for Constipation Ondansetron Hcl (Zofran), 4 MG PO TID PRN for Nausea Sodium Phosphate/Biphosphate (Fleet Enema), 1 EA ID UD PRN for Constipation Zolpidem Tartrate (Ambien), 5 MG PO HS PRN for Insomnia Review of Systems The patient denies chest pain, palpitations, cough, vision change, hearing change, sore throat, fevers, chills, sweats, weight change, nausea, vomiting, diarrhea or constipation, abdominal pain, pelvic pain, Blood in urine or stool, lightheadedness, dizziness, headache, memory loss, rash , abnormal bruising or bleeding, generalized arthralgias or myalgias, back or neck pain. The review of systems is otherwise negative other than for that already noted above, and at least 10 systems have been reviewed. Physical Exam Vital Signs Date Time Temp Pulse Resp B/P (MAP) Pulse Ox O2 Delivery O2 Flow Rate FiO2 09/09/17 12:51 110 09/09/17 12:17 96 Nasal Cannula 4.0 09/09/17 11:45 95 Room Air 09/09/17 11:08 36.8 92 18 142/69 96 Nasal Cannula 4.0 09/09/17 11:04 97 Room Air The patient is awake, well-developed and adequately nourished, alert and oriented 3, normocephalic and atraumatic, has tremors and sweats, lying in bed and in no acute distress. HEENT--PERRL, EOMI, mucous membranes and oropharynx dry. Neck--supple, no JVD or bruits, thyroid normal, trachea midline, no adenopathy. Heart--tachycardic and regular, with PVCs, no murmurs, rubs or gallops. Lungs--diminished breath sounds throughout, no respiratory distress, no accessory muscle use. Abdomen--normal bowel sounds, firm, nontender. Mildly distended. no hernias or masses, no organomegaly. Extremities--no cyanosis, clubbing. There is trace to 1+ bilateral pedal pitting Edema. There are good distal pulses b/l. Dermatologic--normal skin turgor, normal color, warm and dry, no abnormal lymph nodes, no rash. Neurologic--cranial nerves II through XII grossly intact, paraplegia from chest downward. Rheumatologic--paraplegia chest downward Psychiatric--anxious Diagnostics Laboratory Results Results Past 24 Hours Test 09/09/17 11:35 09/09/17 14:14 Range/Units White Blood Count 15.85 4.8-10.8 K/uL Red Blood Count 3.51 4.2-5.4 M/uL Hemoglobin 10.7 12.0-16.0 g/dL Hematocrit 34.4 37-47 % Mean Corpuscular Volume 98.0 80-100 fL Mean Corpuscular Hemoglobin 30.5 25-34 pg Mean Corpuscular Hemoglobin Concent 31.1 32-36 g/dl Platelet Count 538 130-400 K/uL Mean Platelet Volume 11.1 7.4-10.4 fL Neutrophils (%) (Auto) 80.3 % Lymphocytes (%) (Auto) 13.0 % Monocytes (%) (Auto) 5.5 % Eosinophils (%) (Auto) 0.5 % Basophils (%) (Auto) 0.3 % Neutrophils # (Auto) 12.73 1.4-6.5 K/uL Lymphocytes # (Auto) 2.06 1.2-3.4 K/uL Monocytes # (Auto) 0.87 0.11-0.59 K/uL Eosinophils # (Auto) 0.08 0-0.5 K/uL Basophils # (Auto) 0.05 0-0.2 K/uL RDW Standard Deviation 55.4 36.4-46.3 fL RDW Coefficient of Variation 15.4 11.5-14.5 % Immature Granulocyte % (Auto) 0.4 % Immature Granulocyte # (Auto) 0.06 0.00-0.02 K/uL Prothrombin Time 9.7 9.0-12.0 SECONDS Prothromb Time International Ratio 0.9 0.9-1.1 Activated Partial Thromboplast Time 23.8 21.0-31.0 SECONDS Partial Thromboplastin Ratio 0.9 Sodium Level 139 136-145 mmol/L Potassium Level 4.2 3.5-5.1 mmol/L Chloride Level 103 98-107 mmol/L Carbon Dioxide Level 30 21-32 mmol/L Anion Gap 6.0 3-11 mmol/L Blood Urea Nitrogen 6 7-18 mg/dl Creatinine 0.47 0.60-1.20 mg/dl Est Creatinine Clear Calc Drug Dose 84.6 ml/min Estimated GFR () 109.7 Estimated GFR (Non- 94.6 BUN/Creatinine Ratio 12.3 10-20 Random Glucose 178 70-99 mg/dl Calcium Level 9.0 8.5-10.1 mg/dl Total Bilirubin 0.2 0.2-1 mg/dl Aspartate Amino Transf (AST/SGOT) 19 15-37 U/L Alanine Aminotransferase (ALT/SGPT) 20 12-78 U/L Alkaline Phosphatase 136 45-117 U/L Troponin I < 0.015 0-0.045 ng/ml Total Protein 6.9 6.4-8.2 gm/dl Albumin 3.0 3.4-5.0 gm/dl Globulin 3.9 2.5-4.0 gm/dl Albumin/Globulin Ratio 0.8 0.9-2 Venous Blood pH 7.31 7.36-7.41 Venous Blood Partial Pressure CO2 68 38.0-50.0 mmHg Venous Blood Partial Pressure O2 27 mmHg Venous Blood HCO3 34 mmol/L Venous Blood Oxygen Saturation < 60.0 % Venous Blood Base Excess 5.8 mEq/L Microbiology Results 09/09/17 Urine Culture, Received Pending Diagnostic Radiology CHEST ONE VIEW PORTABLE CLINICAL HISTORY: Respiratory distress SHORTNESS OF BREATH COMPARISON STUDY: June 08, 2017 FINDINGS: The study is rotated. There is a left clavicular fracture. There are old bilateral rib fractures. There are postsurgical changes of a cervicothoracic spinal fusion. The heart is borderline enlarged. There is elevation of the interstitium. There is left basilar atelectasis/consolidation.[ IMPRESSION: 1. Technically limited study 2. Mild elevation of the interstitium. Correlate clinically in regards to mild congestive failure 3. Left basal atelectasis/consolidation. Electronically signed by: Abdullahi Powers M.D. EKG EKG shows sinus tachycardia at 104 bpm, PVCs, which are new compared to 2016. Impression Assessment and Plan Pneumonia/hemoptysis-- Admitted to the telemetry unit for close oxygen monitoring. D/C Cipro, clindamycin and amoxicillin that have been rotated weekly to prevent infection in chronic indwelling Simons catheter. Zyvox 600 mg IV twice a day Zosyn 3.375 mg IV every 8 hours. Xopenex/Atrovent nebulizer every 6 hours while awake and every 2 hours when necessary. Guaifenesin extended release 600 mg by mouth twice a day. Nasal cannula oxygen titrated to keep pulse ox greater than or equal to 92%. Diabetes mellitus-- Reduce Lantus insulin from [address] on Accu-Cheks before meals and at bedtime with NovoLog coverage per scale. Seizure disorder-- continue Keppra 500 mg by mouth twice a day Hyperlipidemia-- Continue atorvastatin 40 mg by mouth at bedtime. Hypothyroidism-- continue levothyroxine sodium 75 g by mouth every morning. Depression-- Continue doxepin, Cymbalta, Seroquel. GI--continue famotidine, Amitiza, Senokot and increase probiotic to 4 times a day. Level of Care Telemetry Advanced Directives Existing Advance Directive: No Existing Living Will: No Existing Power of [employer] Executive Director: No Resuscitation Status FULL RESUSCITATION VTE Prophylaxis Given or contraindicated: SCD's
[2017-09-09] MEDS ORDERED: ACETAMINOPHEN IV 100 ML IV PRN (15:15)
[2017-09-09] MEDS ORDERED: ONDANSETRON INJ 2 MG/ML 2 ML VIAL IV PRN (15:15)
[2017-09-09] MEDS ORDERED: GLUCOSE 10 TABS/TUBE PO PRN (15:15)
[2017-09-09] MEDS ORDERED: GLUCOSE 40% GEL 15 GM TUBE PO PRN (15:15)
[2017-09-09] MEDS ORDERED: DEXTROSE 50% 50 ML SYR IV PRN (15:15)
[2017-09-09] MEDS ORDERED: GLUCAGON FOR INJ 1 MG VIAL SQ PRN (15:15)
[2017-09-09 15:28] VITALS: Ht 149.9 cm; Wt 70.0 kg
--- NOTE | 2017-09-09 15:44 | DIAGNOSTIC IMAGING REPORT ---
CT ANGIOGRAM OF THE CHEST CLINICAL HISTORY: Dyspnea. COMPARISON STUDY: Chest CT scans dated 10/30/2016 and 04/01/2016. TECHNIQUE: Following the IV administration of 116 cc of Optiray 320, CT angiogram of the chest was performed from the upper abdomen to the thoracic inlet utilizing the pulmonary embolus protocol. Images are reviewed in the axial, sagittal, and coronal planes. 3-D MIPS images are created and assessed. IV contrast was administered without complication. A dose lowering technique was utilized adhering to the principles of ALARA. The examination is degraded by streak artifact from the patient's arms which could not be elevated above the chest as well as by motion artifact. The examination is also by severe hyperkyphosis and streak artifact from cervicothoracic fusion hardware. FINDINGS: Thyroid: Imaged portions of the thyroid gland are normal in size and attenuation. Thoracic aorta: There is mild atherosclerotic calcification of the thoracic aorta, which is normal in caliber and demonstrates standard 3-vessel arch anatomy. No dissection is seen. Pulmonary vasculature: The pulmonary trunk is normal in caliber. There are no filling defects identified in main, lobar, or proximal segmental pulmonary branches to suggest pulmonary embolus. Evaluation of the peripheral branches is degraded by streak and motion artifact. Heart: The heart is normal in size and configuration, and without pericardial effusion. Lungs and pleural spaces: Evaluation of the lung parenchyma is degraded by respiratory motion artifact. Linear scarring is seen in the right middle lobe. There are small pleural effusions with bibasilar atelectasis. The trachea and central airways are clear. Mediastinum: There is no mediastinal lymphadenopathy. Radha: Clear. Axillae: There is no axillary lymphadenopathy. Upper abdomen: Surgical clips are seen near the esophageal hiatus. Partially visualized upper abdominal viscera is within normal limits. Skeletal structures: The skeletal structures are osteopenic. Degenerative change and severe hyperkyphosis are noted in the thoracic spine. Upper thoracic compression deformities and extensive cervicothoracic fusion hardware are again noted. No lytic or blastic bony lesions are seen. There are healed bilateral rib fractures. Bursal fluid is present on the right shoulder. IMPRESSION: 1. Streak and motion degraded examination. 2. There is no evidence of central pulmonary embolus in the main, lobar, or proximal segmental pulmonary arteries. 3. Small pleural effusions with bibasilar atelectasis. 4. Additional findings as above. Electronically signed by: Marvin Weiner M.D. 09/09/2017 3:42 PM Dictated Date/Time: 09/09/2017 3:37 PM
--- NOTE | 2017-09-09 15:52 | DIAGNOSTIC IMAGING REPORT ---
CT SCAN OF THE ABDOMEN AND PELVIS WITH IV CONTRAST CLINICAL HISTORY: Generalized abdominal pain and abdominal distention. COMPARISON STUDY: Abdominal CT dated 06/17/2017. TECHNIQUE: Following the IV administration of 116 cc of Optiray 320, CT scan of the abdomen and pelvis is performed from the lung bases to the proximal femora. Images are reviewed in the axial, sagittal, and coronal planes. IV contrast was administered without complication. A dose lowering technique was utilized adhering to the principles of ALARA. The Examination is significantly degraded by streak artifact from the patient's arms which could not be elevated above the abdomen. Examination is also degraded by motion artifact. CT DOSE: 1747.67 mGy.cm FINDINGS: Lung bases: The heart is normal in size and without pericardial effusion. There are small pleural effusions with bibasilar atelectasis. Postoperative change is noted at the gastroesophageal junction. Liver: The contrast-enhanced liver is normal in size, contour, and attenuation. There is no intrahepatic biliary ductal dilatation. The hepatic veins and portal veins are patent. Gallbladder: Not identified and presumed surgically absent. Spleen: Normal in size and attenuation. Pancreas: The pancreas is markedly atrophic. A 1.4 cm cystic focus in the pancreatic neck is unchanged and likely represents a sidebranch IPMN. Adrenal glands: Unremarkable. Kidneys: The contrast enhanced kidneys are atrophic and without hydronephrosis. The kidneys enhance symmetrically. Small renal cysts measure up to 13 mm. Additional subcentimeter cortical hypodensities also likely represent cysts but are too small for definitive characterization. Abdominal vasculature: The abdominal aorta is normal in course and caliber noting advanced atherosclerotic calcification. Bowel: There are postoperative changes from right hemicolectomy an ileocolic anastomosis. No bowel obstruction is seen. Peritoneum: There is no intraperitoneal free air or abdominal ascites. Lymphadenopathy: None. Pelvic viscera: The bladder is decompressed around a Simons catheter and could not be evaluated. The uterus is surgically absent. No adnexal lesion is seen. Skeletal structures: The skeletal structures are osteopenic. There is moderate lumbosacral spondylosis as well as mild scoliosis. No lytic or blastic lesions are seen. Chronic deformity and postoperative change is suggested in the right proximal femur. IMPRESSION: 1. Streak and motion degraded examination. 2. There are no acute infectious or inflammatory findings in the abdomen or pelvis. 3. Moderate constipation. 4. Findings suggest previous right hemicolectomy with ileocolic anastomosis. No bowel obstruction is seen. 5. Small pleural effusions. 6. Additional findings as above. Electronically signed by: Marvin Weiner M.D. 09/09/2017 3:51 PM Dictated Date/Time: 09/09/2017 3:44 PM
[2017-09-09] MEDS ORDERED: PIPERACILL/TAZOBAC CONSULT ACTIVE PRN (18:15)
[2017-09-09] MEDS: MoRPHine SULFATE 4 MG/ML 1 ML CARP\\VIAL IV PRN (19:42)
[2017-09-09] MEDS ORDERED: IPRATROPIUM BROMIDE NEB SOLN 0.02% 2.5 ML VIAL INH PRN (19:45)
[2017-09-09] MEDS ORDERED: LEVALBUTEROL 1.25MG/0.5ML NEB INH PRN (19:45)
[2017-09-09 19:52] VITALS: BP 158/83; PULSE 84; TEMP 36.9; O2SAT 97
[2017-09-09] MEDS: INSULIN ASPART 100 UNITS/ML 3 ML PEN SC SCH (20:00)
[2017-09-09] MEDS ORDERED: INFLUENZA VACCINE HIGH DOSE 65+ 0.5 ML SYR IM. ONE (20:00)
[2017-09-09] MEDS ORDERED: INFLUENZA ADMINISTRATION CHARGE ONE (20:00)
[2017-09-09] MEDS ORDERED: LINEZOLID / D5W 600 MG in PREMIXED IN D5W 300 ML IV ONE (20:00)
[2017-09-09] MEDS: HYDROmorphone HCL 2 MG TAB PO SCH ×2 (20:25→23:57)
[2017-09-09] MEDS: NSS + 20MEQ KCL 1000ML 1,000 ML IV SCH (20:25)
[2017-09-09] MEDS: DOCUSATE SODIUM 100 MG CAP PO SCH (20:26)
[2017-09-09] MEDS: SENNA 8.6 MG TAB PO SCH (20:26)
[2017-09-09] MEDS: ACETAMINOPHEN 500 MG TAB PO SCH (20:26)
[2017-09-09] MEDS: IPRATROPIUM BROMIDE NEB SOLN 0.02% 2.5 ML VIAL INH SCH (20:29)
[2017-09-09] MEDS: LEVALBUTEROL 1.25MG/0.5ML NEB INH SCH (20:29)
[2017-09-09 20:30] VITALS: PULSE 98; O2SAT 99
[2017-09-09] MEDS: QUETIAPINE FUMARATE 25 MG TAB PO SCH (20:39)
[2017-09-09] MEDS: ENOXAPARIN 40 MG/0.4 ML SYR SC SCH (20:39)
[2017-09-09] MEDS: FAMOTIDINE 20 MG TAB PO SCH (20:39)
[2017-09-09] MEDS: POLYETHYLENE (MIRALAX) 17 GM PACK PO SCH (20:39)
[2017-09-09] MEDS: DOXEPIN HCL 75 MG CAP PO SCH (20:39)
[2017-09-09] MEDS: LEVETIRACETAM 500 MG TAB PO SCH (20:39)
[2017-09-09] MEDS: ATORVASTATIN 40 MG TAB PO SCH (20:39)
[2017-09-09] MEDS ORDERED: LEVALBUTEROL/IPRATROPIUM NEB INH SCH (21:00)
[2017-09-09] MEDS ORDERED: VANCOMYCIN INJ 1,000 MG in SODIUM CHLORIDE 0.9% 250ML 250 ML IV SCH (21:00)
[2017-09-09] MEDS: PIPERACILL/TAZOBAC IV 3.375 GM in DEXTROSE 5% 100ML 100 ML IV SCH (22:08)
[2017-09-09 23:50] VITALS: BP 107/68; PULSE 102; TEMP 36.4; O2SAT 97
[2017-09-10] VITALS (14 sets, daily range): BP systolic 124–145; BP diastolic 56–84; PULSE 77–111; TEMP 36.9–37.3; O2SAT 96–99
[2017-09-10] MEDS: ZOLPIDEM TARTRATE 5 MG TAB PO PRN (00:10)
[2017-09-10] MEDS: LORAZEPAM 0.5 MG TAB PO PRN ×3 (02:22→18:09)
[2017-09-10] MEDS: HYDROmorphone HCL 2 MG TAB PO SCH ×8 (03:00→23:28)
[2017-09-10] MEDS: IPRATROPIUM BROMIDE NEB SOLN 0.02% 2.5 ML VIAL INH SCH ×4 (03:35→20:08)
[2017-09-10] MEDS: LEVALBUTEROL 1.25MG/0.5ML NEB INH SCH ×4 (03:35→20:08)
[2017-09-10] MEDS: NSS + 20MEQ KCL 1000ML 1,000 ML IV SCH (05:35)
[2017-09-10] MEDS: LEVOTHYROXINE 75 MCG TAB PO SCH (05:36)
[2017-09-10] MEDS: PIPERACILL/TAZOBAC IV 3.375 GM in DEXTROSE 5% 100ML 100 ML IV SCH ×3 (05:36→21:43)
[2017-09-10 08:27] LABS: BASO % 0.5 %; BASO ABS # 0.05 K/uL (0-0.2); COMPLETE YES; EOS % 1.4 %; HEMATOCRIT 31.6 % (37-47); IG% 0.2 %; LYMPH % 20.7 %; LYMPH ABS # 2.01 K/uL (1.2-3.4); MEAN CELL VOLUME 98.1 fL (80-100); MEAN CORPUSCULAR HEMOGLOBIN 31.4 pg (25-34); MEAN PLATELET VOLUME 10.8 fL (7.4-10.4); MONO % 10.2 %; PLATELET COUNT 473 K/uL (130-400); RED BLOOD COUNT 3.22 M/uL (4.2-5.4); WHITE BLOOD COUNT 9.71 K/uL (4.8-10.8)
[2017-09-10 08:35] LABS: INR 0.9 (0.9-1.1); PROTHROMBIN TIME (PATIENT) 10.1 SECONDS (9.0-12.0)
[2017-09-10] MEDS: LINEZOLID / D5W 600 MG in PREMIXED IN D5W 300 ML IV SCH ×2 (08:37→19:33)
[2017-09-10] MEDS: LACTOBACILLUS ACIDOPHILUS (FLORANEX) TAB PO SCH ×3 (08:38→17:45)
[2017-09-10] MEDS: ACETAMINOPHEN 500 MG TAB PO SCH ×2 (08:39→21:33)
[2017-09-10] MEDS: POTASSIUM CHLORIDE 20 MEQ TABCR PO SCH (08:39)
[2017-09-10] MEDS: FAMOTIDINE 20 MG TAB PO SCH ×2 (08:39→21:31)
[2017-09-10] MEDS: LEVETIRACETAM 500 MG TAB PO SCH ×2 (08:39→21:34)
[2017-09-10] MEDS: CEROVITE ADV FORMULA TAB PO SCH (08:39)
[2017-09-10] MEDS: SENNA 8.6 MG TAB PO SCH ×2 (08:40→21:31)
[2017-09-10] MEDS: DULOXETINE HCL 60 MG CAP PO SCH (08:40)
[2017-09-10] MEDS: DOCUSATE SODIUM 100 MG CAP PO SCH ×2 (08:40→21:33)
[2017-09-10] MEDS: POLYETHYLENE (MIRALAX) 17 GM PACK PO SCH ×2 (08:52→21:28)
[2017-09-10] MEDS: INSULIN ASPART 100 UNITS/ML 3 ML PEN SC SCH ×4 (08:57→21:00)
[2017-09-10] MEDS: INSULIN GLARGINE SOLOSTAR 100 UNITS/ML 3 ML PEN SC SCH (08:58)
[2017-09-10 09:12] LABS: ALT/SGPT 17 U/L (12-78); AST/SGOT 14 U/L (15-37); BLOOD UREA NITROGEN 5 mg/dl (7-18); BUN/CREATININE RATIO 12.9 (10-20); CALCIUM 8.4 mg/dl (8.5-10.1); CARBON DIOXIDE 32 mmol/L (21-32); CHLORIDE 105 mmol/L (98-107); CREATININE 0.41 mg/dl (0.60-1.20); GLUCOSE 119 mg/dl (70-99); MAGNESIUM 2.3 mg/dl (1.8-2.4); POTASSIUM 4.1 mmol/L (3.5-5.1); SODIUM 141 mmol/L (136-145)
[2017-09-10 09:14] LABS: ALKALINE PHOSPHATASE 119 U/L (45-117)
[2017-09-10] MEDS: MoRPHine SULFATE 4 MG/ML 1 ML CARP\\VIAL IV PRN (10:11)
--- NOTE | 2017-09-10 10:26 | Clinical Documentation Query ---
CLINICAL DOCUMENTATION QUERY 77 year old white female with cc of constant SOB. H&P appears incomplete at this time. Query #1/4 In your clinical opinion is this patient being managed for: ( x ) Pneumonia evidenced by CXR and Leukocytosis treated with IV antibiotics, nebs, and increased O2 flow rate. ( ) Not Agree ( ) Other explanation of clinical findings (Please Explain) ( ) Unable to determine (Please Define) ( ) Need to Discuss The medical record reflects the following clinical findings, treatment, and risk factors. Clinical Indicators: WBC's 15.85, CXR with left basal atelectasis or consolidation, SOB, Treatment: O2, CXR, Chest CT, IV Zosyn, IVF's, IV Zyvox, Nebs, Risk Factors: Age, Paraplegia, Chronic respiratory failure, Query #2/4 In your clinical opinion is this patient being managed for: (x ) Chronic hypoxic respiratory failure treated with O2 ( ) Not Agree ( ) Other explanation of clinical findings (Please Explain) ( ) Unable to determine (Please Define) ( ) Need to Discuss The medical record reflects the following clinical findings, treatment, and risk factors. Clinical Indicators: home O2 therapy. Treatment: O2 Risk Factors: Age, ?CHF, paraplegia Query #3/4 H&P states CKD w/o staging. In your clinical opinion is this patient being managed for: ( ) Chronic kidney disease, stage 1 ( ) Not Agree ( ) Other explanation of clinical findings (Please Explain) ( ) Unable to determine (Please Define) ( ) Need to Discuss The medical record reflects the following clinical findings, treatment, and risk factors. Clinical Indicators: GFR 99.0 Treatment: daily PRP's, IVF's, Risk Factors: Age, home NSAID and diuretic therapy Query #4/4 In your clinical opinion is this patient being managed for: ( ) Chronic diastolic CHF ( ) Not Agree ( ) Other explanation of clinical findings (Please Explain) ( ) Unable to determine (Please Define) ( ) Need to Discuss The medical record reflects the following clinical findings, treatment, and risk factors. Clinical Indicators: home diuretic therapy Treatment: O2, daily weights, I/O's, telemetry Risk Factors: Age, CKD, HTN, DM Please clarify and document your clinical opinion in the progress notes and discharge summary. Terms such as "probable", "suspected", "likely", "questionable", "possible", or "still to be ruled out" are acceptable. IF IN AGREEMENT, YOU MUST DOCUMENT ABOVE DIAGNOSTIC STATEMENT IN DAILY PROGRESS NOTES AND DISCHARGE SUMMARY. This document is not part of the patient's record. Thank You, Corey Mann, SAMMY [phone]
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
--- NOTE | 2017-09-10 15:16 | Progress Note ---
Progress Note Date of Service Sep 10, 2017. Progress Note ID Consult Dictated #[id number] A/P: 1. positive urine culture -Simons changed today, would suggest repeat cutlure with UA -Can continue abx for now -thank you
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
[2017-09-10] MEDS: MoRPHine SULFATE 2 MG/ML CARP IV PRN (17:58)
[2017-09-10] MEDS: GUAIFENESIN 600 MG TABCR PO SCH (21:30)
[2017-09-10] MEDS: DOXEPIN HCL 75 MG CAP PO SCH (21:32)
[2017-09-10] MEDS: QUETIAPINE FUMARATE 25 MG TAB PO SCH (21:33)
[2017-09-10] MEDS: ATORVASTATIN 40 MG TAB PO SCH (21:34)
[2017-09-10] MEDS: ENOXAPARIN 40 MG/0.4 ML SYR SC SCH (21:37)
[2017-09-11] VITALS (9 sets, daily range): BP systolic 118–146; BP diastolic 64–86; PULSE 70–105; TEMP 36.7–37.5; O2SAT 90–98
[2017-09-11] MEDS: MoRPHine SULFATE 4 MG/ML 1 ML CARP\\VIAL IV PRN ×2 (01:16→09:08)
[2017-09-11] MEDS: LEVALBUTEROL 1.25MG/0.5ML NEB INH SCH ×4 (02:37→19:16)
[2017-09-11] MEDS: IPRATROPIUM BROMIDE NEB SOLN 0.02% 2.5 ML VIAL INH SCH ×4 (02:37→19:16)
[2017-09-11] MEDS: HYDROmorphone HCL 2 MG TAB PO SCH ×7 (02:47→21:01)
--- NOTE | 2017-09-11 04:50 | Clinical Documentation Query ---
CLINICAL DOCUMENTATION QUERY Query #1/2 H&P states CKD w/o staging. In your clinical opinion is this patient being managed for: ( x ) possible Chronic kidney disease, stage 1 ( ) Not Agree ( ) Other explanation of clinical findings (Please Explain) ( ) Unable to determine (Please Define) ( ) Need to Discuss The medical record reflects the following clinical findings, treatment, and risk factors. Clinical Indicators: GFR 99.0 Treatment: daily PRP's, IVF's, Risk Factors: Age, home NSAID and diuretic therapy Query #2/2 In your clinical opinion is this patient being managed for: ( x ) possible Chronic diastolic CHF Chronic kidney disease, stage 1 ( ) Not Agree ( ) Other explanation of clinical findings (Please Explain) ( ) Unable to determine (Please Define) ( ) Need to Discuss The medical record reflects the following clinical findings, treatment, and risk factors. Clinical Indicators: home diuretic therapy Treatment: O2, daily weights, I/O's, telemetry Risk Factors: Age, CKD, HTN, DM Please clarify and document your clinical opinion in the progress notes and discharge summary. Terms such as "probable", "suspected", "likely", "questionable", "possible", or "still to be ruled out" are acceptable. IF IN AGREEMENT, YOU MUST DOCUMENT ABOVE DIAGNOSTIC STATEMENT IN DAILY PROGRESS NOTES AND DISCHARGE SUMMARY. This document is not part of the patient's record. Thank You, Corey Mann, RN [phone]
[2017-09-11] MEDS: LEVOTHYROXINE 75 MCG TAB PO SCH (06:28)
[2017-09-11] MEDS: PIPERACILL/TAZOBAC IV 3.375 GM in DEXTROSE 5% 100ML 100 ML IV SCH (06:28)
[2017-09-11 06:48] LABS: BASO % 0.3 %; BASO ABS # 0.05 K/uL (0-0.2); COMPLETE YES; EOS % 3.5 %; HEMATOCRIT 32.8 % (37-47); IG% 0.3 %; LYMPH ABS # 2.41 K/uL (1.2-3.4); MEAN CELL VOLUME 98.2 fL (80-100); MEAN CORPUSCULAR HEMOGLOBIN 30.8 pg (25-34); MEAN CORPUSCULAR HGB CONC 31.4 g/dl (32-36); MEAN PLATELET VOLUME 10.6 fL (7.4-10.4); NEUT % 70.9 %; PLATELET COUNT 497 K/uL (130-400); RED BLOOD COUNT 3.34 M/uL (4.2-5.4); WHITE BLOOD COUNT 15.07 K/uL (4.8-10.8)
[2017-09-11 06:57] LABS: INR 0.9 (0.9-1.1); PROTHROMBIN TIME (PATIENT) 9.9 SECONDS (9.0-12.0)
[2017-09-11 07:31] LABS: ALT/SGPT 19 U/L (12-78); AST/SGOT 11 U/L (15-37); BLOOD UREA NITROGEN 7 mg/dl (7-18); BUN/CREATININE RATIO 13.7 (10-20); CALCIUM 8.9 mg/dl (8.5-10.1); CARBON DIOXIDE 31 mmol/L (21-32); CHLORIDE 104 mmol/L (98-107); GLUCOSE 147 mg/dl (70-99); MAGNESIUM 2.4 mg/dl (1.8-2.4); POTASSIUM 4.5 mmol/L (3.5-5.1); SODIUM 140 mmol/L (136-145)
[2017-09-11 07:34] LABS: ALKALINE PHOSPHATASE 112 U/L (45-117)
[2017-09-11] MEDS: LINEZOLID / D5W 600 MG in PREMIXED IN D5W 300 ML IV SCH (08:06)
[2017-09-11] MEDS: BISACODYL 10 MG SUPP PR PRN (08:08)
[2017-09-11] MEDS: POLYETHYLENE (MIRALAX) 17 GM PACK PO SCH ×2 (08:09→20:24)
[2017-09-11] MEDS: FAMOTIDINE 20 MG TAB PO SCH ×2 (08:10→20:10)
[2017-09-11] MEDS: POTASSIUM CHLORIDE 20 MEQ TABCR PO SCH (08:10)
[2017-09-11] MEDS: LEVETIRACETAM 500 MG TAB PO SCH ×2 (08:11→20:04)
[2017-09-11] MEDS: DOCUSATE SODIUM 100 MG CAP PO SCH ×2 (08:11→20:05)
[2017-09-11] MEDS: DULOXETINE HCL 60 MG CAP PO SCH (08:11)
[2017-09-11] MEDS: SENNA 8.6 MG TAB PO SCH ×2 (08:12→20:05)
[2017-09-11] MEDS: ACETAMINOPHEN 500 MG TAB PO SCH ×2 (08:15→20:05)
[2017-09-11] MEDS: INSULIN ASPART 100 UNITS/ML 3 ML PEN SC SCH ×4 (08:16→20:22)
[2017-09-11] MEDS: LACTOBACILLUS ACIDOPHILUS (FLORANEX) TAB PO SCH ×3 (08:17→17:14)
[2017-09-11] MEDS: CEROVITE ADV FORMULA TAB PO SCH (08:17)
[2017-09-11] MEDS: GUAIFENESIN 600 MG TABCR PO SCH ×2 (08:18→20:05)
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
[2017-09-11] MEDS: INSULIN GLARGINE SOLOSTAR 100 UNITS/ML 3 ML PEN SC SCH (08:22)
[2017-09-11 08:53] LABS: MANUAL MICROSCOPIC REQUIRED? NO; REVIEW REQ? NO; URINE APPEARANCE CLOUDY (CLEAR); URINE BILIRUBIN NEG (NEG); URINE COLOR YELLOW; URINE EPITHELIAL CELL AUTO 0-5 /lpf (0-5); URINE NITRITE NEG (NEG); URINE SPECIFIC GRAVITY 1.012 (1.000-1.030); UROBILINOGEN NEG (NEG)
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
[2017-09-11] MEDS: CEFTRIAXONE SOD INJ 1 GM in DEXTROSE 5% ADD-VANTAGE 50ML 50 ML IV SCH (12:12)
[2017-09-11] MEDS ORDERED: FUROSEMIDE INJ 20 MG in SYRINGE 0 ML IV ONE (14:15)
[2017-09-11] MEDS: MoRPHine SULFATE 2 MG/ML CARP IV PRN ×2 (14:25→20:24)
[2017-09-11] MEDS: DOXEPIN HCL 75 MG CAP PO SCH (20:05)
[2017-09-11] MEDS: QUETIAPINE FUMARATE 25 MG TAB PO SCH (20:05)
[2017-09-11] MEDS: ATORVASTATIN 40 MG TAB PO SCH (20:08)
[2017-09-11] MEDS: ENOXAPARIN 40 MG/0.4 ML SYR SC SCH (20:10)
[2017-09-12] MEDS: HYDROmorphone HCL 2 MG TAB PO SCH ×9 (00:14→23:00)
[2017-09-12] MEDS: LEVALBUTEROL 1.25MG/0.5ML NEB INH SCH ×4 (01:55→19:20)
[2017-09-12] MEDS: IPRATROPIUM BROMIDE NEB SOLN 0.02% 2.5 ML VIAL INH SCH ×4 (01:55→19:20)
[2017-09-12] MEDS: MoRPHine SULFATE 2 MG/ML CARP IV PRN ×2 (02:04→04:45)
[2017-09-12 03:14] VITALS: BP 135/79; PULSE 70; TEMP 36.9; O2SAT 96
[2017-09-12 06:10] LABS: PROTHROMBIN TIME (PATIENT) 10.2 SECONDS (9.0-12.0)
[2017-09-12 06:13] LABS: BASO % 0.8 %; BASO ABS # 0.08 K/uL (0-0.2); COMPLETE YES; EOS % 9.6 %; HEMATOCRIT 33.7 % (37-47); IG% 0.3 %; LYMPH % 21.1 %; LYMPH ABS # 2.24 K/uL (1.2-3.4); MEAN CELL VOLUME 97.1 fL (80-100); MEAN CORPUSCULAR HEMOGLOBIN 30.5 pg (25-34); MEAN CORPUSCULAR HGB CONC 31.5 g/dl (32-36); MEAN PLATELET VOLUME 11.1 fL (7.4-10.4); MONO % 9.9 %; NEUT % 58.3 %; PLATELET COUNT 475 K/uL (130-400); RED BLOOD COUNT 3.47 M/uL (4.2-5.4)
[2017-09-12 06:17] LABS: ALT/SGPT 18 U/L (12-78); AST/SGOT 10 U/L (15-37); BLOOD UREA NITROGEN 7 mg/dl (7-18); CALCIUM 8.9 mg/dl (8.5-10.1); CARBON DIOXIDE 34 mmol/L (21-32); CHLORIDE 101 mmol/L (98-107); CREATININE 0.44 mg/dl (0.60-1.20); GLUCOSE 129 mg/dl (70-99); MAGNESIUM 2.1 mg/dl (1.8-2.4); SODIUM 139 mmol/L (136-145)
[2017-09-12 06:20] LABS: ALKALINE PHOSPHATASE 117 U/L (45-117)
[2017-09-12] MEDS: LEVOTHYROXINE 75 MCG TAB PO SCH (06:22)
[2017-09-12 07:30] VITALS: BP 142/87; PULSE 89; TEMP 37; O2SAT 98
[2017-09-12] MEDS: INSULIN ASPART 100 UNITS/ML 3 ML PEN SC SCH ×4 (07:59→20:41)
[2017-09-12] MEDS: DOCUSATE SODIUM 100 MG CAP PO SCH ×2 (08:19→19:22)
[2017-09-12] MEDS: LACTOBACILLUS ACIDOPHILUS (FLORANEX) TAB PO SCH ×3 (08:19→15:10)
[2017-09-12] MEDS: DULOXETINE HCL 60 MG CAP PO SCH (08:21)
[2017-09-12] MEDS: LEVETIRACETAM 500 MG TAB PO SCH ×2 (08:22→19:36)
[2017-09-12] MEDS: MoRPHine SULFATE 4 MG/ML 1 ML CARP\\VIAL IV PRN (08:23)
[2017-09-12] MEDS: POLYETHYLENE (MIRALAX) 17 GM PACK PO SCH ×2 (08:31→19:23)
[2017-09-12] MEDS: POTASSIUM CHLORIDE 20 MEQ TABCR PO SCH (08:31)
[2017-09-12] MEDS: FAMOTIDINE 20 MG TAB PO SCH ×2 (08:32→19:38)
[2017-09-12] MEDS: GUAIFENESIN 600 MG TABCR PO SCH ×2 (08:32→19:37)
[2017-09-12] MEDS: CEROVITE ADV FORMULA TAB PO SCH (08:32)
[2017-09-12] MEDS: SENNA 8.6 MG TAB PO SCH ×2 (08:33→19:23)
[2017-09-12] MEDS: ACETAMINOPHEN 500 MG TAB PO SCH ×2 (08:36→19:40)
[2017-09-12] MEDS: INSULIN GLARGINE SOLOSTAR 100 UNITS/ML 3 ML PEN SC SCH (08:37)
[2017-09-12] MEDS: BISACODYL 10 MG SUPP PR PRN (08:39)
[2017-09-12] MEDS ORDERED: NURSING VERBAL MED ORDER ONE (11:00)
[2017-09-12 11:01] VITALS: BP 134/85; PULSE 79; TEMP 36.5; O2SAT 99
[2017-09-12] MEDS ORDERED: HYDROmorphone INJ 1 MG/ML SYR IV STA (11:11)
[2017-09-12] MEDS: CEFTRIAXONE SOD INJ 1 GM in DEXTROSE 5% ADD-VANTAGE 50ML 50 ML IV SCH (11:27)
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
[2017-09-12] MEDS ORDERED: FUROSEMIDE 20 MG TAB PO SCH (12:30)
[2017-09-12 14:29] VITALS: BP 134/85; PULSE 79; TEMP 36.5; O2SAT 99
[2017-09-12] MEDS: LORAZEPAM 0.5 MG TAB PO PRN (19:35)
[2017-09-12] MEDS: QUETIAPINE FUMARATE 25 MG TAB PO SCH (19:36)
[2017-09-12] MEDS: ENOXAPARIN 40 MG/0.4 ML SYR SC SCH (19:38)
[2017-09-12] MEDS: ATORVASTATIN 40 MG TAB PO SCH (19:38)
[2017-09-12] MEDS: DOXEPIN HCL 75 MG CAP PO SCH (19:39)
[2017-09-12 23:06] VITALS: BP 109/68; PULSE 98; TEMP 36.7; O2SAT 98
[2017-09-13] MEDS: ZOLPIDEM TARTRATE 5 MG TAB PO PRN (00:36)
[2017-09-13] MEDS: LEVALBUTEROL 1.25MG/0.5ML NEB INH SCH ×3 (02:02→13:11)
[2017-09-13] MEDS: IPRATROPIUM BROMIDE NEB SOLN 0.02% 2.5 ML VIAL INH SCH ×3 (02:02→13:11)
[2017-09-13] MEDS: HYDROmorphone HCL 2 MG TAB PO SCH ×5 (03:00→14:13)
[2017-09-13] MEDS: LEVOTHYROXINE 75 MCG TAB PO SCH (06:37)
[2017-09-13] MEDS: DOCUSATE SODIUM 100 MG CAP PO SCH (07:50)
[2017-09-13] MEDS: DULOXETINE HCL 60 MG CAP PO SCH (07:50)
[2017-09-13] MEDS: GUAIFENESIN 600 MG TABCR PO SCH (07:50)
[2017-09-13] MEDS: SENNA 8.6 MG TAB PO SCH (07:51)
[2017-09-13] MEDS: LACTOBACILLUS ACIDOPHILUS (FLORANEX) TAB PO SCH ×2 (07:51→11:40)
[2017-09-13] MEDS: CEROVITE ADV FORMULA TAB PO SCH (07:51)
[2017-09-13] MEDS: LEVETIRACETAM 500 MG TAB PO SCH (07:52)
[2017-09-13] MEDS: POLYETHYLENE (MIRALAX) 17 GM PACK PO SCH (07:53)
[2017-09-13] MEDS: ACETAMINOPHEN 500 MG TAB PO SCH (07:53)
[2017-09-13] MEDS: FAMOTIDINE 20 MG TAB PO SCH (07:53)
[2017-09-13] MEDS: POTASSIUM CHLORIDE 20 MEQ TABCR PO SCH (07:55)
[2017-09-13] MEDS ORDERED: FUROSEMIDE 20 MG TAB PO SCH (08:00)
[2017-09-13 08:34] VITALS: BP 192/97; PULSE 109; TEMP 36.7; O2SAT 96
[2017-09-13] MEDS: INSULIN ASPART 100 UNITS/ML 3 ML PEN SC SCH ×2 (09:21→12:56)
[2017-09-13] MEDS: INSULIN GLARGINE SOLOSTAR 100 UNITS/ML 3 ML PEN SC SCH (09:22)
[2017-09-13 09:54] VITALS: BP 136/82; PULSE 88
[2017-09-13] MEDS ORDERED: GFNSR600 PO (10:13)
[2017-09-13] MEDS ORDERED: CEFT1INJ6 IV (10:13)
[2017-09-13] MEDS ORDERED: HYDR2TAB48 PO (10:13)
--- NOTE | 2017-09-13 10:14 | Discharge Instructions ---
Discharge Instructions Date of Service Sep 13, 2017. Admission Reason for Admission: Frequent Pvcs, Sepsis Secondary To Uti Discharge Discharge Diagnosis / Problem: pna Discharge Goals Goal(s): Decrease discomfort, Improve function, Increase independence, Improve disease control, Improve nutritional status, Learn about illness, Diagnostic testing, Therapeutic intervention, Prevent Disease Progression, Specific goals Activity Recommendations Activity Level: Bedrest Therapies: Physical Therapy, Occupational Therapy . Additional Information Patient informed of condition: Yes Advance Directives: No DNR: No Level of Care: Skilled Communicable Disease: No Prognosis: Other (guarded) Instructions / Follow-Up Instructions / Follow-Up you have Pneumonia and chronic diastolic CHF you have Klebsiella Pneumonia UTI in the setting of recurrent uti, need to continue Rocephin iv for 4 days more from tomorrow you have Neurogenic bladder with chronic indwelling kelly Indwelling cath changed on 09/10, ID on board - repeating UA and Ucx now with new catheter in place - ceftriaxone total x 7 days (started on 09/11) , after Rocephin then resume weekly rotation of antibiotics including amoxicillin, cipro , and clindamycin - you need to follow up with your primary care physician in 1 week, - take medication as instructed, never overdose or any misuse, or take with alcohol, because misuse of medicine may cause organ damage or , call your primary care physician if have questions of medicaitons. - call your primary care physician OR go to local emergency room if has any fever/chill, chest pain, shortness of breathing, nausea/vomiting/abdominal pain , facial droop/slurry speech/local weakness, or if has any questions. - fall precaution - diet as instructed - you need to follow up with your subspecialist - you should understand that it is important to follow up the above instruction , and "not following the above instruction" may cause delayed or missed care of your medical conditions which may cause permanent organ damage and even . Current Hospital Diet Patient's current hospital diet: AHA Diet (Heart Healthy), Diabetes Type 2 Diet Discharge Diet Recommended Diet: Diabetes Type 2 Diet Procedures Procedures Performed: no Pending Studies Studies pending at discharge: no Physician Orders On Transfer POLST Discussion: Not Applicable Laboratory Results Hemoglobin A1c Test 08/14/17 05:29 Range/Units Estimated Average Glucose 80 mg/dl Hemoglobin A1c 4.4 L 4.5-5.6 % Medical Emergencies . Who to Call and When: Medical Emergencies: If at any time you feel your situation is an emergency, please call 911 immediately. . Non-Emergent Contact Non-Emergency issues call your: Primary Care Provider . . "Provider Documentation" section prepared by Javier Molina. . Core Measure Problem Core Measures: None
[2017-09-13] MEDS: CEFTRIAXONE SOD INJ 1 GM in DEXTROSE 5% ADD-VANTAGE 50ML 50 ML IV SCH (11:40)
[2017-09-13 12:15] VITALS: BP 136/82; PULSE 88; TEMP 36.7; O2SAT 96
[2017-09-13] MEDS: LORAZEPAM 0.5 MG TAB PO PRN (12:55)
[2017-09-13 13:16] VITALS: PULSE 92; O2SAT 96
[2017-09-13] MEDS ORDERED: LORA-741 PO (13:19)
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
--- NOTE | 2017-09-18 09:50 | EDITING REQUIRED CODING QUERY ---
CODING QUERY To promote full compliance with coding requirements relating to patient care, provider participation is requested in all cases of roll contour grinder uncertainty. Please assist us with the question(s) below: Coding Question: "UTI in the setting of recurrent UTI, chronic indwelling kelly" was documented throughout the record. Please clarify below. Thank you so much for your help! ( x) UTI may due to indwelling urinary catheter ( ) UTI unrelated to indwelling urinary catheter ( ) Other (explain), Thank you! Nina Méndez Principal Diagnosis: "_that condition established after study, to be chiefly responsible for occasioning the admission of the patient to the hospital for care." Co-Existing Principal Diagnosis: "_when two or more diagnoses equally meet the criteria for principal diagnosis as determined by the circumstances of admission, diagnostic work up, and/or therapy provided, and the Alphabetic Index, Tabular List, or another coding guideline does not provide sequencing direction, any one of the diagnoses may be sequenced first." "When the physician has documented what appears to be a current diagnosis in the body of the record, but has not included the diagnosis in the final diagnostic statement, the physician should be asked whether the diagnosis should be added." (Source Coding [facility] 2 QTR90. p3-4)
== END 2017-09-13 14:46 | DRG 698 ==
LOC: EDBD 10:37 → C.EDC 10:38 → C.MED 16:30 → ENRESERV 18:26 → C.2T 09-11 03:26 → ENRESERV 09-12 13:49 → C.4E 09-12 14:32
PROVIDERS: ADMIT Hospitalist; ATTEND Hospitalist
DX: T83.511A Infection and inflammatory reaction due to indwelling urethral catheter, initial encounter (principal); J18.9 Pneumonia, unspecified organism; R04.2 Hemoptysis; G82.20 Paraplegia, unspecified; I13.0 Hypertensive heart and chronic kidney disease with heart failure and stage 1 through stage 4 chronic kidney disease, or unspecified chronic kidney disease; J96.10 Chronic respiratory failure, unspecified whether with hypoxia or hypercapnia; I50.32 Chronic diastolic (congestive) heart failure; N39.0 Urinary tract infection, site not specified; E11.22 Type 2 diabetes mellitus with diabetic chronic kidney disease; N18.1 Chronic kidney disease, stage 1; E78.5 Hyperlipidemia, unspecified; K21.9 Gastro-esophageal reflux disease without esophagitis; E03.9 Hypothyroidism, unspecified; G40.909 Epilepsy, unspecified, not intractable, without status epilepticus; F32.9 Major depressive disorder, single episode, unspecified; N31.9 Neuromuscular dysfunction of bladder, unspecified; G89.29 Other chronic pain; B96.1 Klebsiella pneumoniae [K. pneumoniae] as the cause of diseases classified elsewhere; E66.9 Obesity, unspecified; Z79.4 Long term (current) use of insulin; Z79.899 Other long term (current) drug therapy; Z87.891 Personal history of nicotine dependence; Y84.6 Urinary catheterization as the cause of abnormal reaction of the patient, or of later complication, without mention of misadventure at the time of the procedure; Y73.1 Therapeutic (nonsurgical) and rehabilitative gastroenterology and urology devices associated with adverse incidents

== ENCOUNTER → 2017-09-09 | Outpatient (CLI) | payer OTHER ==
[~2017-09-09] MED LIST changes: +CEFT1INJ6 IV; +GFNSR600 PO
[2017-09-09 10:00] LABS: BASO % 0.4 %; BASO ABS # 0.05 K/uL (0-0.2); COMPLETE YES; EOS % 4.3 %; HEMATOCRIT 33.4 % (37-47); IG% 0.2 %; LYMPH % 20.2 %; LYMPH ABS # 2.69 K/uL (1.2-3.4); MEAN CELL VOLUME 100.6 fL (80-100); MEAN CORPUSCULAR HEMOGLOBIN 32.2 pg (25-34); MEAN PLATELET VOLUME 11.3 fL (7.4-10.4); MONO % 10.7 %; NEUT % 64.2 %; PLATELET COUNT 514 K/uL (130-400); RED BLOOD COUNT 3.32 M/uL (4.2-5.4); WHITE BLOOD COUNT 13.34 K/uL (4.8-10.8)
[2017-09-09 10:45] LABS: BLOOD UREA NITROGEN 7 mg/dl (7-18); BUN/CREATININE RATIO 20.6 (10-20); CARBON DIOXIDE 33 mmol/L (21-32); CHLORIDE 103 mmol/L (98-107); CREATININE 0.36 mg/dl (0.60-1.20); GLUCOSE 65 mg/dl (70-99); POTASSIUM 3.6 mmol/L (3.5-5.1); SODIUM 141 mmol/L (136-145)
== END ==
LOC: C.LABCC 09:17
PROVIDERS: ATTEND Internal Medicine
DX: D64.9 Anemia, unspecified (principal); D69.6 Thrombocytopenia, unspecified; R06.00 Dyspnea, unspecified; Z87.09 Personal history of other diseases of the respiratory system

== ENCOUNTER → 2017-09-24 | Outpatient (CLI) | payer OTHER ==
[~2017-09-24] MED LIST changes: -AMOX500C3 PO; -ASPI81TA28 PO; +BACL10TA PO; +BISA10SU3 PR; -BISA1SUP4 RE; -BOAS PR; -CIPR1TAB11 PO; -CLIN150C PO; -CLIN1CAP51 PO; -CYM60 PO; -DFL100 PO; -DOCU-94 PO; +DOCU100C31 PO; +DULO60CA44 PO; +FURO-85 PO; +GFNSR600 PO; +INSDGI SC; -INSDGIPEN SC; +IPRASOL4 INH; +LACT1CAP6 PO; -LEVE250T PO; +LEVE500T13 PO; -LEVO50TA PO; +LEVO75TA5 PO; -LPT/40 PO; +LUBI8CAP4 PO; +MOMLX PO; -MRLP17 PO; +MULTTAB63 PO; +NVLG SC; -NVLGIPEN SC; -NYSTCRE11 TOP; -ONDA4TAB10 SL; +ONDA4TAB46 PO; -OXGN; -PHEN-876 PO; +POLY335019 PO; +POTA-65 PO; -POTA10CA28 PO; -PROB1CAP41 PO; +QUET1TAB30 PO; -QUET1TAB32 PO; +SENN-61 PO; -SNK PO; +SODIENE PR; -SRQ25 PO; -SYN50 PO; +ZOLP5TAB PO; -ZOLP5TAB6 PO; +[UNRECOGNIZED DRUG - CODE] PR
== END ==
LOC: C.LABCC 08:02
PROVIDERS: ATTEND Internal Medicine
DX: E03.9 Hypothyroidism, unspecified (principal)

== ENCOUNTER → 2017-10-29 | Outpatient (CLI) | payer OTHER ==
[~2017-10-29] MED LIST changes: +ALBUAER INH; +AMOX500C3 PO; +CEFD300C3 PO; -GFNSR600 PO; +INSU100I SC; -NVLG SC; +PRLSR20 PO
[2017-10-29 18:24] LABS: URINE APPEARANCE CLEAR (CLEAR); URINE BILIRUBIN NEG (NEG); URINE COLOR YELLOW; URINE EPITHELIAL CELL AUTO 0-5 /lpf (0-5); URINE NITRITE POS (NEG); URINE PH 6.5 (4.5-7.5); URINE SPECIFIC GRAVITY 1.013 (1.000-1.030); UROBILINOGEN NEG (NEG)
[2017-10-29 18:29] LABS: MANUAL MICROSCOPIC REQUIRED? NO; REVIEW REQ? NO
== END ==
LOC: C.LABCC 17:48
PROVIDERS: ATTEND Internal Medicine
DX: R41.82 Altered mental status, unspecified (principal); R53.83 Other fatigue; R30.0 Dysuria

== ENCOUNTER → 2017-11-29 | Outpatient (CLI) | payer OTHER ==
[~2017-11-29] MED LIST changes: +ACET-1175 PO; +ALBU18002 INH; +AMOX500T3 PO; +AMOX875T PO; +BISA-16 PO; +CIPR1TAB11 PO; +CLIN150C PO; +DOXY100C76 PO; +DXY100 PO; +FRS/40 PO; +IPRA-64 INH; -IPRASOL4 INH; +MAGNSUS PO; +MCTP EXT; +MISCCAP80 PO; +MULT-16 PO; +NITR100C4 PO; +NVLG SC; +PRED10TA PO; +PRED20TA PO; +SACC250C11 PO; +VNTHFA/IN INH; +[UNRECOGNIZED DRUG - CODE] PO
[2017-11-29 09:55] LABS: HEMOGLOBIN A1C 8.4 % (4.5-5.6)
== END ==
LOC: C.LABCC 09:00
PROVIDERS: ATTEND Internal Medicine
DX: E11.9 Type 2 diabetes mellitus without complications (principal)

== ENCOUNTER → 2017-12-26 | Day surgery (SDC) | payer OTHER ==
[~2017-12-26] VITALS: Wt 66.8 kg
[~2017-12-26] MED LIST changes: -ACET-1175 PO; -ALBU18002 INH; -ALBUAER INH; -AMOX500C3 PO; -AMOX500T3 PO; -AMOX875T PO; +ATROPINE SULFATE 0.1 MG/ML 5ML SYR IV PRN; -BISA-16 PO; -CEFD300C3 PO; -DOXY100C76 PO; -DXY100 PO; +EpHEDrine SULFATE INJ 50 MG/ML AMP IV PRN; -FRS/40 PO; +HYDROmorphone INJ 0.5 MG/0.5 ML SYR ONE; +HYDROmorphone INJ 2 MG/ML SYR/VIAL IV PRN; -IPRA-64 INH; +IPRASOL4 INH; -LACT1CAP6 PO; +LIDOCAINE HCL 2% 2 ML VIAL (20MG/ML) ONE; -MAGNSUS PO; -MCTP EXT; -MULT-16 PO; -MULTTAB63 PO; -NITR100C4 PO; -NVLG SC; -PRED10TA PO; -PRED20TA PO; +PROPOFOL IV EMULSION 10 MG/ML 20 ML VIAL IV ONE; -SACC250C11 PO; -SENN-61 PO; +SODIUM CHLORIDE 0.9% 500ML 500 ML IV ONE; -VNTHFA/IN INH; -ZOLP5TAB PO; -[UNRECOGNIZED DRUG - CODE] PO
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
--- NOTE | 2017-12-26 14:29 | Discharge Instructions ---
Endoscopy Patient Instructions Date / Procedure(s) Performed Dec 26, 2017. Colonoscopy Allergy Information Coded Allergies: Ketorolac (Verified Allergy, Severe, see comment, 12/05/17) Patient reports " i about " when asked about reaction JET Inhibitors (Verified Allergy, Intermediate, ELEVATES CREATININE, ) Sulfa Antibiotics (Verified Adverse Reaction, Intermediate, NAUSEATED, 12/05) Discharge Date / Findings Dec 26, 2017. Melanosis coli Diverticulosis Internal hemorrhoids Medication Instructions OK to resume all medications today as prescribed Reported Home Medications Medications Dose Route/Sig Max Daily Dose Days Date Category Dose Instructions Prilosec (Omeprazole) 20 Mg Capcr 20 Mg PO DAILY 12/05/17 Reported Cleocin (Clindamycin Hcl) 150 Mg Cap 150 Mg PO DIRECTED 12/05/17 Reported TAKES FOR 14 DAYS AND 28 DAYS OFF FOR UTI PREVENTION Cipro (Ciprofloxacin) 250 Mg Tab 250 Mg PO DIRECTED 12/05/17 Reported TAKES FOR 14 DAYS AND 28 DAYS OFF FOR UTI PREVENTION Amitiza (Lubiprostone) 8 Mcg Cap 8 Mcg PO BID PRN 12/05/17 Reported Ativan (Lorazepam) 0.5 Mg Tab 0.5 Mg PO Q6H PRN 10/01/17 Reported Humalog (Insulin Lispro (Human)) 100 Unit/Ml Inj 1 Dose SC UD 10/01/17 Reported PER SLIDING SCALE: 350-400 = 8 UNITS 401-450 = 12 UNITS 451-500 = 16 UNITS 501-550 = 18 UNITS RECHECK BS IN 2 HRS, QID Dilaudid (Hydromorphone Hcl) 2 Mg Tab 2 Mg PO [id number] 3 09/13/17 Rx MAY HOLD DOSE IF PATIENT SLEEPING Duoneb (Ipratropium-Albuterol) 3 Ml Nebu 1 Treatment INH Q6 PRN 09/09/17 Reported Zofran (Ondansetron HCl) 4 Mg Tab 4 Mg PO TID PRN 09/09/17 Reported Fleet Enema (Sodium Phosphate/Biphosphate) Sangeetha 1 Ea VT UD PRN 09/09/17 Reported ON DAY 4 PER PROTOCOL Milk of Magnesia (Magnesium Hydroxide) 30 Ml Susp 30 Ml PO UD PRN 09/09/17 Reported ON DAY 3 PER PROTOCOL NEEDED Dulcolax (Bisacodyl) 10 Mg Sup 1 Supp VT UD PRN 09/09/17 Reported ON DAY 2 NEEDED FOR NO BOWEL MOVEMENT Lioresal (Baclofen) 10 Mg Tab 10 Mg PO QID PRN 09/09/17 Reported ABDOMINAL PAIN / SPASM B & O (Belladonna/Opium) 60 Mg Supp 1 Supp VT Q8 PRN 09/09/17 Reported B & O SUPPOSITORY 60-16.2 Lantus (Insulin Glargine) 100 Unit/Ml Inj 35 Units SC QPM 09/09/17 Reported Potassium Chloride ER (Potassium Chloride) 20 Meq Tab 20 Meq PO QAM 09/09/17 Reported Miralax (Polyethylene Glycol 3350) 1 Pow 17 Gm PO BID 09/09/17 Reported Levothyroxine Sodium 75 Mcg Tab 75 Mg PO QAM 09/09/17 Reported Keppra (Levetiracetam) 500 Mg Tab 500 Mg PO BID 09/09/17 Reported Lasix (Furosemide) 20 Mg Tab 20 Mg PO QAM 09/09/17 Reported Pepcid (Famotidine) 20 Mg Tab 20 Mg PO BID 09/09/17 Reported Cymbalta (Duloxetine Hcl) 60 Mg Cap 60 Mg PO QAM 09/09/17 Reported Doxepin (Doxepin Hcl) 75 Mg Cap 75 Mg PO HS 09/09/17 Reported Docusate Sodium 100 Mg Cap 100 Mg PO BID 09/09/17 Reported Lipitor (Atorvastatin Calcium) 40 Mg Tab 40 Mg PO HS 09/09/17 Reported Tylenol (Acetaminophen) 500 Mg Tab 1,000 Mg PO BID PRN 09/09/17 Reported Seroquel (Quetiapine Fumarate) 25 Mg Tab 25 Mg PO HS 12/26/17 Reported Probiotic (Probiotic Product) 1 Cap Cap 1 Cap PO DAILY 12/26/17 Reported Provider Instructions Activity Restrictions - No exercising or heavy lifting for 24 hours. - Do not drink alcohol the day of the procedure. - Do not drive a car or operate machinery until the day after the procedure. - Do not make any important decisions or sign important papers in 24 hours after the procedure. Following Day: - Return to full activity which may include returning to work/school. Diet Start your diet with liquids and light foods (jello, soup, juice, toast). Then eat your usual diet if not nauseated. Treatment For Common After Affects For mild abdominal pain, bloating, or excessive gas: - Rest - Eat lightly - Lie on right side Follow-Up Information Follow-up with Dr. Dagoberto Jacobs as scheduled Anesthesia Information What You Should Know You have had a procedure that required some medicine to reduce anxiety and discomfort. This treatment is called moderate sedation. After receiving the treatment, you may be sleepy, but you will be able to breathe on your own. The effects of the treatment may last for several hours. Follow these instructions along with Activity/Diet recommendations noted above: * Do NOT do anything where dizziness or clumsiness would be dangerous. * Rest quietly at home today, then you can be up and about tomorrow. * Have a responsible person stay with you the rest of today. * You may have had an I.V. today. If so, you may take the dressing off later today. Recommendations Call your doctor if: * Trouble breathing * Continuous vomiting for more than 24 hours * Temperature above 101 degrees * Severe abdominal pain or bloating * Pain not relieved by pain medicine ordered * There is increased drainage or redness from any incision * A large amount of rectal bleeding greater than 2-3 tablespoons. (If you had a polyp/s removed or have hemorrhoids, a small amount of blood - from the rectum is to be expected.) * You have any unanswered questions or concerns. IN THE EVENT OF A SERIOUS EMERGENCY, GO TO THE NEAREST EMERGENCY ROOM Your discharge instructions were prepared by provider John Sanchez. Patient Instructions Signature Page Renee Ramirez Patient (or Guardian) Signature/Date: I have read and understand the instructions given to me by my caregivers. Caregiver/RN/Doctor Signature/Date: The above-named patient and/or guardian has received patient instructions on this date. + Original Patient Signature Page (only) stays with chart. Please make copy for patient.
--- NOTE | 2017-12-26 14:32 | GI REPORT ---
Procedure Date: 12/26/2017 1:57 PM Procedure: Colonoscopy Indications: Constipation Medicines: Monitored Anesthesia Care Complications: No immediate complications. Estimated Blood Loss: Estimated blood loss: none. Procedure: Pre-Anesthesia Assessment: - Prior to the procedure, a History and Physical was performed, and patient medications and allergies were reviewed. The patient's tolerance of previous anesthesia was also reviewed. The risks and benefits of the procedure and the sedation options and risks were discussed with the patient. All questions were answered, and informed consent was obtained. Prior Anticoagulants: The patient has taken no previous anticoagulant or antiplatelet agents. ASA Grade Assessment: IV - A patient with severe systemic disease that is a constant threat to life. After reviewing the risks and benefits, the patient was deemed in satisfactory condition to undergo the procedure. After I obtained informed consent, the scope was passed under direct vision. Throughout the procedure, the patient's blood pressure, pulse, and oxygen saturations were monitored continuously. The Scope was introduced through the anus and advanced to the cecum, identified by appendiceal orifice and ileocecal valve. The colonoscopy was performed without difficulty. The patient tolerated the procedure well. The quality of the bowel preparation was fair. The ileocecal valve, appendiceal orifice, and rectum were photographed. Findings: The perianal and digital rectal examinations were normal. A diffuse area of mild melanosis was found in the entire colon. Multiple small-mouthed diverticula were found in the sigmoid colon. Non-bleeding internal hemorrhoids were found during retroflexion. The hemorrhoids were small. Impression: - Melanosis in the colon. - Diverticulosis in the sigmoid colon. - Non-bleeding internal hemorrhoids. - No specimens collected. Recommendation: - Resume previous diet. - Continue present medications. - No repeat colonoscopy due to age and the absence of advanced adenomas. - Return to primary care physician as previously scheduled. John Sanchez, DO 12/26/2017 2:32:22 PM This report has been signed electronically. Note Initiated On: 12/26/2017 1:57 PM I attest to the content of the Intraoperative Record and orders documented therein, exceptions below
[2017-12-26 14:48] VITALS: BP 168/77; PULSE 104; O2SAT 100
--- NOTE | 2017-12-26 14:57 | Anesthesiology Progress Note ---
Anesthesia Post Op Note Date & Time Dec 26, 2017 at 14:57 Vital Signs Pain Intensity: 8 Vital Signs Past 12 Hours Date Time Temp Pulse Resp B/P (MAP) Pulse Ox O2 Delivery O2 Flow Rate FiO2 12/26/17 14:48 104 22 168/77 (107) 100 Room Air 12/26/17 14:38 104 22 164/88 (113) 100 Room Air 12/26/17 14:28 108 22 145/68 (93) 95 Room Air 12/26/17 12:50 37.2 98 22 157/114 (128) 100 Room Air 3 Notes Mental Status: alert / awake / arousable, participated in evaluation Pt Amnestic to Procedure: Yes Nausea / Vomiting: adequately controlled Pain: adequately controlled Airway Patency, RR, SpO2: stable & adequate BP & HR: stable & adequate Hydration State: stable & adequate Anesthetic Complications: no major complications apparent
== END | disposition home or self-care (01) ==
LOC: C.GI 12:36
PROVIDERS: ATTEND Internal Medicine
DX: K59.00 Constipation, unspecified (principal); K57.30 Diverticulosis of large intestine without perforation or abscess without bleeding; K64.8 Other hemorrhoids; K63.89 Other specified diseases of intestine; E11.9 Type 2 diabetes mellitus without complications; M81.0 Age-related osteoporosis without current pathological fracture; M19.90 Unspecified osteoarthritis, unspecified site; I10 Essential (primary) hypertension; Z87.891 Personal history of nicotine dependence; Z79.4 Long term (current) use of insulin; Z79.899 Other long term (current) drug therapy

== ENCOUNTER 2018-01-13 11:53 | Inpatient (IN) | payer OTHER ==
[~2018-01-13] VITALS: Ht 147.3 cm; Wt 78.0 kg
[~2018-01-13 11:53] MED LIST changes: -ALBU18002 INH; -AMOX500T3 PO; -FRS/40 PO; -MULT-16 PO; -PRED10TA PO; -SENN-61 PO
[2018-01-13] MEDS ORDERED: ALBUT/IPRATROP 3MG/0.5MG NEB 3 ML VIAL ONE (12:00)
[2018-01-13] MEDS ORDERED: METHYLPREDNISOLONE 125 MG VIAL ONE (12:01)
[2018-01-13] MEDS ORDERED: ALBUT/IPRATROP 3MG/0.5MG NEB 3 ML VIAL INH STA (13:04)
--- NOTE | 2018-01-13 13:06 | DIAGNOSTIC IMAGING REPORT ---
CHEST ONE VIEW PORTABLE CLINICAL HISTORY: shortness of breath. Dyspnea COMPARISON STUDY: 10/04/2017 FINDINGS: Mild stable cardia megaly. Chronic blunting left lateral costophrenic angle. No acute infiltrate. Stable postoperative changes cervical and upper thoracic region. IMPRESSION: Chronic and postoperative change. No acute process. The above report was generated using voice recognition software. It may contain grammatical, syntax or spelling errors. Electronically signed by: Jas Nicole M.D. 01/13/2018 1:05 PM Dictated Date/Time: 01/13/2018 1:04 PM
[2018-01-13 13:27] LABS: BASO % 0.2 %; BASO ABS # 0.04 K/uL (0-0.2); HEMATOCRIT 37.8 % (37-47); LYMPH % 8.1 %; MEAN CELL VOLUME 93.3 fL (80-100); MEAN CORPUSCULAR HEMOGLOBIN 29.6 pg (25-34); MEAN CORPUSCULAR HGB CONC 31.7 g/dl (32-36); MEAN PLATELET VOLUME 10.8 fL (7.4-10.4); MONO % 4.1 %; MONO ABS # 0.86 K/uL (0.11-0.59); NEUT % 87.1 %; NEUT ABS # 18.36 K/uL (1.4-6.5); NUCLEATED RED BLOOD CELL ABS 0.02 K/uL (0-0); PLATELET COUNT 468 K/uL (130-400); RED CELL DISTRIBUTION WIDTH CV 18.4 % (11.5-14.5); RED CELL DISTRIBUTION WIDTH SD 62.8 fL (36.4-46.3); WHITE BLOOD COUNT 21.06 K/uL (4.8-10.8)
[2018-01-13 13:35] LABS: INR 0.9 (0.9-1.1); PTT PATIENT 24.3 SECONDS (21.0-31.0)
[2018-01-13] MEDS ORDERED: LEVAQUIN 750MG / 150ML D5W IV STA (13:41)
[2018-01-13 13:53] LABS: ALBUMIN 3.6 gm/dl (3.4-5.0); CALCIUM 9.1 mg/dl (8.5-10.1); CREATININE 0.61 mg/dl (0.60-1.20); POTASSIUM 4.3 mmol/L (3.5-5.1)
[2018-01-13] MEDS ORDERED: SENN-61 PO (13:54)
[2018-01-13] MEDS ORDERED: MULT-16 PO (13:54)
[2018-01-13] MEDS ORDERED: PRED10TA PO (13:54)
[2018-01-13] MEDS ORDERED: FRS/40 PO (13:54)
[2018-01-13] MEDS ORDERED: ALBU18002 INH (13:54)
[2018-01-13 13:55] LABS: TOTAL PROTEIN 8.2 gm/dl (6.4-8.2)
[2018-01-13 13:57] LABS: INFLUENZA B ANTIGEN Neg for Influ B (NEG)
[2018-01-13] MEDS ORDERED: ALBUT/IPRATROP 3MG/0.5MG NEB 3 ML VIAL INH ONE ×2 (14:00)
[2018-01-13 14:10] VITALS: PULSE 107; O2SAT 97
[2018-01-13] MEDS ORDERED: OPTIRAY 320 IV PRN (14:45)
--- NOTE | 2018-01-13 15:11 | DIAGNOSTIC IMAGING REPORT ---
(CHEST FOR PE) ANGIO WITH CT DOSE: 488.41 mGycm HISTORY: Chest pain dyspnea TECHNIQUE: Multiaxial CT images of the chest were performed following the intravenous administration of contrast to evaluate the pulmonary arteries. Maximal intensity projection images were also obtained. A dose lowering technique was utilized adhering to the principles of ALARA. COMPARISON STUDY: None. FINDINGS: Thoracic aorta shows mild left ischemic change. No evidence for aneurysm or dissection. Pulmonary arterial vasculature enhances appropriately. No significant filling defect is appreciated. Findings of moderate left and to a lesser extent right basilar atelectatic change. Minimal scattered plaque atelectasis right middle lobe. Pulmonary apices are considered clear. Several old rib fractures bilaterally. IMPRESSION: 1. No evidence for pulmonary embolus. 2. Left and to a lesser extent right basilar atelectasis. The above report was generated using voice recognition software. It may contain grammatical, syntax or spelling errors. Electronically signed by: Jas Nicole M.D. 01/13/2018 3:10 PM Dictated Date/Time: 01/13/2018 3:07 PM
[2018-01-13] MEDS ORDERED: AMOX500T3 PO (15:25)
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
[2018-01-13] MEDS ORDERED: ALUMINUM/MAGNESIUM/SIMETH (MAALOX MAX) 30 ML UDC PO PRN (16:00)
[2018-01-13] MEDS ORDERED: BISACODYL 10 MG SUPP PR PRN (16:00)
[2018-01-13] MEDS ORDERED: GLUCOSE 40% GEL 15 GM TUBE PO PRN (16:15)
[2018-01-13] MEDS ORDERED: DEXTROSE 50% 50 ML SYR IV PRN (16:15)
[2018-01-13] MEDS ORDERED: GLUCAGON FOR INJ 1 MG VIAL SQ PRN (16:15)
[2018-01-13] MEDS ORDERED: GLUCOSE 10 TABS/TUBE PO PRN (16:15)
[2018-01-13 17:45] VITALS: BP 146/78; PULSE 64; TEMP 36.9; O2SAT 98; BMI 35.9
--- NOTE | 2018-01-13 18:24 | EMERGENCY ROOM VISIT NOTE ---
History Report prepared by Ochoa: Pk Lucio Under the Supervision of: Dr. Christiano Rivera M.D. First contact with patient: 12:54 Chief Complaint: SHORTNESS OF BREATH Stated Complaint: Shortness of breath Nursing Triage Summary: Patient presents via EMS with c/o shortness of breath since last Saturday. Patient at home wears 3L of 02 at all times. Patient was still feeling short of breath. 02 increased by EMS to 4L sp02: 96%. Patient also reports that she has a productive cough with brown/carson sputum. Patient also reports tightness in her chest when breathing. Patient has audible wheezes. Patient given one breathing treatment by EMS and 125mg of solumedrol. History of Present Illness The patient is a 77 year old female who presents to the Emergency Room by EMS with complaints of constant shortness of breath beginning a week ago. She is a resident at [facility]. The patient also complains of productive cough and chest "tightness". Her cough produces a brown or bloody sputum. Her chest tightness began "a while ago". The patient states that she has had a fever of 101 degrees as well. She was given steroids and a breathing treatment en route which improved her symptoms a little. She is on 3 L of supplemental oxygen at home at all times. The patient has no history of blood clots. She is not on any blood thinning medication other than baby aspirin. She had a flu shot this year. The patient is unable to feel her legs, but believes they are likely swollen. She denies vomiting. Source of History: patient Onset: a week ago Position: other (Global) Quality: other (shortness of breath) Timing: constant Modifying Factors (Relieving): other (DuoNeb) Associated Symptoms: + fevers (101 degrees), + cough (produces brown or bloody sputum), No vomiting Review of Systems See HPI for pertinent positives & negatives. A total of 10 systems reviewed and were otherwise negative. Past Medical & Surgical Medical Problems: (1) Acetaminophen overdose (2) Anemia (3) Aortic atherosclerosis (4) Chest pain (5) Chronic gastritis (6) Chronic kidney disease (7) Compression fracture of thoracic vertebra (8) Depressive disorder (9) Diabetes (10) Dyslipidemia (11) Esophageal stenosis (12) Frequent PVCs (13) Gall bladder disease (14) Gastroparesis (15) GERD (gastroesophageal reflux disease) (16) Hip fracture (17) History of frequent urinary tract infections (18) Hypertension (19) Hypotension (20) Hypothyroidism (21) indwelling catheter and recurrence UTI (22) indwelling catheter and recurrence UTI (23) Intractable pain (24) Left lower lobe pneumonia (25) Pancreatitis (26) Paralysis of both lower limbs (27) Post op infection (28) Post-op pain (29) Rectal pain, chronic (30) sepsis (31) Sepsis secondary to UTI (32) Shortness of breath (33) UTI (urinary tract infection) (34) UTI (urinary tract infection) (35) uti possible sepsis, consipation Surgical Problems: (1) History of cholecystectomy (2) History of hysterectomy (3) Hx of appendectomy (4) Previous back surgery (5) S/P tonsillectomy and adenoidectomy Family History Cancer Diabetes mellitus FH: heart disease Social History Smoking Status: Former Smoker Alcohol Use: none Drug Use: none Marital Status: Housing Status: lives with family Occupation Status: retired Current/Historical Medications Scheduled Acetaminophen (Tylenol), 1,000 MG PO BID Albuterol Sulfate (Proair Respiclick), 2 PUFFS INH BID Amoxicillin (Amoxil), 1 TAB PO DAILY Atorvastatin (Lipitor), 40 MG PO HS Ciprofloxacin Tab (Cipro), 250 MG PO DIRECTED Clindamycin Hcl (Cleocin), 150 MG PO DIRECTED Docusate Sodium (Docusate Sodium), 100 MG PO BID Doxepin Hcl (Doxepin), 75 MG PO HS Duloxetine Hcl (Cymbalta), 60 MG PO QAM Famotidine (Pepcid), 20 MG PO BID Furosemide (Lasix), 40 MG PO DAILY Hydromorphone Hcl (Dilaudid), 2 MG PO [id number] Insulin Glargine (Lantus), 35 UNITS SC QPM Insulin Lispro (Human) (Humalog), 1 DOSE SC UD Levetiracetam (Keppra), 500 MG PO BID Levothyroxine Sodium (Levothyroxine Sodium), 75 MG PO QAM Lubiprostone (Amitiza), 8 MCG PO BID Multiple Vitamins W/ Minerals (Thera-M), 1 TAB PO DAILY Omeprazole (Prilosec), 20 MG PO DAILY Polyethylene Glycol 3350 (Miralax), 17 GM PO BID Potassium Chloride (Potassium Chloride ER), 20 MEQ PO QAM Prednisone Tab (Prednisone), 1 DOSE PO DAILY Probiotic Product (Probiotic), 1 CAP PO DAILY Quetiapine Fumarate (Seroquel), 25 MG PO HS Senna (Senokot), 4 TABS PO BID Scheduled PRN Baclofen (Lioresal), 10 MG PO QID PRN for Pain Belladonna/Opium (B & O), 1 SUPP LA Q8 PRN for RECTAL PAIN Bisacodyl (Dulcolax), 1 SUPP LA UD PRN for Constipation Ipratropium-Albuterol (Duoneb), 1 TREATMENT INH Q6 PRN for Shortness of Breath Lorazepam (Ativan), 0.5 MG PO Q6H PRN for Anxiety Magnesium Hydroxide (Milk of Magnesia), 30 ML PO UD PRN for Constipation Ondansetron Hcl (Zofran), 4 MG PO TID PRN for Nausea Allergies Coded Allergies: Ketorolac (Verified Allergy, Severe, see comment, 01/13/18) Patient reports " i about " when asked about reaction JET Inhibitors (Verified Allergy, Intermediate, ELEVATES CREATININE, ) Sulfa Antibiotics (Verified Adverse Reaction, Intermediate, NAUSEATED, 11/18) Physical Exam Vital Signs Date Time Temp Pulse Resp B/P (MAP) Pulse Ox O2 Delivery O2 Flow Rate FiO2 01/13/18 15:37 135 32 93 01/13/18 15:31 122/74 01/13/18 15:07 139 24 01/13/18 14:37 103 21 100 01/13/18 14:32 104 25 100 01/13/18 14:31 134/66 01/13/18 14:10 107 20 97 Nasal Cannula 3.0 01/13/18 14:02 103 20 96 01/13/18 14:02 103 20 96 Nasal Cannula 4.0 01/13/18 14:01 146/65 01/13/18 13:32 104 124/78 96 Nasal Cannula 4.0 01/13/18 13:32 105 20 124/78 95 Nasal Cannula 4.0 01/13/18 12:38 96 4.0 01/13/18 12:35 102 01/13/18 12:28 96 Nasal Cannula 4.0 01/13/18 12:06 Nasal Cannula 4.0 96 01/13/18 12:03 36.9 111 167/91 96 Nasal Cannula 4.0 Physical Exam Constitutional: Vital signs reviewed. Eyes: Pupils are equal round reactive to light. Conjunctiva are noninjected. ENT: Pharynx is clear without erythema or exudate. Mucous membranes are dry. Neck supple without meningeal signs. Respiratory: Bilateral rhonchi and wheezing. Breath sounds are equal bilaterally. Cardiovascular: Tachycardic. Heart rate 105. No rubs or gallops. GI: Soft, nondistended and nontender. Bowel sounds are present. Musculoskeletal: Bilateral lower extremity edema. Integumentary: No cyanosis. Neurological: The patient is awake and alert. Paraplegic. Psychiatric: Normal affect. Medical Decision & Procedures ER Provider Diagnostic Interpretation: Radiology results as stated below per my review and the radiologist's interpretation: CHEST ONE VIEW PORTABLE FINDINGS: Mild stable cardia megaly. Chronic blunting left lateral costophrenic angle. No acute infiltrate. Stable postoperative changes cervical and upper thoracic region. IMPRESSION: Chronic and postoperative change. No acute process. The above report was generated using voice recognition software. It may contain grammatical, syntax or spelling errors. Electronically signed by: Jas Nicole M.D. 01/13/2018 1:05 PM (CHEST FOR PE) ANGIO WITH FINDINGS: Thoracic aorta shows mild left ischemic change. No evidence for aneurysm or dissection. Pulmonary arterial vasculature enhances appropriately. No significant filling defect is appreciated. Findings of moderate left and to a lesser extent right basilar atelectatic change. Minimal scattered plaque atelectasis right middle lobe. Pulmonary apices are considered clear. Several old rib fractures bilaterally. IMPRESSION: 1. No evidence for pulmonary embolus. 2. Left and to a lesser extent right basilar atelectasis. The above report was generated using voice recognition software. It may contain grammatical, syntax or spelling errors. Electronically signed by: Jas Nicole M.D. 01/13/2018 3:10 PM Laboratory Results 01/13/18 13:15 Red Blood Count 4.05, Mean Corpuscular Volume 93.3, Mean Corpuscular Hemoglobin 29.6, Mean Corpuscular Hemoglobin Concent 31.7, Mean Platelet Volume 10.8, Neutrophils (%) (Auto) 87.1, Lymphocytes (%) (Auto) 8.1, Monocytes (%) (Auto) 4.1, Eosinophils (%) (Auto) 0.0, Basophils (%) (Auto) 0.2, Neutrophils # (Auto) 18.36, Lymphocytes # (Auto) 1.70, Monocytes # (Auto) 0.86, Eosinophils # (Auto) 0.00, Basophils # (Auto) 0.04 01/13/18 13:15 Test 01/13/18 12:33 01/13/18 13:15 01/13/18 13:17 Influenza Type A Antigen Neg for Influ A (NEG) Influenza Type B Antigen Neg for Influ B (NEG) White Blood Count 21.06 K/uL (4.8-10.8) Red Blood Count 4.05 M/uL (4.2-5.4) Hemoglobin 12.0 g/dL (12.0-16.0) Hematocrit 37.8 % (37-47) Mean Corpuscular Volume 93.3 fL (80-100) Mean Corpuscular Hemoglobin 29.6 pg (25-34) Mean Corpuscular Hemoglobin Concent 31.7 g/dl (32-36) Platelet Count 468 K/uL (130-400) Mean Platelet Volume 10.8 fL (7.4-10.4) Neutrophils (%) (Auto) 87.1 % Lymphocytes (%) (Auto) 8.1 % Monocytes (%) (Auto) 4.1 % Eosinophils (%) (Auto) 0.0 % Basophils (%) (Auto) 0.2 % Neutrophils # (Auto) 18.36 K/uL (1.4-6.5) Lymphocytes # (Auto) 1.70 K/uL (1.2-3.4) Monocytes # (Auto) 0.86 K/uL (0.11-0.59) Eosinophils # (Auto) 0.00 K/uL (0-0.5) Basophils # (Auto) 0.04 K/uL (0-0.2) RDW Standard Deviation 62.8 fL (36.4-46.3) RDW Coefficient of Variation 18.4 % (11.5-14.5) Immature Granulocyte % (Auto) 0.5 % Immature Granulocyte # (Auto) 0.10 K/uL (0.00-0.02) Nucleated RBC Absolute Count (auto) 0.02 K/uL (0-0) Nucleated Red Blood Cells % 0.1 % Prothrombin Time 9.5 SECONDS (9.0-12.0) Prothromb Time International Ratio 0.9 (0.9-1.1) Activated Partial Thromboplast Time 24.3 SECONDS (21.0-31.0) Partial Thromboplastin Ratio 0.9 Anion Gap 6.0 mmol/L (3-11) Est Creatinine Clear Calc Drug Dose 66.9 ml/min Estimated GFR () 100.6 Estimated GFR (Non- 86.8 BUN/Creatinine Ratio 23.9 (10-20) Calcium Level 9.1 mg/dl (8.5-10.1) Total Bilirubin 0.3 mg/dl (0.2-1) Aspartate Amino Transf (AST/SGOT) 20 U/L (15-37) Alanine Aminotransferase (ALT/SGPT) 29 U/L (12-78) Alkaline Phosphatase 141 U/L (45-117) Total Protein 8.2 gm/dl (6.4-8.2) Albumin 3.6 gm/dl (3.4-5.0) Globulin 4.6 gm/dl (2.5-4.0) Albumin/Globulin Ratio 0.8 (0.9-2) Procalcitonin 0.10 ng/ml (0-0.5) Bedside Lactic Acid Venous 0.87 mmol/L (0.90-1.70) Bedside Troponin I < 0.030 ng/ml (0-0.045) Laboratory results as reviewed by me. Medications Administered Medications (Trade) Dose Ordered Sig/Karen Route Start Time Stop Time Status Last Admin Dose Admin Albuterol/ Ipratropium (Duoneb) 3 ml NOW STAT INH 01/13/18 13:04 01/13/18 13:07 DC 01/13/18 13:04 3 ML Levofloxacin (Levaquin / D5W) 750 mg NOW STAT IV 01/13/18 13:41 01/13/18 13:42 DC 01/13/18 13:44 750 MG Albuterol/ Ipratropium (Duoneb) 12 ml ONE ONCE INH 01/13/18 14:00 01/13/18 14:01 DC 01/13/18 14:10 12 ML ECG Indication: SOB/dyspnea Rate (beats per minute): 105 Rhythm: sinus tachycardia Findings: no acute ischemic change, no ectopy ED Course 1258: The patient was evaluated in room A12A. A complete history and physical exam was performed. 1304: Ordered DuoNeb 3 mL INH. 1341: Ordered Levaquin / D5W 750 mg IV. 1348: I reassessed the patient. She is still wheezing significantly, but refuses BiPAP. The patient states that she is very claustrophobic and cannot tolerate the mask. She states that she will not wear the mask for a nebulizer treatment either. I discussed her test results with her. The patient will received an hour long nebulizer treatment. 1400: Ordered DuoNeb 12 mL INH, DuoNeb 12 mL INH. 1430: Upon reevaluation, the patient is resting. I discussed tonight's findings with her. She verbalized agreement of the treatment plan. The patient will be evaluated for further management. Medical Decision This is a 77-year-old female who presents with chest pain, shortness of breath and fever. Differential diagnosis includes pneumonia, influenza, sepsis, pulmonary embolism, [place]. I did perform a limited focused review of portions of the patient's old chart on the electronic medical record. The patient has had no recent pertinent visits to this hospital. I did evaluate the patient as noted above. Patient is presenting with fever, chest pain and shortness of breath. She also states that she had some hemoptysis. IV access was established. The patient was placed on a continuous pvc monitor. I did order and personally review the patient's 12-lead EKG and chest x-ray as described above. Her chest x-ray did not show any signs of pneumonia. I did order and review the patient's blood work as noted in the electronic medical record. Her white blood cell count is elevated. I did treat her empirically with Levaquin IV. Flu testing is negative. Because of her hemoptysis, chest pain and increasing shortness of breath, I did order a CT of the chest to rule out PE. I did review the images myself as well as the radiology report as described above. There is no evidence of pulmonary embolism. I did discuss the test results with the patient and her . I did discuss case with the hospitalist and clinical case manager. I did reassess the patient multiple times. She did have improvement of her symptoms after her initial DuoNeb but was still wheezing significantly. I did discuss BiPAP with her but the patient is too claustrophobic for BiPAP. She was given an hour- long DuoNeb. She did receive Solu-Medrol in the ambulance. Medication Reconcilliation Current Medication List: was personally reviewed by me Blood Pressure Screening Patient's blood pressure: Elevated blood pressure Blood pressure disposition: Referred to PCP Consults Time Called: 1427 Consulting Physician: Dr. Lange - [facility] [place]ed Call: [address] Lange of [facility] [place]. We discussed the patient and her results. The patient will be further evaluated by [facility] [place] Impression Primary Impression: Acute asthma exacerbation Additional Impression: SIRS (systemic inflammatory response syndrome) Scribe Attestation The scribe's documentation has been prepared under my direct and personally reviewed by me in its entirety. I confirm that the note above accurately reflects all work, treatment, procedures, and medical decision making performed by me. Departure Information Dispostion Being Evaluated By Hospitalist [place]errals [place] Patient Instructions My [facility] Problem Qualifiers Primary Impression: Acute asthma exacerbation Asthma severity: severe Asthma persistence: unspecified Qualified Codes: J45.901 - Unspecified asthma with (acute) exacerbation
[2018-01-13] MEDS ORDERED: LEVALBUTEROL 1.25MG/0.5ML NEB INH PRN (19:30)
[2018-01-13] MEDS ORDERED: IPRATROPIUM BROMIDE NEB SOLN 0.02% 2.5 ML VIAL INH PRN (19:30)
[2018-01-13] MEDS: HYDROmorphone HCL 2 MG TAB PO SCH ×2 (19:39→21:44)
[2018-01-13] MEDS ORDERED: LEVALBUTEROL/IPRATROPIUM NEB INH SCH (21:00)
[2018-01-13] MEDS: ENOXAPARIN 40 MG/0.4 ML SYR SQ SCH (21:45)
[2018-01-13] MEDS: DOXEPIN HCL 75 MG CAP PO SCH (21:46)
[2018-01-13] MEDS: LUBIPROSTONE 8 MCG CAP PO SCH (21:46)
[2018-01-13] MEDS: METHYLPREDNISOLONE IV 40 MG in SYRINGE 0 ML IV SCH (21:47)
[2018-01-13] MEDS: CEFTRIAXONE SOD INJ 1 GM in DEXTROSE 5% ADD-VANTAGE 50ML 50 ML IV SCH (21:48)
[2018-01-13] MEDS: SENNA 8.6 MG TAB PO SCH (21:49)
[2018-01-13] MEDS: LEVETIRACETAM 500 MG TAB PO SCH (21:49)
[2018-01-13] MEDS: FAMOTIDINE 20 MG TAB PO SCH (21:49)
[2018-01-13] MEDS: QUETIAPINE FUMARATE 25 MG TAB PO SCH (21:50)
[2018-01-13] MEDS: BACLOFEN 10 MG TAB PO PRN (21:51)
[2018-01-13] MEDS: POLYETHYLENE (MIRALAX) 17 GM PACK PO SCH (21:51)
[2018-01-13] MEDS: ATORVASTATIN 40 MG TAB PO SCH (21:53)
[2018-01-13] MEDS: DOCUSATE SODIUM 100 MG CAP PO SCH (21:53)
[2018-01-13] MEDS: ACETAMINOPHEN 500 MG TAB PO SCH (21:54)
[2018-01-13] MEDS: INSULIN ASPART 100 UNITS/ML 3 ML PEN SC SCH (22:02)
[2018-01-13] MEDS: INSULIN GLARGINE SOLOSTAR 100 UNITS/ML 3 ML PEN SC SCH (22:03)
[2018-01-14] VITALS (8 sets, daily range): BP systolic 100–165; BP diastolic 64–85; PULSE 76–104; TEMP 36.8–37.1; O2SAT 89–100
[2018-01-14] MEDS: IPRATROPIUM BROMIDE NEB SOLN 0.02% 2.5 ML VIAL INH SCH ×4 (02:07→18:59)
[2018-01-14] MEDS: LEVALBUTEROL 1.25MG/0.5ML NEB INH SCH ×4 (02:07→18:59)
[2018-01-14] MEDS: METHYLPREDNISOLONE IV 40 MG in SYRINGE 0 ML IV SCH ×4 (02:40→20:19)
[2018-01-14] MEDS: LEVOTHYROXINE 75 MCG TAB PO SCH (06:21)
[2018-01-14] MEDS: HYDROmorphone HCL 2 MG TAB PO SCH ×5 (06:23→18:03)
[2018-01-14 07:50] LABS: BASO % 0.2 %; BASO ABS # 0.02 K/uL (0-0.2); IG# 0.04 K/uL (0.00-0.02); LYMPH % 12.4 %; LYMPH ABS # 1.43 K/uL (1.2-3.4); MEAN CELL VOLUME 91.9 fL (80-100); MEAN CORPUSCULAR HEMOGLOBIN 28.9 pg (25-34); MEAN CORPUSCULAR HGB CONC 31.4 g/dl (32-36); MEAN PLATELET VOLUME 10.6 fL (7.4-10.4); MONO % 2.6 %; NEUT % 84.5 %; NEUT ABS # 9.73 K/uL (1.4-6.5); PLATELET COUNT 482 K/uL (130-400); RED CELL DISTRIBUTION WIDTH CV 18.3 % (11.5-14.5); RED CELL DISTRIBUTION WIDTH SD 61.5 fL (36.4-46.3); WHITE BLOOD COUNT 11.52 K/uL (4.8-10.8)
[2018-01-14 08:28] LABS: CALCIUM 9.2 mg/dl (8.5-10.1); CREATININE 0.43 mg/dl (0.60-1.20); POTASSIUM 4.7 mmol/L (3.5-5.1)
[2018-01-14 08:31] LABS: TOTAL PROTEIN 7.2 gm/dl (6.4-8.2)
[2018-01-14] MEDS: ACETAMINOPHEN 500 MG TAB PO SCH (09:00)
[2018-01-14] MEDS: SENNA 8.6 MG TAB PO SCH (09:00)
[2018-01-14] MEDS: CEROVITE ADV FORMULA TAB PO SCH (09:00)
[2018-01-14] MEDS: CIPROFLOXACIN 250 MG TAB PO SCH (09:00)
[2018-01-14] MEDS: DULOXETINE HCL 60 MG CAP PO SCH (09:00)
[2018-01-14] MEDS: FAMOTIDINE 20 MG TAB PO SCH (09:00)
[2018-01-14] MEDS: DOCUSATE SODIUM 100 MG CAP PO SCH (09:00)
[2018-01-14] MEDS: SACCHAROMYCES BOUL (FLORASTOR) 250 MG CAP PO SCH (09:00)
[2018-01-14] MEDS: FUROSEMIDE 40 MG TAB PO SCH (09:01)
[2018-01-14] MEDS: POLYETHYLENE (MIRALAX) 17 GM PACK PO SCH (09:01)
[2018-01-14] MEDS: LEVETIRACETAM 500 MG TAB PO SCH (09:01)
[2018-01-14] MEDS: LUBIPROSTONE 8 MCG CAP PO SCH (09:01)
[2018-01-14] MEDS: PANTOprazole SOD 40 MG TAB PO SCH (09:01)
[2018-01-14] MEDS: POTASSIUM CHLORIDE 20 MEQ TABCR PO SCH (09:01)
[2018-01-14] MEDS: INSULIN ASPART 100 UNITS/ML 3 ML PEN SC SCH ×3 (09:08→18:02)
[2018-01-14] MEDS: BACLOFEN 10 MG TAB PO PRN (19:48)
[2018-01-14] MEDS: CEFTRIAXONE SOD INJ 1 GM in DEXTROSE 5% ADD-VANTAGE 50ML 50 ML IV SCH (20:19)
[2018-01-14] MEDS: ENOXAPARIN 40 MG/0.4 ML SYR SQ SCH (20:19)
[2018-01-15] MEDS: IPRATROPIUM BROMIDE NEB SOLN 0.02% 2.5 ML VIAL INH SCH ×4 (01:37→20:32)
[2018-01-15] MEDS: LEVALBUTEROL 1.25MG/0.5ML NEB INH SCH ×4 (01:37→20:32)
[2018-01-15 01:40] VITALS: PULSE 92; O2SAT 99
[2018-01-15] MEDS: LUBIPROSTONE 8 MCG CAP PO SCH ×3 (02:13→20:58)
[2018-01-15] MEDS: FAMOTIDINE 20 MG TAB PO SCH ×3 (02:15→21:01)
[2018-01-15] MEDS: DOCUSATE SODIUM 100 MG CAP PO SCH ×3 (02:15→20:58)
[2018-01-15] MEDS: HYDROmorphone HCL 2 MG TAB PO SCH ×7 (02:15→20:59)
[2018-01-15] MEDS: POLYETHYLENE (MIRALAX) 17 GM PACK PO SCH ×3 (02:15→21:00)
[2018-01-15] MEDS: ATORVASTATIN 40 MG TAB PO SCH ×2 (02:15→21:00)
[2018-01-15] MEDS: LEVETIRACETAM 500 MG TAB PO SCH ×3 (02:15→20:59)
[2018-01-15] MEDS: SENNA 8.6 MG TAB PO SCH ×3 (02:16→21:02)
[2018-01-15] MEDS: INSULIN ASPART 100 UNITS/ML 3 ML PEN SC SCH ×5 (02:16→21:15)
[2018-01-15] MEDS: DOXEPIN HCL 75 MG CAP PO SCH ×2 (02:16→21:04)
[2018-01-15] MEDS: QUETIAPINE FUMARATE 25 MG TAB PO SCH ×2 (02:16→21:36)
[2018-01-15] MEDS: ACETAMINOPHEN 500 MG TAB PO SCH ×3 (02:16→21:05)
[2018-01-15] MEDS: INSULIN GLARGINE SOLOSTAR 100 UNITS/ML 3 ML PEN SC SCH (02:16)
[2018-01-15] MEDS: METHYLPREDNISOLONE IV 40 MG in SYRINGE 0 ML IV SCH ×4 (02:24→20:56)
[2018-01-15] MEDS: ACETAMINOPHEN 325 MG TAB PO PRN (03:16)
[2018-01-15] MEDS: LEVOTHYROXINE 75 MCG TAB PO SCH (05:29)
[2018-01-15 06:55] VITALS: PULSE 104; O2SAT 96
[2018-01-15 07:27] VITALS: BP 167/92; PULSE 105; TEMP 36.7; O2SAT 95
[2018-01-15] MEDS: PANTOprazole SOD 40 MG TAB PO SCH (08:20)
[2018-01-15] MEDS: FUROSEMIDE 40 MG TAB PO SCH (08:20)
[2018-01-15] MEDS: CIPROFLOXACIN 250 MG TAB PO SCH (08:20)
[2018-01-15] MEDS: SACCHAROMYCES BOUL (FLORASTOR) 250 MG CAP PO SCH (08:20)
[2018-01-15] MEDS: DULOXETINE HCL 60 MG CAP PO SCH (08:20)
[2018-01-15] MEDS: LORAZEPAM 0.5 MG TAB PO PRN ×2 (08:20→15:27)
[2018-01-15] MEDS: CEROVITE ADV FORMULA TAB PO SCH (08:21)
[2018-01-15] MEDS: POTASSIUM CHLORIDE 20 MEQ TABCR PO SCH (08:21)
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
[2018-01-15 09:32] LABS: HEMATOCRIT 36.8 % (37-47); HEMOGLOBIN 11.7 g/dL (12.0-16.0); MEAN CELL VOLUME 90.9 fL (80-100); MEAN CORPUSCULAR HEMOGLOBIN 28.9 pg (25-34); MEAN CORPUSCULAR HGB CONC 31.8 g/dl (32-36); MEAN PLATELET VOLUME 10.6 fL (7.4-10.4); PLATELET COUNT 519 K/uL (130-400); RED CELL DISTRIBUTION WIDTH CV 17.9 % (11.5-14.5); RED CELL DISTRIBUTION WIDTH SD 59.9 fL (36.4-46.3); WHITE BLOOD COUNT 12.02 K/uL (4.8-10.8)
[2018-01-15 10:06] LABS: CALCIUM 9.4 mg/dl (8.5-10.1); CREATININE 0.61 mg/dl (0.60-1.20); POTASSIUM 4.2 mmol/L (3.5-5.1)
[2018-01-15] MEDS: MAGNESIUM HYDROXIDE SUSP 30 ML UDC PO PRN ×2 (12:34→20:55)
[2018-01-15 14:15] VITALS: PULSE 108; O2SAT 96
[2018-01-15 15:01] VITALS: BP 134/74; PULSE 103; TEMP 36.8; O2SAT 98
[2018-01-15] MEDS ORDERED: LACTULOSE SYRUP 30 GM/45 ML UDP PO ONE (16:00)
[2018-01-15] MEDS: BACLOFEN 10 MG TAB PO PRN (17:04)
[2018-01-15] MEDS ORDERED: PHARMACY GLYCEMIC MGMT CONSULT PRN (17:39)
[2018-01-15] MEDS ORDERED: INSULIN ASPART 100 UNITS/ML 3 ML PEN SC ONE (18:15)
[2018-01-15] MEDS ORDERED: INSULIN HUMAN REGULAR IV BOLUS 8 UNIT in SYRINGE 0 ML IV SCH (18:30)
--- NOTE | 2018-01-15 20:47 | Pharmacy Progress Note ---
Glycemic Control Intl Consult Date of Service Jan 15, 2018. Scope Glycemic Pharmacist consulted by Dr French on 01/15/18 for glycemic control and to write orders per [facility] inpatient glycemic control protocol Objective Weight (Kilograms): 78.000 Accuchecks BSG (last 24hrs): Test 01/15/18 07:28 01/15/18 08:56 01/15/18 11:16 01/15/18 16:23 Bedside Glucose 237 mg/dl (70-90) 275 mg/dl (70-90) 315 mg/dl (70-90) Random Glucose 303 mg/dl (70-99) Test 01/15/18 20:01 Bedside Glucose 194 mg/dl (70-90) Laboratory Data (last 24hrs) Test 01/15/18 08:56 Anion Gap 5.0 mmol/L BUN/Creatinine Ratio 23.5 Blood Urea Nitrogen 14 mg/dl Creatinine 0.61 mg/dl Potassium Level 4.2 mmol/L Sodium Level 131 mmol/L White Blood Count 12.02 K/uL Recent Pertinent Medications Outpatient Anti-diabetic Regimen: * Lantus 35 units SQ qPM plus Humalog sliding scale * A1c = 8.4 % 11/29/17 The patient is currently receiving: * Basal insulin: Lantus 35 units every 24 hours in the evening * Correctional Insulin: Novolog Correction per scale ACHS Goal Range: Low 140 mg/dL - High 180 mg/dL Correction Factor: 30 mg/dL/unit * Prandial insulin: Per carb ratio of 1 unit per 10 grams CHO consumed Risk Factors for Insulin Resistance: * Steroids: solu-medrol 40 mg IV q6 hours * Infection: ciprofloxacin prophylaxis * Diet: T2 DM diet Assessment & Plan ASSESSMENT: * Ms Ramirez is a 77 y/o F with a PMH of CHF, paraplegia, HTN, HLD, chronic pain, seizures, and neurogenic bladder with frequent UTIs who presents with SOB with chronic respiratory failure. She was initially given a Solu-Medrol 125 mg IV x 1 on 01/13 and then started on 40 mg IV q6 hours (this is day 3 of dosing). * Blood sugars yesterday were [phone] with 53 units of insulin (35 units of basal). Today's fasting was 237 mg/dL and the rest of the blood sugars today were 275 and 315. * With steroids, it is important to utilize Novolog coverage. Tightened coverage to weight-based stress of 3 and asked nurse to give additional 7 units as this was the difference between the previous scale and current scale. Also, since blood sugars were over 300 mg/dL gave a 0.1 unit/kg bolus of IV insulin. Blood sugar prior to bedtime was 194 mg/dL. Utilize overnight accuchecks to provide 24 hour coverage as uncertain how much basal patient will need. * With basal insulin, increased slightly to weight-based stress of 3 dosing. May add additional Lantus tomorrow morning - utilizing caution with too much basal in the evening as if steroids are cut there may be too much insulin on board PLAN FOR INPATIENT GLYCEMIC CONTROL: * Basal insulin with LANTUS 40 units SQ HS * Correctional Insulin with NOVOLOG per scale ACHS or Q6hrs while NPO PLUS at midnight and 0400 * Goal Range: Low 110 mg/dL - High 140 mg/dL * Correction Factor: 20 mg/dL/unit * Nutritional / Prandial insulin per carb ratio of 1 unit per 7 grams CHO consumed * Please note that the plan above was derived based on current level of insulin resistance and hospital stress. These recommendations are appropriate for inpatient admission only. Plan of care upon discharge will need to be reassessed to avoid potential outpatient hypo/hyperglycemia. Thank you.
[2018-01-15] MEDS: ENOXAPARIN 40 MG/0.4 ML SYR SQ SCH (20:57)
[2018-01-15] MEDS ORDERED: INSULIN GLARGINE SOLOSTAR 100 UNITS/ML 3 ML PEN SC SCH (21:00)
[2018-01-15 23:30] VITALS: BP 156/83; PULSE 91; TEMP 37; O2SAT 97
[2018-01-16] MEDS: INSULIN ASPART 100 UNITS/ML 3 ML PEN SC SCH ×6 (00:56→21:03)
[2018-01-16] MEDS: IPRATROPIUM BROMIDE NEB SOLN 0.02% 2.5 ML VIAL INH SCH ×4 (02:04→19:18)
[2018-01-16] MEDS: LEVALBUTEROL 1.25MG/0.5ML NEB INH SCH ×4 (02:04→19:18)
[2018-01-16] MEDS: METHYLPREDNISOLONE IV 40 MG in SYRINGE 0 ML IV SCH ×4 (03:20→19:58)
[2018-01-16] MEDS: HYDROmorphone HCL 2 MG TAB PO SCH ×6 (05:55→20:57)
[2018-01-16] MEDS: LEVOTHYROXINE 75 MCG TAB PO SCH (05:56)
[2018-01-16 07:47] VITALS: PULSE 88; O2SAT 96
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
[2018-01-16] MEDS: SENNA 8.6 MG TAB PO SCH ×2 (09:05→21:01)
[2018-01-16] MEDS: POLYETHYLENE (MIRALAX) 17 GM PACK PO SCH ×2 (09:05→20:59)
[2018-01-16] MEDS: FAMOTIDINE 20 MG TAB PO SCH ×2 (09:06→21:00)
[2018-01-16] MEDS: LORAZEPAM 0.5 MG TAB PO PRN (09:06)
[2018-01-16] MEDS: FUROSEMIDE 40 MG TAB PO SCH (09:06)
[2018-01-16] MEDS: CIPROFLOXACIN 250 MG TAB PO SCH (09:06)
[2018-01-16] MEDS: LEVETIRACETAM 500 MG TAB PO SCH ×2 (09:06→21:00)
[2018-01-16] MEDS: ACETAMINOPHEN 500 MG TAB PO SCH ×2 (09:06→20:59)
[2018-01-16] MEDS: DULOXETINE HCL 60 MG CAP PO SCH (09:07)
[2018-01-16] MEDS: PANTOprazole SOD 40 MG TAB PO SCH (09:07)
[2018-01-16] MEDS: DOCUSATE SODIUM 100 MG CAP PO SCH ×2 (09:07→20:58)
[2018-01-16] MEDS: LUBIPROSTONE 8 MCG CAP PO SCH ×2 (09:07→21:00)
[2018-01-16] MEDS: SACCHAROMYCES BOUL (FLORASTOR) 250 MG CAP PO SCH (09:07)
[2018-01-16] MEDS: POTASSIUM CHLORIDE 20 MEQ TABCR PO SCH (09:07)
[2018-01-16] MEDS: CEROVITE ADV FORMULA TAB PO SCH (09:08)
[2018-01-16 09:21] LABS: HEMATOCRIT 37.7 % (37-47); HEMOGLOBIN 12.2 g/dL (12.0-16.0); MEAN CELL VOLUME 90.4 fL (80-100); MEAN CORPUSCULAR HEMOGLOBIN 29.3 pg (25-34); MEAN CORPUSCULAR HGB CONC 32.4 g/dl (32-36); MEAN PLATELET VOLUME 10.7 fL (7.4-10.4); NUCLEATED RED BLOOD CELL ABS 0.02 K/uL (0-0); PLATELET COUNT 545 K/uL (130-400); RED CELL DISTRIBUTION WIDTH CV 17.7 % (11.5-14.5); RED CELL DISTRIBUTION WIDTH SD 59.3 fL (36.4-46.3)
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
[2018-01-16 09:48] LABS: CALCIUM 9.5 mg/dl (8.5-10.1); CREATININE 0.47 mg/dl (0.60-1.20); POTASSIUM 4.3 mmol/L (3.5-5.1)
[2018-01-16] MEDS: MAGNESIUM HYDROXIDE SUSP 30 ML UDC PO PRN (11:36)
--- NOTE | 2018-01-16 13:17 | Pharmacy Progress Note ---
Pharmacy Glycemic Short Note 2 Date of Service Jan 16, 2018. OUTPATIENT ANTIDIABETIC REGIMEN: * Lantus 35 units qPM * Humalog per scale ASSESSMENT: * Patient remains on Solu-medrol 40 mg IV q6h * BSGs are improved but still above goal * Fasting 194 mg/dL - she received 3 units of correctional overnight so will increase Lantus by ~10% and give earlier with dinner today * Postprandial BSG of 239 mg/dL - although this is up, has not jumped much from this AM - will tighten CR slightly PLAN FOR INPATIENT GLYCEMIC CONTROL: * Basal insulin * Increase Lantus to 44 units SQ qHS - 1st dose with dinner today * Bolus insulin * NovoLog per scale ACHS or Q6hrs while NPO * Goal Range: Low 110 mg/dL - High 140 mg/dL * Correction Factor: 20 mg/dL/unit * TIGHTEN Prandial insulin to carb ratio of 1 unit per 6 grams CHO consumed
[2018-01-16 14:22] VITALS: PULSE 84; O2SAT 96
[2018-01-16 15:34] VITALS: BP 121/61; PULSE 94; TEMP 36.4; O2SAT 99
[2018-01-16] MEDS: INSULIN GLARGINE SOLOSTAR 100 UNITS/ML 3 ML PEN SC SCH (18:14)
[2018-01-16 19:19] VITALS: PULSE 101; O2SAT 97
[2018-01-16] MEDS: ENOXAPARIN 40 MG/0.4 ML SYR SQ SCH (19:58)
[2018-01-16] MEDS: ATORVASTATIN 40 MG TAB PO SCH (20:58)
[2018-01-16] MEDS: DOXEPIN HCL 75 MG CAP PO SCH (20:59)
[2018-01-16] MEDS: QUETIAPINE FUMARATE 25 MG TAB PO SCH (21:01)
[2018-01-17] VITALS (7 sets, daily range): BP systolic 151–159; BP diastolic 83–84; PULSE 87–106; TEMP 36.5–37; O2SAT 96–99
[2018-01-17] MEDS: BACLOFEN 10 MG TAB PO PRN (01:01)
[2018-01-17] MEDS: BELLADONNA/OPIUM SUPP 60 MG SUPP PR PRN (01:01)
[2018-01-17] MEDS ORDERED: INSULIN ASPART 100 UNITS/ML 3 ML PEN SC SCH (02:00)
[2018-01-17] MEDS: IPRATROPIUM BROMIDE NEB SOLN 0.02% 2.5 ML VIAL INH SCH ×4 (02:18→19:14)
[2018-01-17] MEDS: LEVALBUTEROL 1.25MG/0.5ML NEB INH SCH ×4 (02:19→19:14)
[2018-01-17] MEDS: METHYLPREDNISOLONE IV 40 MG in SYRINGE 0 ML IV SCH ×4 (02:26→21:25)
[2018-01-17] MEDS: LEVOTHYROXINE 75 MCG TAB PO SCH (05:57)
[2018-01-17] MEDS: HYDROmorphone HCL 2 MG TAB PO SCH ×6 (05:57→21:10)
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
[2018-01-17] MEDS ORDERED: LACTULOSE SYRUP 30 GM/45 ML UDP PO ONE (08:00)
[2018-01-17] MEDS: POTASSIUM CHLORIDE 20 MEQ TABCR PO SCH (08:06)
[2018-01-17] MEDS: FAMOTIDINE 20 MG TAB PO SCH ×2 (08:06→21:12)
[2018-01-17] MEDS: DULOXETINE HCL 60 MG CAP PO SCH (08:06)
[2018-01-17] MEDS: LUBIPROSTONE 8 MCG CAP PO SCH ×2 (08:06→21:09)
[2018-01-17] MEDS: SACCHAROMYCES BOUL (FLORASTOR) 250 MG CAP PO SCH (08:06)
[2018-01-17] MEDS: DOCUSATE SODIUM 100 MG CAP PO SCH ×2 (08:06→21:10)
[2018-01-17] MEDS: FUROSEMIDE 40 MG TAB PO SCH (08:06)
[2018-01-17] MEDS: POLYETHYLENE (MIRALAX) 17 GM PACK PO SCH ×2 (08:06→21:09)
[2018-01-17] MEDS: LEVETIRACETAM 500 MG TAB PO SCH ×2 (08:06→21:09)
[2018-01-17] MEDS: CIPROFLOXACIN 250 MG TAB PO SCH (08:06)
[2018-01-17] MEDS: CEROVITE ADV FORMULA TAB PO SCH (08:06)
[2018-01-17] MEDS: PANTOprazole SOD 40 MG TAB PO SCH (08:07)
[2018-01-17] MEDS: SENNA 8.6 MG TAB PO SCH ×2 (08:07→21:09)
[2018-01-17] MEDS: ACETAMINOPHEN 500 MG TAB PO SCH ×2 (08:07→21:12)
[2018-01-17] MEDS: INSULIN ASPART 100 UNITS/ML 3 ML PEN SC SCH ×4 (08:12→21:11)
--- NOTE | 2018-01-17 09:28 | DIAGNOSTIC IMAGING REPORT ---
KUB CLINICAL HISTORY: abdominal distention pain COMPARISON STUDY: 06/22/2017 FINDINGS: Nonobstructive bowel pattern. Increased fecal load within the descending and proximal sigmoid colon. 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 Mild pelvic deformity considered chronic in this patient. IMPRESSION: 1. Increased fecal load within the descending and proximal sigmoid colon. 2. 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 The above report was generated using voice recognition software. It may contain grammatical, syntax or spelling errors. Electronically signed by: Jas Nicole M.D. 01/17/2018 9:27 AM Dictated Date/Time: 01/17/2018 9:26 AM
[2018-01-17] MEDS ORDERED: INSULIN GLARGINE SOLOSTAR 100 UNITS/ML 3 ML PEN SC ONE (12:45)
--- NOTE | 2018-01-17 14:05 | Pharmacy Progress Note ---
Pharmacy Glycemic Short Note 2 Date of Service Jan 17, 2018. OUTPATIENT ANTIDIABETIC REGIMEN: * Lantus 35 units qPM * Humalog per scale ASSESSMENT: 01/16/18 * Patient remains on Solu-medrol 40 mg IV q6h * BSGs are improved but still above goal * Fasting 194 mg/dL - she received 3 units of correctional overnight so will increase Lantus by ~10% and give earlier with dinner today * Postprandial BSG of 239 mg/dL - although this is up, has not jumped much from this AM - will tighten CR slightly 01/17/18 * Patient remains on Solu-medrol 40 mg IV q6h * BSGs have ranged from 171-307 mg/dL over the past 24 hours, and received 98 units of insulin yesterday * She seems to still have the most elevation in her postprandial BSGs -> will tighten both CF/CR * Could still use a little more basal so will add a one time dose of 5 units. Est TDD of insulin is 120 units and current basal dose already > 30% of this. With steroids on board, typically like to have basal make up only 30-40% of TDD. PLAN FOR INPATIENT GLYCEMIC CONTROL: * Basal insulin * Continue Lantus 44 units SQ qHS - extra 5 units x 1 this AM * Bolus insulin * NovoLog per scale ACHS or Q6hrs while NPO * Goal Range: Low 110 mg/dL - High 140 mg/dL * TIGHTEN Correction Factor: 10 mg/dL/unit * TIGHTEN Prandial insulin to carb ratio of 1 unit per 3 grams CHO consumed
[2018-01-17] MEDS ORDERED: VANCOMYCIN CONSULT ACTIVE PRN (14:15)
--- NOTE | 2018-01-17 14:18 | Pharmacy Progress Note ---
Pharmacy Abx Initial Consult Date of Service Jan 17, 2018. Pharmacy Dosing Scope Date of Consult: 01/17/18 Consultation requested by: Dr. French Pharmacy is consulted to initiate vancomycin IV dosing therapy, order appropriate labs and adjust drug dose/frequency. Subjective The patient is a 77 year old female admitted on Jan 13, 2018 at 16:00. Objective Height (Feet): 4 Height (Inches): 10.00 Weight (Kilograms): 78.000 Vital Signs (Past 12Hrs) Vital Signs Past 12 Hours Date Time Temp Pulse Resp B/P (MAP) Pulse Ox O2 Delivery O2 Flow Rate FiO2 01/17/18 08:33 37.0 97 20 151/83 (105) 97 Nasal Cannula 2.0 01/17/18 08:00 Nasal Cannula 1.0 01/17/18 07:19 100 16 98 Nasal Cannula 3.0 Micro Results Date/Time Source Procedure Growth Status 01/13/18 13:15 Blood Blood Culture - Preliminary NO GROWTH TO DATE. Resulted 01/13/18 13:15 Blood Blood Culture - Preliminary NO GROWTH TO DATE. Resulted 01/14/18 00:00 Sputum Expectorated Sputum Gram Stain - Final Complete 01/14/18 00:00 Sputum Culture - Final Staph. Aureus Mrsa Complete 01/13/18 20:25 Urine,Catheterized Urine Culture - Final Escherichia Coli Escherichia Coli#2 Complete Risk Factors for Resistance * Resident in a [facility] or extended-care facility * History of infection with a multidrug-resistant organism: MRSA sputum 01/17/18 * Antimicrobial use within the last 90 days alternates cipro/amoxicillin for chronic UTIs Assessment & Plan Assessment 77 year old female with a PMH of neurogenic bladder with chronic UTI, paraplegia, asplenia, COPD who presents with a COPD exacerbation and possible UTI. Plan vancomycin for treatment of COPD exacerbation Vancomycin IV * Loading dose: 2000 mg (25 mg/kg) * Maintenance dose: 1000 mg IV (12.8 mg/kg) every 10 hours (population pharmacokinetics suggest a half-life of 8.7 hours with an elimination constant of 0.08 hr-1. Utilized smaller mg/kg dose with tighter interval to achieve therapeutic level in obese patient) * Goal trough level for COPD exacerbation : 15 to 20 mcg/mL * Trough ordered for 01/19/18 prior to 0600 dose * A less than traditional dose has been selected due to likelihood of drug accumulation in obese patient. Pharmacy will continue to follow and will adjust dose/frequency as necessary. Thank you.
[2018-01-17] MEDS: CEFTRIAXONE SOD INJ 1 GM in DEXTROSE 5% 50ML 50 ML IV SCH (14:20)
[2018-01-17] MEDS ORDERED: VANCOMYCIN IV 2,000 MG in SODIUM CHLORIDE 0.9% 500ML 500 ML IV ONE (15:00)
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
[2018-01-17] MEDS: ATORVASTATIN 40 MG TAB PO SCH (21:09)
[2018-01-17] MEDS: ENOXAPARIN 40 MG/0.4 ML SYR SQ SCH (21:10)
[2018-01-17] MEDS: INSULIN GLARGINE SOLOSTAR 100 UNITS/ML 3 ML PEN SC SCH (21:12)
[2018-01-17] MEDS: DOXEPIN HCL 75 MG CAP PO SCH (21:12)
[2018-01-17] MEDS: QUETIAPINE FUMARATE 25 MG TAB PO SCH (21:14)
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
[2018-01-18] VITALS (8 sets, daily range): BP systolic 144–158; BP diastolic 74–84; PULSE 92–109; TEMP 36.5–37; O2SAT 96–100
[2018-01-18] MEDS: VANCOMYCIN IV 1,000 MG in SODIUM CHLORIDE 0.9% 250ML 250 ML IV SCH ×3 (00:26→21:14)
[2018-01-18] MEDS: HYDROmorphone HCL 2 MG TAB PO PRN (02:01)
[2018-01-18] MEDS: METHYLPREDNISOLONE IV 40 MG in SYRINGE 0 ML IV SCH ×4 (02:01→21:14)
[2018-01-18] MEDS: LEVALBUTEROL 1.25MG/0.5ML NEB INH SCH ×4 (02:23→19:01)
[2018-01-18] MEDS: IPRATROPIUM BROMIDE NEB SOLN 0.02% 2.5 ML VIAL INH SCH ×4 (02:23→19:01)
[2018-01-18] MEDS: LEVOTHYROXINE 75 MCG TAB PO SCH (06:02)
[2018-01-18] MEDS: HYDROmorphone HCL 2 MG TAB PO SCH ×6 (06:02→21:16)
[2018-01-18] MEDS: FUROSEMIDE 40 MG TAB PO SCH (08:41)
[2018-01-18] MEDS: FAMOTIDINE 20 MG TAB PO SCH ×2 (08:41→21:19)
[2018-01-18] MEDS: LEVETIRACETAM 500 MG TAB PO SCH ×2 (08:41→21:17)
[2018-01-18] MEDS: DOCUSATE SODIUM 100 MG CAP PO SCH ×2 (08:42→21:16)
[2018-01-18] MEDS: CEROVITE ADV FORMULA TAB PO SCH (08:42)
[2018-01-18] MEDS: DULOXETINE HCL 60 MG CAP PO SCH (08:42)
[2018-01-18] MEDS: PANTOprazole SOD 40 MG TAB PO SCH (08:42)
[2018-01-18] MEDS: SACCHAROMYCES BOUL (FLORASTOR) 250 MG CAP PO SCH (08:45)
[2018-01-18] MEDS: SENNA 8.6 MG TAB PO SCH ×2 (08:46→21:19)
[2018-01-18] MEDS: ACETAMINOPHEN 500 MG TAB PO SCH ×2 (08:46→21:21)
[2018-01-18] MEDS: LUBIPROSTONE 8 MCG CAP PO SCH ×2 (08:47→21:16)
[2018-01-18] MEDS: POLYETHYLENE (MIRALAX) 17 GM PACK PO SCH ×2 (08:47→21:18)
[2018-01-18] MEDS: POTASSIUM CHLORIDE 20 MEQ TABCR PO SCH (08:48)
[2018-01-18] MEDS: INSULIN ASPART 100 UNITS/ML 3 ML PEN SC SCH ×4 (09:03→21:31)
[2018-01-18 09:54] LABS: CREATININE 0.55 mg/dl (0.60-1.20)
--- NOTE | 2018-01-18 11:29 | Pharmacy Progress Note ---
Pharmacy Glycemic Short Note 2 Date of Service Jan 18, 2018. OUTPATIENT ANTIDIABETIC REGIMEN: * Lantus 35 units qPM * Humalog per scale ASSESSMENT: 01/16/18 * Patient remains on Solu-medrol 40 mg IV q6h * BSGs are improved but still above goal * Fasting 194 mg/dL - she received 3 units of correctional overnight so will increase Lantus by ~10% and give earlier with dinner today * Postprandial BSG of 239 mg/dL - although this is up, has not jumped much from this AM - will tighten CR slightly 01/17/18 * Patient remains on Solu-medrol 40 mg IV q6h * BSGs have ranged from 171-307 mg/dL over the past 24 hours, and received 98 units of insulin yesterday * She seems to still have the most elevation in her postprandial BSGs -> will tighten both CF/CR * Could still use a little more basal so will add a one time dose of 5 units. Est TDD of insulin is 120 units and current basal dose already > 30% of this. With steroids on board, typically like to have basal make up only 30-40% of TDD. 01/18/18 * Patient remains on Solu-medrol 40 mg IV q6h * BSGs have ranged from 185-264 mg/dL in the past 24 hours, and she received 113 units of insulin yesterday * Fasting remains slightly elevated: 185 - will increase basal to 50 units, still trying to keep basal at ~30-40% of TDD d/t steroids * Postprandial BSGs yesterday: 290, 264, 230 - will tighten both CF/CR PLAN FOR INPATIENT GLYCEMIC CONTROL: * Basal insulin * INCREASE Lantus to 50 units qHS * Bolus insulin * NovoLog per scale ACHS or Q6hrs while NPO * Goal Range: Low 110 mg/dL - High 140 mg/dL * TIGHTEN Correction Factor: 8 mg/dL/unit * TIGHTEN Prandial insulin to carb ratio of 1 unit per 2 grams CHO consumed
[2018-01-18] MEDS: CEFTRIAXONE SOD INJ 1 GM in DEXTROSE 5% 50ML 50 ML IV SCH (13:37)
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
[2018-01-18] MEDS: ENOXAPARIN 40 MG/0.4 ML SYR SQ SCH (21:15)
[2018-01-18] MEDS: ATORVASTATIN 40 MG TAB PO SCH (21:18)
[2018-01-18] MEDS: DOXEPIN HCL 75 MG CAP PO SCH (21:20)
[2018-01-18] MEDS: QUETIAPINE FUMARATE 25 MG TAB PO SCH (21:20)
[2018-01-18] MEDS: INSULIN GLARGINE SOLOSTAR 100 UNITS/ML 3 ML PEN SC SCH (21:29)
[2018-01-18] MEDS: LORAZEPAM 0.5 MG TAB PO PRN (21:34)
[2018-01-18] MEDS ORDERED: LORAZEPAM INJ 1 MG in SYRINGE 0.5 ML IV ONE (22:00)
[2018-01-19] VITALS (7 sets, daily range): BP systolic 117–156; BP diastolic 66–82; PULSE 92–108; TEMP 36.3–36.8; O2SAT 95–99
[2018-01-19] MEDS: LEVALBUTEROL 1.25MG/0.5ML NEB INH SCH ×4 (01:38→19:12)
[2018-01-19] MEDS: IPRATROPIUM BROMIDE NEB SOLN 0.02% 2.5 ML VIAL INH SCH ×4 (01:38→19:12)
[2018-01-19] MEDS: METHYLPREDNISOLONE IV 40 MG in SYRINGE 0 ML IV SCH ×4 (02:27→21:12)
[2018-01-19] MEDS ORDERED: VANCOMYCIN TROUGH ONE (05:30)
[2018-01-19] MEDS: HYDROmorphone HCL 2 MG TAB PO SCH ×6 (05:35→21:15)
[2018-01-19] MEDS: LEVOTHYROXINE 75 MCG TAB PO SCH (05:36)
[2018-01-19 05:52] LABS: HEMATOCRIT 36.2 % (37-47); HEMOGLOBIN 11.8 g/dL (12.0-16.0); MEAN CELL VOLUME 90.7 fL (80-100); MEAN CORPUSCULAR HEMOGLOBIN 29.6 pg (25-34); MEAN CORPUSCULAR HGB CONC 32.6 g/dl (32-36); MEAN PLATELET VOLUME 10.2 fL (7.4-10.4); PLATELET COUNT 522 K/uL (130-400); RED CELL DISTRIBUTION WIDTH CV 17.3 % (11.5-14.5); RED CELL DISTRIBUTION WIDTH SD 57.4 fL (36.4-46.3); WHITE BLOOD COUNT 18.41 K/uL (4.8-10.8)
[2018-01-19] MEDS: VANCOMYCIN IV 1,000 MG in SODIUM CHLORIDE 0.9% 250ML 250 ML IV SCH (06:07)
[2018-01-19 06:20] LABS: CREATININE 0.49 mg/dl (0.60-1.20)
[2018-01-19] MEDS: CEROVITE ADV FORMULA TAB PO SCH (08:32)
[2018-01-19] MEDS: PANTOprazole SOD 40 MG TAB PO SCH (08:32)
[2018-01-19] MEDS: DULOXETINE HCL 60 MG CAP PO SCH (08:33)
[2018-01-19] MEDS: DOCUSATE SODIUM 100 MG CAP PO SCH ×2 (08:33→21:14)
[2018-01-19] MEDS: SENNA 8.6 MG TAB PO SCH ×2 (08:34→21:17)
[2018-01-19] MEDS: FUROSEMIDE 40 MG TAB PO SCH (08:36)
[2018-01-19] MEDS: ACETAMINOPHEN 500 MG TAB PO SCH ×2 (08:36→21:19)
[2018-01-19] MEDS: SACCHAROMYCES BOUL (FLORASTOR) 250 MG CAP PO SCH (08:37)
[2018-01-19] MEDS: POTASSIUM CHLORIDE 20 MEQ TABCR PO SCH (08:37)
[2018-01-19] MEDS: LUBIPROSTONE 8 MCG CAP PO SCH ×2 (08:37→21:14)
[2018-01-19] MEDS: FAMOTIDINE 20 MG TAB PO SCH ×2 (08:37→21:16)
[2018-01-19] MEDS: LEVETIRACETAM 500 MG TAB PO SCH ×2 (08:38→21:15)
[2018-01-19] MEDS: POLYETHYLENE (MIRALAX) 17 GM PACK PO SCH ×2 (08:40→21:16)
[2018-01-19] MEDS: INSULIN ASPART 100 UNITS/ML 3 ML PEN SC SCH ×4 (08:53→21:23)
--- NOTE | 2018-01-19 09:36 | Pharmacy Progress Note ---
Pharmacy Abx Dose Short Note Date of Service Jan 19, 2018. Assessment & Plan Assessment 77 year old female receiving vancomycin for treatment of pneumonia Day # 3 of antimicrobial therapy. Plan Patient with MRSA growing in sputum. Renal function continues to be stable, but there is concern for drug accumulation given BMI. Therefore will get repeat level tomorrow. Vancomycin * Trough level of 12.1 mcg/mL is slightly subtherapeutic. * Change to 1250 mg IV every 10 hours * Goal trough level for pneumonia : 15 to 20 mcg/mL * Trough or random level ordered for: 01/20/18 @1130 Pharmacy will continue to follow and will adjust dose/frequency as necessary. Thank you.
--- NOTE | 2018-01-19 14:11 | Pharmacy Progress Note ---
Pharmacy Glycemic Short Note 2 Date of Service Jan 19, 2018. OUTPATIENT ANTIDIABETIC REGIMEN: * Lantus 35 units qPM * Humalog per scale ASSESSMENT: 01/16/18 * Patient remains on Solu-medrol 40 mg IV q6h * BSGs are improved but still above goal * Fasting 194 mg/dL - she received 3 units of correctional overnight so will increase Lantus by ~10% and give earlier with dinner today * Postprandial BSG of 239 mg/dL - although this is up, has not jumped much from this AM - will tighten CR slightly 01/17/18 * Patient remains on Solu-medrol 40 mg IV q6h * BSGs have ranged from 171-307 mg/dL over the past 24 hours, and received 98 units of insulin yesterday * She seems to still have the most elevation in her postprandial BSGs -> will tighten both CF/CR * Could still use a little more basal so will add a one time dose of 5 units. Est TDD of insulin is 120 units and current basal dose already > 30% of this. With steroids on board, typically like to have basal make up only 30-40% of TDD. 01/18/18 * Patient remains on Solu-medrol 40 mg IV q6h * BSGs have ranged from 185-264 mg/dL in the past 24 hours, and she received 113 units of insulin yesterday * Fasting remains slightly elevated: 185 - will increase basal to 50 units, still trying to keep basal at ~30-40% of TDD d/t steroids * Postprandial BSGs yesterday: 290, 264, 230 - will tighten both CF/CR 01/19/18 * No change to steroids * Fastin - improved so will continue basal dose * Postprandials are still elevated - will further tighten CR, but at this point , any small adjustment is a fairly large adjustment to the dose. Tightening CR from 2 -> 1.7 will provide an extra 5 units with a 60 gm CHO meal PLAN FOR INPATIENT GLYCEMIC CONTROL: * Basal insulin * Continue Lantus 50 units qHS * Bolus insulin * NovoLog per scale ACHS or Q6hrs while NPO * Goal Range: Low 110 mg/dL - High 140 mg/dL * Correction Factor: 8 mg/dL/unit * TIGHTEN Prandial insulin to carb ratio of 1 unit per 1.7 grams CHO consumed
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
[2018-01-19] MEDS: CEFTRIAXONE SOD INJ 1 GM in DEXTROSE 5% 50ML 50 ML IV SCH (14:27)
[2018-01-19] MEDS: LORAZEPAM 0.5 MG TAB PO PRN ×2 (15:33→23:03)
[2018-01-19] MEDS: VANCOMYCIN IV 1,250 MG in SODIUM CHLORIDE 0.9% 250ML 250 ML IV SCH (16:07)
[2018-01-19] MEDS: ENOXAPARIN 40 MG/0.4 ML SYR SQ SCH (21:13)
[2018-01-19] MEDS: ATORVASTATIN 40 MG TAB PO SCH (21:16)
[2018-01-19] MEDS: QUETIAPINE FUMARATE 25 MG TAB PO SCH (21:17)
[2018-01-19] MEDS: DOXEPIN HCL 75 MG CAP PO SCH (21:18)
[2018-01-19] MEDS: INSULIN GLARGINE SOLOSTAR 100 UNITS/ML 3 ML PEN SC SCH (21:22)
[2018-01-19] MEDS: HYDROmorphone HCL 2 MG TAB PO PRN (23:04)
[2018-01-20] VITALS (8 sets, daily range): BP systolic 135–169; BP diastolic 67–84; PULSE 96–118; TEMP 36.6–37; O2SAT 93–100
[2018-01-20] MEDS: BELLADONNA/OPIUM SUPP 60 MG SUPP PR PRN (01:04)
[2018-01-20] MEDS: VANCOMYCIN IV 1,250 MG in SODIUM CHLORIDE 0.9% 250ML 250 ML IV SCH ×2 (01:08→16:02)
[2018-01-20] MEDS: METHYLPREDNISOLONE IV 40 MG in SYRINGE 0 ML IV SCH ×3 (01:09→14:12)
[2018-01-20] MEDS: IPRATROPIUM BROMIDE NEB SOLN 0.02% 2.5 ML VIAL INH SCH ×4 (01:50→19:25)
[2018-01-20] MEDS: LEVALBUTEROL 1.25MG/0.5ML NEB INH SCH ×4 (01:51→19:25)
[2018-01-20] MEDS ORDERED: METHYLPREDNISOLONE IV 40 MG in SYRINGE 0 ML IV SCH (02:00)
[2018-01-20] MEDS: ACETAMINOPHEN 325 MG TAB PO PRN (03:58)
[2018-01-20] MEDS: BACLOFEN 10 MG TAB PO PRN (04:11)
[2018-01-20] MEDS: LEVOTHYROXINE 75 MCG TAB PO SCH (05:46)
[2018-01-20] MEDS: HYDROmorphone HCL 2 MG TAB PO SCH ×6 (05:46→21:25)
[2018-01-20] MEDS: DULOXETINE HCL 60 MG CAP PO SCH (08:42)
[2018-01-20] MEDS: PANTOprazole SOD 40 MG TAB PO SCH (08:42)
[2018-01-20] MEDS: DOCUSATE SODIUM 100 MG CAP PO SCH ×2 (08:42→20:57)
[2018-01-20] MEDS: CEROVITE ADV FORMULA TAB PO SCH (08:42)
[2018-01-20] MEDS: LEVETIRACETAM 500 MG TAB PO SCH ×2 (08:43→20:54)
[2018-01-20] MEDS: LUBIPROSTONE 8 MCG CAP PO SCH ×2 (08:43→20:56)
[2018-01-20] MEDS: SENNA 8.6 MG TAB PO SCH ×2 (08:43→20:57)
[2018-01-20] MEDS: FAMOTIDINE 20 MG TAB PO SCH ×2 (08:43→20:58)
[2018-01-20] MEDS: FUROSEMIDE 40 MG TAB PO SCH (08:44)
[2018-01-20] MEDS: POTASSIUM CHLORIDE 20 MEQ TABCR PO SCH (08:44)
[2018-01-20] MEDS: POLYETHYLENE (MIRALAX) 17 GM PACK PO SCH ×2 (08:44→20:54)
[2018-01-20] MEDS: SACCHAROMYCES BOUL (FLORASTOR) 250 MG CAP PO SCH (08:44)
[2018-01-20] MEDS: ACETAMINOPHEN 500 MG TAB PO SCH ×2 (08:45→20:56)
[2018-01-20] MEDS: INSULIN ASPART 100 UNITS/ML 3 ML PEN SC SCH ×4 (09:08→21:05)
[2018-01-20] MEDS ORDERED: VANCOMYCIN TROUGH ONE (11:30)
--- NOTE | 2018-01-20 12:37 | Pharmacy Progress Note ---
Pharmacy Abx Dose Short Note Date of Service Jan 20, 2018. Assessment & Plan Assessment 77 year old female receiving vancomycin for treatment of possible MRSA pneumonia Day # 4 of antimicrobial therapy. Plan Vancomycin * Trough level of 24.2 mcg/mL is supratherapeutic. * Change to 1250 mg IV every 12 hours (represents a 20% reduction which should produce level around 20 mcg/mL) * Goal trough level for MRSA pneumonia : 15 to 20 mcg/mL * Trough ordered for: 01/22/18 Pharmacy will continue to follow and will adjust dose/frequency as necessary. Thank you.
[2018-01-20] MEDS: CEFTRIAXONE SOD INJ 1 GM in DEXTROSE 5% 50ML 50 ML IV SCH (14:14)
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
[2018-01-20] MEDS: DOXEPIN HCL 75 MG CAP PO SCH (20:55)
[2018-01-20] MEDS: ENOXAPARIN 40 MG/0.4 ML SYR SQ SCH (20:55)
[2018-01-20] MEDS: INSULIN GLARGINE SOLOSTAR 100 UNITS/ML 3 ML PEN SC SCH (21:06)
[2018-01-20] MEDS: QUETIAPINE FUMARATE 25 MG TAB PO SCH (21:12)
[2018-01-20] MEDS: ATORVASTATIN 40 MG TAB PO SCH (21:25)
[2018-01-21] VITALS (13 sets, daily range): BP systolic 132–172; BP diastolic 68–99; PULSE 81–112; TEMP 36.8–37; O2SAT 93–98
[2018-01-21] MEDS: LEVALBUTEROL 1.25MG/0.5ML NEB INH SCH ×5 (02:07→19:33)
[2018-01-21] MEDS: IPRATROPIUM BROMIDE NEB SOLN 0.02% 2.5 ML VIAL INH SCH ×5 (02:07→19:33)
[2018-01-21] MEDS: HYDROmorphone HCL 2 MG TAB PO PRN (02:16)
[2018-01-21] MEDS: METHYLPREDNISOLONE IV 40 MG in SYRINGE 0 ML IV SCH ×2 (02:22→15:21)
[2018-01-21] MEDS: LORAZEPAM 0.5 MG TAB PO PRN (03:11)
[2018-01-21] MEDS: VANCOMYCIN IV 1,250 MG in SODIUM CHLORIDE 0.9% 250ML 250 ML IV SCH ×2 (03:31→15:58)
[2018-01-21] MEDS: HYDROmorphone HCL 2 MG TAB PO SCH ×6 (06:03→21:10)
[2018-01-21] MEDS: LEVOTHYROXINE 75 MCG TAB PO SCH (06:33)
[2018-01-21] MEDS: SACCHAROMYCES BOUL (FLORASTOR) 250 MG CAP PO SCH (07:43)
[2018-01-21] MEDS: DOCUSATE SODIUM 100 MG CAP PO SCH ×2 (07:43→21:10)
[2018-01-21] MEDS: SENNA 8.6 MG TAB PO SCH ×2 (07:44→21:11)
[2018-01-21] MEDS: ACETAMINOPHEN 500 MG TAB PO SCH ×2 (07:45→21:10)
[2018-01-21] MEDS: POTASSIUM CHLORIDE 20 MEQ TABCR PO SCH (07:45)
[2018-01-21] MEDS: FAMOTIDINE 20 MG TAB PO SCH ×2 (07:45→21:12)
[2018-01-21] MEDS: LEVETIRACETAM 500 MG TAB PO SCH ×2 (07:45→21:11)
[2018-01-21] MEDS: POLYETHYLENE (MIRALAX) 17 GM PACK PO SCH ×2 (07:46→21:08)
[2018-01-21] MEDS: LUBIPROSTONE 8 MCG CAP PO SCH ×2 (07:46→21:12)
[2018-01-21] MEDS: FUROSEMIDE 40 MG TAB PO SCH (07:46)
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
[2018-01-21] MEDS: INSULIN ASPART 100 UNITS/ML 3 ML PEN SC SCH ×4 (08:57→21:23)
[2018-01-21] MEDS: PANTOprazole SOD 40 MG TAB PO SCH (09:14)
[2018-01-21] MEDS: CEROVITE ADV FORMULA TAB PO SCH (09:14)
[2018-01-21] MEDS: DULOXETINE HCL 60 MG CAP PO SCH (09:14)
[2018-01-21] MEDS ORDERED: HYDROmorphone HCL 2 MG TAB PO STA (10:32)
--- NOTE | 2018-01-21 13:13 | Pharmacy Progress Note ---
Pharmacy Glycemic Short Note 2 Date of Service Jan 21, 2018. OUTPATIENT ANTIDIABETIC REGIMEN: * Lantus 35 units qPM * Humalog per scale * HbA1c: 8.4% (11/29/17) ASSESSMENT: * Patient has been receiving ~150 units of insulin per day the past few days, with reasonable BSGs/intermittent hyperglycemia. * SoluMedrol has been decreased from 40mg q6h --> 40mg q12h. Expect that this will decrease patient's insulin requirements. * Fasting BSG elevated this am, so will not adjust Lantus dose at this time. Novolog parameters loosened slightly today in anticipation that pt will require less prandial coverage with steroid taper. * Will continue to adjust as steroids taper. PLAN FOR INPATIENT GLYCEMIC CONTROL: * Basal insulin * Continue Lantus 50 units qHS * Bolus insulin * NovoLog per scale ACHS or Q6hrs while NPO * Goal Range: Low 110 mg/dL - High 140 mg/dL * Correction Factor: 10 mg/dL/unit * TIGHTEN Prandial insulin to carb ratio of 1 unit per 4 grams CHO consumed DISCHARGE PLANNING: * A1c (8.4%) is not unreasonable for a 77yo patient w/ multiple comorbidities. * Expect that patient may resume home regimen on discharge.
[2018-01-21] MEDS ORDERED: MIDAZOLAM HCL 5 MG/ML 1 ML VIAL ONE (13:49)
[2018-01-21] MEDS ORDERED: FENTANYL CITRATE INJ 50 MCG/1 ML 2 ML VIAL ONE (13:50)
[2018-01-21] MEDS ORDERED: NURSING VERBAL MED ORDER ONE (14:45)
[2018-01-21] MEDS ORDERED: NURSING DECISION MEDICATION ORDER SCH (14:45)
[2018-01-21] MEDS ORDERED: MICONAZOLE NITRATE POWDER 43 GM EXT PRN (14:45)
[2018-01-21] MEDS: CEFTRIAXONE SOD INJ 1 GM in DEXTROSE 5% 50ML 50 ML IV SCH (15:20)
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
--- NOTE | 2018-01-21 18:40 | Pulmonology Progress Note ---
Pulmonary Progress Note Date of Service Jan 21, 2018. Attending Dr. Gandhi Subjective The patient tended to have difficulty clearing Secretions, she continued to have cough but weak reflex. She agreed to have a bronchoscopy due to persistent shortness of breath and inability to clear up her secretions. No events overnight. Vibrating vest was ordered for her but she did not started on it yet. Objective Patient is doing well today sitting in bed able to have full conversation with no signs of tachypnea, accessory muscle use for ventilation or any signs of respiratory insufficiency. Vital signs: Currently stable on 1-3 liters nasal cannula Respiratory: Rhonchi at the bases with minimal expiratory wheezing bilaterally Cardiac: S1-S2 regular rate and rhythm Abdomen: Positive bowel sounds soft nontender Extremities: Minimal pitting edema FREIGHT SEPARATOR: Alert orientated times 3: Notable bilateral lower extremity paraplegia On 01/20/2018, Her physical exam revealed no fever, also saturation is 92% on nasal cannula, hyperinflated right lung, bilateral crackles, S1-S2, abdomen is benign, no edema. On 01/21/2018, her physical exam revealed still afebrile, O2 saturation is 94% on nasal cannula, severe kyphosis, S1-S2 regular rate and rhythm, crackles bilaterally, abdomen is benign and no edema. Assessment & Plan #1 severe kyphosis with deformed trachea resulted in the patient who is bedridden to have difficulty clearing up her secretions. She does have right lung dominant and left lung recessive. 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 The stenosis is measuring approximately 6 mm at its best diameter. Beyond the stenotic area, noted pooling secretions which have been suctioned and sent for culture. #3 chronic respiratory failure. #4 possibly the patient is aspirating her own secretions due to esophageal stricture. #5 paraplegia. #6 recurrent aspiration pneumonia. Plan: #1 bronchoscopy was done and results as above. #2 the patient likely will need vibrating vest twice daily for life. #3 continue her current treatment. Including completing antibiotic course for 7 days. #4 GI evaluation for esophageal stricture can be done electively. #5 consult thoracic. I have discussed the case with my colleague Dr. Bustos regarding the sub-glottic stenosis. Agree with assessment that this is not amenable to interventional pulmonology procedure. #6 awaiting input. Thank you, will follow. The case discussed in details with the family who were at the bedside as well. Data Medications: Current Inpatient Medications Medications (Trade) Dose Ordered Sig/Karen Route Start Time Stop Time Status Last Admin Dose Admin Enoxaparin Sodium (Lovenox Inj) 40 mg DAILY@2000 SQ 01/13/18 20:00 02/12/18 19:59 01/20/18 20:55 40 MG Acetaminophen (Tylenol Tab) 650 mg Q4H PRN PO 01/13/18 16:00 02/12/18 15:59 01/20/18 03:58 650 MG Al Hydrox/Mg Hydrox/Simethicone (Maalox Max Susp) 15 ml Q4H PRN PO 01/13/18 16:00 02/12/18 15:59 Magnesium Hydroxide (Milk Of Magnesia Susp) 30 ml Q6H PRN PO 01/13/18 16:00 02/12/18 15:59 01/16/18 11:36 30 ML Ondansetron HCl (Zofran Inj) 4 mg Q6H PRN IV 01/13/18 16:00 02/12/18 15:59 Acetaminophen (Tylenol Tab) 1,000 mg BID PO 01/13/18 21:00 02/12/18 20:59 01/21/18 07:45 1,000 MG Atorvastatin Calcium (Lipitor Tab) 40 mg HS PO 01/13/18 21:00 02/12/18 20:59 01/20/18 21:25 40 MG Baclofen (Lioresal Tab) 10 mg QID PRN PO 01/13/18 16:00 02/12/18 15:59 01/20/18 04:11 10 MG Belladonna/Opium (B & O Adult Supp) 60 mg Q8 PRN [place] 01/13/18 16:00 01/27/18 15:59 01/20/18 01:04 60 MG Bisacodyl (Dulcolax Supp) 10 mg DAILY PRN [place] 01/13/18 16:00 02/12/18 15:59 01/15/18 08:20 10 MG Docusate Sodium (coLACE CAP) 100 mg BID PO 01/13/18 21:00 02/12/18 20:59 01/21/18 07:43 100 MG Doxepin HCl (Sinequan Cap) 75 mg HS PO 01/13/18 21:00 02/12/18 20:59 01/20/18 20:55 75 MG Duloxetine HCl (Cymbalta Cap) 60 mg QAM PO 01/14/18 09:00 02/13/18 08:59 01/21/18 09:14 60 MG Famotidine (Pepcid Tab) 20 mg BID PO 01/13/18 21:00 02/12/18 20:59 01/21/18 07:45 20 MG Furosemide (Lasix Tab) 40 mg DAILY PO 01/14/18 09:00 02/13/18 08:59 01/21/18 07:46 40 MG Hydromorphone HCl (Dilaudid Tab) 2 mg Q3HWA PO 01/13/18 18:00 01/27/18 17:59 01/21/18 15:58 2 MG Levetiracetam (Keppra Tab) 500 mg BID PO 01/13/18 21:00 02/12/18 20:59 01/21/18 07:45 500 MG Levothyroxine Sodium (Synthroid Tab) 75 mcg DAILYBB PO 01/14/18 06:30 02/13/18 06:29 01/21/18 06:33 75 MCG Lorazepam (Ativan Tab) 0.5 mg Q6H PRN PO 01/13/18 16:00 02/12/18 15:59 01/21/18 03:11 0.5 MG Multivitamins/ Minerals (Multivitamin W/ Minerals Tab) 1 tab DAILY PO 01/14/18 09:00 02/13/18 08:59 01/21/18 09:14 1 TAB Quetiapine Fumarate (seroQUEL TAB) 25 mg HS PO 01/13/18 21:00 02/12/18 20:59 01/20/18 21:12 25 MG Senna (Senokot Tab) 34.4 mg BID PO 01/13/18 21:00 02/12/18 20:59 01/21/18 07:44 34.4 MG Lubiprostone (Amitiza) 8 mcg BID PO 01/13/18 21:00 02/12/18 20:59 01/21/18 07:46 8 MCG Pantoprazole Sodium (Protonix Tab) 40 mg QAM PO 01/14/18 09:00 02/13/18 08:59 01/21/18 09:14 40 MG Polyethylene (Miralax Powder Packet) 17 gm BID PO 01/13/18 21:00 02/12/18 20:59 01/21/18 07:46 17 GM Potassium Chloride (Klor-Con Tab) 20 meq QAM PO 01/14/18 09:00 02/13/18 08:59 01/21/18 07:45 20 MEQ Saccharomyces Boulardii (Florastor Cap) 250 mg DAILY PO 01/14/18 09:00 02/13/18 08:59 01/21/18 07:43 250 MG Insulin Aspart (novoLOG ASPART) SLIDING SCALE If C... ACHS SC 01/13/18 21:00 02/12/18 20:59 01/21/18 18:15 2 UNITS Glucose (Glucose 40% Gel) 15-30 GRAMS 15 GRAMS... UD PRN PO 01/13/18 16:15 02/12/18 16:14 Glucose (Glucose Chew Tab) 4-8 Tablets 4 Tabl... UD PRN PO 01/13/18 16:15 02/12/18 16:14 Dextrose (Dextrose 50% 50ML Syringe) 25-50ML OF 50% DW IV FOR... UD PRN IV 01/13/18 16:15 02/12/18 16:14 Glucagon (Glucagon Inj) 1 mg UD PRN SQ 01/13/18 16:15 02/12/18 16:14 Ipratropium [place] (Atrovent 0.02% 0.5MG/2.5ML Neb) 0.5 mg Q6R INH 01/13/18 21:00 02/12/18 20:59 01/21/18 07:20 0.5 MG Levalbuterol (Xopenex 1.25MG/ 0.5ML Neb) 1.25 mg Q6R INH 01/13/18 21:00 02/12/18 20:59 01/21/18 07:20 1.25 MG Ipratropium [place] (Atrovent 0.02% 0.5MG/2.5ML Neb) 0.5 mg Q2H PRN INH 01/13/18 19:30 02/12/18 19:29 01/19/18 05:48 0.5 MG Levalbuterol (Xopenex 1.25MG/ 0.5ML Neb) 1.25 mg Q2H PRN INH 01/13/18 19:30 02/12/18 19:29 01/19/18 05:48 1.25 MG Miscellaneous Information (Consult Glycemic Management Pharmacy) 1 ea UD PRN N/A 01/15/18 17:39 02/14/18 17:38 Ceftriaxone Sodium 1 gm/ Dextrose 50 ml @ 120 mls/hr Q24H IV 01/17/18 14:00 01/27/18 13:59 01/21/18 15:20 120 MLS/HR Miscellaneous Information (Consult) 1 ea UD PRN N/A 01/17/18 14:15 02/16/18 14:14 Hydromorphone HCl (Dilaudid Tab) 2 mg HS PRN PO 01/17/18 19:45 01/31/18 19:44 01/21/18 02:16 2 MG Insulin Glargine (Lantus Solostar Pen) 50 units QPM SC 01/18/18 21:00 02/17/18 20:59 01/20/18 21:06 50 UNITS Vancomycin HCl 1250 mg/Sodium Chloride 275 ml @ 125 mls/hr Q12H IV 01/20/18 16:00 01/23/18 23:59 01/21/18 15:58 125 MLS/HR Methylprednisolone Sodium Succinate 40 mg/Syringe 0.64 ml @ 1.5 mls/min Q12H IV 01/21/18 02:00 02/20/18 01:59 01/21/18 15:21 1.5 MLS/MIN Miconazole Nitrate (Desenex Powder) 1 appln PRN PRN EXT 01/21/18 14:45 02/20/18 14:44 Midazolam HCl (Versed Inj) 3 mg TODAY@1418 ONCE IV 01/22/18 14:18 01/22/18 14:19 Fentanyl Citrate (Fentanyl Inj) 75 mcg TODAY@1418 ONCE IV 01/22/18 14:18 01/22/18 14:19 01/21/18 14:59 25 MCG Vital Signs: Date Time Temp Pulse Resp B/P (MAP) Pulse Ox O2 Delivery O2 Flow Rate FiO2 01/21/18 16:00 98 Nasal Cannula 3.0 96 01/21/18 15:39 37.0 81 19 147/74 (98) 98 Nasal Cannula 3.0 01/21/18 15:11 Mask 01/21/18 14:37 88 20 151/86 97 3.0 01/21/18 14:28 87 18 144/86 97 Oxymask 6.0 01/21/18 14:23 85 21 132/74 96 Oxymask 6.0 01/21/18 14:18 82 20 142/76 97 Oxymask 6.0 01/21/18 14:03 99 21 172/99 98 Nasal Cannula 4.0 01/21/18 08:00 97 Nasal Cannula 3.0 01/21/18 07:20 36.8 102 16 136/68 (90) 97 01/21/18 07:08 101 22 94 Nasal Cannula 4.0 01/21/18 02:21 112 24 93 Nasal Cannula 3.0 01/21/18 00:00 Nasal Cannula 3.0 01/20/18 23:56 36.6 118 20 169/75 (106) 100 Nasal Cannula 3.0 01/20/18 19:27 100 16 93 Nasal Cannula 3.0 Laboratory Results: Last 24 Hours Test 01/20/18 20:07 01/21/18 07:31 01/21/18 11:13 01/21/18 16:08 Bedside Glucose 103 mg/dl 182 mg/dl 202 mg/dl 72 mg/dl Test 01/21/18 17:27 01/21/18 18:05 Bedside Glucose 44 mg/dl 98 mg/dl
--- NOTE | 2018-01-21 18:44 | Procedure Note ---
Procedure Note Procedure Date Jan 21, 2018. Procedure Description Procedure Name: Bronchoscopy, indication difficulty clearing up her secretions, kyphosis with deformed trachea. Procedure time out: side/site verified, patient ID confirmed, correct procedure Consent obtained: written Performed by: attending Indications: diagnostic, therapeutic Contraindications: none Description: The procedure was done in the ICU, consent obtained from the patient regarding the procedure, indication is pulmonate toilets and difficulty clearing up her secretions, risk and benefits of the procedure explained in details and the patient agreed to the procedure. The patient monitored throughout and entire procedure with ICU style monitoring. The patient received lidocaine neb 10 mL of 2%. And mother sedation performed by the nurse certified for conscious sedation with total of 75 mics of fentanyl and 4 mg of Versed in increments. Using a bite block, after the patient was well sedated, the bronchoscope passed through the oral cavity, findings as follows: #1 vocal cords are mobile, posterior commissure noted to have abnormal mucosa could be related to cough. #2 subglottic area of stenosis likely from folded proximal trachea due to kyphosis. Larger diameter of the stenotic area is 6 mm. #3 the bronchoscope passed through the twisted trachea into the tracheobronchial tree. 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 #5 large amount of secretions all suctioned clear accumulating in the right lower lobe and left lower lobe. Specimen was sent from the left lower lobe secretions. #6 total of 20 mL of 1% lidocaine injected throughout the entire procedure. #7 the bronchoscope was removed. Time spent with this procedure was 15 minutes. Tolerated the procedure very well without complications. Pictures were taken, thoracic surgery consulted. Discussed with the patient after the procedure was done. Complications: none Patient tolerated procedure: well
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
[2018-01-21] MEDS: ENOXAPARIN 40 MG/0.4 ML SYR SQ SCH (21:08)
[2018-01-21] MEDS: ATORVASTATIN 40 MG TAB PO SCH (21:10)
[2018-01-21] MEDS: QUETIAPINE FUMARATE 25 MG TAB PO SCH (21:11)
[2018-01-21] MEDS: DOXEPIN HCL 75 MG CAP PO SCH (21:11)
[2018-01-21] MEDS: INSULIN GLARGINE SOLOSTAR 100 UNITS/ML 3 ML PEN SC SCH (21:23)
[2018-01-22] VITALS (9 sets, daily range): BP systolic 130–160; BP diastolic 57–75; PULSE 88–105; TEMP 36.6–36.8; O2SAT 96–100
[2018-01-22] MEDS: LEVALBUTEROL 1.25MG/0.5ML NEB INH SCH ×4 (02:01→19:31)
[2018-01-22] MEDS: IPRATROPIUM BROMIDE NEB SOLN 0.02% 2.5 ML VIAL INH SCH ×4 (02:01→19:30)
[2018-01-22] MEDS: METHYLPREDNISOLONE IV 40 MG in SYRINGE 0 ML IV SCH ×2 (02:02→13:39)
[2018-01-22] MEDS: HYDROmorphone HCL 2 MG TAB PO PRN (02:10)
[2018-01-22] MEDS: LORAZEPAM 0.5 MG TAB PO PRN (02:10)
[2018-01-22] MEDS ORDERED: VANCOMYCIN TROUGH SCH (03:30)
[2018-01-22 03:40] LABS: HEMATOCRIT 36.9 % (37-47); HEMOGLOBIN 11.9 g/dL (12.0-16.0); MEAN CELL VOLUME 91.3 fL (80-100); MEAN CORPUSCULAR HEMOGLOBIN 29.5 pg (25-34); MEAN CORPUSCULAR HGB CONC 32.2 g/dl (32-36); MEAN PLATELET VOLUME 10.3 fL (7.4-10.4); PLATELET COUNT 507 K/uL (130-400); RED CELL DISTRIBUTION WIDTH CV 17.3 % (11.5-14.5); RED CELL DISTRIBUTION WIDTH SD 58.1 fL (36.4-46.3); WHITE BLOOD COUNT 22.12 K/uL (4.8-10.8)
[2018-01-22] MEDS: VANCOMYCIN IV 1,250 MG in SODIUM CHLORIDE 0.9% 250ML 250 ML IV SCH ×2 (03:57→21:07)
[2018-01-22 03:58] LABS: CALCIUM 8.9 mg/dl (8.5-10.1); CREATININE 0.6 mg/dl (0.60-1.20); POTASSIUM 4.2 mmol/L (3.5-5.1)
[2018-01-22] MEDS: LEVOTHYROXINE 75 MCG TAB PO SCH (06:07)
[2018-01-22] MEDS: HYDROmorphone HCL 2 MG TAB PO SCH ×6 (06:07→21:08)
[2018-01-22] MEDS: SENNA 8.6 MG TAB PO SCH ×2 (07:28→21:13)
[2018-01-22] MEDS: POLYETHYLENE (MIRALAX) 17 GM PACK PO SCH ×2 (07:28→21:10)
[2018-01-22] MEDS: FUROSEMIDE 40 MG TAB PO SCH (07:28)
[2018-01-22] MEDS: LUBIPROSTONE 8 MCG CAP PO SCH ×2 (07:28→21:09)
[2018-01-22] MEDS: DULOXETINE HCL 60 MG CAP PO SCH (07:29)
[2018-01-22] MEDS: SACCHAROMYCES BOUL (FLORASTOR) 250 MG CAP PO SCH (07:29)
[2018-01-22] MEDS: POTASSIUM CHLORIDE 20 MEQ TABCR PO SCH (07:29)
[2018-01-22] MEDS: DOCUSATE SODIUM 100 MG CAP PO SCH ×2 (07:29→21:12)
[2018-01-22] MEDS: FAMOTIDINE 20 MG TAB PO SCH ×2 (07:29→21:09)
[2018-01-22] MEDS: ACETAMINOPHEN 500 MG TAB PO SCH ×2 (07:29→21:10)
[2018-01-22] MEDS: CEROVITE ADV FORMULA TAB PO SCH (07:29)
[2018-01-22] MEDS: LEVETIRACETAM 500 MG TAB PO SCH ×2 (07:29→21:08)
[2018-01-22] MEDS: PANTOprazole SOD 40 MG TAB PO SCH (07:30)
[2018-01-22] MEDS: INSULIN ASPART 100 UNITS/ML 3 ML PEN SC SCH ×3 (08:07→21:22)
--- NOTE | 2018-01-22 11:32 | Progress Note ---
Progress Note Date of Service Jan 22, 2018. Progress Note I discussed this case with Dr. Bustos and Dr. Tillman. Currently I do not think we would offer this patient any intervention. She is a very complicated patient it is unclear to me how much this is contributing to her respiratory dysfunction.
--- NOTE | 2018-01-22 13:38 | Pharmacy Progress Note ---
Pharmacy Abx Dose Short Note Date of Service Jan 22, 2018. Assessment & Plan Assessment 77 year old female receiving Vancomycin for treatment of MRSA pneumonia. Day # 6/7 of antimicrobial therapy. Vancomycin therapy extended to [address] Alvarado. Plan Vancomycin * Trough level of 23 mcg/mL is supratherapeutic. * Change to 1250 mg IV every 14 hours * Goal trough level for pneumonia : 15 to 20 mcg/mL * Trough level ordered for: 01/24 @1330. Pharmacy will continue to follow and will adjust dose/frequency as necessary. Thank you.
[2018-01-22] MEDS: CEFTRIAXONE SOD INJ 1 GM in DEXTROSE 5% 50ML 50 ML IV SCH (13:39)
[2018-01-22] MEDS ORDERED: MIDAZOLAM HCL 5 MG/ML 1 ML VIAL IV ONE (14:18)
[2018-01-22] MEDS ORDERED: FENTANYL CITRATE INJ 50 MCG/1 ML 2 ML VIAL IV ONE (14:18)
--- NOTE | 2018-01-22 15:12 | Pulmonology Progress Note ---
Pulmonary Progress Note Date of Service Jan 22, 2018. Attending Dr. Gandhi Subjective The patient is Feeling better today, however she continued to have difficulty raising up her secretions. She is less congested as she did yesterday. No shortness of breath reported and no pain. Objective Patient is doing well today sitting in bed able to have full conversation with no signs of tachypnea, accessory muscle use for ventilation or any signs of respiratory insufficiency. 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 On 01/21/2018, her physical exam revealed still afebrile, O2 saturation is 94% on nasal cannula, severe kyphosis, S1-S2 regular rate and rhythm, crackles bilaterally, abdomen is benign and no edema. On 01/22/2018, the patient physical exam revealed stable vital signs, O2 saturation is 95% on nasal cannula, severe kyphosis, S1-S2 regular rate and rhythm, no crackles on the right side but only on the left. Abdominal distention but no edema. Abdominal distention due to her body habitus. Assessment & Plan #1 severe kyphosis with deformed trachea resulted in the patient who is bedridden to have difficulty clearing up her secretions. She does have right lung dominant and left lung recessive. 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 The stenosis is measuring approximately 6 mm at its best diameter. Beyond the stenotic area, noted pooling secretions which have been suctioned and sent for culture. #3 chronic respiratory failure. #4 possibly the patient is aspirating her own secretions due to esophageal stricture. #5 paraplegia. #6 recurrent aspiration pneumonia. Plan: #1 bronchoscopy was done and results as above. #2 the patient likely will need vibrating vest twice daily for life. #3 continue her current treatment. Including completing antibiotic course for 7 days. #4 GI evaluation for esophageal stricture can be done electively. #5 consult thoracic. Appreciate Dr. Lyn input, no surgical intervention at this point, awaiting GI further evaluation for esophageal stricture. Hopefully this will alleviate her symptoms and her risk of recurrent aspiration. However the tracheal stenosis with continue to be problematic for her pomade toilets and airway clearance. Thank you, will follow. The case discussed in details with the family who were at the bedside as well. Data Medications: Current Inpatient Medications Medications (Trade) Dose Ordered Sig/Karen Route Start Time Stop Time Status Last Admin Dose Admin Enoxaparin Sodium (Lovenox Inj) 40 mg DAILY@2000 SQ 01/13/18 20:00 02/12/18 19:59 01/21/18 21:08 40 MG Acetaminophen (Tylenol Tab) 650 mg Q4H PRN PO 01/13/18 16:00 02/12/18 15:59 01/20/18 03:58 650 MG Al Hydrox/Mg Hydrox/Simethicone (Maalox Max Susp) 15 ml Q4H PRN PO 01/13/18 16:00 02/12/18 15:59 Magnesium Hydroxide (Milk Of Magnesia Susp) 30 ml Q6H PRN PO 01/13/18 16:00 02/12/18 15:59 01/16/18 11:36 30 ML Ondansetron HCl (Zofran Inj) 4 mg Q6H PRN IV 01/13/18 16:00 02/12/18 15:59 Acetaminophen (Tylenol Tab) 1,000 mg BID PO 01/13/18 21:00 02/12/18 20:59 01/22/18 07:29 1,000 MG Atorvastatin Calcium (Lipitor Tab) 40 mg HS PO 01/13/18 21:00 02/12/18 20:59 01/21/18 21:10 40 MG Baclofen (Lioresal Tab) 10 mg QID PRN PO 01/13/18 16:00 02/12/18 15:59 01/20/18 04:11 10 MG Belladonna/Opium (B & O Adult Supp) 60 mg Q8 PRN [place] 01/13/18 16:00 01/27/18 15:59 01/20/18 01:04 60 MG Bisacodyl (Dulcolax Supp) 10 mg DAILY PRN [place] 01/13/18 16:00 02/12/18 15:59 01/15/18 08:20 10 MG Docusate Sodium (coLACE CAP) 100 mg BID PO 01/13/18 21:00 02/12/18 20:59 01/22/18 07:29 100 MG Doxepin HCl (Sinequan Cap) 75 mg HS PO 01/13/18 21:00 02/12/18 20:59 01/21/18 21:11 75 MG Duloxetine HCl (Cymbalta Cap) 60 mg QAM PO 01/14/18 09:00 02/13/18 08:59 01/22/18 07:29 60 MG Famotidine (Pepcid Tab) 20 mg BID PO 01/13/18 21:00 02/12/18 20:59 01/22/18 07:29 20 MG Furosemide (Lasix Tab) 40 mg DAILY PO 01/14/18 09:00 02/13/18 08:59 01/22/18 07:28 40 MG Hydromorphone HCl (Dilaudid Tab) 2 mg Q3HWA PO 01/13/18 18:00 01/27/18 17:59 01/22/18 14:57 2 MG Levetiracetam (Keppra Tab) 500 mg BID PO 01/13/18 21:00 02/12/18 20:59 01/22/18 07:29 500 MG Levothyroxine Sodium (Synthroid Tab) 75 mcg DAILYBB PO 01/14/18 06:30 02/13/18 06:29 01/22/18 06:07 75 MCG Lorazepam (Ativan Tab) 0.5 mg Q6H PRN PO 01/13/18 16:00 02/12/18 15:59 01/22/18 02:10 0.5 MG Multivitamins/ Minerals (Multivitamin W/ Minerals Tab) 1 tab DAILY PO 01/14/18 09:00 02/13/18 08:59 01/22/18 07:29 1 TAB Quetiapine Fumarate (seroQUEL TAB) 25 mg HS PO 01/13/18 21:00 02/12/18 20:59 01/21/18 21:11 25 MG Senna (Senokot Tab) 34.4 mg BID PO 01/13/18 21:00 02/12/18 20:59 2/21/18 07:28 34.4 MG Lubiprostone (Amitiza) 8 mcg BID PO 01/13/18 21:00 02/12/18 20:59 01/22/18 07:28 8 MCG Pantoprazole Sodium (Protonix Tab) 40 mg QAM PO 01/14/18 09:00 02/13/18 08:59 01/22/18 07:30 40 MG Polyethylene (Miralax Powder Packet) 17 gm BID PO 01/13/18 21:00 02/12/18 20:59 01/22/18 07:28 17 GM Potassium Chloride (Klor-Con Tab) 20 meq QAM PO 01/14/18 09:00 02/13/18 08:59 01/22/18 07:29 20 MEQ Saccharomyces Boulardii (Florastor Cap) 250 mg DAILY PO 01/14/18 09:00 02/13/18 08:59 01/22/18 07:29 250 MG Insulin Aspart (novoLOG ASPART) SLIDING SCALE If C... ACHS SC 01/13/18 21:00 02/12/18 20:59 01/22/18 12:02 19 UNITS Glucose (Glucose 40% Gel) 15-30 GRAMS 15 GRAMS... UD PRN PO 01/13/18 16:15 02/12/18 16:14 Glucose (Glucose Chew Tab) 4-8 Tablets 4 Tabl... UD PRN PO 01/13/18 16:15 02/12/18 16:14 Dextrose (Dextrose 50% 50ML Syringe) 25-50ML OF 50% DW IV FOR... UD PRN IV 01/13/18 16:15 02/12/18 16:14 Glucagon (Glucagon Inj) 1 mg UD PRN SQ 01/13/18 16:15 02/12/18 16:14 Ipratropium [place] (Atrovent 0.02% 0.5MG/2.5ML Neb) 0.5 mg Q6R INH 01/13/18 21:00 02/12/18 20:59 01/22/18 14:05 0.5 MG Levalbuterol (Xopenex 1.25MG/ 0.5ML Neb) 1.25 mg Q6R INH 01/13/18 21:00 02/12/18 20:59 01/22/18 14:05 1.25 MG Ipratropium [place] (Atrovent 0.02% 0.5MG/2.5ML Neb) 0.5 mg Q2H PRN INH 01/13/18 19:30 02/12/18 19:29 01/19/18 05:48 0.5 MG Levalbuterol (Xopenex 1.25MG/ 0.5ML Neb) 1.25 mg Q2H PRN INH 01/13/18 19:30 02/12/18 19:29 01/19/18 05:48 1.25 MG Miscellaneous Information (Consult Glycemic Management Pharmacy) 1 ea UD PRN N/A 01/15/18 17:39 02/14/18 17:38 Ceftriaxone Sodium 1 gm/ Dextrose 50 ml @ 120 mls/hr Q24H IV 01/17/18 14:00 01/27/18 13:59 01/22/18 13:39 120 MLS/HR Miscellaneous Information (Consult) 1 ea UD PRN N/A 01/17/18 14:15 02/16/18 14:14 Hydromorphone HCl (Dilaudid Tab) 2 mg HS PRN PO 01/17/18 19:45 01/31/18 19:44 01/22/18 02:10 2 MG Insulin Glargine (Lantus Solostar Pen) 50 units QPM SC 01/18/18 21:00 02/17/18 20:59 01/21/18 21:23 50 UNITS Methylprednisolone Sodium Succinate 40 mg/Syringe 0.64 ml @ 1.5 mls/min Q12H IV 01/21/18 02:00 02/20/18 01:59 01/22/18 13:39 1.5 MLS/MIN Miconazole Nitrate (Desenex Powder) 1 appln PRN PRN EXT 01/21/18 14:45 02/20/18 14:44 Vancomycin HCl 1250 mg/Sodium Chloride 275 ml @ 125 mls/hr Q14H IV 01/22/18 20:00 01/30/18 19:59 I & O: 24-Hour Column 01/23/18 07:59 Output Total 650 ml Balance -650 ml Vital Signs: Date Time Temp Pulse Resp B/P (MAP) Pulse Ox O2 Delivery O2 Flow Rate FiO2 01/22/18 14:05 88 18 97 Nasal Cannula 4.0 01/22/18 08:00 36.8 100 20 160/71 (100) 99 Nasal Cannula 4.0 01/22/18 08:00 Nasal Cannula 4.0 01/22/18 07:10 92 18 98 Nasal Cannula 4.0 01/22/18 02:21 Nasal Cannula 3.0 01/22/18 02:01 92 18 96 Nasal Cannula 4.0 01/21/18 19:33 93 18 98 Nasal Cannula 4.0 01/21/18 16:00 98 Nasal Cannula 3.0 96 01/21/18 15:39 37.0 81 19 147/74 (98) 98 Nasal Cannula 3.0 01/21/18 15:11 Mask Laboratory Results: Last 24 Hours Test 01/21/18 16:08 01/21/18 17:27 01/21/18 18:05 01/21/18 20:34 Bedside Glucose 72 mg/dl 44 mg/dl 98 mg/dl 151 mg/dl Test 01/22/18 03:28 01/22/18 07:30 01/22/18 11:14 White Blood Count 22.12 K/uL Red Blood Count 4.04 M/uL Hemoglobin 11.9 g/dL Hematocrit 36.9 % Mean Corpuscular Volume 91.3 fL Mean Corpuscular Hemoglobin 29.5 pg Mean Corpuscular Hemoglobin Concent 32.2 g/dl RDW Standard Deviation 58.1 fL RDW Coefficient of Variation 17.3 % Platelet Count 507 K/uL Mean Platelet Volume 10.3 fL Sodium Level 138 mmol/L Potassium Level 4.2 mmol/L Chloride Level 99 mmol/L Carbon Dioxide Level 35 mmol/L Anion Gap 4.0 mmol/L Blood Urea Nitrogen 17 mg/dl Creatinine 0.60 mg/dl Est Creatinine Clear Calc Drug Dose 68.0 ml/min Estimated GFR () 101.2 Estimated GFR (Non- 87.3 BUN/Creatinine Ratio 28.3 Random Glucose 134 mg/dl Calcium Level 8.9 mg/dl Vancomycin Level Trough 23.0 mcg/ml Bedside Glucose 267 mg/dl 187 mg/dl
[2018-01-22] MEDS ORDERED: INSULIN ASPART 100 UNITS/ML 3 ML PEN SC SCH (16:30)
[2018-01-22] MEDS ORDERED: INSULIN HUMAN REGULAR IV BOLUS 5 UNIT in SYRINGE 0 ML IV SCH (20:45)
[2018-01-22] MEDS ORDERED: GLUCAGON FOR INJ 1 MG VIAL SQ PRN (20:45)
[2018-01-22] MEDS: ENOXAPARIN 40 MG/0.4 ML SYR SQ SCH (21:08)
[2018-01-22] MEDS: DOXEPIN HCL 75 MG CAP PO SCH (21:11)
[2018-01-22] MEDS: ATORVASTATIN 40 MG TAB PO SCH (21:12)
[2018-01-22] MEDS: QUETIAPINE FUMARATE 25 MG TAB PO SCH (21:12)
[2018-01-22] MEDS: INSULIN GLARGINE SOLOSTAR 100 UNITS/ML 3 ML PEN SC SCH (21:23)
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
[2018-01-23] VITALS (8 sets, daily range): BP systolic 143–178; BP diastolic 76–84; PULSE 88–102; TEMP 36.7–37.1; O2SAT 96–100
[2018-01-23] MEDS ORDERED: INSULIN ASPART 100 UNITS/ML 3 ML PEN SC SCH ×3 (02:00→16:30)
[2018-01-23] MEDS: HYDROmorphone HCL 2 MG TAB PO PRN (02:06)
[2018-01-23] MEDS: METHYLPREDNISOLONE IV 40 MG in SYRINGE 0 ML IV SCH ×2 (02:07→09:50)
[2018-01-23] MEDS: IPRATROPIUM BROMIDE NEB SOLN 0.02% 2.5 ML VIAL INH SCH ×4 (02:17→19:21)
[2018-01-23] MEDS: LEVALBUTEROL 1.25MG/0.5ML NEB INH SCH ×4 (02:17→19:21)
[2018-01-23] MEDS: LEVOTHYROXINE 75 MCG TAB PO SCH (05:33)
[2018-01-23] MEDS: HYDROmorphone HCL 2 MG TAB PO SCH ×6 (05:33→20:55)
[2018-01-23] MEDS: PANTOprazole SOD 40 MG TAB PO SCH (08:21)
[2018-01-23] MEDS: DOCUSATE SODIUM 100 MG CAP PO SCH ×2 (08:21→21:01)
[2018-01-23] MEDS: SENNA 8.6 MG TAB PO SCH ×2 (08:21→21:07)
[2018-01-23] MEDS: SACCHAROMYCES BOUL (FLORASTOR) 250 MG CAP PO SCH (08:22)
[2018-01-23] MEDS: CEROVITE ADV FORMULA TAB PO SCH (08:22)
[2018-01-23] MEDS: DULOXETINE HCL 60 MG CAP PO SCH (08:22)
[2018-01-23] MEDS: FUROSEMIDE 40 MG TAB PO SCH (08:22)
[2018-01-23] MEDS: POTASSIUM CHLORIDE 20 MEQ TABCR PO SCH (08:23)
[2018-01-23] MEDS: LEVETIRACETAM 500 MG TAB PO SCH ×2 (08:24→21:03)
[2018-01-23] MEDS: FAMOTIDINE 20 MG TAB PO SCH ×2 (08:24→21:06)
[2018-01-23] MEDS: ACETAMINOPHEN 500 MG TAB PO SCH ×2 (08:24→20:57)
[2018-01-23] MEDS: POLYETHYLENE (MIRALAX) 17 GM PACK PO SCH ×2 (08:24→20:57)
[2018-01-23] MEDS: LUBIPROSTONE 8 MCG CAP PO SCH ×2 (08:34→21:06)
[2018-01-23] MEDS: INSULIN ASPART 100 UNITS/ML 3 ML PEN SC SCH ×4 (08:34→21:01)
[2018-01-23] MEDS: VANCOMYCIN IV 1,250 MG in SODIUM CHLORIDE 0.9% 250ML 250 ML IV SCH (09:52)
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
[2018-01-23] MEDS ORDERED: HYDROmorphone INJ 1 MG/ML SYR IV STA (13:11)
[2018-01-23] MEDS: CEFTRIAXONE SOD INJ 1 GM in DEXTROSE 5% 50ML 50 ML IV SCH (13:28)
--- NOTE | 2018-01-23 13:46 | Pharmacy Progress Note ---
Pharmacy Glycemic Short Note 2 Date of Service Jan 23, 2018. OUTPATIENT ANTIDIABETIC REGIMEN: * Lantus 35 units qPM * Humalog per scale * HbA1c: 8.4% (11/29/17) ASSESSMENT: 01/23/18: * Patient's BSGs were very labile last night. * BSG pre lunch, 187 --> pre dinner, 52 (given crackers) --> bedtime, 400 ( given 5u IV insulin) --> am/fasting, 68 * This does not make a lot of sense? * BSGs have been somewhat better so far today. * SoluMedrol decreased to q24h today, however, patient received doses at 0200 and 0900 today, so do not expect to see this change reflected in BSGs until at least tomorrow. * For now, will reduce Lantus dose by 20% in an attempt to avoid further fasting hypoglycemia. Novolog parameters loosened slightly. * It appears as though patient needs the least amt of CHO coverage with lunch daily. Consider loosening lunch-time carb ratio. * Expect that regimen will need to be adjusted tomorrow as steroids are less and pt will likely require less insulin at that time. 01/21/18 * Patient has been receiving ~150 units of insulin per day the past few days, with reasonable BSGs/intermittent hyperglycemia. * SoluMedrol has been decreased from 40mg q6h --> 40mg q12h. Expect that this will decrease patient's insulin requirements. * Fasting BSG elevated this am, so will not adjust Lantus dose at this time. Novolog parameters loosened slightly today in anticipation that pt will require less prandial coverage with steroid taper. * Will continue to adjust as steroids taper. PLAN FOR INPATIENT GLYCEMIC CONTROL: * Basal insulin * Lantus 40 units qHS * Bolus insulin * NovoLog per scale ACHS or Q6hrs while NPO * Goal Range: Low 110 mg/dL - High 140 mg/dL * Correction Factor: 15 mg/dL/unit * TIGHTEN Prandial insulin to carb ratio of 1 unit per 5 grams CHO consumed DISCHARGE PLANNING: * A1c (8.4%) is not unreasonable for a 77yo patient w/ multiple comorbidities. * Expect that patient may resume home regimen on discharge.
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
--- NOTE | 2018-01-23 20:03 | Pulmonology Progress Note ---
Pulmonary Progress Note Date of Service Jan 23, 2018. Attending Dr. Gandhi Subjective Noted that the patient has similar symptoms today including inability to clear her secretions and persistent cough. Not relieved by any position. No pain was reported. Objective Patient is doing well today sitting in bed able to have full conversation with no signs of tachypnea, accessory muscle use for ventilation or any signs of respiratory insufficiency. Vital signs: Currently stable on 1-3 liters nasal cannula Respiratory: Rhonchi at the bases with minimal expiratory wheezing bilaterally Cardiac: S1-S2 regular rate and rhythm Abdomen: Positive bowel sounds soft nontender Extremities: Minimal pitting edema YARD COORDINATOR: Alert orientated times 3: Notable bilateral lower extremity paraplegia On 01/20/2018, Her physical exam revealed no fever, also saturation is 92% on nasal cannula, hyperinflated right lung, bilateral crackles, S1-S2, abdomen is benign, no edema. On 01/21/2018, her physical exam revealed still afebrile, O2 saturation is 94% on nasal cannula, severe kyphosis, S1-S2 regular rate and rhythm, crackles bilaterally, abdomen is benign and no edema. On 01/22/2018, the patient physical exam revealed stable vital signs, O2 saturation is 95% on nasal cannula, severe kyphosis, S1-S2 regular rate and rhythm, no crackles on the right side but only on the left. Abdominal distention but no edema. Abdominal distention due to her body habitus. On 01/23/2018, the patient noted to have stable vital signs, O2 saturation is 95 % still on nasal cannula, she does have significant upper airway sounding from inability to clear up her secretions. S1-S2 regular rate and rhythm. Severe kyphosis. Assessment & Plan #1 severe kyphosis with deformed trachea resulted in the patient who is bedridden to have difficulty clearing up her secretions. She does have right lung dominant and left lung recessive. 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 The stenosis is measuring approximately 6 mm at its best diameter. Beyond the stenotic area, noted pooling secretions which have been suctioned and sent for culture. #3 chronic respiratory failure. #4 possibly the patient is aspirating her own secretions due to esophageal stricture. #5 paraplegia. #6 recurrent aspiration pneumonia. #7 the patient does not have COPD. Plan: #1 bronchoscopy was done and showed significant tracheal stenosis and subglottic area due to the tortuous trachea, pooling of secretions due to inability to cough, pooling of secretions at the opening of the esophagus.. #2 the patient likely will need vibrating vest twice daily for life, however she stated that she could not tolerate it due to rectal pain.. #3 continue her current treatment. Including completing antibiotic course for 7 days. #4 GI evaluation for esophageal stricture can be done electively, appreciate GI input, however, the patient does not have a history of COPD. Bronchodilators were given for pulmonary toilet not COPD. The patient had restrictive pattern.. #[address]. [address]rec[address]. Lyn input, no surgical intervention at this point, awaiting GI further evaluation for esophageal stricture. Hopefully this will alleviate her symptoms and her risk of recurrent aspiration. #6 you may discontinue systemic steroids. #7 I have attempted to arrange for a second bronchoscopy on her today, it was difficult due to scheduling. #8 to mention, I have performed bronchoscopy in this patient and her current condition without any side effects of moderate sedation. Thank you, will follow. Data Medications: Current Inpatient Medications Medications (Trade) Dose Ordered Sig/Karen Route Start Time Stop Time Status Last Admin Dose Admin Enoxaparin Sodium (Lovenox Inj) 40 mg DAILY@2000 SQ 01/13/18 20:00 02/12/18 19:59 01/22/18 21:08 40 MG Acetaminophen (Tylenol Tab) 650 mg Q4H PRN PO 01/13/18 16:00 02/12/18 15:59 01/20/18 03:58 650 MG Al Hydrox/Mg Hydrox/Simethicone (Maalox Max Susp) 15 ml Q4H PRN PO 01/13/18 16:00 02/12/18 15:59 Magnesium Hydroxide (Milk Of Magnesia Susp) 30 ml Q6H PRN PO 01/13/18 16:00 02/12/18 15:59 01/16/18 11:36 30 ML Ondansetron HCl (Zofran Inj) 4 mg Q6H PRN IV 01/13/18 16:00 02/12/18 15:59 Acetaminophen (Tylenol Tab) 1,000 mg BID PO 01/13/18 21:00 02/12/18 20:59 01/23/18 08:24 1,000 MG Atorvastatin Calcium (Lipitor Tab) 40 mg HS PO 01/13/18 21:00 02/12/18 20:59 01/22/18 21:12 40 MG Baclofen (Lioresal Tab) 10 mg QID PRN PO 01/13/18 16:00 02/12/18 15:59 01/20/18 04:11 10 MG Belladonna/Opium (B & O Adult Supp) 60 mg Q8 PRN [place] 01/13/18 16:00 01/27/18 15:59 01/20/18 01:04 60 MG Bisacodyl (Dulcolax Supp) 10 mg DAILY PRN [place] 01/13/18 16:00 02/12/18 15:59 01/15/18 08:20 10 MG Docusate Sodium (coLACE CAP) 100 mg BID PO 01/13/18 21:00 02/12/18 20:59 01/23/18 08:21 100 MG Doxepin HCl (Sinequan Cap) 75 mg HS PO 01/13/18 21:00 02/12/18 20:59 01/22/18 21:11 75 MG Duloxetine HCl (Cymbalta Cap) 60 mg QAM PO 01/14/18 09:00 02/13/18 08:59 01/23/18 08:22 60 MG Famotidine (Pepcid Tab) 20 mg BID PO 01/13/18 21:00 02/12/18 20:59 01/23/18 08:24 20 MG Furosemide (Lasix Tab) 40 mg DAILY PO 01/14/18 09:00 02/13/18 08:59 01/23/18 08:22 40 MG Hydromorphone HCl (Dilaudid Tab) 2 mg Q3HWA PO 01/13/18 18:00 01/27/18 17:59 01/23/18 18:14 2 MG Levetiracetam (Keppra Tab) 500 mg BID PO 01/13/18 21:00 02/12/18 20:59 01/23/18 08:24 500 MG Levothyroxine Sodium (Synthroid Tab) 75 mcg DAILYBB PO 01/14/18 06:30 02/13/18 06:29 01/23/18 05:33 75 MCG Lorazepam (Ativan Tab) 0.5 mg Q6H PRN PO 01/13/18 16:00 02/12/18 15:59 01/22/18 02:10 0.5 MG Multivitamins/ Minerals (Multivitamin W/ Minerals Tab) 1 tab DAILY PO 01/14/18 09:00 02/13/18 08:59 01/23/18 08:22 1 TAB Quetiapine Fumarate (seroQUEL TAB) 25 mg HS PO 01/13/18 21:00 02/12/18 20:59 01/22/18 21:12 25 MG Senna (Senokot Tab) 34.4 mg BID PO 01/13/18 21:00 02/12/18 20:59 01/23/18 08:21 34.4 MG Lubiprostone (Amitiza) 8 mcg BID PO 01/13/18 21:00 02/12/18 20:59 01/23/18 08:34 8 MCG Pantoprazole Sodium (Protonix Tab) 40 mg QAM PO 01/14/18 09:00 02/13/18 08:59 01/23/18 08:21 40 MG Polyethylene (Miralax Powder Packet) 17 gm BID PO 01/13/18 21:00 02/12/18 20:59 01/23/18 08:24 17 GM Potassium Chloride (Klor-Con Tab) 20 meq QAM PO 01/14/18 09:00 02/13/18 08:59 01/23/18 08:23 20 MEQ Saccharomyces Boulardii (Florastor Cap) 250 mg DAILY PO 01/14/18 09:00 02/13/18 08:59 01/23/18 08:22 250 MG Glucose (Glucose 40% Gel) 15-30 GRAMS 15 GRAMS... UD PRN PO 01/13/18 16:15 02/12/18 16:14 Glucose (Glucose Chew Tab) 4-8 Tablets 4 Tabl... UD PRN PO 01/13/18 16:15 02/12/18 16:14 Dextrose (Dextrose 50% 50ML Syringe) 25-50ML OF 50% DW IV FOR... UD PRN IV 01/13/18 16:15 02/12/18 16:14 Glucagon (Glucagon Inj) 1 mg UD PRN SQ 01/13/18 16:15 02/12/18 16:14 Ipratropium [place] (Atrovent 0.02% 0.5MG/2.5ML Neb) 0.5 mg Q6R INH 01/13/18 21:00 02/12/18 20:59 01/23/18 19:21 0.5 MG Levalbuterol (Xopenex 1.25MG/ 0.5ML Neb) 1.25 mg Q6R INH 01/13/18 21:00 02/12/18 20:59 01/23/18 19:21 1.25 MG Ipratropium [place] (Atrovent 0.02% 0.5MG/2.5ML Neb) 0.5 mg Q2H PRN INH 01/13/18 19:30 02/12/18 19:29 01/19/18 05:48 0.5 MG Levalbuterol (Xopenex 1.25MG/ 0.5ML Neb) 1.25 mg Q2H PRN INH 01/13/18 19:30 02/12/18 19:29 01/19/18 05:48 1.25 MG Miscellaneous Information (Consult Glycemic Management Pharmacy) 1 ea UD PRN N/A 01/15/18 17:39 02/14/18 17:38 Ceftriaxone Sodium 1 gm/ Dextrose 50 ml @ 120 mls/hr Q24H IV 01/17/18 14:00 01/27/18 13:59 01/23/18 13:28 120 MLS/HR Miscellaneous Information (Consult) 1 ea UD PRN N/A 01/17/18 14:15 02/16/18 14:14 Hydromorphone HCl (Dilaudid Tab) 2 mg HS PRN PO 01/17/18 19:45 01/31/18 19:44 01/23/18 02:06 2 MG Miconazole Nitrate (Desenex Powder) 1 appln PRN PRN EXT 01/21/18 14:45 02/20/18 14:44 Vancomycin HCl 1250 mg/Sodium Chloride 275 ml @ 125 mls/hr Q14H IV 01/22/18 20:00 01/30/18 19:59 01/23/18 09:52 125 MLS/HR Glucagon (Glucagon Inj) 1 mg UD PRN SQ 01/22/18 20:45 02/21/18 20:44 Methylprednisolone Sodium Succinate 40 mg/Syringe 0.64 ml @ 1.5 mls/min DAILY IV 01/23/18 09:00 02/20/18 01:59 01/23/18 09:50 1.5 MLS/MIN Insulin Glargine (Lantus Solostar Pen) 40 units QPM SC 01/23/18 21:00 02/22/18 20:59 Insulin Aspart (novoLOG ASPART) SLIDING SCALE If C... ACHS SC 01/23/18 11:00 02/22/18 10:59 01/23/18 17:30 10 UNITS I & O: 24-Hour Column 01/24/18 07:59 Intake Total 605 ml Output Total 900 ml Balance -295 ml Vital Signs: Date Time Temp Pulse Resp B/P (MAP) Pulse Ox O2 Delivery O2 Flow Rate FiO2 01/23/18 16:10 Nasal Cannula 4.0 01/23/18 15:30 37.0 101 22 149/84 (105) 99 Nasal Cannula 4.0 01/23/18 14:22 88 18 99 Nasal Cannula 3.0 01/23/18 11:23 96 Nasal Cannula 3.0 01/23/18 07:38 88 18 99 Nasal Cannula 3.0 01/23/18 07:16 37.1 101 20 143/80 (101) 100 Nasal Cannula 3.0 01/23/18 00:20 98 Nasal Cannula 4.0 01/22/18 22:53 36.7 105 22 130/57 (81) 96 4.0 01/22/18 20:20 98 Nasal Cannula 4.0 Laboratory Results: Last 24 Hours Test 01/22/18 20:26 01/22/18 20:30 01/23/18 02:16 01/23/18 03:19 Bedside Glucose 364 mg/dl 372 mg/dl 68 mg/dl 82 mg/dl Test 01/23/18 07:23 01/23/18 10:14 01/23/18 11:29 01/23/18 16:30 Bedside Glucose 84 mg/dl 174 mg/dl 137 mg/dl 103 mg/dl
[2018-01-23] MEDS: DOXEPIN HCL 75 MG CAP PO SCH (21:00)
[2018-01-23] MEDS ORDERED: INSULIN GLARGINE SOLOSTAR 100 UNITS/ML 3 ML PEN SC SCH (21:00)
[2018-01-23] MEDS: ENOXAPARIN 40 MG/0.4 ML SYR SQ SCH (21:01)
[2018-01-23] MEDS: QUETIAPINE FUMARATE 25 MG TAB PO SCH (21:01)
[2018-01-23] MEDS: ATORVASTATIN 40 MG TAB PO SCH (21:01)
[2018-01-24] MEDS: VANCOMYCIN IV 1,250 MG in SODIUM CHLORIDE 0.9% 250ML 250 ML IV SCH ×2 (00:05→13:58)
[2018-01-24] MEDS: HYDROmorphone HCL 2 MG TAB PO SCH ×6 (01:29→21:02)
[2018-01-24] MEDS: LEVALBUTEROL 1.25MG/0.5ML NEB INH SCH ×4 (01:34→19:25)
[2018-01-24] MEDS: IPRATROPIUM BROMIDE NEB SOLN 0.02% 2.5 ML VIAL INH SCH ×4 (01:34→19:25)
[2018-01-24] MEDS: LORAZEPAM 0.5 MG TAB PO PRN (02:02)
[2018-01-24] MEDS: LEVOTHYROXINE 75 MCG TAB PO SCH (05:19)
[2018-01-24] MEDS: HYDROmorphone HCL 2 MG TAB PO PRN (05:19)
[2018-01-24 07:02] VITALS: PULSE 85; O2SAT 100
[2018-01-24 07:19] VITALS: BP 137/79; PULSE 92; TEMP 36.6; O2SAT 100
[2018-01-24 07:33] LABS: CREATININE 0.36 mg/dl (0.60-1.20)
[2018-01-24] MEDS: INSULIN ASPART 100 UNITS/ML 3 ML PEN SC SCH ×4 (08:15→21:00)
[2018-01-24] MEDS: SACCHAROMYCES BOUL (FLORASTOR) 250 MG CAP PO SCH (08:26)
[2018-01-24] MEDS: SENNA 8.6 MG TAB PO SCH ×2 (08:26→21:04)
[2018-01-24] MEDS: POTASSIUM CHLORIDE 20 MEQ TABCR PO SCH (08:26)
[2018-01-24] MEDS: LEVETIRACETAM 500 MG TAB PO SCH ×2 (08:27→21:02)
[2018-01-24] MEDS: FAMOTIDINE 20 MG TAB PO SCH ×2 (08:27→21:03)
[2018-01-24] MEDS: CEROVITE ADV FORMULA TAB PO SCH (08:28)
[2018-01-24] MEDS: FUROSEMIDE 40 MG TAB PO SCH (08:28)
[2018-01-24] MEDS: ACETAMINOPHEN 500 MG TAB PO SCH ×2 (08:28→21:03)
[2018-01-24] MEDS: PANTOprazole SOD 40 MG TAB PO SCH (08:28)
[2018-01-24] MEDS: LUBIPROSTONE 8 MCG CAP PO SCH ×2 (08:29→21:05)
[2018-01-24] MEDS: DOCUSATE SODIUM 100 MG CAP PO SCH ×2 (08:29→21:06)
[2018-01-24] MEDS: DULOXETINE HCL 60 MG CAP PO SCH (08:29)
[2018-01-24] MEDS: POLYETHYLENE (MIRALAX) 17 GM PACK PO SCH ×2 (08:29→21:05)
[2018-01-24 08:47] LABS: BASO % 0.1 %; BASO ABS # 0.01 K/uL (0-0.2); EOS % 0.7 %; EOS ABS # 0.13 K/uL (0-0.5); HEMATOCRIT 35.9 % (37-47); HEMOGLOBIN 11.4 g/dL (12.0-16.0); IG# 0.13 K/uL (0.00-0.02); LYMPH ABS # 4.24 K/uL (1.2-3.4); MEAN CELL VOLUME 91.8 fL (80-100); MEAN CORPUSCULAR HEMOGLOBIN 29.2 pg (25-34); MEAN CORPUSCULAR HGB CONC 31.8 g/dl (32-36); MEAN PLATELET VOLUME 10.4 fL (7.4-10.4); MONO % 10.7 %; MONO ABS # 1.98 K/uL (0.11-0.59); NEUT % 64.8 %; NEUT ABS # 11.93 K/uL (1.4-6.5); PLATELET COUNT 476 K/uL (130-400); RED CELL DISTRIBUTION WIDTH CV 17.5 % (11.5-14.5); RED CELL DISTRIBUTION WIDTH SD 58.4 fL (36.4-46.3); WHITE BLOOD COUNT 18.42 K/uL (4.8-10.8)
[2018-01-24] MEDS: METHYLPREDNISOLONE IV 40 MG in SYRINGE 0 ML IV SCH (09:19)
[2018-01-24 09:21] LABS: CALCIUM 9.1 mg/dl (8.5-10.1); CREATININE 0.49 mg/dl (0.60-1.20)
--- NOTE | 2018-01-24 12:25 | Gastroenterology Progress Note ---
Progress Note Date of Service: Jan 24, 2018 Subjective Pt evaluation today including: conversation w/ patient, physical exam, review of inpatient medication list Patient reports she is tolerating her diet. Denies any dysphagia to solids or liquids. States if she eats too much, she will get worsening shortness of breath. Had a barium swallow study ordered yesterday which was cancelled yesterday for bronchoscopy per radiology dept. She has just eaten her lunch. No GI complaints. Review of Systems Constitutional: + weakness Respiratory: + see HPI, No shortness of breath, No dyspnea on exertion Cardiac: No chest pain Abdomen: + see HPI Medications Current Inpatient Medications Medications (Trade) Dose Ordered Sig/Karen Route Start Time Stop Time Status Last Admin Dose Admin Enoxaparin Sodium (Lovenox Inj) 40 mg DAILY@2000 SQ 01/13/18 20:00 02/12/18 19:59 01/23/18 21:01 40 MG Acetaminophen (Tylenol Tab) 650 mg Q4H PRN PO 01/13/18 16:00 02/12/18 15:59 01/20/18 03:58 650 MG Al Hydrox/Mg Hydrox/Simethicone (Maalox Max Susp) 15 ml Q4H PRN PO 01/13/18 16:00 02/12/18 15:59 Magnesium Hydroxide (Milk Of Magnesia Susp) 30 ml Q6H PRN PO 01/13/18 16:00 02/12/18 15:59 01/16/18 11:36 30 ML Ondansetron HCl (Zofran Inj) 4 mg Q6H PRN IV 01/13/18 16:00 02/12/18 15:59 Acetaminophen (Tylenol Tab) 1,000 mg BID PO 01/13/18 21:00 02/12/18 20:59 01/24/18 08:28 1,000 MG Atorvastatin Calcium (Lipitor Tab) 40 mg HS PO 01/13/18 21:00 02/12/18 20:59 01/23/18 21:01 40 MG Baclofen (Lioresal Tab) 10 mg QID PRN PO 01/13/18 16:00 02/12/18 15:59 01/20/18 04:11 10 MG Belladonna/Opium (B & O Adult Supp) 60 mg Q8 PRN [place] 01/13/18 16:00 01/27/18 15:59 01/20/18 01:04 60 MG Bisacodyl (Dulcolax Supp) 10 mg DAILY PRN [place] 01/13/18 16:00 02/12/18 15:59 01/15/18 08:20 10 MG Docusate Sodium (coLACE CAP) 100 mg BID PO 01/13/18 21:00 02/12/18 20:59 01/24/18 08:29 100 MG Doxepin HCl (Sinequan Cap) 75 mg HS PO 01/13/18 21:00 02/12/18 20:59 01/22/18 21:11 75 MG Duloxetine HCl (Cymbalta Cap) 60 mg QAM PO 01/14/18 09:00 02/13/18 08:59 01/24/18 08:29 60 MG Famotidine (Pepcid Tab) 20 mg BID PO 01/13/18 21:00 02/12/18 20:59 01/24/18 08:27 20 MG Furosemide (Lasix Tab) 40 mg DAILY PO 01/14/18 09:00 02/13/18 08:59 01/24/18 08:28 40 MG Hydromorphone HCl (Dilaudid Tab) 2 mg Q3HWA PO 01/13/18 18:00 01/27/18 17:59 01/24/18 11:41 2 MG Levetiracetam (Keppra Tab) 500 mg BID PO 01/13/18 21:00 02/12/18 20:59 01/24/18 08:27 500 MG Levothyroxine Sodium (Synthroid Tab) 75 mcg DAILYBB PO 01/14/18 06:30 02/13/18 06:29 01/24/18 05:19 75 MCG Lorazepam (Ativan Tab) 0.5 mg Q6H PRN PO 01/13/18 16:00 02/12/18 15:59 01/24/18 02:02 0.5 MG Multivitamins/ Minerals (Multivitamin W/ Minerals Tab) 1 tab DAILY PO 01/14/18 09:00 02/13/18 08:59 01/24/18 08:28 1 TAB Quetiapine Fumarate (seroQUEL TAB) 25 mg HS PO 01/13/18 21:00 02/12/18 20:59 01/23/18 21:01 25 MG Senna (Senokot Tab) 34.4 mg BID PO 01/13/18 21:00 02/12/18 20:59 01/24/18 08:26 34.4 MG Lubiprostone (Amitiza) 8 mcg BID PO 01/13/18 21:00 02/12/18 20:59 01/24/18 08:29 8 MCG Pantoprazole Sodium (Protonix Tab) 40 mg QAM PO 01/14/18 09:00 02/13/18 08:59 01/24/18 08:28 40 MG Polyethylene (Miralax Powder Packet) 17 gm BID PO 01/13/18 21:00 02/12/18 20:59 01/24/18 08:29 17 GM Potassium Chloride (Klor-Con Tab) 20 meq QAM PO 01/14/18 09:00 02/13/18 08:59 01/24/18 08:26 20 MEQ Saccharomyces Boulardii (Florastor Cap) 250 mg DAILY PO 01/14/18 09:00 02/13/18 08:59 01/24/18 08:26 250 MG Glucose (Glucose 40% Gel) 15-30 GRAMS 15 GRAMS... UD PRN PO 01/13/18 16:15 02/12/18 16:14 Glucose (Glucose Chew Tab) 4-8 Tablets 4 Tabl... UD PRN PO 01/13/18 16:15 02/12/18 16:14 Dextrose (Dextrose 50% 50ML Syringe) 25-50ML OF 50% DW IV FOR... UD PRN IV 01/13/18 16:15 02/12/18 16:14 Glucagon (Glucagon Inj) 1 mg UD PRN SQ 01/13/18 16:15 02/12/18 16:14 Ipratropium [place] (Atrovent 0.02% 0.5MG/2.5ML Neb) 0.5 mg Q6R INH 01/13/18 21:00 02/12/18 20:59 01/24/18 07:02 0.5 MG Levalbuterol (Xopenex 1.25MG/ 0.5ML Neb) 1.25 mg Q6R INH 01/13/18 21:00 02/12/18 20:59 01/24/18 07:02 1.25 MG Ipratropium [place] (Atrovent 0.02% 0.5MG/2.5ML Neb) 0.5 mg Q2H PRN INH 01/13/18 19:30 02/12/18 19:29 01/19/18 05:48 0.5 MG Levalbuterol (Xopenex 1.25MG/ 0.5ML Neb) 1.25 mg Q2H PRN INH 01/13/18 19:30 02/12/18 19:29 01/19/18 05:48 1.25 MG Miscellaneous Information (Consult Glycemic Management Pharmacy) 1 ea UD PRN N/A 01/15/18 17:39 02/14/18 17:38 Ceftriaxone Sodium 1 gm/ Dextrose 50 ml @ 120 mls/hr Q24H IV 01/17/18 14:00 01/27/18 13:59 01/23/18 13:28 120 MLS/HR Miscellaneous Information (Consult) 1 ea UD PRN N/A 01/17/18 14:15 02/16/18 14:14 Hydromorphone HCl (Dilaudid Tab) 2 mg HS PRN PO 01/17/18 19:45 01/31/18 19:44 01/24/18 05:19 2 MG Miconazole Nitrate (Desenex Powder) 1 appln PRN PRN EXT 01/21/18 14:45 02/20/18 14:44 Vancomycin HCl 1250 mg/Sodium Chloride 275 ml @ 125 mls/hr Q14H IV 01/22/18 20:00 01/30/18 19:59 01/24/18 00:05 125 MLS/HR Glucagon (Glucagon Inj) 1 mg UD PRN SQ 01/22/18 20:45 02/21/18 20:44 Insulin Aspart (novoLOG ASPART) SLIDING SCALE If C... ACHS SC 01/23/18 11:00 02/22/18 10:59 01/24/18 12:17 12 UNITS Insulin Glargine (Lantus Solostar Pen) 35 units QPM SC 01/24/18 21:00 02/23/18 20:59 Hydromorphone HCl (Dilaudid Inj) 1 mg Q4 PRN IV 01/24/18 10:00 3/9/18 09:59 UNV Methylprednisolone Sodium Succinate 20 mg/Syringe 0.32 ml @ 1.5 mls/min DAILY IV 01/25/18 09:00 02/24/18 08:59 UNV Objective Vital Signs Date Time Temp Pulse Resp B/P (MAP) Pulse Ox O2 Delivery O2 Flow Rate FiO2 01/24/18 08:30 Nasal Cannula 3.0 01/24/18 07:19 36.6 92 18 137/79 (98) 100 Nasal Cannula 7.0 01/24/18 07:02 85 18 100 Nasal Cannula 7.0 01/24/18 00:00 Nasal Cannula 5.0 96 01/23/18 23:16 36.7 102 20 178/76 (110) 100 Nasal Cannula 7.0 01/23/18 19:21 91 18 99 Nasal Cannula 3.0 01/23/18 16:10 Nasal Cannula 4.0 01/23/18 15:30 37.0 101 22 149/84 (105) 99 Nasal Cannula 4.0 01/23/18 14:22 88 18 99 Nasal Cannula 3.0 Physical Exam General Appearance: no apparent distress Eyes: EOMI Respiratory/Chest: + rhonchi, + inspiration Cardiovascular: regular rate, rhythm Abdomen: soft Neurologic/Psych: alert, oriented x 3 Skin: warm/dry Laboratory Results Last 24 Hours Test 01/23/18 16:30 01/23/18 20:18 01/24/18 06:23 01/24/18 06:27 Bedside Glucose 103 mg/dl 149 mg/dl Creatinine 0.36 mg/dl Est Creatinine Clear Calc Drug Dose 113.3 ml/min Estimated GFR () 119.7 Estimated GFR (Non- 103.3 White Blood Count 18.42 K/uL Red Blood Count 3.91 M/uL Hemoglobin 11.4 g/dL Hematocrit 35.9 % Mean Corpuscular Volume 91.8 fL Mean Corpuscular Hemoglobin 29.2 pg Mean Corpuscular Hemoglobin Concent 31.8 g/dl Platelet Count 476 K/uL Mean Platelet Volume 10.4 fL Neutrophils (%) (Auto) 64.8 % Lymphocytes (%) (Auto) 23.0 % Monocytes (%) (Auto) 10.7 % Eosinophils (%) (Auto) 0.7 % Basophils (%) (Auto) 0.1 % Neutrophils # (Auto) 11.93 K/uL Lymphocytes # (Auto) 4.24 K/uL Monocytes # (Auto) 1.98 K/uL Eosinophils # (Auto) 0.13 K/uL Basophils # (Auto) 0.01 K/uL RDW Standard Deviation 58.4 fL RDW Coefficient of Variation 17.5 % Immature Granulocyte % (Auto) 0.7 % Immature Granulocyte # (Auto) 0.13 K/uL Test 01/24/18 07:31 01/24/18 07:56 01/24/18 08:20 01/24/18 11:17 Bedside Glucose 50 mg/dl 104 mg/dl 145 mg/dl Sodium Level 137 mmol/L Potassium Level 4.0 mmol/L Chloride Level 98 mmol/L Carbon Dioxide Level 33 mmol/L Anion Gap 6.0 mmol/L Blood Urea Nitrogen 11 mg/dl Creatinine 0.49 mg/dl Est Creatinine Clear Calc Drug Dose 83.2 ml/min Estimated GFR () 108.2 Estimated GFR (Non- 93.3 BUN/Creatinine Ratio 21.7 Random Glucose 102 mg/dl Calcium Level 9.1 mg/dl Troponin I < 0.015 ng/ml Chemistry Specimen Hemolysis Assessment and Plan Patient is a 77 year old female hospitalized for an acute hypoxic respiratory failure due to COPD. Consideration of GI evaluation was proposed by the data librarian to rule out esophageal stricture which they are concerned could be causing aspiration. 1. Barium swallow study cancelled yesterday. Consider testing for further evaluation. 2. Continue Protonix 40 mg daily. 3. Supportive care per primary team. Agree with RADHA Lindsay as above Discussed case with Dr. Aviles of Pulm Consider EGD on Saturday based on patient's overall clinical picture.
[2018-01-24] MEDS ORDERED: VANCOMYCIN TROUGH ONE (13:30)
[2018-01-24] MEDS: CEFTRIAXONE SOD INJ 1 GM in DEXTROSE 5% 50ML 50 ML IV SCH (13:32)
--- NOTE | 2018-01-24 14:11 | Pharmacy Progress Note ---
Pharmacy Glycemic Short Note 2 Date of Service Jan 24, 2018. OUTPATIENT ANTIDIABETIC REGIMEN: * Lantus 35 units qPM * Humalog per scale * HbA1c: 8.4% (11/29/17) ASSESSMENT: * Ms Ramirez is a 77 y/o F with a PMH of CHF, paraplegia, HTN, chronic pain, seizures, and poorly controlled diabetes (goal HbA1C for patient is closer to 7.5-8.0% according to the Elements of Diabetes Care Scoring Scale). She was initially admitted with chronic respiratory failure. The patient has been treated with Solu-Medrol for over 1 week. This has finally been tapered to Solu- Medrol 20 mg IV q24 hours starting tomorrow morning. For several days the patient had required greater than 100 units of insulin but yesterday developed a low fasting. This morning the patient's fasting was even lower at 50 mg/dL. Blood sugars yesterday were 68-149 mg/dL while receiving 72 units of insulin ( 40 of which were Lantus). * For Lantus, reduce further below the patient's home dose to 30 units only if blood sugar greater than 200 mg/dL. If blood sugar does not really recover then give Lantus 20 units (50% reduction due to lows two days in a row). * For Novolog, loosened slightly since the Novolog yesterday appeared too aggressive. This remains at a weight-based stress of 3. PLAN FOR INPATIENT GLYCEMIC CONTROL: * Basal insulin * Lantus 20-30 units qHS (Lantus 30 units if blood sugar 200 mg/dL or greater) * Bolus insulin * NovoLog per scale ACHS or Q6hrs while NPO * Goal Range: Low 110 mg/dL - High 140 mg/dL * Correction Factor: 20 mg/dL/unit * TIGHTEN Prandial insulin to carb ratio of 1 unit per 6 grams CHO consumed DISCHARGE PLANNING: * A1c (8.4%) is not unreasonable for a 77yo patient w/ multiple comorbidities even though it is not a goal. Recommend close follow-up with PCP to determine if tighter glycemic coverage is reasonable in this patient.
[2018-01-24 14:16] VITALS: PULSE 105; O2SAT 99
[2018-01-24 15:04] VITALS: Ht 147.3 cm; Wt 78.0 kg
--- NOTE | 2018-01-24 15:27 | Pharmacy Progress Note ---
Pharmacy Abx Dose Short Note Date of Service Jan 24, 2018. Assessment & Plan Assessment * 77 year old female receiving IV Vancomycin for treatment of MRSA pneumonia * Both sputum and bronch cx positive for MRSA * Day #07/15 of antimicrobial therapy. * Vanc level drawn today: trough of 21.2 mcg/mL is slightly supratherapeutic, especially given vanc JAIDA 1 Plan Vancomycin * Change to Vancomycin 1000 mg IV every 12 hours * Goal trough level for pneumonia: 15 to 20 mcg/mL * Trough level ordered for: 01/26 prior to dose at 0400 Pharmacy will continue to follow and will adjust dose/frequency as necessary. Thank you.
[2018-01-24 16:02] VITALS: BP 137/75; PULSE 99; TEMP 36.6; O2SAT 99
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
--- NOTE | 2018-01-24 17:10 | Pulmonology Progress Note ---
Pulmonary Progress Note Date of Service Jan 24, 2018. Attending Dr. Gandhi Subjective The patient continued to have difficulty keeping her food, every time she eats, she end up having significant cough with recurrent aspiration into her lung. The patient status post bronchoscopy with significant amount of aspirated material and tracheal stenosis. Large amount of food material also was noted at the entrance of the esophagus when I did a bronchoscopy on her. Objective Patient is doing well today sitting in bed able to have full conversation with no signs of tachypnea, accessory muscle use for ventilation or any signs of respiratory insufficiency. 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 On 01/21/2018, her physical exam revealed still afebrile, O2 saturation is 94% on nasal cannula, severe kyphosis, S1-S2 regular rate and rhythm, crackles bilaterally, abdomen is benign and no edema. On 01/22/2018, the patient physical exam revealed stable vital signs, O2 saturation is 95% on nasal cannula, severe kyphosis, S1-S2 regular rate and rhythm, no crackles on the right side but only on the left. Abdominal distention but no edema. Abdominal distention due to her body habitus. On 01/23/2018, the patient noted to have stable vital signs, O2 saturation is 95 % still on nasal cannula, she does have significant upper airway sounding from inability to clear up her secretions. S1-S2 regular rate and rhythm. Severe kyphosis. Physical exam on 01/24/2018, the patient O2 saturation with oxygen is 93%, she does have distant breath sounds, upper airway gurgling related to secretions piling, abdomen is distended but nontender, trace edema. Assessment & Plan #1 severe kyphosis with deformed trachea resulted in the patient who is bedridden to have difficulty clearing up her secretions. She does have right lung dominant and left lung recessive. 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 The stenosis is measuring approximately 6 mm at its best diameter. Beyond the stenotic area, noted pooling secretions which have been suctioned and sent for culture growing MRSA and the patient is already on Vanco.. #3 chronic respiratory failure. #4 possibly the patient is aspirating her own secretions due to esophageal stricture, most recent esophageal dilation done June 2017.. #5 paraplegia. #6 recurrent aspiration pneumonia with MRSA, also UTI with Escherichia coli. #7 the patient does not have COPD. Plan: #1 bronchoscopy was done and showed significant tracheal stenosis and subglottic area due to the tortuous trachea, pooling of secretions due to inability to cough, pooling of secretions at the opening of the esophagus.. #2 the patient likely will need vibrating vest twice daily for life, unfortunately she tried it before and she could not tolerate it due to significant rectal pain which has been chronic. #3 continue her current treatment. Including completing antibiotic course for 7 days, Vanco and ceftriaxone. #4 GI evaluation for esophageal stricture can be done electively, appreciate GI input, however, the patient does not have a history of COPD. Bronchodilators were given for pulmonary toilet not COPD. The patient had restrictive pattern.. #[address]. Appreciate Dr. Lyn input, no surgical intervention at this point, awaiting GI further evaluation for esophageal stricture. Hopefully this will alleviate her symptoms and her risk of recurrent aspiration. #6 discontinue systemic steroids. #[address] hawkins, appreciate his input. Hopefully, EGD early next week. Thank you, will follow. Data Medications: Current Inpatient Medications Medications (Trade) Dose Ordered Sig/[facility] Route Start Time Stop Time Status Last Admin Dose Admin Enoxaparin Sodium (Lovenox Inj) 40 mg DAILY@2000 SQ 01/13/18 20:00 02/12/18 19:59 01/23/18 21:01 40 MG Acetaminophen (Tylenol Tab) 650 mg Q4H PRN PO 01/13/18 16:00 02/12/18 15:59 01/20/18 03:58 650 MG Al Hydrox/Mg Hydrox/Simethicone (Maalox Max Susp) 15 ml Q4H PRN PO 01/13/18 16:00 02/12/18 15:59 Magnesium Hydroxide (Milk Of Magnesia Susp) 30 ml Q6H PRN PO 01/13/18 16:00 02/12/18 15:59 01/16/18 11:36 30 ML Ondansetron HCl (Zofran Inj) 4 mg Q6H PRN IV 01/13/18 16:00 02/12/18 15:59 Acetaminophen (Tylenol Tab) 1,000 mg BID PO 01/13/18 21:00 02/12/18 20:59 01/24/18 08:28 1,000 MG Atorvastatin Calcium (Lipitor Tab) 40 mg HS PO 01/13/18 21:00 02/12/18 20:59 01/23/18 21:01 40 MG Baclofen (Lioresal Tab) 10 mg QID PRN PO 01/13/18 16:00 02/12/18 15:59 01/20/18 04:11 10 MG Belladonna/Opium (B & O Adult Supp) 60 mg Q8 PRN OK 01/13/18 16:00 01/27/18 15:59 01/20/18 01:04 60 MG Bisacodyl (Dulcolax Supp) 10 mg DAILY PRN OK 01/13/18 16:00 02/12/18 15:59 01/15/18 08:20 10 MG Docusate Sodium (coLACE CAP) 100 mg BID PO 01/13/18 21:00 02/12/18 20:59 01/24/18 08:29 100 MG Doxepin HCl (Sinequan Cap) 75 mg HS PO 01/13/18 21:00 02/12/18 20:59 01/22/18 21:11 75 MG Duloxetine HCl (Cymbalta Cap) 60 mg QAM PO 01/14/18 09:00 02/13/18 08:59 01/24/18 08:29 60 MG Famotidine (Pepcid Tab) 20 mg BID PO 01/13/18 21:00 02/12/18 20:59 01/24/18 08:27 20 MG Furosemide (Lasix Tab) 40 mg DAILY PO 01/14/18 09:00 02/13/18 08:59 01/24/18 08:28 40 MG Hydromorphone HCl (Dilaudid Tab) 2 mg Q3HWA PO 01/13/18 18:00 01/27/18 17:59 01/24/18 15:07 2 MG Levetiracetam (Keppra Tab) 500 mg BID PO 01/13/18 21:00 02/12/18 20:59 01/24/18 08:27 500 MG Levothyroxine Sodium (Synthroid Tab) 75 mcg DAILYBB PO 01/14/18 06:30 02/13/18 06:29 01/24/18 05:19 75 MCG Lorazepam (Ativan Tab) 0.5 mg Q6H PRN PO 01/13/18 16:00 02/12/18 15:59 01/24/18 02:02 0.5 MG Multivitamins/ Minerals (Multivitamin W/ Minerals Tab) 1 tab DAILY PO 01/14/18 09:00 02/13/18 08:59 01/24/18 08:28 1 TAB Quetiapine Fumarate (seroQUEL TAB) 25 mg HS PO 01/13/18 21:00 02/12/18 20:59 01/23/18 21:01 25 MG Senna (Senokot Tab) 34.4 mg BID PO 01/13/18 21:00 02/12/18 20:59 01/24/18 08:26 34.4 MG Lubiprostone (Amitiza) 8 mcg BID PO 01/13/18 21:00 02/12/18 20:59 01/24/18 08:29 8 MCG Pantoprazole Sodium (Protonix Tab) 40 mg QAM PO 01/14/18 09:00 02/13/18 08:59 01/24/18 08:28 40 MG Polyethylene (Miralax Powder Packet) 17 gm BID PO 01/13/18 21:00 02/12/18 20:59 01/24/18 08:29 17 GM Potassium Chloride (Klor-Con Tab) 20 meq QAM PO 01/14/18 09:00 02/13/18 08:59 01/24/18 08:26 20 MEQ Saccharomyces Boulardii (Florastor Cap) 250 mg DAILY PO 01/14/18 09:00 02/13/18 08:59 01/24/18 08:26 250 MG Glucose (Glucose 40% Gel) 15-30 GRAMS 15 GRAMS... UD PRN PO 01/13/18 16:15 02/12/18 16:14 Glucose (Glucose Chew Tab) 4-8 Tablets 4 Tabl... UD PRN PO 01/13/18 16:15 02/12/18 16:14 Dextrose (Dextrose 50% 50ML Syringe) 25-50ML OF 50% DW IV FOR... UD PRN IV 01/13/18 16:15 02/12/18 16:14 Glucagon (Glucagon Inj) 1 mg UD PRN SQ 01/13/18 16:15 02/12/18 16:14 Ipratropium Bullard (Atrovent 0.02% 0.5MG/2.5ML Neb) 0.5 mg Q6R INH 01/13/18 21:00 02/12/18 20:59 01/24/18 14:16 0.5 MG Levalbuterol (Xopenex 1.25MG/ 0.5ML Neb) 1.25 mg Q6R INH 01/13/18 21:00 02/12/18 20:59 01/24/18 14:16 1.25 MG Ipratropium [place]ard (Atrovent 0.02% 0.5MG/2.5ML Neb) 0.5 mg Q2H PRN INH 01/13/18 19:30 02/12/18 19:29 01/19/18 05:48 0.5 MG Levalbuterol (Xopenex 1.25MG/ 0.5ML Neb) 1.25 mg Q2H PRN INH 01/13/18 19:30 02/12/18 19:29 01/19/18 05:48 1.25 MG Miscellaneous Information (Consult Glycemic Management Pharmacy) 1 ea UD PRN N/A 01/15/18 17:39 02/14/18 17:38 Ceftriaxone Sodium 1 gm/ Dextrose 50 ml @ 120 mls/hr Q24H IV 01/17/18 14:00 01/27/18 13:59 01/24/18 13:32 120 MLS/HR Miscellaneous Information (Consult) 1 ea UD PRN N/A 01/17/18 14:15 02/16/18 14:14 Hydromorphone HCl (Dilaudid Tab) 2 mg HS PRN PO 01/17/18 19:45 01/31/18 19:44 01/24/18 05:19 2 MG Miconazole Nitrate (Desenex Powder) 1 appln PRN PRN EXT 01/21/18 14:45 02/20/18 14:44 Glucagon (Glucagon Inj) 1 mg UD PRN SQ 01/22/18 20:45 02/21/18 20:44 Insulin Aspart (novoLOG ASPART) SLIDING SCALE If C... ACHS SC 01/23/18 11:00 02/22/18 10:59 01/24/18 12:17 12 UNITS Hydromorphone HCl (Dilaudid Inj) 1 mg Q4 PRN IV 01/24/18 10:00 02/07/18 09:59 Methylprednisolone Sodium Succinate 20 mg/Syringe 0.32 ml @ 1.5 mls/min DAILY IV 01/25/18 09:00 02/24/18 08:59 Insulin Glargine (Lantus Solostar Pen) SEE PROTOCOL TEXT QPM SC 01/24/18 21:00 02/23/18 20:59 Vancomycin HCl 1000 mg/Sodium Chloride 270 ml @ 125 mls/hr Q12H IV 01/25/18 04:00 01/29/18 15:59 I & O: 24-Hour Column 01/25/18 08:00 Intake Total 170 ml Output Total 400 ml Balance -230 ml Vital Signs: Date Time Temp Pulse Resp B/P (MAP) Pulse Ox O2 Delivery O2 Flow Rate FiO2 01/24/18 16:02 36.6 99 20 137/75 (95) 99 Nasal Cannula 2.5 01/24/18 14:16 105 18 99 Nasal Cannula 3.0 01/24/18 08:30 Nasal Cannula 3.0 01/24/18 07:19 36.6 92 18 137/79 (98) 100 Nasal Cannula 7.0 01/24/18 07:02 85 18 100 Nasal Cannula 7.0 01/24/18 00:00 Nasal Cannula 5.0 96 01/23/18 23:16 36.7 102 20 178/76 (110) 100 Nasal Cannula 7.0 01/23/18 19:21 91 18 99 Nasal Cannula 3.0 Laboratory Results: Last 24 Hours Test 01/23/18 20:18 01/24/18 06:23 01/24/18 06:27 01/24/18 07:31 Bedside Glucose 149 mg/dl 50 mg/dl Creatinine 0.36 mg/dl Est Creatinine Clear Calc Drug Dose 113.3 ml/min Estimated GFR () 119.7 Estimated GFR (Non- 103.3 White Blood Count 18.42 K/uL Red Blood Count 3.91 M/uL Hemoglobin 11.4 g/dL Hematocrit 35.9 % Mean Corpuscular Volume 91.8 fL Mean Corpuscular Hemoglobin 29.2 pg Mean Corpuscular Hemoglobin Concent 31.8 g/dl Platelet Count 476 K/uL Mean Platelet Volume 10.4 fL Neutrophils (%) (Auto) 64.8 % Lymphocytes (%) (Auto) 23.0 % Monocytes (%) (Auto) 10.7 % Eosinophils (%) (Auto) 0.7 % Basophils (%) (Auto) 0.1 % Neutrophils # (Auto) 11.93 K/uL Lymphocytes # (Auto) 4.24 K/uL Monocytes # (Auto) 1.98 K/uL Eosinophils # (Auto) 0.13 K/uL Basophils # (Auto) 0.01 K/uL RDW Standard Deviation 58.4 fL RDW Coefficient of Variation 17.5 % Immature Granulocyte % (Auto) 0.7 % Immature Granulocyte # (Auto) 0.13 K/uL Test 01/24/18 07:56 01/24/18 08:20 01/24/18 11:17 01/24/18 13:40 Bedside Glucose 104 mg/dl 145 mg/dl Sodium Level 137 mmol/L Potassium Level 4.0 mmol/L Chloride Level 98 mmol/L Carbon Dioxide Level 33 mmol/L Anion Gap 6.0 mmol/L Blood Urea Nitrogen 11 mg/dl Creatinine 0.49 mg/dl Est Creatinine Clear Calc Drug Dose 83.2 ml/min Estimated GFR () 108.2 Estimated GFR (Non- 93.3 BUN/Creatinine Ratio 21.7 Random Glucose 102 mg/dl Calcium Level 9.1 mg/dl Troponin I < 0.015 ng/ml Chemistry Specimen Hemolysis Vancomycin Level Trough 21.2 mcg/ml Test 01/24/18 16:20 Bedside Glucose 238 mg/dl
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
[2018-01-24 19:27] VITALS: PULSE 98; O2SAT 98
[2018-01-24] MEDS ORDERED: INSULIN GLARGINE SOLOSTAR 100 UNITS/ML 3 ML PEN SC SCH ×3 (21:00)
[2018-01-24] MEDS: ENOXAPARIN 40 MG/0.4 ML SYR SQ SCH (21:01)
[2018-01-24] MEDS: QUETIAPINE FUMARATE 25 MG TAB PO SCH (21:04)
[2018-01-24] MEDS: DOXEPIN HCL 75 MG CAP PO SCH (21:05)
[2018-01-24] MEDS: ATORVASTATIN 40 MG TAB PO SCH (21:06)
[2018-01-25] VITALS (17 sets, daily range): BP systolic 88–147; BP diastolic 57–86; PULSE 93–114; TEMP 36.3–37.2; O2SAT 91–99
[2018-01-25] MEDS: HYDROmorphone INJ 1 MG/ML SYR IV PRN ×3 (00:40→18:18)
[2018-01-25] MEDS: LEVALBUTEROL 1.25MG/0.5ML NEB INH SCH ×4 (02:14→20:20)
[2018-01-25] MEDS: IPRATROPIUM BROMIDE NEB SOLN 0.02% 2.5 ML VIAL INH SCH ×4 (02:14→20:20)
[2018-01-25] MEDS: HYDROmorphone HCL 2 MG TAB PO SCH ×2 (04:19→08:19)
[2018-01-25] MEDS: VANCOMYCIN IV 1,000 MG in SODIUM CHLORIDE 0.9% 250ML 250 ML IV SCH ×2 (04:20→18:17)
[2018-01-25] MEDS: LEVOTHYROXINE 75 MCG TAB PO SCH (05:20)
[2018-01-25 06:02] LABS: HEMATOCRIT 33.7 % (37-47); HEMOGLOBIN 10.7 g/dL (12.0-16.0); MEAN CELL VOLUME 92.1 fL (80-100); MEAN CORPUSCULAR HEMOGLOBIN 29.2 pg (25-34); MEAN CORPUSCULAR HGB CONC 31.8 g/dl (32-36); MEAN PLATELET VOLUME 10.1 fL (7.4-10.4); PLATELET COUNT 462 K/uL (130-400); RED CELL DISTRIBUTION WIDTH CV 17.4 % (11.5-14.5); RED CELL DISTRIBUTION WIDTH SD 58.1 fL (36.4-46.3); WHITE BLOOD COUNT 17.52 K/uL (4.8-10.8)
[2018-01-25 06:44] LABS: CREATININE 0.45 mg/dl (0.60-1.20)
[2018-01-25] MEDS: POLYETHYLENE (MIRALAX) 17 GM PACK PO SCH ×2 (08:20→20:33)
[2018-01-25] MEDS: POTASSIUM CHLORIDE 20 MEQ TABCR PO SCH (08:20)
[2018-01-25] MEDS: LUBIPROSTONE 8 MCG CAP PO SCH ×2 (08:23→20:34)
[2018-01-25] MEDS: FUROSEMIDE 40 MG TAB PO SCH (08:23)
[2018-01-25] MEDS: DOCUSATE SODIUM 100 MG CAP PO SCH ×2 (08:23→20:33)
[2018-01-25] MEDS: DULOXETINE HCL 60 MG CAP PO SCH (08:23)
[2018-01-25] MEDS: LEVETIRACETAM 500 MG TAB PO SCH ×2 (08:24→20:34)
[2018-01-25] MEDS: SACCHAROMYCES BOUL (FLORASTOR) 250 MG CAP PO SCH (08:24)
[2018-01-25] MEDS: FAMOTIDINE 20 MG TAB PO SCH ×2 (08:25→20:34)
[2018-01-25] MEDS: PANTOprazole SOD 40 MG TAB PO SCH (08:26)
[2018-01-25] MEDS: SENNA 8.6 MG TAB PO SCH ×2 (08:26→20:33)
[2018-01-25] MEDS: CEROVITE ADV FORMULA TAB PO SCH (08:26)
[2018-01-25] MEDS: ACETAMINOPHEN 500 MG TAB PO SCH ×2 (08:27→20:37)
[2018-01-25] MEDS: INSULIN ASPART 100 UNITS/ML 3 ML PEN SC SCH ×4 (08:37→20:40)
[2018-01-25] MEDS ORDERED: METHYLPREDNISOLONE IV 20 MG in SYRINGE 0 ML IV SCH (09:00)
[2018-01-25] MEDS: MoRPHine SULFATE CR 15 MG TAB (MS CONTIN) PO SCH ×2 (10:14→21:33)
--- NOTE | 2018-01-25 14:21 | Pharmacy Progress Note ---
Pharmacy Glycemic Short Note 2 Date of Service Jan 25, 2018. OUTPATIENT ANTIDIABETIC REGIMEN: * Lantus 35 units qPM * Humalog per scale * HbA1c: 8.4% (11/29/17) ASSESSMENT: * Yesterday, Ms Ramirez's blood sugars were [phone] mg/dL and she received 50 units of insulin with 20 units of being Lantus. Her fasting this morning was 140 mg/dL. * As the patient did not have any low blood sugars yesterday, returned patient to her home Lantus dose of 34 units daily. The patient does continue on Solu- Medrol 20 mg IV q24 hours.Blood sugars may be higher today since a lower dose of Lantus was given yesterday. * For Novolog, the patient's blood sugar increased throughout the day until she stacked at bedtime and her blood sugar decreased. Will tighten Novolog today to correction factor of 15 and carbohydrate ratio of 5. This was used previously when the patient was on Solu-Medrol 40 mg IV daily and appeared effectively at controlling blood sugars. * Ms Ramirez is a 77 y/o F with a PMH of CHF, paraplegia, HTN, chronic pain, seizures, and poorly controlled type 2 diabetes (goal HbA1C for patient is closer to 7.5-8.0% according to the Elements of Diabetes Care Scoring Scale). She was initially admitted with chronic respiratory failure. The patient has been treated with Solu-Medrol for over 1 week. This has finally been tapered to Solu-Medrol 20 mg IV q24 hours starting tomorrow morning. For several days the patient had required greater than 100 units of insulin but yesterday developed a low fasting. This morning the patient's fasting was even lower at 50 mg/dL. Blood sugars yesterday were 68-149 mg/dL while receiving 72 units of insulin ( 40 of which were Lantus). * For Lantus, reduce further below the patient's home dose to 30 units only if blood sugar greater than 200 mg/dL. If blood sugar does not really recover then give Lantus 20 units (50% reduction due to lows two days in a row). * For Novolog, loosened slightly since the Novolog yesterday appeared too aggressive. This remains at a weight-based stress of 3. PLAN FOR INPATIENT GLYCEMIC CONTROL: * Basal insulin * Lantus 34 units SQ HS * Bolus insulin * NovoLog per scale ACHS or Q6hrs while NPO * Goal Range: Low 110 mg/dL - High 140 mg/dL * TIGHTEN: Correction Factor: 15 mg/dL/unit * TIGHTEN Prandial insulin to carb ratio of 1 unit per 5 grams CHO consumed DISCHARGE PLANNING: * A1c (8.4%) is not unreasonable for a 77yo patient w/ multiple comorbidities even though it is not a goal. Recommend close follow-up with PCP to determine if tighter glycemic coverage is reasonable in this patient.
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
[2018-01-25] MEDS ORDERED: MIDAZOLAM HCL 1 MG/ML 2ML VIAL ONE (17:01)
[2018-01-25] MEDS ORDERED: FENTANYL CITRATE INJ 50 MCG/1 ML 2 ML VIAL ONE (17:01)
[2018-01-25] MEDS ORDERED: LIDOCAINE HCL 2% JELLY 30 ML TUBE EXT ONE (17:02)
--- NOTE | 2018-01-25 18:20 | Pulmonology Progress Note ---
Pulmonary Progress Note Date of Service Jan 25, 2018. Attending Dr. Hiram Jasso The patient continued to have recurrent shortness of breath secondary to difficulty raising her sputum and aspirating on her own secretions. She was frustrated today and she would want a repeat bronchoscopy for pulmonary toilet and clearance. The patient underwent a bronchoscopy which was dictated separately and showed similar findings to the bronchoscopy from 2 days ago however we were able to clean out her lungs and placed nasal trumpet in her left nostril. Objective Patient is doing well today sitting in bed able to have full conversation with no signs of tachypnea, accessory muscle use for ventilation or any signs of respiratory insufficiency. Vital signs: Currently stable on 1-3 liters nasal cannula Respiratory: Rhonchi at the bases with minimal expiratory wheezing bilaterally Cardiac: S1-S2 regular rate and rhythm Abdomen: Positive bowel sounds soft nontender Extremities: Minimal pitting edema HOB GRINDER: Alert orientated times 3: Notable bilateral lower extremity paraplegia On 01/20/2018, Her physical exam revealed no fever, also saturation is 92% on nasal cannula, hyperinflated right lung, bilateral crackles, S1-S2, abdomen is benign, no edema. On 01/21/2018, her physical exam revealed still afebrile, O2 saturation is 94% on nasal cannula, severe kyphosis, S1-S2 regular rate and rhythm, crackles bilaterally, abdomen is benign and no edema. On 01/22/2018, the patient physical exam revealed stable vital signs, O2 saturation is 95% on nasal cannula, severe kyphosis, S1-S2 regular rate and rhythm, no crackles on the right side but only on the left. Abdominal distention but no edema. Abdominal distention due to her body habitus. On 01/23/2018, the patient noted to have stable vital signs, O2 saturation is 95 % still on nasal cannula, she does have significant upper airway sounding from inability to clear up her secretions. S1-S2 regular rate and rhythm. Severe kyphosis. Physical exam on 01/24/2018, the patient O2 saturation with oxygen is 93%, she does have distant breath sounds, upper airway gurgling related to secretions piling, abdomen is distended but nontender, trace edema. Physical exam on 01/25/2018, the patient O2 saturation has been 91% on nasal cannula. Bilateral crackles but mainly in the upper airway. Abdomen is distended but benign. No edema. Assessment & Plan #1 severe kyphosis with deformed trachea resulted in the patient who is bedridden to have difficulty clearing up her secretions. She does have right lung dominant and left lung recessive. 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 The area of stenosis also noted on this bronchoscopy and revealed no improvement. However she does have less secretions compared to the previous bronchoscopy done 2 days ago. The stenosis is measuring approximately 6 mm at its best diameter. #3 chronic respiratory failure. #4 esophageal stricture, most recent esophageal dilation done June 2017.. #5 paraplegia. #6 recurrent aspiration pneumonia with MRSA, also UTI with Escherichia coli. #7 the patient does not have COPD. Plan: #1 bronchoscopy was done again today and showed significant tracheal stenosis and subglottic area due to the tortuous trachea, pooling of secretions due to inability to cough, pooling of secretions at the opening of the esophagus.. All suctioned to clear, nasal trumpet was placed. #2 the patient likely will need vibrating vest twice daily for life, unfortunately she tried it before and she could not tolerate it due to significant rectal pain which has been chronic. #3 continue her current treatment. Including completing antibiotic course for 7 days, Vanco and ceftriaxone. #4 GI evaluation for esophageal stricture can be done electively, appreciate GI input, however, the patient does not have a history of COPD. Bronchodilators were given for pulmonary toilet not COPD. The patient had restrictive pattern.. #[address] Lyn input, no surgical intervention at this point. #6 discontinue systemic steroids. #[address] hawkins, appreciate his input. Hopefully, EGD early next week. #[address] Alvarado, I was present for the discussion, and the patient is thinking of going for comfort care and palliation if no other intervention can be feasible to alleviate her symptoms. I encouraged her to discuss all the issues with the rest of her family. I do believe a family meeting with the patient and palliative care should take place. #[address] Alvarado in regard of morphine to relieve her sensation of shortness of breath. Thank you, will follow. Data Medications: Current Inpatient Medications Medications (Trade) Dose Ordered Sig/Karen Route Start Time Stop Time Status Last Admin Dose Admin Enoxaparin Sodium (Lovenox Inj) 40 mg DAILY@2000 SQ 01/13/18 20:00 02/12/18 19:59 01/24/18 21:01 40 MG Acetaminophen (Tylenol Tab) 650 mg Q4H PRN PO 01/13/18 16:00 02/12/18 15:59 01/20/18 03:58 650 MG Al Hydrox/Mg Hydrox/Simethicone (Maalox Max Susp) 15 ml Q4H PRN PO 01/13/18 16:00 02/12/18 15:59 Magnesium Hydroxide (Milk Of Magnesia Susp) 30 ml Q6H PRN PO 01/13/18 16:00 02/12/18 15:59 01/16/18 11:36 30 ML Ondansetron HCl (Zofran Inj) 4 mg Q6H PRN IV 01/13/18 16:00 02/12/18 15:59 Acetaminophen (Tylenol Tab) 1,000 mg BID PO 01/13/18 21:00 02/12/18 20:59 01/25/18 08:27 1,000 MG Atorvastatin Calcium (Lipitor Tab) 40 mg HS PO 01/13/18 21:00 02/12/18 20:59 01/24/18 21:06 40 MG Baclofen (Lioresal Tab) 10 mg QID PRN PO 01/13/18 16:00 02/12/18 15:59 01/20/18 04:11 10 MG Belladonna/Opium (B & O Adult Supp) 60 mg Q8 PRN [place] 01/13/18 16:00 01/27/18 15:59 01/20/18 01:04 60 MG Bisacodyl (Dulcolax Supp) 10 mg DAILY PRN [place] 01/13/18 16:00 02/12/18 15:59 01/15/18 08:20 10 MG Docusate Sodium (coLACE CAP) 100 mg BID PO 01/13/18 21:00 02/12/18 20:59 01/25/18 08:23 100 MG Doxepin HCl (Sinequan Cap) 75 mg HS PO 01/13/18 21:00 02/12/18 20:59 01/24/18 21:05 75 MG Duloxetine HCl (Cymbalta Cap) 60 mg QAM PO 01/14/18 09:00 02/13/18 08:59 01/25/18 08:23 60 MG Famotidine (Pepcid Tab) 20 mg BID PO 01/13/18 21:00 02/12/18 20:59 01/25/18 08:25 20 MG Furosemide (Lasix Tab) 40 mg DAILY PO 01/14/18 09:00 02/13/18 08:59 01/25/18 08:23 40 MG Levetiracetam (Keppra Tab) 500 mg BID PO 01/13/18 21:00 02/12/18 20:59 01/25/18 08:24 500 MG Levothyroxine Sodium (Synthroid Tab) 75 mcg DAILYBB PO 01/14/18 06:30 02/13/18 06:29 01/25/18 05:20 75 MCG Lorazepam (Ativan Tab) 0.5 mg Q6H PRN PO 01/13/18 16:00 02/12/18 15:59 01/24/18 02:02 0.5 MG Multivitamins/ Minerals (Multivitamin W/ Minerals Tab) 1 tab DAILY PO 01/14/18 09:00 02/13/18 08:59 01/25/18 08:26 1 TAB Quetiapine Fumarate (seroQUEL TAB) 25 mg HS PO 01/13/18 21:00 02/12/18 20:59 01/24/18 21:04 25 MG Senna (Senokot Tab) 34.4 mg BID PO 01/13/18 21:00 02/12/18 20:59 01/25/18 08:26 34.4 MG Lubiprostone (Amitiza) 8 mcg BID PO 01/13/18 21:00 02/12/18 20:59 01/25/18 08:23 8 MCG Pantoprazole Sodium (Protonix Tab) 40 mg QAM PO 01/14/18 09:00 02/13/18 08:59 01/25/18 08:26 40 MG Polyethylene (Miralax Powder Packet) 17 gm BID PO 01/13/18 21:00 02/12/18 20:59 01/25/18 08:20 17 GM Potassium Chloride (Klor-Con Tab) 20 meq QAM PO 01/14/18 09:00 02/13/18 08:59 01/25/18 08:20 20 MEQ Saccharomyces Boulardii (Florastor Cap) 250 mg DAILY PO 01/14/18 09:00 02/13/18 08:59 01/25/18 08:24 250 MG Glucose (Glucose 40% Gel) 15-30 GRAMS 15 GRAMS... UD PRN PO 01/13/18 16:15 02/12/18 16:14 Glucose (Glucose Chew Tab) 4-8 Tablets 4 Tabl... UD PRN PO 01/13/18 16:15 02/12/18 16:14 Dextrose (Dextrose 50% 50ML Syringe) 25-50ML OF 50% DW IV FOR... UD PRN IV 01/13/18 16:15 02/12/18 16:14 Glucagon (Glucagon Inj) 1 mg UD PRN SQ 01/13/18 16:15 02/12/18 16:14 Ipratropium Gaines (Atrovent 0.02% 0.5MG/2.5ML Neb) 0.5 mg Q6R INH 01/13/18 21:00 02/12/18 20:59 01/25/18 14:18 0.5 MG Levalbuterol (Xopenex 1.25MG/ 0.5ML Neb) 1.25 mg Q6R INH 01/13/18 21:00 02/12/18 20:59 01/25/18 14:18 1.25 MG Ipratropium [place]aines (Atrovent 0.02% 0.5MG/2.5ML Neb) 0.5 mg Q2H PRN INH 01/13/18 19:30 02/12/18 19:29 01/19/18 05:48 0.5 MG Levalbuterol (Xopenex 1.25MG/ 0.5ML Neb) 1.25 mg Q2H PRN INH 01/13/18 19:30 02/12/18 19:29 01/19/18 05:48 1.25 MG Miscellaneous Information (Consult Glycemic Management Pharmacy) 1 ea UD PRN N/A 01/15/18 17:39 02/14/18 17:38 Miscellaneous Information (Consult) 1 ea UD PRN N/A 01/17/18 14:15 02/16/18 14:14 Hydromorphone HCl (Dilaudid Tab) 2 mg HS PRN PO 01/17/18 19:45 01/31/18 19:44 01/24/18 05:19 2 MG Miconazole Nitrate (Desenex Powder) 1 appln PRN PRN EXT 01/21/18 14:45 02/20/18 14:44 Glucagon (Glucagon Inj) 1 mg UD PRN SQ 01/22/18 20:45 02/21/18 20:44 Insulin Aspart (novoLOG ASPART) SLIDING SCALE If C... ACHS SC 01/23/18 11:00 02/22/18 10:59 01/25/18 08:37 10 UNITS Hydromorphone HCl (Dilaudid Inj) 1 mg Q4 PRN IV 01/24/18 10:00 02/07/18 09:59 01/25/18 12:07 1 MG Vancomycin HCl 1000 mg/Sodium Chloride 270 ml @ 125 mls/hr Q12H IV 01/25/18 04:00 01/29/18 15:59 01/25/18 04:20 125 MLS/HR Insulin Glargine (Lantus Solostar Pen) 34 units QPM SC 01/25/18 21:00 02/24/18 20:59 Hydromorphone HCl (Dilaudid Tab) 2 mg Q3HWA PRN PO 01/25/18 12:00 01/27/18 17:59 Morphine Sulfate (Oramorph Sr Tab) 15 mg Q12H PO 01/25/18 10:00 02/08/18 09:59 01/25/18 10:14 15 MG I & O: 24-Hour Column 01/26/18 08:00 Intake Total 100 ml Output Total 250 ml Balance -150 ml Vital Signs: Date Time Temp Pulse Resp B/P (MAP) Pulse Ox O2 Delivery O2 Flow Rate FiO2 01/25/18 18:03 37.1 103 18 113/71 (85) 94 Oxymask 3.0 01/25/18 17:41 103 22 131/57 (81) 98 Oxymask 3.0 01/25/18 17:38 99 20 138/85 (102) 98 Oxymask 3.0 01/25/18 17:30 97 19 141/71 98 Oxymask 3.0 01/25/18 17:25 95 30 145/86 96 Oxymask 3.0 01/25/18 17:20 97 18 117/78 91 Oxymask 3.0 01/25/18 17:15 102 24 116/63 99 Oxymask 3.0 01/25/18 16:00 99 Nasal Cannula 3.0 01/25/18 15:19 36.3 100 20 128/62 (84) 99 Nasal Cannula 3.0 01/25/18 14:18 100 18 99 Nasal Cannula 3.0 01/25/18 08:00 98 Nasal Cannula 1.0 01/25/18 07:09 93 18 98 Nasal Cannula 1.0 01/25/18 06:58 37.2 93 20 133/71 (91) 99 01/25/18 00:19 36.7 104 22 133/65 (87) 97 Nasal Cannula 2.0 01/25/18 00:00 Nasal Cannula 3.0 01/24/18 19:27 98 18 98 Nasal Cannula 3.0 Laboratory Results: Last 24 Hours Test 01/24/18 20:05 01/25/18 05:27 01/25/18 07:17 01/25/18 11:21 Bedside Glucose 121 mg/dl 140 mg/dl 138 mg/dl White Blood Count 17.52 K/uL Red Blood Count 3.66 M/uL Hemoglobin 10.7 g/dL Hematocrit 33.7 % Mean Corpuscular Volume 92.1 fL Mean Corpuscular Hemoglobin 29.2 pg Mean Corpuscular Hemoglobin Concent 31.8 g/dl RDW Standard Deviation 58.1 fL RDW Coefficient of Variation 17.4 % Platelet Count 462 K/uL Mean Platelet Volume 10.1 fL Creatinine 0.45 mg/dl Est Creatinine Clear Calc Drug Dose 90.6 ml/min Estimated GFR () 111.2 Estimated GFR (Non- 96.0 Test 01/25/18 16:35 Bedside Glucose 159 mg/dl
--- NOTE | 2018-01-25 18:25 | Procedure Note ---
Procedure Note Procedure Date Jan 25, 2018. 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 The patient is known to have history of recurrent aspiration of her own secretions and digested food. The patient had the procedure in the ICU in room #2 and monitored throughout the entire procedure with ICU style. The procedure done with moderate sedation with the presence of nurse certified for moderate sedation. The patient first was localized with lidocaine neb, viscous lidocaine through both nostrils, and sedated with total of 75 mics of fentanyl and 3 mg of Versed in increments. #1The bronchoscope could not pass through the right nostril due to bony structure. #2 the bronchoscope passed with minimal difficulty through the left nostril as the turbinates appear to be congested. And the findings were as follows: #3 again noted secretions pooling at the vocal cord opening. 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 #4 the tracheal stenosis measuring approximately 6-8 mm was again noted on this microscopy. #5 large amount of secretions at the level of the starla extending into the subsegments all suctioned to clear, no specimen was obtained. #6 after removal of the bronchoscope, and nasal trumpet #8 was inserted through the left nostril with moderate difficulty using lidocaine gel, to be used for deep suctioning. The patient is aware of it prior to performing bronchoscopy. I have discussed with her this step. Tolerated the procedure very well, no immediate complication. Complications: none Patient tolerated procedure: well
[2018-01-25] MEDS: ENOXAPARIN 40 MG/0.4 ML SYR SQ SCH (20:27)
[2018-01-25] MEDS: DOXEPIN HCL 75 MG CAP PO SCH (20:31)
[2018-01-25] MEDS: QUETIAPINE FUMARATE 25 MG TAB PO SCH (20:32)
[2018-01-25] MEDS: ATORVASTATIN 40 MG TAB PO SCH (20:33)
[2018-01-25] MEDS ORDERED: INSULIN GLARGINE SOLOSTAR 100 UNITS/ML 3 ML PEN SC SCH (21:00)
[2018-01-26] VITALS (7 sets, daily range): BP systolic 120–135; BP diastolic 71–74; PULSE 90–100; TEMP 37.2–37.3; O2SAT 90–97
[2018-01-26] MEDS: LEVALBUTEROL 1.25MG/0.5ML NEB INH SCH ×4 (01:55→20:00)
[2018-01-26] MEDS: IPRATROPIUM BROMIDE NEB SOLN 0.02% 2.5 ML VIAL INH SCH ×5 (01:55→20:00)
[2018-01-26] MEDS: HYDROmorphone INJ 1 MG/ML SYR IV PRN ×3 (02:23→18:22)
[2018-01-26] MEDS ORDERED: VANCOMYCIN TROUGH ONE (03:30)
[2018-01-26] MEDS: VANCOMYCIN IV 1,000 MG in SODIUM CHLORIDE 0.9% 250ML 250 ML IV SCH ×2 (03:52→16:09)
[2018-01-26 04:12] LABS: CREATININE 0.38 mg/dl (0.60-1.20)
[2018-01-26] MEDS: LEVOTHYROXINE 75 MCG TAB PO SCH ×2 (05:33→05:36)
[2018-01-26] MEDS: HYDROmorphone HCL 2 MG TAB PO PRN ×3 (05:33→16:45)
[2018-01-26] MEDS: INSULIN ASPART 100 UNITS/ML 3 ML PEN SC SCH ×4 (06:30→21:00)
[2018-01-26] MEDS: PANTOprazole SOD 40 MG TAB PO SCH (07:37)
[2018-01-26] MEDS: DOCUSATE SODIUM 100 MG CAP PO SCH ×2 (07:37→19:53)
[2018-01-26] MEDS: DULOXETINE HCL 60 MG CAP PO SCH (07:37)
[2018-01-26] MEDS: CEROVITE ADV FORMULA TAB PO SCH (07:37)
[2018-01-26] MEDS: POLYETHYLENE (MIRALAX) 17 GM PACK PO SCH ×2 (07:37→19:59)
[2018-01-26] MEDS: FAMOTIDINE 20 MG TAB PO SCH ×2 (07:38→19:50)
[2018-01-26] MEDS: ACETAMINOPHEN 500 MG TAB PO SCH ×2 (07:38→19:57)
[2018-01-26] MEDS: SACCHAROMYCES BOUL (FLORASTOR) 250 MG CAP PO SCH (07:39)
[2018-01-26] MEDS: LUBIPROSTONE 8 MCG CAP PO SCH ×2 (07:39→19:55)
[2018-01-26] MEDS: SENNA 8.6 MG TAB PO SCH ×2 (07:40→19:51)
[2018-01-26] MEDS: FUROSEMIDE 40 MG TAB PO SCH (07:40)
[2018-01-26] MEDS: POTASSIUM CHLORIDE 20 MEQ TABCR PO SCH (07:40)
[2018-01-26] MEDS: LEVETIRACETAM 500 MG TAB PO SCH ×2 (08:34→19:55)
[2018-01-26] MEDS: MoRPHine SULFATE CR 15 MG TAB (MS CONTIN) PO SCH ×2 (10:22→21:42)
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
--- NOTE | 2018-01-26 12:56 | Pulmonology Progress Note ---
Pulmonary Progress Note Date of Service Jan 26, 2018. Attending Dr. Gandhi Subjective The patient continued to have difficulty clearing up her secretions, the nasal trumpet was placed in her nostril yesterday and appeared to be pulled out, I could not advance it back again, the patient is refusing also DuoNeb's for a variety of reasons, she did have a bronchoscopy yesterday with relief of her secretions however it will not solve her problem entirely given the fact that she has body habitus with tracheal stenosis and esophageal stricture altogether. The subglottic stenosis is not repairable according to surgery. GI are planning on esophageal dilation this coming week if the patient allow it. Objective Patient is doing well today sitting in bed able to have full conversation with no signs of tachypnea, accessory muscle use for ventilation or any signs of respiratory insufficiency. Vital signs: Currently stable on 1-3 liters nasal cannula Respiratory: Rhonchi at the bases with minimal expiratory wheezing bilaterally Cardiac: S1-S2 regular rate and rhythm Abdomen: Positive bowel sounds soft nontender Extremities: Minimal pitting edema HYPERBARIC TECH: Alert orientated times 3: Notable bilateral lower extremity paraplegia On 01/20/2018, Her physical exam revealed no fever, also saturation is 92% on nasal cannula, hyperinflated right lung, bilateral crackles, S1-S2, abdomen is benign, no edema. On 01/21/2018, her physical exam revealed still afebrile, O2 saturation is 94% on nasal cannula, severe kyphosis, S1-S2 regular rate and rhythm, crackles bilaterally, abdomen is benign and no edema. On 01/22/2018, the patient physical exam revealed stable vital signs, O2 saturation is 95% on nasal cannula, severe kyphosis, S1-S2 regular rate and rhythm, no crackles on the right side but only on the left. Abdominal distention but no edema. Abdominal distention due to her body habitus. On 01/23/2018, the patient noted to have stable vital signs, O2 saturation is 95 % still on nasal cannula, she does have significant upper airway sounding from inability to clear up her secretions. S1-S2 regular rate and rhythm. Severe kyphosis. Physical exam on 01/24/2018, the patient O2 saturation with oxygen is 93%, she does have distant breath sounds, upper airway gurgling related to secretions piling, abdomen is distended but nontender, trace edema. Physical exam on 01/25/2018, the patient O2 saturation has been 91% on nasal cannula. Bilateral crackles but mainly in the upper airway. Abdomen is distended but benign. No edema. Assessment & Plan #1 severe kyphosis with deformed trachea resulted in the patient who is bedridden to have difficulty clearing up her secretions. She does have right lung dominant and left lung recessive. 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 The area of stenosis also noted on this bronchoscopy and revealed no improvement. Second bronchoscopy was performed yesterday with similar results. #3 chronic respiratory failure. #4 esophageal stricture, most recent esophageal dilation done June 2017.. #5 paraplegia. #6 recurrent aspiration pneumonia with MRSA, also UTI with Escherichia coli. Vanco trough today was 22. She completed 10 days with vancomycin. However the second bronchoscopy grew up again MRSA. #7 the patient does not have COPD. Plan: #1 bronchoscopy was done again yesterday and showed significant tracheal stenosis and subglottic area due to the tortuous trachea, pooling of secretions due to inability to cough, pooling of secretions at the opening of the esophagus.. All suctioned to clear, nasal trumpet was placed. The patient will look back a little bit apparently and I could not advance it again. We will continue with the suction every 4 hours when she is awake through the nasal trumpet. #2 the patient likely will need vibrating vest twice daily for life, unfortunately she tried it before and she could not tolerate it due to significant rectal pain which has been chronic. #3 continue her current treatment. Including completing antibiotic course for 7 days, Vanco and ceftriaxone. However I will restart vancomycin after the patient grew MRSA again from the second Bronch on 01/25/2018. Discussed with pharmacy, appreciate their input. #4 GI evaluation for esophageal stricture can be done electively, appreciate GI input, however, the patient does not have a history of COPD. Bronchodilators were given for pulmonary toilet not COPD. The patient had restrictive pattern.. #[address]rec[address] Lyn input, no surgical intervention at this point. #6 discontinue systemic steroids. #[address] hawkins, prior to the weekend, appreciate his input. Hopefully, EGD early next week. #[address] Alvarado, I was present for the discussion, and the patient is thinking of going for comfort care and palliation if no other intervention can be feasible to alleviate her symptoms. I encouraged her to discuss all the issues with the rest of her family. I do believe a family meeting with the patient and palliative care should take place. #[address] Alvarado in regard of morphine to relieve her sensation of shortness of breath. #10 palliative care consult. Thank you, will follow. Data Medications: Current Inpatient Medications Medications (Trade) Dose Ordered Sig/Karen Route Start Time Stop Time Status Last Admin Dose Admin Enoxaparin Sodium (Lovenox Inj) 40 mg DAILY@2000 SQ 01/13/18 20:00 02/12/18 19:59 01/25/18 20:27 40 MG Acetaminophen (Tylenol Tab) 650 mg Q4H PRN PO 01/13/18 16:00 02/12/18 15:59 01/20/18 03:58 650 MG Al Hydrox/Mg Hydrox/Simethicone (Maalox Max Susp) 15 ml Q4H PRN PO 01/13/18 16:00 02/12/18 15:59 Magnesium Hydroxide (Milk Of Magnesia Susp) 30 ml Q6H PRN PO 01/13/18 16:00 02/12/18 15:59 01/16/18 11:36 30 ML Ondansetron HCl (Zofran Inj) 4 mg Q6H PRN IV 01/13/18 16:00 02/12/18 15:59 Acetaminophen (Tylenol Tab) 1,000 mg BID PO 01/13/18 21:00 02/12/18 20:59 01/26/18 07:38 1,000 MG Atorvastatin Calcium (Lipitor Tab) 40 mg HS PO 01/13/18 21:00 02/12/18 20:59 01/25/18 20:33 40 MG Baclofen (Lioresal Tab) 10 mg QID PRN PO 01/13/18 16:00 02/12/18 15:59 01/20/18 04:11 10 MG Belladonna/Opium (B & O Adult Supp) 60 mg Q8 PRN SC 01/13/18 16:00 01/27/18 15:59 01/20/18 01:04 60 MG Bisacodyl (Dulcolax Supp) 10 mg DAILY PRN SC 01/13/18 16:00 02/12/18 15:59 01/15/18 08:20 10 MG Docusate Sodium (coLACE CAP) 100 mg BID PO 01/13/18 21:00 02/12/18 20:59 01/26/18 07:37 100 MG Doxepin HCl (Sinequan Cap) 75 mg HS PO 01/13/18 21:00 02/12/18 20:59 01/25/18 20:31 75 MG Duloxetine HCl (Cymbalta Cap) 60 mg QAM PO 01/14/18 09:00 02/13/18 08:59 01/26/18 07:37 60 MG Famotidine (Pepcid Tab) 20 mg BID PO 01/13/18 21:00 02/12/18 20:59 01/26/18 07:38 20 MG Furosemide (Lasix Tab) 40 mg DAILY PO 01/14/18 09:00 02/13/18 08:59 01/26/18 07:40 40 MG Levetiracetam (Keppra Tab) 500 mg BID PO 01/13/18 21:00 02/12/18 20:59 01/26/18 08:34 500 MG Levothyroxine Sodium (Synthroid Tab) 75 mcg DAILYBB PO 01/14/18 06:30 02/13/18 06:29 01/25/18 05:20 75 MCG Lorazepam (Ativan Tab) 0.5 mg Q6H PRN PO 01/13/18 16:00 02/12/18 15:59 01/24/18 02:02 0.5 MG Multivitamins/ Minerals (Multivitamin W/ Minerals Tab) 1 tab DAILY PO 01/14/18 09:00 02/13/18 08:59 01/26/18 07:37 1 TAB Quetiapine Fumarate (seroQUEL TAB) 25 mg HS PO 01/13/18 21:00 02/12/18 20:59 01/25/18 20:32 25 MG Senna (Senokot Tab) 34.4 mg BID PO 01/13/18 21:00 02/12/18 20:59 01/26/18 07:40 34.4 MG Lubiprostone (Amitiza) 8 mcg BID PO 01/13/18 21:00 02/12/18 20:59 01/26/18 07:39 8 MCG Pantoprazole Sodium (Protonix Tab) 40 mg QAM PO 01/14/18 09:00 02/13/18 08:59 01/26/18 07:37 40 MG Polyethylene (Miralax Powder Packet) 17 gm BID PO 01/13/18 21:00 02/12/18 20:59 01/26/18 07:37 17 GM Potassium Chloride (Klor-Con Tab) 20 meq QAM PO 01/14/18 09:00 02/13/18 08:59 01/26/18 07:40 20 MEQ Saccharomyces Boulardii (Florastor Cap) 250 mg DAILY PO 01/14/18 09:00 02/13/18 08:59 01/26/18 07:39 250 MG Glucose (Glucose 40% Gel) 15-30 GRAMS 15 GRAMS... UD PRN PO 01/13/18 16:15 02/12/18 16:14 Glucose (Glucose Chew Tab) 4-8 Tablets 4 Tabl... UD PRN PO 01/13/18 16:15 02/12/18 16:14 Dextrose (Dextrose 50% 50ML Syringe) 25-50ML OF 50% DW IV FOR... UD PRN IV 01/13/18 16:15 02/12/18 16:14 Glucagon (Glucagon Inj) 1 mg UD PRN SQ 01/13/18 16:15 02/12/18 16:14 Miscellaneous Information (Consult Glycemic Management Pharmacy) 1 ea UD PRN N/A 01/15/18 17:39 02/14/18 17:38 Hydromorphone HCl (Dilaudid Tab) 2 mg HS PRN PO 01/17/18 19:45 01/31/18 19:44 01/24/18 05:19 2 MG Miconazole Nitrate (Desenex Powder) 1 appln PRN PRN EXT 01/21/18 14:45 02/20/18 14:44 Glucagon (Glucagon Inj) 1 mg UD PRN SQ 01/22/18 20:45 02/21/18 20:44 Insulin Aspart (novoLOG ASPART) SLIDING SCALE If C... ACHS SC 01/23/18 11:00 02/22/18 10:59 01/25/18 20:40 3 UNITS Hydromorphone HCl (Dilaudid Inj) 1 mg Q4 PRN IV 01/24/18 10:00 02/07/18 09:59 01/26/18 07:33 1 MG Hydromorphone HCl (Dilaudid Tab) 2 mg Q3HWA PRN PO 01/25/18 12:00 01/27/18 17:59 01/26/18 05:33 2 MG Morphine Sulfate (Oramorph Sr Tab) 15 mg Q12H PO 01/25/18 10:00 02/08/18 09:59 01/26/18 10:22 15 MG Insulin Glargine (Lantus Solostar Pen) 27 units QPM SC 01/26/18 21:00 02/25/18 20:59 Ipratropium [place] (Atrovent 0.02% 0.5MG/2.5ML Neb) 0.5 mg Q4RWA INH 01/26/18 12:00 02/12/18 20:59 01/26/18 12:08 0.5 MG Levalbuterol (Xopenex 1.25MG/ 0.5ML Neb) 1.25 mg Q4RWA INH 01/26/18 16:00 02/25/18 15:59 Vital Signs: Date Time Temp Pulse Resp B/P (MAP) Pulse Ox O2 Delivery O2 Flow Rate FiO2 01/26/18 12:14 90 20 97 Nasal Cannula 3.0 01/26/18 08:00 97 Nasal Cannula 3.0 01/26/18 07:32 96 18 97 Nasal Cannula 3.0 01/26/18 07:06 37.2 96 16 120/71 (87) 97 1.0 01/26/18 00:00 Nasal Cannula 3.0 01/25/18 22:42 36.3 97 16 88/58 (68) 93 Room Air 01/25/18 19:30 36.6 114 20 147/85 (105) 96 Nasal Cannula 3.0 01/25/18 19:00 Nasal Cannula 3.0 01/25/18 18:53 Mask 01/25/18 18:35 36.7 103 18 123/78 (93) 95 3.0 01/25/18 18:03 37.1 103 18 113/71 (85) 94 Oxymask 3.0 01/25/18 17:41 103 22 131/57 (81) 98 Oxymask 3.0 01/25/18 17:38 99 20 138/85 (102) 98 Oxymask 3.0 01/25/18 17:30 97 19 141/71 98 Oxymask 3.0 01/25/18 17:25 95 30 145/86 96 Oxymask 3.0 01/25/18 17:20 97 18 117/78 91 Oxymask 3.0 01/25/18 17:15 102 24 116/63 99 Oxymask 3.0 01/25/18 16:00 99 Nasal Cannula 3.0 01/25/18 15:19 36.3 100 20 128/62 (84) 99 Nasal Cannula 3.0 01/25/18 14:18 100 18 99 Nasal Cannula 3.0 Laboratory Results: Last 24 Hours Test 01/25/18 16:35 01/25/18 18:26 01/25/18 19:50 01/26/18 03:37 Bedside Glucose 159 mg/dl 140 mg/dl 175 mg/dl Creatinine 0.38 mg/dl Est Creatinine Clear Calc Drug Dose 107.3 ml/min Estimated GFR () 117.6 Estimated GFR (Non- 101.5 Vancomycin Level Trough 22.2 mcg/ml Test 01/26/18 07:15 01/26/18 11:23 Bedside Glucose 78 mg/dl 117 mg/dl
[2018-01-26] MEDS ORDERED: VANCOMYCIN CONSULT ACTIVE PRN (13:15)
--- NOTE | 2018-01-26 13:15 | Pharmacy Progress Note ---
Pharmacy Abx Dose Short Note Date of Service Jan 26, 2018. Assessment & Plan Assessment 77 year old female receiving Vancomycin for treatment of MRSA in sputum cultures /bronch washings. Day # 10 of antimicrobial therapy. Item Value Date Time Vancomycin Level Trough 22.2 mcg/ml 01/26/18 0337 Plan Vancomycin * Trough level of 22.2 mcg/mL is therapeutic, given that her last dose was hung 2 hours and 15 min late. * Continue dose of 1000 mg IV every 12 hours * Goal trough level : 15 to 20 mcg/mL Pharmacy will continue to follow and will adjust dose/frequency as necessary. Thank you.
[2018-01-26] MEDS ORDERED: LEVALBUTEROL 1.25MG/0.5ML NEB INH SCH ×2 (15:00→16:00)
[2018-01-26] MEDS: ENOXAPARIN 40 MG/0.4 ML SYR SQ SCH (19:49)
[2018-01-26] MEDS: DOXEPIN HCL 75 MG CAP PO SCH (19:52)
[2018-01-26] MEDS: QUETIAPINE FUMARATE 25 MG TAB PO SCH (19:55)
[2018-01-26] MEDS: ATORVASTATIN 40 MG TAB PO SCH (19:56)
[2018-01-26] MEDS ORDERED: INSULIN GLARGINE SOLOSTAR 100 UNITS/ML 3 ML PEN SC SCH (21:00)
[2018-01-26] MEDS ORDERED: NURSING VERBAL MED ORDER ONE (22:15)
[2018-01-26] MEDS: CLOTRIMAZOLE 10 MG TROCHE LOZ SCH (23:48)
[2018-01-27] VITALS (7 sets, daily range): BP systolic 116–148; BP diastolic 72–79; PULSE 95–111; TEMP 36.8–37.2; O2SAT 94–100
[2018-01-27] MEDS: HYDROmorphone HCL 2 MG TAB PO PRN ×2 (00:17→07:12)
[2018-01-27] MEDS: LORAZEPAM 0.5 MG TAB PO PRN ×2 (02:04→23:39)
[2018-01-27] MEDS: HYDROmorphone INJ 1 MG/ML SYR IV PRN ×4 (03:30→20:48)
[2018-01-27] MEDS: VANCOMYCIN IV 1,000 MG in SODIUM CHLORIDE 0.9% 250ML 250 ML IV SCH ×2 (04:11→16:15)
[2018-01-27 05:20] LABS: BASO % 0.1 %; BASO ABS # 0.01 K/uL (0-0.2); EOS % 1.7 %; EOS ABS # 0.29 K/uL (0-0.5); HEMATOCRIT 33.1 % (37-47); HEMOGLOBIN 10.2 g/dL (12.0-16.0); IG# 0.07 K/uL (0.00-0.02); LYMPH % 13.1 %; LYMPH ABS # 2.25 K/uL (1.2-3.4); MEAN CORPUSCULAR HEMOGLOBIN 28.7 pg (25-34); MEAN CORPUSCULAR HGB CONC 30.8 g/dl (32-36); MEAN PLATELET VOLUME 10.4 fL (7.4-10.4); MONO ABS # 1.89 K/uL (0.11-0.59); NEUT % 73.7 %; NEUT ABS # 12.62 K/uL (1.4-6.5); PLATELET COUNT 417 K/uL (130-400); RED CELL DISTRIBUTION WIDTH CV 17.1 % (11.5-14.5); RED CELL DISTRIBUTION WIDTH SD 58.6 fL (36.4-46.3); WHITE BLOOD COUNT 17.13 K/uL (4.8-10.8)
[2018-01-27 05:37] LABS: CALCIUM 8.4 mg/dl (8.5-10.1); CREATININE 0.31 mg/dl (0.60-1.20); POTASSIUM 3.2 mmol/L (3.5-5.1)
[2018-01-27] MEDS: LEVOTHYROXINE 75 MCG TAB PO SCH (06:01)
[2018-01-27] MEDS: CLOTRIMAZOLE 10 MG TROCHE LOZ SCH ×5 (07:13→23:39)
[2018-01-27] MEDS: LEVALBUTEROL 1.25MG/0.5ML NEB INH SCH ×3 (07:42→19:20)
[2018-01-27] MEDS: IPRATROPIUM BROMIDE NEB SOLN 0.02% 2.5 ML VIAL INH SCH ×3 (07:42→19:20)
[2018-01-27] MEDS: DULOXETINE HCL 60 MG CAP PO SCH (08:31)
[2018-01-27] MEDS: PANTOprazole SOD 40 MG TAB PO SCH (08:31)
[2018-01-27] MEDS: CEROVITE ADV FORMULA TAB PO SCH (08:31)
[2018-01-27] MEDS: POTASSIUM CHLORIDE 20 MEQ TABCR PO SCH (08:32)
[2018-01-27] MEDS: SACCHAROMYCES BOUL (FLORASTOR) 250 MG CAP PO SCH (08:32)
[2018-01-27] MEDS: ACETAMINOPHEN 500 MG TAB PO SCH ×2 (08:33→09:00)
[2018-01-27] MEDS: DOCUSATE SODIUM 100 MG CAP PO SCH ×2 (08:33→09:01)
[2018-01-27] MEDS: FUROSEMIDE 40 MG TAB PO SCH (08:34)
[2018-01-27] MEDS: LUBIPROSTONE 8 MCG CAP PO SCH ×2 (08:34→09:01)
[2018-01-27] MEDS: LEVETIRACETAM 500 MG TAB PO SCH ×2 (08:34→09:01)
[2018-01-27] MEDS: POLYETHYLENE (MIRALAX) 17 GM PACK PO SCH ×3 (08:34→20:48)
[2018-01-27] MEDS: SENNA 8.6 MG TAB PO SCH ×2 (08:35→20:50)
[2018-01-27] MEDS: INSULIN ASPART 100 UNITS/ML 3 ML PEN SC SCH ×5 (08:36→20:54)
[2018-01-27] MEDS: FAMOTIDINE 20 MG TAB PO SCH ×3 (08:40→20:50)
[2018-01-27] MEDS ORDERED: POTASSIUM CHLORIDE PWD 20 MEQ PACK PO ONE (09:00)
[2018-01-27] MEDS: MoRPHine SULFATE CR 15 MG TAB (MS CONTIN) PO SCH ×2 (09:41→22:05)
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
[2018-01-27] MEDS ORDERED: HYDROmorphone INJ 1 MG/ML SYR IV PRN (10:30)
[2018-01-27] MEDS: POTASSIUM CHLR 10 MEQ / WTR 10 MEQ in PREMIXED WATER 100 ML IV SCH ×3 (11:00→13:10)
--- NOTE | 2018-01-27 11:15 | Pharmacy Progress Note ---
Pharmacy Glycemic Short Note 2 Date of Service Jan 27, 2018. OUTPATIENT ANTIDIABETIC REGIMEN: * Lantus 35 units qPM * Humalog per scale * HbA1c: 8.4% (11/29/17) ASSESSMENT: * Yesterday, Ms Iversons blood sugars were [phone] mg/dL and she received 27 units of insulin with 27 units of being Lantus. Her fasting this morning was 70 mg/dL. Lunch after the EGD was 60 or 90 mg/dL. * As the patient did not have any low blood sugars yesterday but was not tolerating oral foods, reduced Lantus dose to 27 units daily. HOWEVER, the patient's fasting blood sugar continues to trend downwards. Will provide a scale for this evening as uncertain how the patient will respond today. The scale will contain all reduced doses of Lantus including a 50% reduction and 60 % reduction. She was made NPO today around 9 AM for EGD. * For Novolog, the patient received no Novolog yesterday. Loosened slightly today as concerned that the patient may have too much basal on board today and do not want to be too aggressive with Novolog. * Ms Ramirez is a 77 y/o F with a PMH of CHF, paraplegia, HTN, chronic pain, seizures, and poorly controlled type 2 diabetes (goal HbA1C for patient is closer to 7.5-8.0% according to the Elements of Diabetes Care Scoring Scale). She was initially admitted with chronic respiratory failure. The patient was treated with Solu-Medrol for about a 1 week. Steroids stopped 01/25/18. * Yesterday, Ms Ramirez's blood sugars were [phone] mg/dL and she received 50 units of insulin with 20 units of being Lantus. Her fasting this morning was 140 mg/dL. * As the patient did not have any low blood sugars yesterday, returned patient to her home Lantus dose of 34 units daily. The patient does continue on Solu- Medrol 20 mg IV q24 hours.Blood sugars may be higher today since a lower dose of Lantus was given yesterday. * For Novolog, the patient's blood sugar increased throughout the day until she stacked at bedtime and her blood sugar decreased. Will tighten Novolog today to correction factor of 15 and carbohydrate ratio of 5. This was used previously when the patient was on Solu-Medrol 40 mg IV daily and appeared effectively at controlling blood sugars. PLAN FOR INPATIENT GLYCEMIC CONTROL: * Basal insulin * Lantus 10-15 units SQ HS (Lantus 10 units if blood sugar less than 160 mg/dL , 15 units if blood sugar greater than 160 mg/dL) * Bolus insulin * NovoLog per scale ACHS or Q6hrs while NPO * Goal Range: Low 110 mg/dL - High 140 mg/dL * TIGHTEN: Correction Factor: 25 mg/dL/unit * TIGHTEN Prandial insulin to carb ratio of 1 unit per 9 grams CHO consumed DISCHARGE PLANNING: * A1c (8.4%) is not unreasonable for a 77yo patient w/ multiple comorbidities even though it is not a goal. Recommend close follow-up with PCP to determine if tighter glycemic coverage is reasonable in this patient.
[2018-01-27] MEDS ORDERED: KETAMINE HCL INJ 50 MG/ML 10 ML VIAL ONE (11:34)
--- NOTE | 2018-01-27 11:40 | Gastroenterology Progress Note ---
Progress Note Date of Service: Jan 27, 2018 Subjective Pt evaluation today including: conversation w/ patient, physical exam 77 yo CF with a history of esophageal stricture who continues to have complaints of solid food dysphagia. Medications Current Inpatient Medications Medications (Trade) Dose Ordered Sig/Karen Route Start Time Stop Time Status Last Admin Dose Admin Enoxaparin Sodium (Lovenox Inj) 40 mg DAILY@2000 SQ 01/13/18 20:00 02/12/18 19:59 01/26/18 19:49 40 MG Acetaminophen (Tylenol Tab) 650 mg Q4H PRN PO 01/13/18 16:00 02/12/18 15:59 01/20/18 03:58 650 MG Al Hydrox/Mg Hydrox/Simethicone (Maalox Max Susp) 15 ml Q4H PRN PO 01/13/18 16:00 02/12/18 15:59 Magnesium Hydroxide (Milk Of Magnesia Susp) 30 ml Q6H PRN PO 01/13/18 16:00 02/12/18 15:59 01/16/18 11:36 30 ML Ondansetron HCl (Zofran Inj) 4 mg Q6H PRN IV 01/13/18 16:00 02/12/18 15:59 Acetaminophen (Tylenol Tab) 1,000 mg BID PO 01/13/18 21:00 02/12/18 20:59 01/26/18 19:57 1,000 MG Atorvastatin Calcium (Lipitor Tab) 40 mg HS PO 01/13/18 21:00 02/12/18 20:59 01/25/18 20:33 40 MG Baclofen (Lioresal Tab) 10 mg QID PRN PO 01/13/18 16:00 02/12/18 15:59 01/20/18 04:11 10 MG Bellad[place]/Opium (B & O Adult Supp) 60 mg Q8 PRN [place] 01/13/18 16:00 01/27/18 15:59 01/20/18 01:04 60 MG Bisacodyl (Dulcolax Supp) 10 mg DAILY PRN [place] 01/13/18 16:00 02/12/18 15:59 01/15/18 08:20 10 MG Docusate Sodium (coLACE CAP) 100 mg BID PO 01/13/18 21:00 02/12/18 20:59 01/26/18 19:53 100 MG Doxepin HCl (Sinequan Cap) 75 mg HS PO 01/13/18 21:00 02/12/18 20:59 01/26/18 19:52 75 MG Duloxetine HCl (Cymbalta Cap) 60 mg QAM PO 01/14/18 09:00 02/13/18 08:59 01/27/18 08:31 60 MG Famotidine (Pepcid Tab) 20 mg BID PO 01/13/18 21:00 02/12/18 20:59 01/26/18 19:50 20 MG Furosemide (Lasix Tab) 40 mg DAILY PO 01/14/18 09:00 02/13/18 08:59 01/27/18 08:34 40 MG Levetiracetam (Keppra Tab) 500 mg BID PO 01/13/18 21:00 02/12/18 20:59 01/26/18 08:34 500 MG Levothyroxine Sodium (Synthroid Tab) 75 mcg DAILYBB PO 01/14/18 06:30 02/13/18 06:29 01/25/18 05:20 75 MCG Lorazepam (Ativan Tab) 0.5 mg Q6H PRN PO 01/13/18 16:00 02/12/18 15:59 01/27/18 02:04 0.5 MG Multivitamins/ Minerals (Multivitamin W/ Minerals Tab) 1 tab DAILY PO 01/14/18 09:00 02/13/18 08:59 01/27/18 08:31 1 TAB Quetiapine Fumarate (seroQUEL TAB) 25 mg HS PO 01/13/18 21:00 02/12/18 20:59 01/26/18 19:55 25 MG Senna (Senokot Tab) 34.4 mg BID PO 01/13/18 21:00 02/12/18 20:59 01/27/18 08:35 34.4 MG Lubiprostone (Amitiza) 8 mcg BID PO 01/13/18 21:00 02/12/18 20:59 01/26/18 07:39 8 MCG Pantoprazole Sodium (Protonix Tab) 40 mg QAM PO 01/14/18 09:00 02/13/18 08:59 01/27/18 08:31 40 MG Polyethylene (Miralax Powder Packet) 17 gm BID PO 01/13/18 21:00 02/12/18 20:59 01/26/18 07:37 17 GM Potassium Chloride (Klor-Con Tab) 20 meq QAM PO 01/14/18 09:00 02/13/18 08:59 01/27/18 08:32 20 MEQ Saccharomyces Boulardii (Florastor Cap) 250 mg DAILY PO 01/14/18 09:00 02/13/18 08:59 01/27/18 08:32 250 MG Glucose (Glucose 40% Gel) 15-30 GRAMS 15 GRAMS... UD PRN PO 01/13/18 16:15 02/12/18 16:14 Glucose (Glucose Chew Tab) 4-8 Tablets 4 Tabl... UD PRN PO 01/13/18 16:15 02/12/18 16:14 Dextrose (Dextrose 50% 50ML Syringe) 25-50ML OF 50% DW IV FOR... UD PRN IV 01/13/18 16:15 02/12/18 16:14 Glucagon (Glucagon Inj) 1 mg UD PRN SQ 01/13/18 16:15 02/12/18 16:14 Miscellaneous Information (Consult Glycemic Management Pharmacy) 1 ea UD PRN N/A 01/15/18 17:39 02/14/18 17:38 Miconazole Nitrate (Desenex Powder) 1 appln PRN PRN EXT 01/21/18 14:45 02/20/18 14:44 Glucagon (Glucagon Inj) 1 mg UD PRN SQ 01/22/18 20:45 02/21/18 20:44 Insulin Aspart (novoLOG ASPART) SLIDING SCALE If C... ACHS SC 01/23/18 11:00 02/22/18 10:59 01/25/18 20:40 3 UNITS Hydromorphone HCl (Dilaudid Inj) 1 mg Q4 PRN IV 01/24/18 10:00 02/07/18 09:59 01/27/18 03:30 1 MG Morphine Sulfate (Oramorph Sr Tab) 15 mg Q12H PO 01/25/18 10:00 02/08/18 09:59 01/26/18 21:42 15 MG Ipratropium [place] (Atrovent 0.02% 0.5MG/2.5ML Neb) 0.5 mg Q4RWA INH 01/26/18 12:00 02/12/18 20:59 01/27/18 07:42 0.5 MG Levalbuterol (Xopenex 1.25MG/ 0.5ML Neb) 1.25 mg Q4RWA INH 01/26/18 16:00 02/25/18 15:59 01/27/18 07:42 1.25 MG Vancomycin HCl 1000 mg/Sodium Chloride 270 ml @ 125 mls/hr Q12H IV 01/26/18 16:00 02/02/18 15:59 01/27/18 04:11 125 MLS/HR Miscellaneous Information (Consult) 1 ea UD PRN N/A 01/26/18 13:15 02/25/18 13:14 Heparin Sodium (Porcine) (Heparin 10 Unit/ ml 5 ml Flush) 5 ml PRN PRN FLUSH 01/26/18 19:00 02/25/18 18:59 01/27/18 07:11 5 ML Clotrimazole (Mycelex 10MG Galileo) 1 galileo 5XDQ4H SMOOTH 01/26/18 23:00 01/31/18 22:59 01/27/18 07:13 1 GALILEO Insulin Glargine (Lantus Solostar Pen) QPM SC 01/27/18 21:00 02/26/18 20:59 Hydromorphone HCl (Dilaudid Inj) 1 mg Q3HWA PRN IV 01/27/18 10:30 02/10/18 10:29 Hydromorphone HCl (Dilaudid Inj) 1 mg HS PRN IV 01/27/18 10:30 02/10/18 10:29 Potassium Chloride 10 meq/ Prmx 100 ml @ 100 mls/hr Q1H IV 01/27/18 10:31 01/27/18 13:30 01/27/18 11:00 100 MLS/HR Objective Vital Signs Date Time Temp Pulse Resp B/P (MAP) Pulse Ox O2 Delivery O2 Flow Rate FiO2 01/27/18 11:21 37.2 92 16 123/63 (83) 97 Room Air 01/27/18 11:03 36.8 95 18 116/72 (87) 100 6.0 01/27/18 07:42 96 20 94 Nasal Cannula 4.0 01/27/18 07:15 98 Nasal Cannula 3.0 01/27/18 07:14 37.0 95 18 148/77 (100) 98 Nasal Cannula 3.0 01/27/18 00:00 Nasal Cannula 3.0 01/26/18 19:00 Nasal Cannula 3.0 01/26/18 16:00 90 Nasal Cannula 3.0 01/26/18 15:09 37.3 20 135/74 (94) 90 Nasal Cannula 1.0 01/26/18 14:45 100 20 96 Nasal Cannula 3.0 01/26/18 12:14 90 20 97 Nasal Cannula 3.0 Physical Exam General Appearance: + obese Abdomen: non tender, soft Laboratory Results Last 24 Hours Test 01/26/18 16:48 01/26/18 19:42 01/27/18 04:57 01/27/18 07:39 Bedside Glucose 99 mg/dl 79 mg/dl 70 mg/dl White Blood Count 17.13 K/uL Red Blood Count 3.56 M/uL Hemoglobin 10.2 g/dL Hematocrit 33.1 % Mean Corpuscular Volume 93.0 fL Mean Corpuscular Hemoglobin 28.7 pg Mean Corpuscular Hemoglobin Concent 30.8 g/dl Platelet Count 417 K/uL Mean Platelet Volume 10.4 fL Neutrophils (%) (Auto) 73.7 % Lymphocytes (%) (Auto) 13.1 % Monocytes (%) (Auto) 11.0 % Eosinophils (%) (Auto) 1.7 % Basophils (%) (Auto) 0.1 % Neutrophils # (Auto) 12.62 K/uL Lymphocytes # (Auto) 2.25 K/uL Monocytes # (Auto) 1.89 K/uL Eosinophils # (Auto) 0.29 K/uL Basophils # (Auto) 0.01 K/uL RDW Standard Deviation 58.6 fL RDW Coefficient of Variation 17.1 % Immature Granulocyte % (Auto) 0.4 % Immature Granulocyte # (Auto) 0.07 K/uL Sodium Level 142 mmol/L Potassium Level 3.2 mmol/L Chloride Level 102 mmol/L Carbon Dioxide Level 35 mmol/L Anion Gap 5.0 mmol/L Blood Urea Nitrogen 8 mg/dl Creatinine 0.31 mg/dl Est Creatinine Clear Calc Drug Dose 131.6 ml/min Estimated GFR () 125.7 Estimated GFR (Non- 108.5 BUN/Creatinine Ratio 25.5 Random Glucose 69 mg/dl Calcium Level 8.4 mg/dl Magnesium Level 2.2 mg/dl Assessment and Plan Asessment: Patient is a 77 year old female hospitalized for an acute hypoxic respiratory failure due to COPD. Consideration of GI evaluation was proposed by the control officer manager to rule out esophageal stricture which they are concerned could be causing aspiration. Plan: Proceed with EGD today Continue current therapy
[2018-01-27] MEDS ORDERED: PROPOFOL IV EMULSION 10 MG/ML 20 ML VIAL IV ONE (12:01)
[2018-01-27] MEDS ORDERED: LIDOCAINE HCL 2% 2 ML VIAL (20MG/ML) ONE (12:01)
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
--- NOTE | 2018-01-27 12:15 | GI REPORT ---
Procedure Date: 01/27/2018 11:50 AM Procedure: Upper GI endoscopy Indications: Dysphagia Medicines: Monitored Anesthesia Care Complications: No immediate complications. Estimated Blood Loss: Estimated blood loss: none. Procedure: Pre-Anesthesia Assessment: - Prior to the procedure, a History and Physical was performed, and patient medications and allergies were reviewed. The patient's tolerance of previous anesthesia was also reviewed. The risks and benefits of the procedure and the sedation options and risks were discussed with the patient. All questions were answered, and informed consent was obtained. Prior Anticoagulants: The patient has taken no previous anticoagulant or antiplatelet agents. ASA Grade Assessment: IV - A patient with severe systemic disease that is a constant threat to life. After reviewing the risks and benefits, the patient was deemed in satisfactory condition to undergo the procedure. After obtaining informed consent, the endoscope was passed under direct vision. Throughout the procedure, the patient's blood pressure, pulse, and oxygen saturations were monitored continuously. The scope was introduced through the mouth, and advanced to the second part of duodenum. The upper GI endoscopy was accomplished without difficulty. The patient tolerated the procedure well. Findings: Ulceration was found on the left arytenoid. The esophagus was normal. Evidence of a patent Billroth I gastroduodenostomy was found. A gastric pouch was found. The gastroduodenal anastomosis was characterized by healthy appearing mucosa. This was traversed. The examined duodenum was normal. Impression: - Ulceration was found on the left arytenoid. - Normal esophagus. - Patent Billroth I gastroduodenostomy was found, characterized by healthy appearing mucosa. - Normal examined duodenum. - No specimens collected. Recommendation: - [facility]. - Advance diet as tolerated. - Continue present medications. - Dysphagia is most likely secondary to esophageal dysmotility John Sanchez, DO 01/27/2018 12:14:54 PM This report has been signed electronically. Note Initiated On: 01/27/2018 11:50 AM I attest to the content of the Intraoperative Record and orders documented therein, exceptions below
[2018-01-27] MEDS ORDERED: NURSING VERBAL MED ORDER ONE (13:00)
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
[2018-01-27] MEDS: DOXEPIN HCL 75 MG CAP PO SCH (20:49)
[2018-01-27] MEDS: ENOXAPARIN 40 MG/0.4 ML SYR SQ SCH (20:49)
[2018-01-27] MEDS: ATORVASTATIN 40 MG TAB PO SCH (20:50)
[2018-01-27] MEDS: QUETIAPINE FUMARATE 25 MG TAB PO SCH (20:51)
[2018-01-27] MEDS: INSULIN GLARGINE SOLOSTAR 100 UNITS/ML 3 ML PEN SC SCH (20:59)
[2018-01-28] VITALS (7 sets, daily range): BP systolic 126–156; BP diastolic 76–81; PULSE 87–118; TEMP 36.5–36.7; O2SAT 94–99
[2018-01-28] MEDS ORDERED: VANCOMYCIN TROUGH ONE (03:30)
[2018-01-28] MEDS: HYDROmorphone INJ 1 MG/ML SYR IV PRN ×5 (03:40→20:03)
[2018-01-28 04:03] LABS: HEMATOCRIT 32.5 % (37-47); HEMOGLOBIN 10.4 g/dL (12.0-16.0); MEAN CELL VOLUME 92.9 fL (80-100); MEAN CORPUSCULAR HEMOGLOBIN 29.7 pg (25-34); MEAN PLATELET VOLUME 10.3 fL (7.4-10.4); PLATELET COUNT 401 K/uL (130-400); RED CELL DISTRIBUTION WIDTH CV 17.4 % (11.5-14.5); RED CELL DISTRIBUTION WIDTH SD 58.4 fL (36.4-46.3); WHITE BLOOD COUNT 13.49 K/uL (4.8-10.8)
[2018-01-28] MEDS: VANCOMYCIN IV 1,000 MG in SODIUM CHLORIDE 0.9% 250ML 250 ML IV SCH ×2 (04:04→15:56)
[2018-01-28 04:23] LABS: CALCIUM 8.6 mg/dl (8.5-10.1); CREATININE 0.53 mg/dl (0.60-1.20); POTASSIUM 3.9 mmol/L (3.5-5.1)
[2018-01-28] MEDS: LEVOTHYROXINE 75 MCG TAB PO SCH (06:39)
[2018-01-28] MEDS: CLOTRIMAZOLE 10 MG TROCHE LOZ SCH ×5 (06:40→23:00)
[2018-01-28] MEDS: IPRATROPIUM BROMIDE NEB SOLN 0.02% 2.5 ML VIAL INH SCH ×4 (07:03→19:37)
[2018-01-28] MEDS: LEVALBUTEROL 1.25MG/0.5ML NEB INH SCH ×4 (07:03→19:37)
[2018-01-28] MEDS: CEROVITE ADV FORMULA TAB PO SCH (08:11)
[2018-01-28] MEDS: PANTOprazole SOD 40 MG TAB PO SCH (08:11)
[2018-01-28] MEDS: LUBIPROSTONE 8 MCG CAP PO SCH ×2 (08:12→21:24)
[2018-01-28] MEDS: LEVETIRACETAM 500 MG TAB PO SCH ×2 (08:12→21:24)
[2018-01-28] MEDS: DOCUSATE SODIUM 100 MG CAP PO SCH ×2 (08:12→21:24)
[2018-01-28] MEDS: FAMOTIDINE 20 MG TAB PO SCH ×2 (08:13→21:24)
[2018-01-28] MEDS: DULOXETINE HCL 60 MG CAP PO SCH (08:13)
[2018-01-28] MEDS: ACETAMINOPHEN 500 MG TAB PO SCH ×2 (08:13→21:26)
[2018-01-28] MEDS: SENNA 8.6 MG TAB PO SCH ×2 (08:13→21:00)
[2018-01-28] MEDS: SACCHAROMYCES BOUL (FLORASTOR) 250 MG CAP PO SCH (08:14)
[2018-01-28] MEDS: FUROSEMIDE 40 MG TAB PO SCH (08:14)
[2018-01-28] MEDS: POLYETHYLENE (MIRALAX) 17 GM PACK PO SCH ×2 (08:14→21:24)
[2018-01-28] MEDS: POTASSIUM CHLORIDE 20 MEQ TABCR PO SCH (08:15)
[2018-01-28] MEDS ORDERED: INSULIN GLARGINE SOLOSTAR 100 UNITS/ML 3 ML PEN SC SCH (09:00)
--- NOTE | 2018-01-28 09:22 | Pharmacy Progress Note ---
Pharmacy Abx Dose Short Note Date of Service Jan 28, 2018. Assessment & Plan Assessment This AM's trough is therapeutic at 19.7mcg/mL. Renal fxn has been fairly stable during this admission. Plan Continue current regimen of Vancomycin 1000mg (13mg/kg) q12. No subsequent lvls ordered at this juncture. Pharmacy will continue to follow and will adjust dose/frequency as necessary. Thank you.
[2018-01-28] MEDS: MoRPHine SULFATE CR 15 MG TAB (MS CONTIN) PO SCH ×2 (10:05→21:25)
[2018-01-28] MEDS: INSULIN ASPART 100 UNITS/ML 3 ML PEN SC SCH ×4 (10:13→21:21)
--- NOTE | 2018-01-28 12:06 | Pharmacy Progress Note ---
Pharmacy Glycemic Short Note 2 Date of Service Jan 28, 2018. OUTPATIENT ANTIDIABETIC REGIMEN: * Lantus 35 units qPM * Humalog per scale * HbA1c: 8.4% (11/29/17) ASSESSMENT: * See progress note from 01/27/18 for background info, in short: * Patient received 20 units of insulin over the past 24 hours: * 10 units of basal insulin * 10 units of bolus insulin * BSGs: 70, 60, 90, 131, 134 * Changes needed to insulin regimen: * Fasting BSG of 208 mg/dL is elevated. This is likely due to multiple reductions in basal insulin over the past 48 hours. I have scheduled a dose of 10 units this morning since patient is basal deficient at this point, then continue HS dose based on BSG. I anticipate needing 15-20 units of basal. * Prandial BSGs are at goal. No change to bolus insulin parameters. PLAN FOR INPATIENT GLYCEMIC CONTROL: * Basal insulin * Lantus 10 units SQ this morning x 1 * Lantus 5-10 units SQ HS (5 units if < 160 mg/dL, 10 units if 160 mg/dL or more) * Will likely place on 15 or 20 units SQ HS starting 01/29 * Bolus insulin * NovoLog per scale ACHS or Q6hrs while NPO * Goal Range: Low 110 mg/dL - High 140 mg/dL * TIGHTEN: Correction Factor: 25 mg/dL/unit * TIGHTEN Prandial insulin to carb ratio of 1 unit per 9 grams CHO consumed DISCHARGE PLANNING: * A1c (8.4%) is not unreasonable for a 77yo patient w/ multiple comorbidities even though it is not a goal. Recommend close follow-up with PCP to determine if tighter glycemic coverage is reasonable in this patient.
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
[2018-01-28] MEDS: ACETAMINOPHEN 325 MG TAB PO PRN (13:19)
[2018-01-28] MEDS: LORAZEPAM 0.5 MG TAB PO PRN (13:20)
[2018-01-28] MEDS: ENOXAPARIN 40 MG/0.4 ML SYR SQ SCH (20:02)
[2018-01-28] MEDS: INSULIN GLARGINE SOLOSTAR 100 UNITS/ML 3 ML PEN SC SCH (21:22)
[2018-01-28] MEDS: QUETIAPINE FUMARATE 25 MG TAB PO SCH (21:24)
[2018-01-28] MEDS: DOXEPIN HCL 75 MG CAP PO SCH (21:24)
[2018-01-28] MEDS: ATORVASTATIN 40 MG TAB PO SCH (21:24)
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
[2018-01-29] VITALS (9 sets, daily range): BP systolic 127–156; BP diastolic 73–82; PULSE 91–104; TEMP 36.8–37.3; O2SAT 94–99
[2018-01-29] MEDS: VANCOMYCIN IV 1,000 MG in SODIUM CHLORIDE 0.9% 250ML 250 ML IV SCH ×2 (04:25→15:54)
[2018-01-29] MEDS: HYDROmorphone INJ 1 MG/ML SYR IV PRN ×2 (04:25→07:24)
[2018-01-29] MEDS: LEVOTHYROXINE 75 MCG TAB PO SCH (05:40)
[2018-01-29] MEDS: IPRATROPIUM BROMIDE NEB SOLN 0.02% 2.5 ML VIAL INH SCH ×4 (06:52→19:22)
[2018-01-29] MEDS: LEVALBUTEROL 1.25MG/0.5ML NEB INH SCH ×4 (06:53→19:22)
[2018-01-29] MEDS: LORAZEPAM 0.5 MG TAB PO PRN ×2 (07:28→15:54)
[2018-01-29] MEDS: CLOTRIMAZOLE 10 MG TROCHE LOZ SCH ×5 (08:00→21:30)
[2018-01-29] MEDS: CEROVITE ADV FORMULA TAB PO SCH (08:01)
[2018-01-29] MEDS: SENNA 8.6 MG TAB PO SCH ×2 (08:01→21:26)
[2018-01-29] MEDS: SACCHAROMYCES BOUL (FLORASTOR) 250 MG CAP PO SCH (08:01)
[2018-01-29] MEDS: PANTOprazole SOD 40 MG TAB PO SCH (08:01)
[2018-01-29] MEDS: DULOXETINE HCL 60 MG CAP PO SCH (08:01)
[2018-01-29] MEDS: LEVETIRACETAM 500 MG TAB PO SCH ×2 (08:01→21:24)
[2018-01-29] MEDS: LUBIPROSTONE 8 MCG CAP PO SCH ×2 (08:01→21:23)
[2018-01-29] MEDS: FUROSEMIDE 40 MG TAB PO SCH (08:01)
[2018-01-29] MEDS: FAMOTIDINE 20 MG TAB PO SCH ×2 (08:01→21:26)
[2018-01-29] MEDS: DOCUSATE SODIUM 100 MG CAP PO SCH ×2 (08:02→21:23)
[2018-01-29] MEDS: POTASSIUM CHLORIDE 20 MEQ TABCR PO SCH (08:02)
[2018-01-29] MEDS: POLYETHYLENE (MIRALAX) 17 GM PACK PO SCH ×2 (08:02→21:25)
[2018-01-29] MEDS: ACETAMINOPHEN 500 MG TAB PO SCH ×2 (08:02→21:29)
[2018-01-29] MEDS: INSULIN ASPART 100 UNITS/ML 3 ML PEN SC SCH ×4 (08:08→21:21)
[2018-01-29] MEDS: MoRPHine SULFATE CR 15 MG TAB (MS CONTIN) PO SCH ×2 (10:59→21:30)
--- NOTE | 2018-01-29 11:49 | PROGRESS NOTE ---
DATE: 01/29/2018 PROBLEM LIST: Includes hypoxic respiratory failure, subglottic stenosis, tracheal collapse. SUBJECTIVE: The patient reports that today she is about the same as she was yesterday, maybe a little bit better. She was sleeping when we entered and did arouse easily. States that she still has some cough and congestion, still has some tightness. Denies any other complaints at this time. OBJECTIVE: GENERAL: The patient is a 77-year-old female lying in bed, in no acute distress. She is alert and oriented x3. Mood and affect are flat and good. VITAL SIGNS: Temp 37.0, pulse 97, respirations 18, blood pressure 156/82, pulse ox is 97-99% on 3 liters. NECK: Supple. No mass, adenopathy, tenderness. CHEST: Coarse breath sounds bilaterally. CARDIOVASCULAR: Auscultated, regular rate and rhythm. No murmurs, gallops or rubs noted. No new imaging. IMPRESSION: This is a 77-year-old female with subglottic stenosis as well as tracheomalacia. Unfortunately, we do not really have any good options to help her clear secretions. I suspect that a Trilogy may be helpful but I have not found any documentation to support this. It may be beneficial to try at her facility that she resides at. Otherwise, recommend to continue current modalities as they are. The patient is currently on pulmonary toilet, would recommend to continue this.
[2018-01-29] MEDS: HYDROmorphone HCL 2 MG TAB PO SCH ×4 (12:49→21:24)
[2018-01-29] MEDS: INSULIN GLARGINE SOLOSTAR 100 UNITS/ML 3 ML PEN SC SCH (15:54)
[2018-01-29] MEDS: ENOXAPARIN 40 MG/0.4 ML SYR SQ SCH (21:23)
[2018-01-29] MEDS: ATORVASTATIN 40 MG TAB PO SCH (21:25)
[2018-01-29] MEDS: QUETIAPINE FUMARATE 25 MG TAB PO SCH (21:27)
[2018-01-29] MEDS: DOXEPIN HCL 75 MG CAP PO SCH (21:28)
[2018-01-29] MEDS: DOXYCYCLINE HYCLATE 100 MG CAP PO SCH (21:29)
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
[2018-01-30] VITALS (7 sets, daily range): BP systolic 144–151; BP diastolic 81–83; PULSE 80–99; TEMP 36.7–36.9; O2SAT 96–100
[2018-01-30] MEDS: VANCOMYCIN IV 1,000 MG in SODIUM CHLORIDE 0.9% 250ML 250 ML IV SCH ×2 (04:08→16:12)
[2018-01-30] MEDS: LEVOTHYROXINE 75 MCG TAB PO SCH (06:00)
[2018-01-30] MEDS: HYDROmorphone HCL 2 MG TAB PO SCH ×6 (06:00→21:01)
[2018-01-30 06:14] LABS: CREATININE 0.57 mg/dl (0.60-1.20)
[2018-01-30] MEDS: LEVALBUTEROL 1.25MG/0.5ML NEB INH SCH ×4 (07:30→19:17)
[2018-01-30] MEDS: IPRATROPIUM BROMIDE NEB SOLN 0.02% 2.5 ML VIAL INH SCH ×4 (07:30→19:17)
[2018-01-30] MEDS: POLYETHYLENE (MIRALAX) 17 GM PACK PO SCH ×2 (08:06→21:02)
[2018-01-30] MEDS: LEVETIRACETAM 500 MG TAB PO SCH ×2 (08:06→21:01)
[2018-01-30] MEDS: CLOTRIMAZOLE 10 MG TROCHE LOZ SCH ×5 (08:06→21:07)
[2018-01-30] MEDS: FAMOTIDINE 20 MG TAB PO SCH ×2 (08:06→21:02)
[2018-01-30] MEDS: CEROVITE ADV FORMULA TAB PO SCH (08:06)
[2018-01-30] MEDS: SENNA 8.6 MG TAB PO SCH ×2 (08:07→21:03)
[2018-01-30] MEDS: FUROSEMIDE 40 MG TAB PO SCH (08:07)
[2018-01-30] MEDS: ACETAMINOPHEN 500 MG TAB PO SCH ×2 (08:07→21:05)
[2018-01-30] MEDS: DOXYCYCLINE HYCLATE 100 MG CAP PO SCH ×2 (08:08→21:05)
[2018-01-30] MEDS: SACCHAROMYCES BOUL (FLORASTOR) 250 MG CAP PO SCH (08:08)
[2018-01-30] MEDS: LUBIPROSTONE 8 MCG CAP PO SCH ×2 (08:08→20:52)
[2018-01-30] MEDS: POTASSIUM CHLORIDE 20 MEQ TABCR PO SCH (08:08)
[2018-01-30] MEDS: DULOXETINE HCL 60 MG CAP PO SCH (08:08)
[2018-01-30] MEDS: DOCUSATE SODIUM 100 MG CAP PO SCH ×2 (08:08→20:52)
[2018-01-30] MEDS: PANTOprazole SOD 40 MG TAB PO SCH (08:08)
[2018-01-30] MEDS: INSULIN ASPART 100 UNITS/ML 3 ML PEN SC SCH ×4 (08:11→20:56)
[2018-01-30] MEDS: MoRPHine SULFATE CR 15 MG TAB (MS CONTIN) PO SCH ×2 (10:37→21:07)
--- NOTE | 2018-01-30 11:15 | Pharmacy Progress Note ---
Pharmacy Glycemic Short Note 2 Date of Service Jan 30, 2018. OUTPATIENT ANTIDIABETIC REGIMEN: * Lantus 35 units qPM * Humalog per scale * HbA1c: 8.4% (11/29/17) ASSESSMENT: * See progress note from 01/27/18 for background info, in short: * Patient received 39 units of insulin over the past 24 hours: * 20 units of basal insulin * 19 units of bolus insulin * BSGs: 169, 136, 171, 174 * Changes needed to insulin regimen: * Fasting BSG of 186 mg/dL is elevated. Dose of basal insulin was increased the past two days. Yesterday, basal insulin was delayed a few hours due to transitioning to a once daily dose in the evening. I suspect this is the reason for elevated fasting. May give a small dose with lunch today if BSG is > 250 mg/ dL, otherwise no changes to basal dose. * Prandial BSGs are near goal. Will slightly tighten carb ratio to allow for additional meal-time insulin. PLAN FOR INPATIENT GLYCEMIC CONTROL: * Basal insulin * Lantus 20 units SQ HS * Bolus insulin - tighten * NovoLog per scale ACHS or Q6hrs while NPO * Goal Range: Low 110 mg/dL - High 140 mg/dL * TIGHTEN: Correction Factor: 30 mg/dL/unit * TIGHTEN Prandial insulin to carb ratio of 1 unit per 10 grams CHO consumed DISCHARGE PLANNING: * A1c (8.4%) is not unreasonable for a 77yo patient w/ multiple comorbidities even though it is not a goal. Recommend close follow-up with PCP to determine if tighter glycemic coverage is reasonable in this patient.
[2018-01-30] MEDS ORDERED: INSULIN GLARGINE SOLOSTAR 100 UNITS/ML 3 ML PEN SC ONE (12:45)
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
[2018-01-30] MEDS: ONDANSETRON INJ 2 MG/ML 2 ML VIAL IV PRN (19:32)
[2018-01-30] MEDS: ENOXAPARIN 40 MG/0.4 ML SYR SQ SCH (20:51)
[2018-01-30] MEDS: INSULIN GLARGINE SOLOSTAR 100 UNITS/ML 3 ML PEN SC SCH (20:55)
[2018-01-30] MEDS: ATORVASTATIN 40 MG TAB PO SCH (21:01)
[2018-01-30] MEDS: QUETIAPINE FUMARATE 25 MG TAB PO SCH (21:04)
[2018-01-30] MEDS: DOXEPIN HCL 75 MG CAP PO SCH (21:04)
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
[2018-01-31] VITALS (8 sets, daily range): BP systolic 97–112; BP diastolic 59–68; PULSE 90–112; TEMP 36.7–37.2; O2SAT 97–99
[2018-01-31] MEDS ORDERED: INSULIN ASPART 100 UNITS/ML 3 ML PEN SC SCH
[2018-01-31] MEDS: VANCOMYCIN IV 1,000 MG in SODIUM CHLORIDE 0.9% 250ML 250 ML IV SCH (04:02)
[2018-01-31] MEDS: LEVOTHYROXINE 75 MCG TAB PO SCH (05:46)
[2018-01-31] MEDS: HYDROmorphone HCL 2 MG TAB PO SCH ×5 (05:47→18:00)
[2018-01-31 06:09] LABS: CREATININE 0.84 mg/dl (0.60-1.20)
[2018-01-31] MEDS: LEVALBUTEROL 1.25MG/0.5ML NEB INH SCH ×4 (07:09→19:49)
[2018-01-31] MEDS: IPRATROPIUM BROMIDE NEB SOLN 0.02% 2.5 ML VIAL INH SCH ×4 (07:09→19:49)
[2018-01-31] MEDS: SACCHAROMYCES BOUL (FLORASTOR) 250 MG CAP PO SCH (07:31)
[2018-01-31] MEDS: CEROVITE ADV FORMULA TAB PO SCH (09:04)
[2018-01-31] MEDS: DOCUSATE SODIUM 100 MG CAP PO SCH ×2 (09:04→21:28)
[2018-01-31] MEDS: PANTOprazole SOD 40 MG TAB PO SCH (09:04)
[2018-01-31] MEDS: CLOTRIMAZOLE 10 MG TROCHE LOZ SCH ×4 (09:04→19:00)
[2018-01-31] MEDS: DOXYCYCLINE HYCLATE 100 MG CAP PO SCH ×2 (09:04→21:28)
[2018-01-31] MEDS: FUROSEMIDE 40 MG TAB PO SCH (09:05)
[2018-01-31] MEDS: POTASSIUM CHLORIDE 20 MEQ TABCR PO SCH (09:05)
[2018-01-31] MEDS: ACETAMINOPHEN 500 MG TAB PO SCH ×2 (09:06→21:30)
[2018-01-31] MEDS: DULOXETINE HCL 60 MG CAP PO SCH (09:06)
[2018-01-31] MEDS: LEVETIRACETAM 500 MG TAB PO SCH ×2 (09:06→21:28)
[2018-01-31] MEDS: SENNA 8.6 MG TAB PO SCH ×2 (09:07→21:29)
[2018-01-31] MEDS: LUBIPROSTONE 8 MCG CAP PO SCH ×2 (09:07→21:29)
[2018-01-31] MEDS: POLYETHYLENE (MIRALAX) 17 GM PACK PO SCH ×2 (09:07→21:29)
[2018-01-31] MEDS: FAMOTIDINE 20 MG TAB PO SCH ×2 (09:07→21:28)
[2018-01-31] MEDS: INSULIN ASPART 100 UNITS/ML 3 ML PEN SC SCH ×4 (09:15→21:00)
[2018-01-31] MEDS: MoRPHine SULFATE CR 15 MG TAB (MS CONTIN) PO SCH ×2 (10:28→22:46)
[2018-01-31] MEDS ORDERED: VANCOMYCIN TROUGH ONE (15:30)
[2018-01-31] MEDS ORDERED: INSULIN GLARGINE SOLOSTAR 100 UNITS/ML 3 ML PEN SC SCH (18:00)
[2018-01-31] MEDS ORDERED: NURSING VERBAL MED ORDER ONE (19:00)
[2018-01-31] MEDS: DOXEPIN HCL 75 MG CAP PO SCH (21:00)
[2018-01-31] MEDS: QUETIAPINE FUMARATE 25 MG TAB PO SCH (21:27)
[2018-01-31] MEDS: ENOXAPARIN 40 MG/0.4 ML SYR SQ SCH (21:27)
[2018-01-31] MEDS: ATORVASTATIN 40 MG TAB PO SCH (21:28)
[2018-02-01] MEDS: LEVOTHYROXINE 75 MCG TAB PO SCH (05:39)
[2018-02-01] MEDS: HYDROmorphone HCL 2 MG TAB PO PRN ×2 (06:04→11:32)
[2018-02-01 06:36] LABS: CREATININE 0.73 mg/dl (0.60-1.20)
[2018-02-01] MEDS: IPRATROPIUM BROMIDE NEB SOLN 0.02% 2.5 ML VIAL INH SCH ×3 (06:55→14:41)
[2018-02-01] MEDS: LEVALBUTEROL 1.25MG/0.5ML NEB INH SCH ×3 (06:56→14:41)
[2018-02-01 06:57] VITALS: PULSE 101; O2SAT 99
[2018-02-01 07:16] VITALS: BP 124/65; PULSE 98; TEMP 37.1; O2SAT 98
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
[2018-02-01 08:42] LABS: HEMATOCRIT 32.7 % (37-47); HEMOGLOBIN 10.1 g/dL (12.0-16.0); MEAN CELL VOLUME 96.5 fL (80-100); MEAN CORPUSCULAR HEMOGLOBIN 29.8 pg (25-34); MEAN CORPUSCULAR HGB CONC 30.9 g/dl (32-36); MEAN PLATELET VOLUME 10.5 fL (7.4-10.4); PLATELET COUNT 333 K/uL (130-400); RED CELL DISTRIBUTION WIDTH CV 17.3 % (11.5-14.5); RED CELL DISTRIBUTION WIDTH SD 60.8 fL (36.4-46.3); WHITE BLOOD COUNT 9.53 K/uL (4.8-10.8)
[2018-02-01 08:53] LABS: CALCIUM 8.7 mg/dl (8.5-10.1); CREATININE 0.71 mg/dl (0.60-1.20); POTASSIUM 3.5 mmol/L (3.5-5.1)
[2018-02-01] MEDS: POLYETHYLENE (MIRALAX) 17 GM PACK PO SCH (09:57)
[2018-02-01] MEDS: CEROVITE ADV FORMULA TAB PO SCH (09:58)
[2018-02-01] MEDS: ACETAMINOPHEN 500 MG TAB PO SCH (09:58)
[2018-02-01] MEDS: PANTOprazole SOD 40 MG TAB PO SCH (09:58)
[2018-02-01] MEDS: DOXYCYCLINE HYCLATE 100 MG CAP PO SCH (09:59)
[2018-02-01] MEDS: LEVETIRACETAM 500 MG TAB PO SCH (09:59)
[2018-02-01] MEDS: DULOXETINE HCL 60 MG CAP PO SCH (09:59)
[2018-02-01] MEDS: SENNA 8.6 MG TAB PO SCH (10:00)
[2018-02-01] MEDS: LUBIPROSTONE 8 MCG CAP PO SCH (10:00)
[2018-02-01] MEDS: DOCUSATE SODIUM 100 MG CAP PO SCH (10:01)
[2018-02-01] MEDS: POTASSIUM CHLORIDE 20 MEQ TABCR PO SCH (10:01)
[2018-02-01] MEDS: FAMOTIDINE 20 MG TAB PO SCH (10:01)
[2018-02-01] MEDS: FUROSEMIDE 40 MG TAB PO SCH (10:02)
[2018-02-01] MEDS: MoRPHine SULFATE CR 15 MG TAB (MS CONTIN) PO SCH (10:13)
[2018-02-01] MEDS: INSULIN ASPART 100 UNITS/ML 3 ML PEN SC SCH ×2 (10:13→12:55)
[2018-02-01 11:05] VITALS: O2SAT 98
[2018-02-01 11:11] VITALS: PULSE 90; O2SAT 93
--- NOTE | 2018-02-01 11:14 | Pharmacy Progress Note ---
Pharmacy Glycemic Sign Off Nt Date of Service Feb 01, 2018. Assessment & Plan ASSESSMENT: * Pharmacy was consulted by Dr French on 01/15/18 for glycemic control and to write orders per [facility] inpatient glycemic control protocol. * Major changes made by pharmacy to antidiabetic regimen include: * Titrating outpatient dosing during admission based on BSG trends * Pt was requiring significantly higher doses than outpatient dosing while on IV RTC steroids. Now that steroids d/c pt is requiring significantly less than outpatient insulin dosing. * Patient has been receiving/requiring ~40 units of insulin per day for adequate glycemic control * BSGs ranging 122 - 173 mg/dl * Regimen has only required minor adjustments over the past 48hrs to achieve this level of control * Do not anticipate further changes in patient status that would quickly deteriorate glycemic control (i.e. patient to be NPO for upcoming procedure, steroids tapering, starting tube feedings, etc). * Please see recommendations for outpatient antidiabetic regimen below. PLAN FOR INPATIENT GLYCEMIC CONTROL: No changes needed to current regimen. * Continue basal insulin with Lantus 25 units SQ HS * Continue NovoLog per scale ACHS/Q6hrs while NPO * Goal range = 110-140 mg/dl * CF = 25 mg/dl/unit * CR = 1 unit for ever 9 g CHO consumed * A1c added to discharge instructions to be communicated to PCP. * Pharmacy is signing off of glycemic consult and will no longer be making adjustments to inpatient regimen. Please feel free to re-consult if needed. Thank you. DISCHARGE RECOMMENDATIONS: * A1c (8.4%) is not unreasonable for a 77yo patient w/ multiple comorbidities even though it is not a goal. Recommend close follow-up with PCP to determine if tighter glycemic coverage is reasonable in this patient. * Pt denies hypoglycemia as an outpatient. Suspect that decreased inpatient insulin dosing needed for CHO restricted diet in house.
[2018-02-01] MEDS: ONDANSETRON INJ 2 MG/ML 2 ML VIAL IV PRN (11:17)
[2018-02-01 11:50] VITALS: BP 124/65; PULSE 90; TEMP 37.1; O2SAT 93
[2018-02-01] MEDS ORDERED: MCTP EXT (14:15)
[2018-02-01] MEDS ORDERED: DXY100 PO (14:15)
--- NOTE | 2018-02-01 14:23 | Discharge Instructions ---
Discharge Instructions Date of Service Feb 01, 2018. Admission Reason for Admission: Shortness Of Breath Discharge Discharge Diagnosis / Problem: Aspiration Pneumonia Discharge Goals Goal(s): Decrease discomfort, Improve function Activity Recommendations Activity Limitations: resume your previous activity . Instructions / Follow-Up Instructions / Follow-Up Switching home regimen for uti prophylaxis to nitrofurantoin Stopped other 2 antibiotics due to resistance. 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 Unfortunately, we do not really have any good options to help her clear secretions. I suspect that a Trilogy may be helpful but I have not found any documentation to support this. It may be beneficial to try at her facility that she resides at. Otherwise, recommend to continue current modalities as they are. The patient is currently on pulmonary toilet, would recommend to continue this. Current Hospital Diet Patient's current hospital diet: AHA Diet (Heart Healthy), Diabetes Type 2 Diet Discharge Diet Recommended Diet: AHA Diet (Heart Healthy), Diabetes Type 2 Diet Procedures Procedures Performed: EGD Pending Studies Studies pending at discharge: no Laboratory Results Hemoglobin A1c Test 11/29/17 05:25 Range/Units Estimated Average Glucose 194 mg/dl Hemoglobin A1c 8.4 H 4.5-5.6 % Lipid Panel Test 01/13/18 06:11 Range/Units Triglycerides Level 276 H 0-150 mg/dl Cholesterol Level 190 0-200 mg/dl HDL Cholesterol 79 mg/dl Cholesterol/HDL Ratio 2.4 LDL Cholesterol, Calculated 56 mg/dl Medical Emergencies . Who to Call and When: Medical Emergencies: If at any time you feel your situation is an emergency, please call 911 immediately. . Non-Emergent Contact Non-Emergency issues call your: Primary Care Provider Call Non-Emergent contact if: you have any medication questions . . "Provider Documentation" section prepared by Edwardo French. .
[2018-02-01] MEDS ORDERED: NITR100C4 PO (14:24)
[2018-02-01 14:42] VITALS: PULSE 98; O2SAT 99
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
== END 2018-02-01 15:40 | DRG 166 ==
LOC: EDBD 11:53 → C.EDA 11:54 → C.MS2W 16:00 → ENRESERV 17:11 → C.MS2W 01-23 00:30
PROVIDERS: ADMIT Internal Medicine; ATTEND Internal Medicine Sports Medicine
PROC: 0B9J8ZZ Drainage of Left Lower Lung Lobe, Via Natural or Artificial Opening Endoscopic (ICD-10-PCS; principal; 2018-01-21)
PROC: 0B9F8ZZ Drainage of Right Lower Lung Lobe, Via Natural or Artificial Opening Endoscopic (ICD-10-PCS; principal; 2018-01-21)
PROC: 0B9 Respiratory System, Drainage (ICD-10-PCS; 2018-01-25)
PROC: 0DJ08ZZ Inspection of Upper Intestinal Tract, Via Natural or Artificial Opening Endoscopic (ICD-10-PCS; 2018-01-27)
DX: J69.0 Pneumonitis due to inhalation of food and vomit (principal); J96.21 Acute and chronic respiratory failure with hypoxia; R04.2 Hemoptysis; I13.0 Hypertensive heart and chronic kidney disease with heart failure and stage 1 through stage 4 chronic kidney disease, or unspecified chronic kidney disease; I50.32 Chronic diastolic (congestive) heart failure; G82.20 Paraplegia, unspecified; N39.0 Urinary tract infection, site not specified; T83.511A Infection and inflammatory reaction due to indwelling urethral catheter, initial encounter; J15.212 Pneumonia due to Methicillin resistant Staphylococcus aureus; B96.20 Unspecified Escherichia coli [E. coli] as the cause of diseases classified elsewhere; Z99.81 Dependence on supplemental oxygen; E87.6 Hypokalemia; J38.6 Stenosis of larynx; J39.8 Other specified diseases of upper respiratory tract; M40.209 Unspecified kyphosis, site unspecified; K22.4 Dyskinesia of esophagus; E78.5 Hyperlipidemia, unspecified; E11.9 Type 2 diabetes mellitus without complications; E03.9 Hypothyroidism, unspecified; F32.9 Major depressive disorder, single episode, unspecified; F41.9 Anxiety disorder, unspecified; G40.909 Epilepsy, unspecified, not intractable, without status epilepticus; G89.21 Chronic pain due to trauma; N31.9 Neuromuscular dysfunction of bladder, unspecified; Z96.0 Presence of urogenital implants; K59.00 Constipation, unspecified; N18.9 Chronic kidney disease, unspecified; Z66 Do not resuscitate; E66.9 Obesity, unspecified; Z68.35 Body mass index [BMI] 35.0-35.9, adult; Z74.01 Bed confinement status; Z87.828 Personal history of other (healed) physical injury and trauma; Z87.01 Personal history of pneumonia (recurrent); Z87.440 Personal history of urinary (tract) infections; Z86.14 Personal history of Methicillin resistant Staphylococcus aureus infection; Z91.5 Personal history of self-harm; Z87.891 Personal history of nicotine dependence; Z98.0 Intestinal bypass and anastomosis status; Z90.81 Acquired absence of spleen; Z90.49 Acquired absence of other specified parts of digestive tract; Z90.710 Acquired absence of both cervix and uterus; Z98.890 Other specified postprocedural states; Z79.1 Long term (current) use of non-steroidal anti-inflammatories (NSAID); Z79.2 Long term (current) use of antibiotics; Z79.4 Long term (current) use of insulin; Z79.52 Long term (current) use of systemic steroids; Z79.891 Long term (current) use of opiate analgesic; Z79.899 Other long term (current) drug therapy; Z88.2 Allergy status to sulfonamides; Z88.6 Allergy status to analgesic agent; Z88.8 Allergy status to other drugs, medicaments and biological substances; Z83.3 Family history of diabetes mellitus; Z82.49 Family history of ischemic heart disease and other diseases of the circulatory system; Z83.49 Family history of other endocrine, nutritional and metabolic diseases

== ENCOUNTER → 2018-01-13 | Outpatient (CLI) | payer OTHER ==
[~2018-01-13] MED LIST changes: +ALBU18002 INH; +AMOX500T3 PO; -ATROPINE SULFATE 0.1 MG/ML 5ML SYR IV PRN; -EpHEDrine SULFATE INJ 50 MG/ML AMP IV PRN; +FRS/40 PO; -HYDROmorphone INJ 0.5 MG/0.5 ML SYR ONE; -HYDROmorphone INJ 2 MG/ML SYR/VIAL IV PRN; -LIDOCAINE HCL 2% 2 ML VIAL (20MG/ML) ONE; +MULT-16 PO; +PRED10TA PO; -PROPOFOL IV EMULSION 10 MG/ML 20 ML VIAL IV ONE; +SENN-61 PO; -SODIUM CHLORIDE 0.9% 500ML 500 ML IV ONE
[2018-01-13 09:33] LABS: ALT/SGPT 26 U/L (12-78); BLOOD UREA NITROGEN 13 mg/dl (7-18); CARBON DIOXIDE 35 mmol/L (21-32); CHOLESTEROL 190 mg/dl (0-200); CREATININE 0.48 mg/dl (0.60-1.20); GLUCOSE 149 mg/dl (70-99); POTASSIUM 3.9 mmol/L (3.5-5.1); SODIUM 137 mmol/L (136-145)
[2018-01-13 09:36] LABS: ALKALINE PHOSPHATASE 106 U/L (45-117); AST/SGOT 20 U/L (15-37); LDL CHOLESTEROL CALCULATED 56 mg/dl; TOTAL PROTEIN 6.8 gm/dl (6.4-8.2)
== END ==
LOC: C.LABCC 08:55
PROVIDERS: ATTEND Internal Medicine
DX: R60.0 Localized edema (principal); E78.5 Hyperlipidemia, unspecified

== ENCOUNTER 2018-02-22 23:00 | Emergency (ER) | payer OTHER ==
[~2018-02-22 23:00] MED LIST changes: +ALBU18002 INH; -CIPR1TAB11 PO; -CLIN150C PO; +DXY100 PO; +FRS/40 PO; -FURO-85 PO; +MCTP EXT; +MULT-16 PO; +NITR100C4 PO; +SENN-61 PO; -SODIENE PR
[2018-02-22 23:10] VITALS: Ht 147.3 cm
[2018-02-22] MEDS ORDERED: NITR100C4 PO (23:35)
[2018-02-22] MEDS ORDERED: HYDR2TAB48 PO (23:35)
[2018-02-22 23:45] LABS: BASO % 0.5 %; BASO ABS # 0.08 K/uL (0-0.2); EOS % 0.6 %; EOS ABS # 0.09 K/uL (0-0.5); HEMATOCRIT 36.4 % (37-47); HEMOGLOBIN 11.7 g/dL (12.0-16.0); IG# 0.05 K/uL (0.00-0.02); MEAN CELL VOLUME 92.4 fL (80-100); MEAN CORPUSCULAR HEMOGLOBIN 29.7 pg (25-34); MEAN CORPUSCULAR HGB CONC 32.1 g/dl (32-36); MEAN PLATELET VOLUME 11.1 fL (7.4-10.4); MONO % 9.6 %; NEUT ABS # 10.66 K/uL (1.4-6.5); PLATELET COUNT 574 K/uL (130-400); WHITE BLOOD COUNT 15.68 K/uL (4.8-10.8)
[2018-02-22] MEDS ORDERED: VNTHFA/IN INH (23:49)
[2018-02-22] MEDS ORDERED: ACET-1175 PO (23:49)
[2018-02-22 23:51] VITALS: O2SAT 99
[2018-02-22 23:54] LABS: INR 0.9 (0.9-1.1); PTT PATIENT 24.3 SECONDS (21.0-31.0)
[2018-02-23 00:09] LABS: ALBUMIN 2.7 gm/dl (3.4-5.0); ALT/SGPT 19 U/L (12-78); AST/SGOT 17 U/L (15-37); BLOOD UREA NITROGEN 11 mg/dl (7-18); CALCIUM 8.7 mg/dl (8.5-10.1); CARBON DIOXIDE 32 mmol/L (21-32); CREATININE 0.84 mg/dl (0.60-1.20); GLUCOSE 175 mg/dl (70-99); POTASSIUM 3.6 mmol/L (3.5-5.1); SODIUM 138 mmol/L (136-145)
[2018-02-23 00:12] LABS: ALKALINE PHOSPHATASE 198 U/L (45-117); CKMB 1.3 ng/ml (0.5-3.6); TOTAL PROTEIN 6.8 gm/dl (6.4-8.2)
[2018-02-23] MEDS ORDERED: LEVOFLOXACIN 250 MG TAB PO STA (01:05)
--- NOTE | 2018-02-23 01:32 | EMERGENCY ROOM VISIT NOTE ---
History Report prepared by Ochoa: Shobha Denney Under the Supervision of: Dr. Tommy Goodman D.O. First contact with patient: 23:04 Chief Complaint: RESPIRATORY PROBLEMS Stated Complaint: RESP. DIFFICULTY Nursing Triage Summary: Pt states she started with severe midsternal chest pain at 2129 tonight and then had gotten short of breath. Per EMS patient was 83% on RA. Pt placed on 2L and given duoneb on transport. Pt states that she chronically wears 3L NC at home. Pt states she feels better at this time, no shortness of breath or chest pain. History of Present Illness The patient is a 77 year old female who presents to the Emergency Room with complaints of persistent SOB starting around 2129 today. The patient presents to the ED by EMS from [facility]. Around 2129, she started complaining of SOB and chest pain. EMS found that the patient was 83% on room air. She received a DuoNeb in route. She has had a cough which is mostly dry. She has been eating well and denies any gagging. She reports chills. She has had a headache all day. She denies any sick contacts. She denies any history of blood clots. She is a former smoker. Source of History: patient, nursing staff Onset: 2129 today Quality: other (SOB) Timing: other (persistent) Modifying Factors (Relieving): other (DuoNeb) Associated Symptoms: + chills, + headache, + cough, + chest pain Review of Systems See HPI for pertinent positives & negatives. A total of 10 systems reviewed and were otherwise negative. Past Medical & Surgical Medical Problems: (1) Acetaminophen overdose (2) Anemia (3) Aortic atherosclerosis (4) Chest pain (5) Chronic gastritis (6) Chronic kidney disease (7) Compression fracture of thoracic vertebra (8) Depressive disorder (9) Diabetes (10) Dyslipidemia (11) Esophageal stenosis (12) Frequent PVCs (13) Gall bladder disease (14) Gastroparesis (15) GERD (gastroesophageal reflux disease) (16) Hip fracture (17) History of frequent urinary tract infections (18) Hypertension (19) Hypotension (20) Hypothyroidism (21) indwelling catheter and recurrence UTI (22) indwelling catheter and recurrence UTI (23) Intractable pain (24) Pancreatitis (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 (26) Post op infection (27) Post-op pain (28) Rectal pain, chronic (29) sepsis (30) Sepsis secondary to UTI (31) UTI (urinary tract infection) (32) UTI (urinary tract infection) (33) uti possible sepsis, consipation Surgical Problems: (1) History of cholecystectomy (2) History of hysterectomy (3) Hx of appendectomy (4) Previous back surgery (5) S/P tonsillectomy and adenoidectomy Family History Cancer Diabetes mellitus FH: heart disease Social History Smoking Status: Former Smoker Alcohol Use: none Drug Use: none Marital Status: Housing Status: lives with family Occupation Status: retired Current/Historical Medications Scheduled Albuterol Hfa (Ventolin Hfa), 2 PUFFS INH BID Atorvastatin (Lipitor), 40 MG PO HS Docusate Sodium (Docusate Sodium), 100 MG PO BID Doxepin Hcl (Doxepin), 75 MG PO HS Duloxetine Hcl (Cymbalta), 60 MG PO QAM Famotidine (Pepcid), 20 MG PO BID Furosemide (Lasix), 40 MG PO QAM Hydromorphone Hcl (Dilaudid), 2 MG PO [id number] Insulin Glargine (Lantus), 35 UNITS SC HS Levetiracetam (Keppra), 500 MG PO BID Levothyroxine Sodium (Levothyroxine Sodium), 75 MG PO QAM Lubiprostone (Amitiza), 8 MCG PO BID Multiple Vitamins W/ Minerals (Thera-M), 1 TAB PO QAM Nitrofurantoin Macrocrystal (Macrodantin), 100 MG PO QAM Omeprazole (Prilosec), 20 MG PO DAILYBB Polyethylene Glycol 3350 (Miralax), 17 GM PO BID Potassium Chloride (Potassium Chloride ER), 20 MEQ PO QAM Probiotic Product (Probiotic), 1 CAP PO QAM Quetiapine Fumarate (Seroquel), 25 MG PO HS Senna (Senokot), 4 TABS PO BID Scheduled PRN Acetaminophen (Tylenol), 650 MG PO Q6H PRN for Pain or Fever Baclofen (Lioresal), 10 MG PO QID PRN for ABD PAIN/SPASMS Belladonna/Opium (B & O), 1 SUPP AK Q8 PRN for RECTAL PAIN Bisacodyl (Dulcolax), 1 SUPP AK DAILY PRN for Constipation Ipratropium-Albuterol (Duoneb), 1 TREATMENT INH Q6 PRN for Shortness of Breath Lorazepam (Ativan), 0.5 MG PO Q12 PRN for Anxiety Ondansetron Hcl (Zofran), 4 MG PO Q8 PRN for Nausea Allergies Coded Allergies: Ketorolac (Verified Allergy, Severe, see comment, 02/22/18) Patient reports " i about " when asked about reaction JET Inhibitors (Verified Adverse Reaction, Intermediate, ELEVATES CREATININE, 02/22/18) Sulfa Antibiotics (Verified Adverse Reaction, Intermediate, NAUSEATED, ) Physical Exam Vital Signs Date Time Temp Pulse Resp B/P (MAP) Pulse Ox O2 Delivery O2 Flow Rate FiO2 02/23/18 01:01 128/79 02/23/18 01:00 87 16 99 Nasal Cannula 3.0 02/23/18 00:31 126/69 02/23/18 00:30 94 12 99 02/23/18 00:02 146/76 02/23/18 00:00 89 19 100 02/22/18 23:51 99 Nasal Cannula 3.0 02/22/18 23:49 99 Nasal Cannula 3.0 02/22/18 23:49 136/77 02/22/18 23:30 98 20 96 02/22/18 23:17 98 02/22/18 23:10 36.5 101 20 122/61 98 Nasal Cannula 2.0 02/22/18 23:10 Nasal Cannula 2.0 02/22/18 23:05 122/61 Physical Exam GENERAL: Patient is awake, alert, non anxious, and comfortable appearing. EYES: The conjunctivae are clear. The pupils are round and reactive. EARS, NOSE, MOUTH AND THROAT: The nose is without any evidence of any deformity. Mucous membranes are moist tongue is midline NECK: The neck is nontender and supple. RESPIRATORY: Lung sounds diminished at the right base. There was scattered rhonchi in both upper lung arce. No tachypnea or conversational dyspnea was appreciated. CARDIOVASCULAR: Regular rate and rhythm noted there no murmurs rubs or gallops normal S1 normal S2 GASTROINTESTINAL: The abdomen is soft. Bowel sounds are present in all quadrants. Abdomen is nontender MUSCULOSKELETAL/EXTREMITIES: There is no evidence of gross deformity full range of motion is noted in the hips and shoulders SKIN: There is pedal edema bilaterally. No signs of cellulitis. NEUROLOGIC: Patient is awake alert and oriented x3 Medical Decision & Procedures ER Provider Diagnostic Interpretation: X-ray results as stated below per interpretation by me: Chest: Severe kyphoscoliosis noted. Cardiomegaly was noted. No definite infiltrate. Atelectasis at the left base. No significant change from -Jan-2018. Laboratory Results 02/22/18 23:15 Red Blood Count 3.94, Mean Corpuscular Volume 92.4, Mean Corpuscular Hemoglobin 29.7, Mean Corpuscular Hemoglobin Concent 32.1, Mean Platelet Volume 11.1, Neutrophils (%) (Auto) 68.0, Lymphocytes (%) (Auto) 21.0, Monocytes (%) (Auto) 9.6, Eosinophils (%) (Auto) 0.6, Basophils (%) (Auto) 0.5, Neutrophils # (Auto) 10.66, Lymphocytes # (Auto) 3.30, Monocytes # (Auto) 1.50, Eosinophils # (Auto) 0.09, Basophils # (Auto) 0.08 02/22/18 23:15 Test 02/22/18 23:15 02/22/18 23:18 02/22/18 23:55 02/23/18 01:07 White Blood Count 15.68 K/uL (4.8-10.8) Red Blood Count 3.94 M/uL (4.2-5.4) Hemoglobin 11.7 g/dL (12.0-16.0) Hematocrit 36.4 % (37-47) Mean Corpuscular Volume 92.4 fL (80-100) Mean Corpuscular Hemoglobin 29.7 pg (25-34) Mean Corpuscular Hemoglobin Concent 32.1 g/dl (32-36) Platelet Count 574 K/uL (130-400) Mean Platelet Volume 11.1 fL (7.4-10.4) Neutrophils (%) (Auto) 68.0 % Lymphocytes (%) (Auto) 21.0 % Monocytes (%) (Auto) 9.6 % Eosinophils (%) (Auto) 0.6 % Basophils (%) (Auto) 0.5 % Neutrophils # (Auto) 10.66 K/uL (1.4-6.5) Lymphocytes # (Auto) 3.30 K/uL (1.2-3.4) Monocytes # (Auto) 1.50 K/uL (0.11-0.59) Eosinophils # (Auto) 0.09 K/uL (0-0.5) Basophils # (Auto) 0.08 K/uL (0-0.2) RDW Standard Deviation 58.0 fL (36.4-46.3) RDW Coefficient of Variation 17.0 % (11.5-14.5) Immature Granulocyte % (Auto) 0.3 % Immature Granulocyte # (Auto) 0.05 K/uL (0.00-0.02) Erythrocyte Sedimentation Rate 44 mm/hr (0-21) Prothrombin Time 9.8 SECONDS (9.0-12.0) Prothromb Time International Ratio 0.9 (0.9-1.1) Activated Partial Thromboplast Time 24.3 SECONDS (21.0-31.0) Partial Thromboplastin Ratio 0.9 Anion Gap 6.0 mmol/L (3-11) Estimated GFR () 77.2 Estimated GFR (Non- 66.6 BUN/Creatinine Ratio 13.6 (10-20) Calcium Level 8.7 mg/dl (8.5-10.1) Magnesium Level 1.8 mg/dl (1.8-2.4) Total Bilirubin 0.2 mg/dl (0.2-1) Aspartate Amino Transf (AST/SGOT) 17 U/L (15-37) Alanine Aminotransferase (ALT/SGPT) 19 U/L (12-78) Alkaline Phosphatase 198 U/L (45-117) Total Creatine Kinase 38 U/L (26-192) Creatine Kinase MB 1.3 ng/ml (0.5-3.6) Creatine Kinase MB Ratio 3.4 (0-3.0) Troponin I < 0.015 ng/ml (0-0.045) C-Reactive Protein 0.43 mg/dl (0-0.29) Pro-B-Type Natriuretic Peptide 88 pg/ml (0-1800) Total Protein 6.8 gm/dl (6.4-8.2) Albumin 2.7 gm/dl (3.4-5.0) Globulin 4.1 gm/dl (2.5-4.0) Albumin/Globulin Ratio 0.7 (0.9-2) Bedside Lactic Acid Venous 1.53 mmol/L (0.90-1.70) Venous Blood pH 7.34 (7.36-7.41) Venous Blood Partial Pressure CO2 64 mmHg (38.0-50.0) Venous Blood Partial Pressure O2 30 mmHg Venous Blood HCO3 34 mmol/L Venous Blood Oxygen Saturation < 60.0 % Venous Blood Base Excess 6.5 mEq/L Urine Color YELLOW Urine Appearance CLOUDY (CLEAR) Urine pH 6.0 (4.5-7.5) Urine Specific [place] 1.025 (1.000-1.030) Urine Protein 2+ (NEG) Urine Glucose (UA) NEG (NEG) Urine Ketones TRACE (NEG) Urine Occult Blood 3+ (NEG) Urine Nitrite NEG (NEG) Urine Bilirubin NEG (NEG) Urine Urobilinogen NEG (NEG) Urine Leukocyte Esterase MODERATE (NEG) Urine RBC 10-30 /hpf (0-4) Urine WBC >30 /hpf (0-5) Urine Epithelial Cells 0-5 /lpf (0-5) Urine Calcium Oxalate Crystals PRESENT (NONE PRSENT) Urine Bacteria 1+ (NEG) Urine Yeast BUD W/ HYPHAE (NONE PRSENT) Laboratory results per my review. Medications Administered Medications (Trade) Dose Ordered Sig/Karen Route Start Time Stop Time Status Last Admin Dose Admin Levofloxacin (Levaquin Tab) 750 mg NOW STAT PO 02/23/18 01:05 02/23/18 01:06 DC 02/23/18 01:13 750 MG ECG Per My Interpretation Indication: SOB/dyspnea Rate (beats per minute): 98 Rhythm: sinus rhythm Findings: PVC, other (no acute ST segment abnormality) Comparison ECG Date: 24-Jan-2018 Change: no significant change ED Course 2307: The patient was evaluated in room B4B. A complete history and physical examination were performed. 2314: I spoke with Dr. Chand from [facility] who requests that I call back with the results to discuss if it could be managed at [facility]. 0105: Levofloxacin 750 mg PO. 0106: I called Dr. Chand to update him on the results. The patient will be discharged back to [facility]. 0112: Upon reevaluation, the patient is resting comfortably. I discussed the results and treatment plan with her. She verbalized agreement of the treatment plan. She was discharged home. Medical Decision Prior records/ancillary studies reviewed. Triage Nursing notes reviewed. Differential diagnosis: Etiologies such as infections, reactive airway disease, pneumonia, pneumothorax , COPD, CHF, cardiac ischemia, pulmonary embolism, musculoskeletal, gastrointestinal, as well as others were entertained. The patient is a 77-year-old female who presented to the emergency department for an evaluation of significant shortness of breath. The patient had shortness of breath which began earlier in the day. She was treated with a breathing treatment with significant improvement. Her breathing worsened this evening. She was sent to the emergency department by ambulance. She was given another breathing treatment and upon arrival her symptoms significantly improved again. The patient complained of a cough. She does not appear to have signs of pulmonary edema on chest x-ray or laboratory studies. She does have an elevated white blood cell count and a recent hospitalization. At this time I feel this is likely consistent with pneumonia. She was started on antibiotic. I discussed the patient's laboratory and radiographic studies with her. I also discussed her case with the physician covering the [facility]'s prison. At this time she is to be [facility] to the [facility] with continued pulmonary therapy as well as antibiotics. She was encouraged to continue all medications as prescribed and rest. I also recommended that she return to the emergency department immediately if symptoms change worsen or the need arises. Medication Reconcilliation Current Medication List: was personally reviewed by me Blood Pressure Screening Patient's blood pressure: Normal blood pressure Blood pressure disposition: Did not require urgent referral Consults Consulting Physician: Dr. Chand from [facility] Returned Call: [phone] Chand from [facility] who requests that I call back with the results to discuss if it could be managed at [facility]. Impression Primary Impression: Pneumonia Additional Impressions: Hypoxia Chest pain Scribe Attestation The scribe's documentation has been prepared under my direction and personally reviewed by me in its entirety. I confirm that the note above accurately reflects all work, treatment, procedures, and medical decision making performed by me. Departure Information Dispostion Home / Self-Care Referrals Wilfrid Swain M.D. (PCP) Forms HOME CARE DOCUMENTATION FORM, IMPORTANT VISIT INFORMATION, WORK / SCHOOL INSTRUCTIONS Patient Instructions My [facility], Pneumonia Additional Instructions Continue all medications as prescribed. Continue using albuterol treatments as previously. Problem Qualifiers Primary Impression: Pneumonia Pneumonia type: due to unspecified organism Laterality: unspecified laterality Lung location: unspecified part of lung Qualified Codes: J18.9 - Pneumonia, unspecified organism Additional Impressions: Chest pain Chest pain type: unspecified Qualified Codes: R07.9 - Chest pain, unspecified
[2018-02-23 01:56] VITALS: BP 140/79; PULSE 91; TEMP 36.5; O2SAT 99
--- NOTE | 2018-02-23 05:45 | DIAGNOSTIC IMAGING REPORT ---
CHEST ONE VIEW PORTABLE CLINICAL HISTORY: 77 years-old Female presenting with Sepsis. TECHNIQUE: Portable upright AP view of the chest was obtained. COMPARISON: 01/03/2012. FINDINGS: Atherosclerosis of aortic arch. Cardiac silhouette enlarged. Mildly low lung volumes with hypoventilatory changes, similar to prior exam. Obscuration of the left ventricular apex may be due to prominent pericardial fat. Bandlike opacities at the left lung base are similar to prior. No large pleural effusion or pneumothorax. Osteopenia and exaggerated thoracic kyphosis. Surgical clips project over the epigastrium. Extensive dental hardware evident. Upper abdomen normal. IMPRESSION: 1. Mildly low lung volumes with hypoventilatory changes and left basilar atelectasis similar to prior exam. No superimposed focal infiltrate or convincing evidence of acute cardiopulmonary disease. Electronically signed by: Hamilton Sandoval M.D. 02/23/2018 5:44 AM Dictated Date/Time: 02/23/2018 5:42 AM
== END 2018-02-23 01:56 | disposition home or self-care (01) ==
LOC: EDBD 23:00 → C.EDB 23:02
DX: J18.9 Pneumonia, unspecified organism (principal); R07.9 Chest pain, unspecified; R09.02 Hypoxemia; Z87.891 Personal history of nicotine dependence; D64.9 Anemia, unspecified; I70.0 Atherosclerosis of aorta; K29.50 Unspecified chronic gastritis without bleeding; N18.9 Chronic kidney disease, unspecified; F32.9 Major depressive disorder, single episode, unspecified; E11.9 Type 2 diabetes mellitus without complications; E78.5 Hyperlipidemia, unspecified; K82.9 Disease of gallbladder, unspecified; K22.2 Esophageal obstruction; K21.9 Gastro-esophageal reflux disease without esophagitis; K31.84 Gastroparesis; I12.9 Hypertensive chronic kidney disease with stage 1 through stage 4 chronic kidney disease, or unspecified chronic kidney disease; I95.9 Hypotension, unspecified; E03.9 Hypothyroidism, unspecified; K85.90 Acute pancreatitis without necrosis or infection, unspecified; Z87.440 Personal history of urinary (tract) infections; Z80.9 Family history of malignant neoplasm, unspecified; Z83.3 Family history of diabetes mellitus; Z82.49 Family history of ischemic heart disease and other diseases of the circulatory system; Z79.4 Long term (current) use of insulin; Z79.899 Other long term (current) drug therapy; Z88.2 Allergy status to sulfonamides; Z88.8 Allergy status to other drugs, medicaments and biological substances

== ENCOUNTER → 2018-03-05 | Outpatient (CLI) | payer OTHER ==
[~2018-03-05] MED LIST changes: +ACET-1175 PO; -ACET-1256 PO; -ALBU18002 INH; -DXY100 PO; -INSU100I SC; -MCTP EXT; -MOMLX PO; +VNTHFA/IN INH
[2018-03-05 09:56] LABS: BASO % 0.4 %; BASO ABS # 0.06 K/uL (0-0.2); EOS % 4.3 %; EOS ABS # 0.59 K/uL (0-0.5); HEMATOCRIT 30.7 % (37-47); HEMOGLOBIN 9.7 g/dL (12.0-16.0); IG# 0.05 K/uL (0.00-0.02); LYMPH % 19.3 %; LYMPH ABS # 2.68 K/uL (1.2-3.4); MEAN CELL VOLUME 91.9 fL (80-100); MEAN CORPUSCULAR HGB CONC 31.6 g/dl (32-36); MEAN PLATELET VOLUME 10.8 fL (7.4-10.4); MONO ABS # 1.53 K/uL (0.11-0.59); NEUT % 64.6 %; NEUT ABS # 8.97 K/uL (1.4-6.5); PLATELET COUNT 429 K/uL (130-400); RED CELL DISTRIBUTION WIDTH CV 17.1 % (11.5-14.5); RED CELL DISTRIBUTION WIDTH SD 57.5 fL (36.4-46.3); WHITE BLOOD COUNT 13.88 K/uL (4.8-10.8)
[2018-03-05 10:07] LABS: ALBUMIN 2.2 gm/dl (3.4-5.0); ALT/SGPT 16 U/L (12-78); BLOOD UREA NITROGEN 8 mg/dl (7-18); CALCIUM 8.5 mg/dl (8.5-10.1); CARBON DIOXIDE 30 mmol/L (21-32); CHOLESTEROL 105 mg/dl (0-200); CREATININE 0.43 mg/dl (0.60-1.20); GLUCOSE 90 mg/dl (70-99); POTASSIUM 3.8 mmol/L (3.5-5.1); SODIUM 140 mmol/L (136-145)
[2018-03-05 10:10] LABS: ALKALINE PHOSPHATASE 134 U/L (45-117); AST/SGOT 15 U/L (15-37); LDL CHOLESTEROL CALCULATED 17 mg/dl; TOTAL PROTEIN 5.9 gm/dl (6.4-8.2)
== END ==
LOC: C.LABUPNIT 08:51
PROVIDERS: ATTEND Nurse Practitioner Family
DX: I10 Essential (primary) hypertension (principal); Z87.440 Personal history of urinary (tract) infections; E03.9 Hypothyroidism, unspecified; E75.6 Lipid storage disorder, unspecified

== ENCOUNTER → 2018-03-19 | Outpatient (CLI) | payer OTHER ==
[2018-03-19 08:55] LABS: HEMATOCRIT 34.2 % (37-47); HEMOGLOBIN 10.2 g/dL (12.0-16.0); MEAN CELL VOLUME 94.2 fL (80-100); MEAN CORPUSCULAR HEMOGLOBIN 28.1 pg (25-34); MEAN CORPUSCULAR HGB CONC 29.8 g/dl (32-36); MEAN PLATELET VOLUME 12.3 fL (7.4-10.4); PLATELET COUNT 540 K/uL (130-400); RED CELL DISTRIBUTION WIDTH CV 17.1 % (11.5-14.5); RED CELL DISTRIBUTION WIDTH SD 59.4 fL (36.4-46.3)
== END ==
LOC: C.LABUPNIT 08:10
PROVIDERS: ATTEND Nurse Practitioner Family
DX: N39.0 Urinary tract infection, site not specified (principal)

== ENCOUNTER → 2018-03-20 | Outpatient (CLI) | payer OTHER ==
[2018-03-20 10:29] LABS: BLOOD UREA NITROGEN 8 mg/dl (7-18); CALCIUM 8.8 mg/dl (8.5-10.1); CARBON DIOXIDE 36 mmol/L (21-32); CREATININE 0.54 mg/dl (0.60-1.20); GLUCOSE 151 mg/dl (70-99); POTASSIUM 3.7 mmol/L (3.5-5.1); SODIUM 138 mmol/L (136-145)
== END ==
LOC: C.LABUPNIT 09:59
PROVIDERS: ATTEND Nurse Practitioner Family
DX: E08.8 Diabetes mellitus due to underlying condition with unspecified complications (principal)

== ENCOUNTER → 2018-03-27 | Outpatient (CLI) | payer OTHER ==
[2018-03-27 10:13] LABS: BLOOD UREA NITROGEN 10 mg/dl (7-18); CALCIUM 9.1 mg/dl (8.5-10.1); CARBON DIOXIDE 33 mmol/L (21-32); CREATININE 0.52 mg/dl (0.60-1.20); GLUCOSE 124 mg/dl (70-99); POTASSIUM 4.2 mmol/L (3.5-5.1); SODIUM 139 mmol/L (136-145)
[2018-03-27 15:47] LABS: BASO % 0.3 %; BASO ABS # 0.04 K/uL (0-0.2); EOS ABS # 0.13 K/uL (0-0.5); HEMATOCRIT 35.1 % (37-47); HEMOGLOBIN 11.1 g/dL (12.0-16.0); IG# 0.04 K/uL (0.00-0.02); LYMPH % 17.6 %; LYMPH ABS # 2.38 K/uL (1.2-3.4); MEAN CELL VOLUME 92.9 fL (80-100); MEAN CORPUSCULAR HEMOGLOBIN 29.4 pg (25-34); MEAN CORPUSCULAR HGB CONC 31.6 g/dl (32-36); MEAN PLATELET VOLUME 12.3 fL (7.4-10.4); MONO % 8.4 %; MONO ABS # 1.13 K/uL (0.11-0.59); NEUT % 72.4 %; NEUT ABS # 9.79 K/uL (1.4-6.5); PLATELET COUNT 489 K/uL (130-400); RED CELL DISTRIBUTION WIDTH SD 57.4 fL (36.4-46.3); WHITE BLOOD COUNT 13.51 K/uL (4.8-10.8)
== END ==
LOC: C.LABUPNIT 09:15
PROVIDERS: ATTEND Nurse Practitioner Family
DX: R09.81 Nasal congestion (principal); E08.8 Diabetes mellitus due to underlying condition with unspecified complications

== ENCOUNTER → 2018-03-28 | Outpatient (CLI) | payer OTHER ==
[~2018-03-28] MED LIST changes: +AMOX875T PO; +BISA-16 PO; +FURO-85 PO
== END ==
LOC: C.LABUPNIT 09:08
PROVIDERS: ATTEND Nurse Practitioner Family
DX: R50.9 Fever, unspecified (principal)

== ENCOUNTER 2018-04-02 19:35 | Inpatient (IN) | payer OTHER ==
[~2018-04-02] VITALS: Ht 147.3 cm; Wt 73.8 kg
[~2018-04-02 19:35] MED LIST changes: -AMOX875T PO; -BISA-16 PO; -FURO-85 PO
[2018-04-02] MEDS ORDERED: ALBUT/IPRATROP 3MG/0.5MG NEB 3 ML VIAL INH STA (19:54)
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
--- NOTE | 2018-04-02 20:52 | DIAGNOSTIC IMAGING REPORT ---
SINGLE VIEW CHEST CLINICAL HISTORY: Atypical chest pain. FINDINGS: 2 AP, portable, upright chest radiographs are compared to study dated 02/22/2018 and correlated with chest CT dated 01/13/2018. The examination is significantly degraded by portable technique and patient rotation, as well as by the patient's head obscuring the lung apices. The heart is enlarged and there is atherosclerotic calcification of the thoracic aorta. There is prominence of the pulmonary vasculature. There are low lung volumes with bibasilar atelectasis. There is no evidence of airspace consolidation or large pleural effusion. Chronic interstitial thickening is similar to previous. No pneumothorax is seen. The skeletal structures are osteopenic. There are healed left-sided rib fractures. Extensive fusion hardware is noted in the cervical spine. Surgical clips are noted in the upper abdomen. IMPRESSION: 1. Cardiomegaly with prominence of the central pulmonary vessels. Correlate clinically for evidence of mild congestive failure. 2. Low lung volumes with no airspace consolidation or large pleural effusion identified. Electronically signed by: Marvin Weiner M.D. 04/02/2018 8:50 PM Dictated Date/Time: 04/02/2018 8:48 PM
[2018-04-02 21:27] LABS: BASO % 0.4 %; BASO ABS # 0.06 K/uL (0-0.2); EOS % 1.6 %; EOS ABS # 0.26 K/uL (0-0.5); HEMATOCRIT 31.8 % (37-47); IG# 0.07 K/uL (0.00-0.02); LYMPH % 26.3 %; LYMPH ABS # 4.39 K/uL (1.2-3.4); MEAN CELL VOLUME 92.7 fL (80-100); MEAN CORPUSCULAR HEMOGLOBIN 29.2 pg (25-34); MEAN CORPUSCULAR HGB CONC 31.4 g/dl (32-36); MEAN PLATELET VOLUME 12.2 fL (7.4-10.4); MONO % 8.1 %; MONO ABS # 1.36 K/uL (0.11-0.59); NEUT % 63.2 %; NEUT ABS # 10.58 K/uL (1.4-6.5); PLATELET COUNT 424 K/uL (130-400); RED CELL DISTRIBUTION WIDTH CV 16.9 % (11.5-14.5); RED CELL DISTRIBUTION WIDTH SD 57.3 fL (36.4-46.3); WHITE BLOOD COUNT 16.72 K/uL (4.8-10.8)
[2018-04-02] MEDS ORDERED: METHYLPREDNISOLONE 125 MG VIAL IV STA (21:27)
[2018-04-02] MEDS ORDERED: VANCOMYCIN IV 1,500 MG in SODIUM CHLORIDE 0.9% 500ML 500 ML IV STA (21:27)
[2018-04-02] MEDS ORDERED: AZITHROMYCIN IV 500 MG in DEXTROSE 5% 250ML 250 ML IV STA (21:27)
[2018-04-02] MEDS ORDERED: CEFEPIME IV 1,000 MG in DEXTROSE 5% 100ML 100 ML IV STA (21:27)
[2018-04-02] MEDS ORDERED: ALBUT/IPRATROP 3MG/0.5MG NEB 3 ML VIAL INH ONE (21:30)
[2018-04-02] MEDS ORDERED: VANCOMYCIN CONSULT ACTIVE PRN (21:30)
[2018-04-02 21:32] LABS: ALBUMIN 2.7 gm/dl (3.4-5.0); ALT/SGPT 15 U/L (12-78); AST/SGOT 13 U/L (15-37); BLOOD UREA NITROGEN 7 mg/dl (7-18); CALCIUM 8.5 mg/dl (8.5-10.1); CARBON DIOXIDE 34 mmol/L (21-32); CREATININE 0.58 mg/dl (0.60-1.20); GLUCOSE 236 mg/dl (70-99); LIPASE 55 U/L (73-393); POTASSIUM 3.3 mmol/L (3.5-5.1); SODIUM 139 mmol/L (136-145)
[2018-04-02 21:35] LABS: INR 0.9 (0.9-1.1)
[2018-04-02 21:37] LABS: ALKALINE PHOSPHATASE 152 U/L (45-117); TOTAL PROTEIN 6.4 gm/dl (6.4-8.2)
[2018-04-02] MEDS ORDERED: LORAZEPAM 0.5 MG TAB PO STA (22:28)
[2018-04-02] MEDS ORDERED: SODIUM CHLORIDE 0.9% 250ML 250 ML IV STA (22:29)
[2018-04-02 22:34] VITALS: PULSE 112; O2SAT 95
[2018-04-02 22:39] VITALS: PULSE 112; O2SAT 95
[2018-04-02] MEDS ORDERED: BISA-16 PO (23:26)
[2018-04-02] MEDS ORDERED: FURO-85 PO (23:28)
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
[2018-04-02] MEDS ORDERED: AMOX875T PO (23:36)
[2018-04-02] MEDS ORDERED: VANCOMYCIN IV 1,000 MG in SODIUM CHLORIDE 0.9% 250ML 250 ML IV STA (23:46)
[2018-04-02] MEDS ORDERED: PIPERACILL/TAZOBAC IV 4.5 GM in DEXTROSE 5% 100ML 100 ML IV STA (23:46)
[2018-04-03] VITALS (13 sets, daily range): BP systolic 116–154; BP diastolic 56–84; PULSE 100–110; TEMP 36.4–37.1; O2SAT 93–100; Ht 147.3 cm; Wt 73.8 kg
[2018-04-03] MEDS ORDERED: ONDANSETRON INJ 2 MG/ML 2 ML VIAL IV PRN
[2018-04-03] MEDS ORDERED: ALUMINUM/MAGNESIUM/SIMETH (MAALOX MAX) 30 ML UDC PO PRN
[2018-04-03] MEDS ORDERED: VANCOMYCIN CONSULT ACTIVE PRN
[2018-04-03] MEDS ORDERED: MAGNESIUM HYDROXIDE SUSP 30 ML UDC PO PRN
[2018-04-03] MEDS ORDERED: POLYETHYLENE (MIRALAX) 17 GM PACK PO PRN
[2018-04-03] MEDS ORDERED: ACETAMINOPHEN 325 MG TAB PO PRN
[2018-04-03 00:54] LABS: CALCIUM 8.4 mg/dl (8.5-10.1); CREATININE 0.51 mg/dl (0.60-1.20); POTASSIUM 3.4 mmol/L (3.5-5.1)
[2018-04-03] MEDS ORDERED: PIPERACILL/TAZOBAC CONSULT ACTIVE PRN (01:45)
[2018-04-03] MEDS ORDERED: PIPERACILL/TAZOBAC IV 4.5 GM in NSS 100 ML IV ONE (02:45)
[2018-04-03] MEDS ORDERED: SODIUM CHLORIDE 0.9% 1000ML 1,000 ML IV SCH (03:00)
[2018-04-03] MEDS ORDERED: NURSING VERBAL MED ORDER ONE (03:15)
[2018-04-03] MEDS: HYDROmorphone HCL 2 MG TAB PO PRN ×7 (03:54→23:41)
[2018-04-03] MEDS: GUAIFENESIN 200 MG TAB PO SCH ×6 (04:00→23:41)
[2018-04-03 04:35] LABS: HEMATOCRIT 34.5 % (37-47); MEAN CELL VOLUME 91.8 fL (80-100); MEAN CORPUSCULAR HEMOGLOBIN 29.3 pg (25-34); MEAN CORPUSCULAR HGB CONC 31.9 g/dl (32-36); MEAN PLATELET VOLUME 11.6 fL (7.4-10.4); PLATELET COUNT 443 K/uL (130-400); RED CELL DISTRIBUTION WIDTH CV 16.9 % (11.5-14.5); RED CELL DISTRIBUTION WIDTH SD 56.7 fL (36.4-46.3); WHITE BLOOD COUNT 16.09 K/uL (4.8-10.8)
[2018-04-03 04:54] LABS: CALCIUM 8.8 mg/dl (8.5-10.1); CREATININE 0.59 mg/dl (0.60-1.20); POTASSIUM 3.8 mmol/L (3.5-5.1)
[2018-04-03 04:57] LABS: TOTAL PROTEIN 7.3 gm/dl (6.4-8.2)
[2018-04-03] MEDS: PANTOprazole SOD 40 MG TAB PO SCH (05:44)
[2018-04-03] MEDS: LEVOTHYROXINE 75 MCG TAB PO SCH (05:44)
[2018-04-03] MEDS: ALBUT/IPRATROP 3MG/0.5MG NEB 3 ML VIAL INH SCH ×5 (06:55→20:01)
[2018-04-03] MEDS: PIPERACILL/TAZOBAC IV 4.5 GM in NSS 100 ML IV SCH ×3 (07:43→23:41)
[2018-04-03] MEDS: VANCOMYCIN IV 1,000 MG in SODIUM CHLORIDE 0.9% 250ML 250 ML IV SCH ×2 (07:43→20:36)
[2018-04-03] MEDS: DULOXETINE HCL 60 MG CAP PO SCH (07:56)
[2018-04-03] MEDS: LEVETIRACETAM 500 MG TAB PO SCH ×2 (07:56→20:45)
[2018-04-03] MEDS: FAMOTIDINE 20 MG TAB PO SCH ×2 (07:56→20:40)
[2018-04-03] MEDS: ENOXAPARIN 40 MG/0.4 ML SYR SC SCH (07:57)
[2018-04-03] MEDS: BACLOFEN 10 MG TAB PO PRN (08:27)
--- NOTE | 2018-04-03 11:15 | Pharmacy Progress Note ---
Pharmacy Abx Initial Consult Date of Service April 03, 2018. Pharmacy Dosing Scope Date of Consult: 04/03/18 Consultation requested by: Dr. Noel Pharmacy is consulted to initiate Vancomycin/Zosyn IV dosing therapy, order appropriate labs and adjust drug dose/frequency. Subjective The patient is a 77 year old female admitted on April 03, 2018 at 00:13 admitted for UTI/possible pneumonia Objective Height (Feet): 4 Height (Inches): 10.00 Weight (Kilograms): 73.800 (BMI 34) Vital Signs (Past 12Hrs) Vital Signs Past 12 Hours Date Time Temp Pulse Resp B/P (MAP) Pulse Ox O2 Delivery O2 Flow Rate FiO2 04/03/18 08:00 36.6 104 18 154/71 (98) 97 Nasal Cannula 3.0 04/03/18 08:00 Nasal Cannula 3.0 04/03/18 06:56 104 20 97 Nasal Cannula 3.0 04/03/18 04:00 95 Nasal Cannula 3.0 35 04/03/18 04:00 36.7 108 22 142/78 (99) 93 Nasal Cannula 3.0 04/03/18 02:27 36.7 108 18 148/82 Nasal Cannula 3.0 04/03/18 02:00 102 22 95 04/03/18 01:08 106 22 145/76 95 Nasal Cannula 3.0 04/03/18 00:14 104 22 168/107 96 Nasal Cannula 3.0 04/02/18 23:27 78 20 146/111 98 Lab Results (24Hrs) Laboratory Tests (24 Hours) Test 04/02/18 20:45 04/02/18 20:46 04/03/18 04:28 Procalcitonin < 0.05 ng/ml (0-0.5) White Blood Count 16.72 K/uL (4.8-10.8) H 16.09 K/uL (4.8-10.8) H Red Blood Count 3.43 M/uL (4.2-5.4) L Hemoglobin 10.0 g/dL (12.0-16.0) L Hematocrit 31.8 % (37-47) L Mean Corpuscular Volume 92.7 fL (80-100) Mean Corpuscular Hemoglobin 29.2 pg (25-34) Mean Corpuscular Hemoglobin Concent 31.4 g/dl (32-36) L Platelet Count 424 K/uL (130-400) H Mean Platelet Volume 12.2 fL (7.4-10.4) H Neutrophils (%) (Auto) 63.2 % Lymphocytes (%) (Auto) 26.3 % Monocytes (%) (Auto) 8.1 % Eosinophils (%) (Auto) 1.6 % Basophils (%) (Auto) 0.4 % Neutrophils # (Auto) 10.58 K/uL (1.4-6.5) H Lymphocytes # (Auto) 4.39 K/uL (1.2-3.4) H Monocytes # (Auto) 1.36 K/uL (0.11-0.59) H Eosinophils # (Auto) 0.26 K/uL (0-0.5) Basophils # (Auto) 0.06 K/uL (0-0.2) Lactic Acid Level 1.4 mmol/L (0.4-2.0) Micro Results Date/Time Source Procedure Growth Status 04/02/18 20:58 Blood Blood Culture Pending Received 04/02/18 20:46 Blood Blood Culture Pending Received 04/02/18 22:40 Urine,Catheterized Urine Culture Pending Received Risk Factors for Resistance * Resident in a jail * Hospitalization for 48 hours or more within the past 90 days * Antimicrobial use within the last 90 days Augmentin 875mg BID started for bibasilar infiltrate & Macrodantin 100mg Daily for UTI prophylaxis Assessment & Plan Assessment 77 year old female admitted 04/03/18 for UTI/possible pneumonia. Has been on Augmentin 875 BID (started 03/28/18)/Macrodantin 100 daily for UTI prophylaxis. To be started on Vancomycin and Zosyn as an inpatient. Plan Vancomycin IV * Est PK parameters: Vd ~0.55L/kg, Shakeel ~0.071 hr-1, T1/2 ~ 9.8 hr, CrCl ~80 ml/ min * Loading dose: 1500 mg (~20 mg/kg) * Maintenance dose: 1000 mg IV (~13 mg/kg) every 12 hours * Goal trough level for indication : 15 to 20 mcg/mL * Trough level ordered for 04/04/18 @ 0730 Piperacillin/tazobactam * 4.5 g bolus administered over 30 minutes, then 4.5 g IV extended infusion every 8 hours for CrCl greater than 20 mL/min OR every 12 hours for CrCl 20 mL/ min or less and dialysis. * Aggressive dosing selected due to critically ill status/BMI 35 or more/ history of cystic fibrosis. Pharmacy will continue to follow and will adjust dose/frequency as necessary. Thank you.
[2018-04-03] MEDS: BISACODYL 10 MG SUPP PR SCH (11:18)
[2018-04-03] MEDS: DOCUSATE SODIUM 100 MG CAP PO SCH ×2 (11:19→20:42)
[2018-04-03] MEDS: SENNA 8.6 MG TAB PO SCH ×2 (11:19→20:40)
[2018-04-03] MEDS: BISACODYL 5 MG TABEC PO SCH (11:20)
[2018-04-03] MEDS ORDERED: DEXTROSE 50% 50 ML SYR IV PRN (14:45)
[2018-04-03] MEDS ORDERED: GLUCAGON FOR INJ 1 MG VIAL IM PRN (14:45)
[2018-04-03] MEDS ORDERED: GLUCOSE 10 TABS/TUBE PO PRN (14:45)
[2018-04-03] MEDS ORDERED: GLUCOSE 40% GEL 15 GM TUBE PO PRN (14:45)
[2018-04-03] MEDS ORDERED: ALBUT/IPRATROP 3MG/0.5MG NEB 3 ML VIAL INH ONE (15:22)
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
--- NOTE | 2018-04-03 16:35 | DIAGNOSTIC IMAGING REPORT ---
(CHEST) THORAX WITHOUT CLINICAL HISTORY: 77 years-old Female presenting with SOB, SUSPECTED PNA. TECHNIQUE: Multidetector CT imaging of the chest was performed without the use of intravenous contrast. IV contrast: None. A dose lowering technique was used consistent with the principles of ALARA (as low as reasonably achievable). COMPARISON: CTA chest from 01/13/2018. CT DOSE (mGy.cm): The estimated cumulative dose is 824.40 mGy.cm. FINDINGS: [employer] topogram: Suboptimal positioning. Surgical clips project over the lower mediastinum. On soft tissue windows, partially visualized brain parenchyma demonstrates age-related changes. Visualized portion of the soft tissues of the neck also included within the [id number] within normal limits. High density material in the right maxillary sinus suggests chronic allergic fungal sinusitis. There is associated sclerosis of the right maxillary sinus plasencia. Normal thyroid. No axillary, supraclavicular, or mediastinal lymphadenopathy. Evaluation of the shayy limited without intravenous contrast. Atherosclerosis of the aorta. Normal heart size. Coronary artery and aortic valve calcification. Trace pericardial effusion. No significant pleural effusion. Surgical clip noted at the gastroesophageal junction. Borderline hepatic steatosis. On lung windows, extensive dependent consolidation and volume loss greater on the left. Central airways patent. On bone windows, significant exaggerated thoracic kyphosis with posterior fusion hardware at the cervicothoracic junction. Kyphotic deformity is in part a result of wedging deformities of the upper cervical vertebral bodies. Fracture deformity of T9, which appears new from prior exam. Deformity of the left clavicle suggests prior fracture. IMPRESSION: 1. Evaluation is limited by patient positioning. Interval development of a new fracture deformity at T9. Slightly secondary to osteopenia. 2. Extensive bilateral dependent consolidation volume loss most suggestive of extensive atelectasis. This has slightly increased from the prior exam. Electronically signed by: Hamilton Sandoval M.D. 04/03/2018 4:33 PM Dictated Date/Time: 04/03/2018 4:25 PM
[2018-04-03] MEDS: INSULIN ASPART 100 UNITS/ML 3 ML PEN SC SCH ×2 (17:27→20:54)
[2018-04-03] MEDS: ATORVASTATIN 20 MG TAB PO SCH (20:41)
[2018-04-03] MEDS: QUETIAPINE FUMARATE 25 MG TAB PO SCH (20:43)
[2018-04-03] MEDS: DOXEPIN HCL 75 MG CAP PO SCH (20:45)
[2018-04-03] MEDS ORDERED: INSULIN GLARGINE SOLOSTAR 100 UNITS/ML 3 ML PEN SC SCH (21:00)
[2018-04-04] VITALS (9 sets, daily range): BP systolic 109–142; BP diastolic 68–84; PULSE 62–104; TEMP 36.3–37.1; O2SAT 94–99
[2018-04-04] MEDS: GUAIFENESIN 200 MG TAB PO SCH ×5 (04:15→21:58)
[2018-04-04] MEDS: HYDROmorphone HCL 2 MG TAB PO PRN ×4 (04:16→19:39)
[2018-04-04] MEDS: LEVOTHYROXINE 75 MCG TAB PO SCH (06:02)
[2018-04-04] MEDS: PANTOprazole SOD 40 MG TAB PO SCH (06:02)
[2018-04-04] MEDS: ALBUT/IPRATROP 3MG/0.5MG NEB 3 ML VIAL INH SCH ×6 (06:59→19:24)
[2018-04-04] MEDS: INSULIN ASPART 100 UNITS/ML 3 ML PEN SC SCH ×4 (07:00→22:07)
[2018-04-04] MEDS: CARBOHYDRATES FOR HYPOGLYCEMIA PO PRN ×2 (07:18→07:40)
[2018-04-04] MEDS ORDERED: VANCOMYCIN TROUGH ONE (07:30)
[2018-04-04 07:35] LABS: HEMATOCRIT 30.2 % (37-47); HEMOGLOBIN 9.9 g/dL (12.0-16.0); MEAN CELL VOLUME 92.6 fL (80-100); MEAN CORPUSCULAR HEMOGLOBIN 30.4 pg (25-34); MEAN CORPUSCULAR HGB CONC 32.8 g/dl (32-36); MEAN PLATELET VOLUME 11.7 fL (7.4-10.4); PLATELET COUNT 393 K/uL (130-400); RED CELL DISTRIBUTION WIDTH CV 17.1 % (11.5-14.5); RED CELL DISTRIBUTION WIDTH SD 57.3 fL (36.4-46.3); WHITE BLOOD COUNT 13.41 K/uL (4.8-10.8)
[2018-04-04 08:15] LABS: ALBUMIN 2.6 gm/dl (3.4-5.0); CALCIUM 8.4 mg/dl (8.5-10.1); CREATININE 0.43 mg/dl (0.60-1.20); POTASSIUM 3.5 mmol/L (3.5-5.1); TOTAL PROTEIN 6.2 gm/dl (6.4-8.2)
[2018-04-04] MEDS: VANCOMYCIN IV 1,000 MG in SODIUM CHLORIDE 0.9% 250ML 250 ML IV SCH (08:30)
[2018-04-04] MEDS: PIPERACILL/TAZOBAC IV 4.5 GM in NSS 100 ML IV SCH ×2 (08:30→17:19)
[2018-04-04] MEDS: FAMOTIDINE 20 MG TAB PO SCH ×2 (08:31→21:57)
[2018-04-04] MEDS: LEVETIRACETAM 500 MG TAB PO SCH ×2 (08:31→21:57)
[2018-04-04] MEDS: DOCUSATE SODIUM 100 MG CAP PO SCH ×2 (08:31→21:56)
[2018-04-04] MEDS: DULOXETINE HCL 60 MG CAP PO SCH (08:31)
[2018-04-04] MEDS: SENNA 8.6 MG TAB PO SCH ×2 (08:32→21:58)
[2018-04-04] MEDS: ENOXAPARIN 40 MG/0.4 ML SYR SC SCH (08:33)
[2018-04-04] MEDS: BISACODYL 5 MG TABEC PO SCH (08:39)
[2018-04-04] MEDS ORDERED: FUROSEMIDE 20 MG TAB PO STA (14:15)
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
--- NOTE | 2018-04-04 14:34 | Pharmacy Progress Note ---
Pharmacy Abx Dose Progress Nt Date of Service April 04, 2018. Pharmacy Dosing Scope The patient is currently receiving the following antimicrobial agents per Pharmacy consult: Vancomycin 1000 mg IV every 12 hours Zosyn 4.5g IV every 8 hours Objective Height (Feet): 4 Height (Inches): 10.00 Weight (Kilograms): 73.800 Vital Signs (Past 12Hrs) Vital Signs Past 12 Hours Date Time Temp Pulse Resp B/P (MAP) Pulse Ox O2 Delivery O2 Flow Rate FiO2 04/04/18 12:00 Nasal Cannula 3.0 04/04/18 11:50 36.9 99 22 132/68 (89) 98 Nasal Cannula 3.0 04/04/18 11:31 91 18 99 Nasal Cannula 3.0 04/04/18 08:02 36.9 97 18 109/68 (82) 95 Nasal Cannula 3.0 04/04/18 08:00 Nasal Cannula 3.0 04/04/18 06:59 94 18 97 Nasal Cannula 3.0 04/04/18 04:29 36.9 100 17 122/74 (90) 98 Nasal Cannula Humidified Oxygen 04/04/18 04:00 Nasal Cannula 3.0 Lab Results (24Hrs) Laboratory Tests (24 Hours) Test 04/04/18 07:22 White Blood Count 13.41 K/uL (4.8-10.8) H Micro Results Date/Time Source Procedure Growth Status 04/02/18 20:58 Blood Blood Culture - Preliminary NO GROWTH TO DATE. Resulted 04/02/18 20:46 Blood Blood Culture - Preliminary NO GROWTH TO DATE. Resulted 04/02/18 22:40 Urine,Catheterized Urine Culture - Preliminary Yeast Not Lizy Albicans Resulted Risk Factors for Resistance * Resident in a fdc or extended-care facility * Hospitalization for 48 hours or more within the past 90 days * History of infection with a multidrug-resistant organism: MRSA pneumonia * Antimicrobial use within the last 90 days; augmentin, macrobid Assessment & Plan Assessment 77 year old female receiving vancomycin and zosyn IV for treatment of sepsis secondary to pneumonia, aspiration, UTI. * h/o chronic kelly catheter with recurrent UTIs * patient was on day # 7 of Augmentin at the time of admission with worsening symptoms * Day # 2 of of antimicrobial therapy this admission. BC reported NG and urine culture growing yeast non-C.albicans. Of note, sample was drawn from catheterized urine and likely represents colonization unless patient is symptomatic Plan Vancomycin IV * Trough level of 20.6 mcg/mL is mildly supratherapeutic. * Decrease dose to 750 mg IV every 12 hours * Goal trough level for pulm : 15 to 20 mcg/mL * Repeat trough level ordered for 04/06/18 * Did not order MRSA nasal swab per patient has recent history of MRSA pneumonia and is likely colonized Piperacillin/tazobactam * Continue 4.5 g IV extended infusion every 8 hours for CrCl greater than 20 mL/ min Pharmacy will continue to follow and will adjust dose/frequency as necessary. Thank you.
[2018-04-04] MEDS: VANCOMYCIN IV 750 MG in SODIUM CHLORIDE 0.9% 250ML 250 ML IV SCH (21:54)
[2018-04-04] MEDS: DOXEPIN HCL 75 MG CAP PO SCH (21:55)
[2018-04-04] MEDS: QUETIAPINE FUMARATE 25 MG TAB PO SCH (21:56)
[2018-04-04] MEDS: ATORVASTATIN 20 MG TAB PO SCH (21:57)
[2018-04-04] MEDS: INSULIN GLARGINE SOLOSTAR 100 UNITS/ML 3 ML PEN SC SCH (22:09)
[2018-04-05] VITALS (8 sets, daily range): BP systolic 136–138; BP diastolic 72–81; PULSE 88–95; TEMP 36.7–36.8; O2SAT 96–100
[2018-04-05] MEDS: PIPERACILL/TAZOBAC IV 4.5 GM in NSS 100 ML IV SCH ×2 (00:35→08:56)
[2018-04-05] MEDS: GUAIFENESIN 200 MG TAB PO SCH ×6 (00:39→20:43)
[2018-04-05] MEDS: HYDROmorphone HCL 2 MG TAB PO PRN ×5 (01:00→20:46)
[2018-04-05 06:01] LABS: HEMATOCRIT 29.8 % (37-47); HEMOGLOBIN 9.2 g/dL (12.0-16.0); MEAN CELL VOLUME 93.4 fL (80-100); MEAN CORPUSCULAR HEMOGLOBIN 28.8 pg (25-34); MEAN CORPUSCULAR HGB CONC 30.9 g/dl (32-36); MEAN PLATELET VOLUME 11.3 fL (7.4-10.4); PLATELET COUNT 408 K/uL (130-400); RED CELL DISTRIBUTION WIDTH CV 17.1 % (11.5-14.5); RED CELL DISTRIBUTION WIDTH SD 58.7 fL (36.4-46.3); WHITE BLOOD COUNT 13.09 K/uL (4.8-10.8)
[2018-04-05] MEDS: PANTOprazole SOD 40 MG TAB PO SCH (06:15)
[2018-04-05] MEDS: LEVOTHYROXINE 75 MCG TAB PO SCH (06:15)
[2018-04-05 06:36] LABS: CALCIUM 8.2 mg/dl (8.5-10.1); CREATININE 0.52 mg/dl (0.60-1.20); POTASSIUM 3.6 mmol/L (3.5-5.1)
[2018-04-05] MEDS: BISACODYL 10 MG SUPP PR SCH (06:48)
[2018-04-05] MEDS: ALBUT/IPRATROP 3MG/0.5MG NEB 3 ML VIAL INH SCH ×4 (07:24→19:10)
[2018-04-05] MEDS: VANCOMYCIN IV 750 MG in SODIUM CHLORIDE 0.9% 250ML 250 ML IV SCH ×2 (08:56→20:53)
[2018-04-05] MEDS: SENNA 8.6 MG TAB PO SCH ×2 (08:56→20:44)
[2018-04-05] MEDS: FAMOTIDINE 20 MG TAB PO SCH ×2 (08:56→20:45)
[2018-04-05] MEDS: LEVETIRACETAM 500 MG TAB PO SCH ×2 (08:56→20:45)
[2018-04-05] MEDS: DOCUSATE SODIUM 100 MG CAP PO SCH ×2 (08:57→20:44)
[2018-04-05] MEDS: DULOXETINE HCL 60 MG CAP PO SCH (08:57)
[2018-04-05] MEDS: FUROSEMIDE 20 MG TAB PO SCH (08:59)
[2018-04-05] MEDS: INSULIN ASPART 100 UNITS/ML 3 ML PEN SC SCH ×4 (08:59→20:51)
[2018-04-05] MEDS: ENOXAPARIN 40 MG/0.4 ML SYR SC SCH (09:02)
[2018-04-05] MEDS: BISACODYL 5 MG TABEC PO SCH (10:30)
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
[2018-04-05] MEDS: CEFTRIAXONE SOD INJ 1,000 MG in DEXTROSE 5% 50ML 50 ML IV SCH (15:51)
[2018-04-05] MEDS: BACLOFEN 10 MG TAB PO PRN (15:51)
[2018-04-05] MEDS: QUETIAPINE FUMARATE 25 MG TAB PO SCH (20:44)
[2018-04-05] MEDS: ATORVASTATIN 20 MG TAB PO SCH (20:44)
[2018-04-05] MEDS: DOXEPIN HCL 75 MG CAP PO SCH (20:45)
[2018-04-05] MEDS: INSULIN GLARGINE SOLOSTAR 100 UNITS/ML 3 ML PEN SC SCH (20:50)
[2018-04-06] VITALS (10 sets, daily range): BP systolic 132–168; BP diastolic 78–83; PULSE 91–115; TEMP 36.4–36.9; O2SAT 97–100
[2018-04-06] MEDS: GUAIFENESIN 200 MG TAB PO SCH ×7 (01:10→23:34)
[2018-04-06] MEDS: HYDROmorphone HCL 2 MG TAB PO PRN ×8 (01:10→23:56)
[2018-04-06] MEDS: LEVOTHYROXINE 75 MCG TAB PO SCH (06:27)
[2018-04-06] MEDS: PANTOprazole SOD 40 MG TAB PO SCH (06:27)
[2018-04-06] MEDS: ALBUT/IPRATROP 3MG/0.5MG NEB 3 ML VIAL INH SCH ×4 (07:19→19:20)
[2018-04-06 07:26] LABS: BASO % 0.3 %; BASO ABS # 0.04 K/uL (0-0.2); EOS % 1.5 %; EOS ABS # 0.21 K/uL (0-0.5); HEMATOCRIT 32.1 % (37-47); HEMOGLOBIN 10.2 g/dL (12.0-16.0); IG# 0.06 K/uL (0.00-0.02); LYMPH % 12.3 %; LYMPH ABS # 1.72 K/uL (1.2-3.4); MEAN CELL VOLUME 92.2 fL (80-100); MEAN CORPUSCULAR HEMOGLOBIN 29.3 pg (25-34); MEAN CORPUSCULAR HGB CONC 31.8 g/dl (32-36); MEAN PLATELET VOLUME 11.3 fL (7.4-10.4); MONO % 6.9 %; MONO ABS # 0.97 K/uL (0.11-0.59); NEUT % 78.6 %; PLATELET COUNT 420 K/uL (130-400); RED CELL DISTRIBUTION WIDTH SD 56.5 fL (36.4-46.3)
[2018-04-06] MEDS ORDERED: VANCOMYCIN TROUGH ONE (07:30)
[2018-04-06 08:00] LABS: CALCIUM 8.6 mg/dl (8.5-10.1); CREATININE 0.39 mg/dl (0.60-1.20); POTASSIUM 3.1 mmol/L (3.5-5.1)
[2018-04-06] MEDS: DOCUSATE SODIUM 100 MG CAP PO SCH ×2 (08:23→21:04)
[2018-04-06] MEDS: FAMOTIDINE 20 MG TAB PO SCH ×2 (08:23→21:06)
[2018-04-06] MEDS: DULOXETINE HCL 60 MG CAP PO SCH (08:23)
[2018-04-06] MEDS: LEVETIRACETAM 500 MG TAB PO SCH ×2 (08:24→21:07)
[2018-04-06] MEDS: FUROSEMIDE 20 MG TAB PO SCH (08:24)
[2018-04-06] MEDS: TRAZODONE HCL 50 MG TAB PO PRN ×2 (08:24→23:37)
[2018-04-06] MEDS: SENNA 8.6 MG TAB PO SCH ×2 (08:25→21:05)
[2018-04-06] MEDS: ENOXAPARIN 40 MG/0.4 ML SYR SC SCH (08:26)
[2018-04-06] MEDS: VANCOMYCIN IV 750 MG in SODIUM CHLORIDE 0.9% 250ML 250 ML IV SCH ×2 (08:32→21:08)
[2018-04-06] MEDS: BISACODYL 5 MG TABEC PO SCH (08:32)
--- NOTE | 2018-04-06 08:40 | Pharmacy Progress Note ---
Pharmacy Abx Dose Progress Nt Date of Service April 06, 2018. Pharmacy Dosing Scope The patient is currently receiving the following antimicrobial agents per Pharmacy consult: Vancomycin 1,000 mg IV every 12 hours Objective Height (Feet): 4 Height (Inches): 10.00 Weight (Kilograms): 73.800 Vital Signs (Past 12Hrs) Vital Signs Past 12 Hours Date Time Temp Pulse Resp B/P (MAP) Pulse Ox O2 Delivery O2 Flow Rate FiO2 04/06/18 08:03 36.4 101 18 143/82 (102) 99 2.0 04/06/18 07:22 91 18 100 Nasal Cannula 4.0 04/06/18 01:18 115 26 168/78 (108) 99 Nasal Cannula 4.0 04/06/18 00:00 98 Nasal Cannula 4.0 35 Lab Results (24Hrs) Laboratory Tests (24 Hours) Test 04/06/18 07:13 White Blood Count 14.00 K/uL (4.8-10.8) H Red Blood Count 3.48 M/uL (4.2-5.4) L Hemoglobin 10.2 g/dL (12.0-16.0) L Hematocrit 32.1 % (37-47) L Mean Corpuscular Volume 92.2 fL (80-100) Mean Corpuscular Hemoglobin 29.3 pg (25-34) Mean Corpuscular Hemoglobin Concent 31.8 g/dl (32-36) L Platelet Count 420 K/uL (130-400) H Mean Platelet Volume 11.3 fL (7.4-10.4) H Neutrophils (%) (Auto) 78.6 % Lymphocytes (%) (Auto) 12.3 % Monocytes (%) (Auto) 6.9 % Eosinophils (%) (Auto) 1.5 % Basophils (%) (Auto) 0.3 % Neutrophils # (Auto) 11.00 K/uL (1.4-6.5) H Lymphocytes # (Auto) 1.72 K/uL (1.2-3.4) Monocytes # (Auto) 0.97 K/uL (0.11-0.59) H Eosinophils # (Auto) 0.21 K/uL (0-0.5) Basophils # (Auto) 0.04 K/uL (0-0.2) Micro Results Date/Time Source Procedure Growth Status 04/02/18 20:58 Blood Blood Culture - Preliminary NO GROWTH TO DATE. Resulted 04/02/18 20:46 Blood Blood Culture - Preliminary NO GROWTH TO DATE. Resulted 04/05/18 21:00 Stool C.difficile Toxin B Gene (PCR) - Final No C. difficile toxin B gene detected Complete 04/02/18 22:40 Urine,Catheterized Urine Culture - Final Lizy Glabrata (T. Glabrata) Complete Risk Factors for Resistance * Resident in a assisted or extended-care facility * Hospitalization for 48 hours or more within the past 90 days * History of infection with a multidrug-resistant organism: MRSA pneumonia * Antimicrobial use within the last 90 days; augmentin, macrobid Assessment & Plan Assessment 77 year old female receiving vancomycin and ceftriaxone IV for treatment of sepsis secondary to pneumonia, aspiration, UTI. * h/o chronic kelly catheter with recurrent UTIs * patient was on day # 7 of Augmentin at the time of admission with worsening symptoms, therefore broad spectrum abx warranted * Day # 2 of of antimicrobial therapy this admission. BC reported NG and urine culture growing yeast non-C.albicans. Of note, sample was drawn from catheterized urine and likely represents colonization unless patient is symptomatic Plan Vancomycin IV * Trough level of 14.6 mcg/mL is therapeutic * Continue dose of 750 mg IV every 12 hours * Goal trough level for pulm : 15 to 20 mcg/mL * No repeat trough level needed at this time. Will re-order trough level if renal function changes or else otherwise clinically warranted. Piperacillin/tazobactam * De-escalated to Rocephin yesterday appropriately. Pharmacy will continue to follow and will adjust dose/frequency as necessary. Thank you.
[2018-04-06] MEDS: INSULIN ASPART 100 UNITS/ML 3 ML PEN SC SCH ×4 (09:15→21:18)
[2018-04-06] MEDS ORDERED: POTASSIUM CHLORIDE 20 MEQ/15 ML UDC PO ONE (11:15)
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
[2018-04-06] MEDS: CEFTRIAXONE SOD INJ 1,000 MG in DEXTROSE 5% 50ML 50 ML IV SCH (16:32)
[2018-04-06] MEDS: BACLOFEN 10 MG TAB PO PRN (18:46)
[2018-04-06] MEDS: QUETIAPINE FUMARATE 25 MG TAB PO SCH (21:05)
[2018-04-06] MEDS: ATORVASTATIN 20 MG TAB PO SCH (21:05)
[2018-04-06] MEDS: DOXEPIN HCL 75 MG CAP PO SCH (21:06)
[2018-04-06] MEDS: INSULIN GLARGINE SOLOSTAR 100 UNITS/ML 3 ML PEN SC SCH (21:18)
[2018-04-07] VITALS (7 sets, daily range): BP systolic 136–157; BP diastolic 71–87; PULSE 90–103; TEMP 36.6–36.9; O2SAT 97–100
[2018-04-07] MEDS: GUAIFENESIN 200 MG TAB PO SCH ×6 (03:48→23:48)
[2018-04-07] MEDS: HYDROmorphone HCL 2 MG TAB PO PRN ×7 (03:48→22:38)
[2018-04-07] MEDS: LEVOTHYROXINE 75 MCG TAB PO SCH (05:58)
[2018-04-07] MEDS: PANTOprazole SOD 40 MG TAB PO SCH (05:58)
[2018-04-07 06:04] LABS: BASO % 0.3 %; BASO ABS # 0.04 K/uL (0-0.2); EOS % 2.6 %; EOS ABS # 0.32 K/uL (0-0.5); HEMOGLOBIN 9.4 g/dL (12.0-16.0); IG# 0.03 K/uL (0.00-0.02); LYMPH % 22.3 %; LYMPH ABS # 2.73 K/uL (1.2-3.4); MEAN CELL VOLUME 92.3 fL (80-100); MEAN CORPUSCULAR HEMOGLOBIN 28.9 pg (25-34); MEAN CORPUSCULAR HGB CONC 31.3 g/dl (32-36); MEAN PLATELET VOLUME 11.7 fL (7.4-10.4); NEUT % 65.6 %; NEUT ABS # 8.01 K/uL (1.4-6.5); PLATELET COUNT 411 K/uL (130-400); RED CELL DISTRIBUTION WIDTH CV 17.3 % (11.5-14.5); RED CELL DISTRIBUTION WIDTH SD 58.2 fL (36.4-46.3); WHITE BLOOD COUNT 12.23 K/uL (4.8-10.8)
[2018-04-07 06:37] LABS: CALCIUM 8.2 mg/dl (8.5-10.1); CREATININE 0.36 mg/dl (0.60-1.20)
[2018-04-07] MEDS: ALBUT/IPRATROP 3MG/0.5MG NEB 3 ML VIAL INH SCH ×4 (07:14→19:11)
[2018-04-07] MEDS: VANCOMYCIN IV 750 MG in SODIUM CHLORIDE 0.9% 250ML 250 ML IV SCH (09:13)
[2018-04-07] MEDS: FAMOTIDINE 20 MG TAB PO SCH ×2 (09:13→19:28)
[2018-04-07] MEDS: LEVETIRACETAM 500 MG TAB PO SCH ×2 (09:14→19:26)
[2018-04-07] MEDS: BISACODYL 10 MG SUPP PR SCH (09:14)
[2018-04-07] MEDS: SENNA 8.6 MG TAB PO SCH ×2 (09:15→19:30)
[2018-04-07] MEDS: DULOXETINE HCL 60 MG CAP PO SCH (09:15)
[2018-04-07] MEDS: DOCUSATE SODIUM 100 MG CAP PO SCH ×2 (09:15→19:30)
[2018-04-07] MEDS: FUROSEMIDE 20 MG TAB PO SCH (09:16)
[2018-04-07] MEDS: BACLOFEN 10 MG TAB PO PRN ×2 (09:17→15:11)
[2018-04-07] MEDS: ENOXAPARIN 40 MG/0.4 ML SYR SC SCH (09:17)
[2018-04-07] MEDS: BISACODYL 5 MG TABEC PO SCH (09:19)
[2018-04-07] MEDS: INSULIN ASPART 100 UNITS/ML 3 ML PEN SC SCH ×4 (09:20→21:00)
[2018-04-07] MEDS: LORAZEPAM 0.5 MG TAB PO PRN ×2 (17:40→23:52)
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
[2018-04-07] MEDS: CEFDINIR 300 MG CAP PO SCH (19:27)
[2018-04-07] MEDS: ATORVASTATIN 20 MG TAB PO SCH (22:09)
[2018-04-07] MEDS: QUETIAPINE FUMARATE 25 MG TAB PO SCH (22:10)
[2018-04-07] MEDS: DOXEPIN HCL 75 MG CAP PO SCH (22:10)
[2018-04-07] MEDS: INSULIN GLARGINE SOLOSTAR 100 UNITS/ML 3 ML PEN SC SCH (22:14)
[2018-04-08] MEDS: HYDROmorphone HCL 2 MG TAB PO PRN ×4 (02:36→15:27)
[2018-04-08] MEDS: BACLOFEN 10 MG TAB PO PRN ×2 (02:43→15:27)
[2018-04-08] MEDS: GUAIFENESIN 200 MG TAB PO SCH ×4 (04:00→15:28)
[2018-04-08 06:12] LABS: BASO % 0.4 %; BASO ABS # 0.05 K/uL (0-0.2); EOS % 2.7 %; EOS ABS # 0.36 K/uL (0-0.5); HEMATOCRIT 30.7 % (37-47); HEMOGLOBIN 9.6 g/dL (12.0-16.0); IG# 0.04 K/uL (0.00-0.02); LYMPH % 21.2 %; MEAN CELL VOLUME 92.7 fL (80-100); MEAN CORPUSCULAR HGB CONC 31.3 g/dl (32-36); MEAN PLATELET VOLUME 11.1 fL (7.4-10.4); MONO ABS # 1.32 K/uL (0.11-0.59); NEUT % 65.4 %; NEUT ABS # 8.63 K/uL (1.4-6.5); PLATELET COUNT 441 K/uL (130-400); RED CELL DISTRIBUTION WIDTH CV 17.5 % (11.5-14.5); RED CELL DISTRIBUTION WIDTH SD 58.1 fL (36.4-46.3)
[2018-04-08] MEDS: PANTOprazole SOD 40 MG TAB PO SCH (06:16)
[2018-04-08] MEDS: LEVOTHYROXINE 75 MCG TAB PO SCH (06:16)
[2018-04-08] MEDS: LORAZEPAM 0.5 MG TAB PO PRN (06:25)
[2018-04-08 06:41] LABS: CALCIUM 8.1 mg/dl (8.5-10.1); CREATININE 0.45 mg/dl (0.60-1.20); POTASSIUM 2.9 mmol/L (3.5-5.1)
[2018-04-08] MEDS: ALBUT/IPRATROP 3MG/0.5MG NEB 3 ML VIAL INH SCH ×3 (07:20→15:36)
[2018-04-08 07:22] VITALS: PULSE 87; O2SAT 99
[2018-04-08] MEDS ORDERED: POTASSIUM CHLORIDE 20 MEQ TABCR PO STA (07:27)
[2018-04-08 07:38] VITALS: BP 130/74; PULSE 83; TEMP 36.9; O2SAT 100
[2018-04-08] MEDS: SENNA 8.6 MG TAB PO SCH (08:20)
[2018-04-08] MEDS: FUROSEMIDE 20 MG TAB PO SCH (08:20)
[2018-04-08] MEDS: FAMOTIDINE 20 MG TAB PO SCH (08:20)
[2018-04-08] MEDS: DOCUSATE SODIUM 100 MG CAP PO SCH (08:20)
[2018-04-08] MEDS: CEFDINIR 300 MG CAP PO SCH (08:20)
[2018-04-08] MEDS: ENOXAPARIN 40 MG/0.4 ML SYR SC SCH (08:21)
[2018-04-08] MEDS: DULOXETINE HCL 60 MG CAP PO SCH (08:21)
[2018-04-08] MEDS: LEVETIRACETAM 500 MG TAB PO SCH (08:21)
[2018-04-08] MEDS: INSULIN ASPART 100 UNITS/ML 3 ML PEN SC SCH ×2 (08:22→13:24)
[2018-04-08] MEDS: BISACODYL 5 MG TABEC PO SCH (08:31)
[2018-04-08 11:28] VITALS: PULSE 94; O2SAT 98
[2018-04-08] MEDS ORDERED: CEFD300C3 PO (13:59)
[2018-04-08 14:11] VITALS: BP 130/74; PULSE 94; TEMP 36.9; O2SAT 98
--- NOTE | 2018-04-08 14:13 | Discharge Instructions ---
Discharge Instructions Date of Service April 08, 2018. Admission Reason for Admission: Sepsis,Sob ( Shortness Of Breath), Discharge Discharge Diagnosis / Problem: Sepsis 2/2 UTI / Pneumonia Discharge Goals Goal(s): Decrease discomfort, Improve function, Increase independence, Improve nutritional status, Diagnostic testing Activity Recommendations Activity Level: Assistance Required Therapies: Physical Therapy, Occupational Therapy . Additional Information Patient informed of condition: Yes Advance Directives: Yes DNR: Yes Level of Care: Skilled Communicable Disease: No Prognosis: Stable Instructions / Follow-Up Instructions / Follow-Up Ms. Ramirez was admitted with sepsis 2/2 to urinary and pulmonary source Please continue Cefdinir for another 7 days, resume macrobid once cefdinir is completed Current Hospital Diet Patient's current hospital diet: Diabetes Type 2 Diet, AHA Diet (Heart Healthy) Discharge Diet Recommended Diet: Diabetes Type 2 Diet Pending Studies Studies pending at discharge: no Laboratory Results Hemoglobin A1c Test 03/05/18 04:11 Range/Units Estimated Average Glucose 183 mg/dl Hemoglobin A1c 8.0 H 4.5-5.6 % Lipid Panel Test 03/05/18 04:11 Range/Units Triglycerides Level 155 H 0-150 mg/dl Cholesterol Level 105 0-200 mg/dl HDL Cholesterol 57 mg/dl Cholesterol/HDL Ratio 1.8 LDL Cholesterol, Calculated 17 mg/dl Medical Emergencies . Who to Call and When: Medical Emergencies: If at any time you feel your situation is an emergency, please call 911 immediately. . Non-Emergent Contact Non-Emergency issues call your: Primary Care Provider Call Non-Emergent contact if: you have a fever . . "Provider Documentation" section prepared by Juliana Tong. .
[2018-04-08 15:04] VITALS: BP 158/80; PULSE 90; TEMP 36.9; O2SAT 100
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
== END 2018-04-08 16:12 | DRG 871 ==
LOC: EDBD 19:35 → C.EDB 19:37 → C.2T 04-03 00:13 → EDBEDREQ 04-03 00:15 → ENRESERV 04-03 01:52 → C.4E 04-04 17:04 → CANBEDREQ 04-04 17:13
PROVIDERS: ADMIT Hospitalist; ATTEND Family Medicine
DX: A41.9 Sepsis, unspecified organism (principal); J18.9 Pneumonia, unspecified organism; J96.21 Acute and chronic respiratory failure with hypoxia; I13.0 Hypertensive heart and chronic kidney disease with heart failure and stage 1 through stage 4 chronic kidney disease, or unspecified chronic kidney disease; I50.32 Chronic diastolic (congestive) heart failure; G82.20 Paraplegia, unspecified; N39.0 Urinary tract infection, site not specified; E11.22 Type 2 diabetes mellitus with diabetic chronic kidney disease; N18.9 Chronic kidney disease, unspecified; E78.5 Hyperlipidemia, unspecified; E03.9 Hypothyroidism, unspecified; N31.9 Neuromuscular dysfunction of bladder, unspecified; G89.29 Other chronic pain; K59.00 Constipation, unspecified; Z88.2 Allergy status to sulfonamides; Z99.81 Dependence on supplemental oxygen; F32.9 Major depressive disorder, single episode, unspecified; F41.9 Anxiety disorder, unspecified; Z87.891 Personal history of nicotine dependence; G40.909 Epilepsy, unspecified, not intractable, without status epilepticus; Z66 Do not resuscitate; Z79.4 Long term (current) use of insulin; Z79.899 Other long term (current) drug therapy

== ENCOUNTER → 2018-04-10 | Outpatient (CLI) | payer OTHER ==
[~2018-04-10] MED LIST changes: +BISA-16 PO; +CEFD300C3 PO; -FRS/40 PO; +FURO-85 PO
[2018-04-10 09:45] LABS: BASO % 0.4 %; BASO ABS # 0.05 K/uL (0-0.2); EOS % 2.6 %; EOS ABS # 0.37 K/uL (0-0.5); HEMATOCRIT 32.2 % (37-47); HEMOGLOBIN 9.8 g/dL (12.0-16.0); IG# 0.04 K/uL (0.00-0.02); LYMPH % 24.7 %; LYMPH ABS # 3.51 K/uL (1.2-3.4); MEAN CELL VOLUME 94.4 fL (80-100); MEAN CORPUSCULAR HEMOGLOBIN 28.7 pg (25-34); MEAN CORPUSCULAR HGB CONC 30.4 g/dl (32-36); MEAN PLATELET VOLUME 11.6 fL (7.4-10.4); MONO % 10.5 %; NEUT % 61.5 %; NEUT ABS # 8.76 K/uL (1.4-6.5); PLATELET COUNT 506 K/uL (130-400); RED CELL DISTRIBUTION WIDTH CV 17.9 % (11.5-14.5); WHITE BLOOD COUNT 14.23 K/uL (4.8-10.8)
[2018-04-10 09:54] LABS: BLOOD UREA NITROGEN 13 mg/dl (7-18); CALCIUM 8.6 mg/dl (8.5-10.1); CARBON DIOXIDE 31 mmol/L (21-32); GLUCOSE 185 mg/dl (70-99); POTASSIUM 3.9 mmol/L (3.5-5.1); SODIUM 140 mmol/L (136-145)
== END ==
LOC: C.LABUPNIT 09:09
PROVIDERS: ATTEND Nurse Practitioner Family
DX: J18.8 Other pneumonia, unspecified organism (principal); E08.8 Diabetes mellitus due to underlying condition with unspecified complications

== ENCOUNTER → 2018-04-11 | Outpatient (CLI) | payer OTHER ==
[2018-04-11 08:36] LABS: BASO % 0.4 %; BASO ABS # 0.05 K/uL (0-0.2); EOS % 3.3 %; EOS ABS # 0.41 K/uL (0-0.5); HEMATOCRIT 32.2 % (37-47); HEMOGLOBIN 9.9 g/dL (12.0-16.0); IG# 0.06 K/uL (0.00-0.02); LYMPH % 25.6 %; LYMPH ABS # 3.13 K/uL (1.2-3.4); MEAN CELL VOLUME 93.9 fL (80-100); MEAN CORPUSCULAR HEMOGLOBIN 28.9 pg (25-34); MEAN CORPUSCULAR HGB CONC 30.7 g/dl (32-36); MEAN PLATELET VOLUME 11.8 fL (7.4-10.4); MONO % 10.4 %; MONO ABS # 1.27 K/uL (0.11-0.59); NEUT % 59.8 %; NEUT ABS # 7.32 K/uL (1.4-6.5); PLATELET COUNT 498 K/uL (130-400); RED CELL DISTRIBUTION WIDTH CV 17.7 % (11.5-14.5); RED CELL DISTRIBUTION WIDTH SD 60.5 fL (36.4-46.3); WHITE BLOOD COUNT 12.24 K/uL (4.8-10.8)
== END | disposition home or self-care (01) ==
LOC: C.LABUPNIT 07:56
PROVIDERS: ATTEND Nurse Practitioner Family
DX: J18.8 Other pneumonia, unspecified organism (principal); D72.829 Elevated white blood cell count, unspecified

== ENCOUNTER → 2018-04-14 | Outpatient (CLI) | payer OTHER ==
[2018-04-14 09:31] LABS: HEMATOCRIT 36.2 % (37-47); MEAN CORPUSCULAR HEMOGLOBIN 28.9 pg (25-34); MEAN CORPUSCULAR HGB CONC 30.4 g/dl (32-36); MEAN PLATELET VOLUME 11.7 fL (7.4-10.4); PLATELET COUNT 525 K/uL (130-400); RED CELL DISTRIBUTION WIDTH CV 17.3 % (11.5-14.5); RED CELL DISTRIBUTION WIDTH SD 60.5 fL (36.4-46.3); WHITE BLOOD COUNT 12.72 K/uL (4.8-10.8)
== END ==
LOC: C.LABUPNIT 09:06
PROVIDERS: ATTEND Nurse Practitioner Family
DX: N39.0 Urinary tract infection, site not specified (principal)

== ENCOUNTER → 2018-04-17 | Outpatient (CLI) | payer OTHER ==
[2018-04-17 08:35] LABS: BASO % 0.4 %; BASO ABS # 0.05 K/uL (0-0.2); EOS % 2.9 %; EOS ABS # 0.35 K/uL (0-0.5); HEMATOCRIT 33.7 % (37-47); HEMOGLOBIN 10.4 g/dL (12.0-16.0); IG# 0.03 K/uL (0.00-0.02); LYMPH % 31.7 %; LYMPH ABS # 3.77 K/uL (1.2-3.4); MEAN CELL VOLUME 93.6 fL (80-100); MEAN CORPUSCULAR HEMOGLOBIN 28.9 pg (25-34); MEAN CORPUSCULAR HGB CONC 30.9 g/dl (32-36); MEAN PLATELET VOLUME 11.2 fL (7.4-10.4); MONO % 9.6 %; MONO ABS # 1.14 K/uL (0.11-0.59); NEUT % 55.1 %; NEUT ABS # 6.54 K/uL (1.4-6.5); PLATELET COUNT 628 K/uL (130-400); RED CELL DISTRIBUTION WIDTH CV 17.1 % (11.5-14.5); RED CELL DISTRIBUTION WIDTH SD 58.4 fL (36.4-46.3); WHITE BLOOD COUNT 11.88 K/uL (4.8-10.8)
== END ==
LOC: C.LABUPNIT 08:16
PROVIDERS: ATTEND Nurse Practitioner Family
DX: J18.8 Other pneumonia, unspecified organism (principal)

== ENCOUNTER → 2018-06-18 | Outpatient (CLI) | payer OTHER ==
[~2018-06-18] MED LIST changes: -CEFD300C3 PO; +IPRA-64 INH; -IPRASOL4 INH; +MAGNSUS PO; -MISCCAP80 PO; +NVLG SC; +SACC250C11 PO; +SODIENE PR; +[UNRECOGNIZED DRUG - CODE] PO
[2018-06-18 09:54] LABS: BASO % 0.4 %; BASO ABS # 0.05 K/uL (0-0.2); EOS % 1.2 %; EOS ABS # 0.14 K/uL (0-0.5); HEMATOCRIT 32.4 % (37-47); HEMOGLOBIN 9.8 g/dL (12.0-16.0); IG# 0.03 K/uL (0.00-0.02); LYMPH % 23.2 %; LYMPH ABS # 2.74 K/uL (1.2-3.4); MEAN CORPUSCULAR HEMOGLOBIN 27.5 pg (25-34); MEAN CORPUSCULAR HGB CONC 30.2 g/dl (32-36); MEAN PLATELET VOLUME 11.6 fL (7.4-10.4); MONO ABS # 1.18 K/uL (0.11-0.59); NEUT % 64.9 %; NEUT ABS # 7.65 K/uL (1.4-6.5); PLATELET COUNT 535 K/uL (130-400); RED CELL DISTRIBUTION WIDTH CV 16.8 % (11.5-14.5); RED CELL DISTRIBUTION WIDTH SD 55.6 fL (36.4-46.3); WHITE BLOOD COUNT 11.79 K/uL (4.8-10.8)
== END ==
LOC: C.LABUPUNI 09:08
PROVIDERS: ATTEND Nurse Practitioner Family
DX: J44.9 Chronic obstructive pulmonary disease, unspecified (principal)

== ENCOUNTER → 2018-06-20 | Outpatient (CLI) | payer OTHER ==
[2018-06-20 08:06] LABS: HEMATOCRIT 35.3 % (37-47); HEMOGLOBIN 10.8 g/dL (12.0-16.0)
== END | disposition home or self-care (01) ==
LOC: C.LABUPUNI 07:54
PROVIDERS: ATTEND Nurse Practitioner Family
DX: M62.81 Muscle weakness (generalized) (principal)